=== PATIENT | male | born 1945 | race Caucasian/White ===

== ENCOUNTER 2019-03-17 13:04 | Inpatient (IN) ==
--- OUTSIDE RECORDS SUMMARY | 2019-03-17 13:08 | External Medical Summary | Continuity of Care Document ---
:1945 Author Name Junior Hanley, Provider Address Unavailable Unavailable , Care Team Providers Name Role Phone Gerard Hanley, Lavelle Unavailable [email or web address], [email or web address] Unavailable Unavailable Problems Active medical history not documented Allergies and Adverse Reactions Allergy history not documented Medications Medications not documented Procedures Procedures not documented Immunizations Immunizations not documented Plan of Treatment Planned Observations Planned Goals not documented Results No Known Results Results not documented
[2019-03-17 14:03] LABS: Basophils # (auto) 0.03 K/uL (0-0.2); Basophils % (auto) 0.5 %; Eosinophils # (auto) 0.24 K/uL (0-0.5); Eosinophils % (auto) 4.2 %; Hematocrit (blood only) 40.7 % (42-52); Hemoglobin 13.2 g/dL (14.0-18.0); Immature Granulocytes # (auto) 0.01 K/uL (0.00-0.02); Immature Granulocytes % (auto) 0.2 %; Lymphocytes # (auto) 1.35 K/uL (1.2-3.4); Lymphocytes % (auto) 23.9 %; Mean Corpuscular Hemoglobin 28.2 pg (25-34); Mean Corpuscular Hgb Conc 32.4 g/dL (32-36); Mean Platelet Volume 10.4 fL (7.4-10.4); Monocytes # (auto) 0.51 K/uL (0.11-0.59); Neutrophils # (auto) 3.52 K/uL (1.4-6.5); Neutrophils % (auto) 62.2 %; Platelet Count 253 K/uL (130-400); RDW Coefficient of Variation 14.4 % (11.5-14.5); RDW Standard Deviation 45.7 fL (36.4-46.3); Red Blood Count 4.68 M/uL (4.7-6.1); White Blood Count 5.66 K/uL (4.8-10.8)
--- NOTE | 2019-03-17 14:06 | XRay Report ---
XR chest 1V portable CLINICAL HISTORY: Atypical chest pain COMPARISON STUDY: December 23, 2014 FINDINGS: The heart is borderline enlarged. There is no failure. There is no focal pulmonary consolid ation. There are no pleural effusions.[ IMPRESSION: No active disease in the chest. Electronically signed by: Tyrone Menchaca M.D. 03/17/2019 2:04 PM
[2019-03-17 14:11] LABS: Alanine Aminotransferase 17 U/L (12-78); Albumin Level 4.2 gm/dl (3.4-5.0); Aspartate Aminotransferase 14 U/L (15-37); BUN Creatinine Ratio 13.4 (10-20); Blood Urea Nitrogen 25 mg/dl (7-18); Calcium 9.7 mg/dl (8.5-10.1); Carbon Dioxide 26 mmol/L (21-32); Chloride 107 mmol/L (98-107); Est GFR (African American) 40.7; Est GFR (Non-African American) 35.1; Glucose 91 mg/dl (70-99); Lipase 329 U/L (73-393); Potassium 3.8 mmol/L (3.5-5.1); Sodium 142 mmol/L (136-145)
[2019-03-17 14:15] LABS: Albumin Globulin Ratio 1.2 (0.9-2); Alkaline Phosphatase 34 U/L (45-117); Bilirubin,Total 0.4 mg/dl (0.2-1); Globulin 3.6 gm/dl (2.5-4.0); Phosphorus 3.4 mg/dl (2.5-4.9); Total Protein 7.8 gm/dl (6.4-8.2); Troponin I < 0.015 ng/ml (0-0.045)
[2019-03-17] MEDS ORDERED: ASPIRIN CHEW 324 MG PO STA (15:05)
--- NOTE | 2019-03-17 17:42 | History & Physical Report ---
Date of Service March 17, 2019 Assessment & Plan (1) Dyspnea on exertion: This is a 74 yo M with a PMH of DM II, CAD, systolic heart failure 2/2 ischemic cardiomyopathy, PMR, fibromyalgia and RLS who presents with dyspnea on exertion x 2 weeks. -Progressive dyspnea on exertion for the past few weeks, sent in from PCP for cardiac assessment -History of CAD with multiple lesions on cardiac cath from 2014. Has been medically managed -History of TTE from September 2017 with EF 35-39% with global hypokinesis -EKG from today with sinus rhythm with occasional PVCs and evidence of previous inferior and anterior infarct -Trend troponin, daily EKGs, 2D echo, routine cardio consult, NPO after midnight (2) Chronic systolic CHF (congestive heart failure): In setting of ischemic cardiomyopathy -Most recent echo from September 2017 with EF 35 to 39% -Currently appears euvolemic, chest x-ray without any acute changes -Continue Lasix, beta-demarcus (3) CAD (coronary artery disease): History of cardiac cath in 2014 with a 30% ostial LM stenosis, functionally occluded LAD after the takeoff of the 2nd diagonal branch, minor nonobstr. disease in the LCX and a diffusely diseased RCA with mod. severe dise ase in the prox-mid segment and a 70% distal stenosis -Has been medically managed by LOULOU Chatterjee -Continue baby aspirin, statin, beta demarcus, imdur (4) Diabetes mellitus, type II: A1c of 6.9 in August 2018 -Hold home agents -SSI while in-patient -BSG AC HS (5) HLD (hyperlipidemia): Continue statin (6) CKD (chronic kidney disease), stage III: Cr of 1.86 today, at upper limit of normal (baseline Cr 1.5-1.9) -Continue to monitor with daily BMP (7) PMR (polymyalgia rheumatica): Recently completed prednisone dosepak (8) RLS (restless legs syndrome): Continue ropinirole DVT Ppx: SQ heparin Code status: FULL PCP: Flakita Dispo: Observation tele. Plan to return home once medically stable. Patient seen in collaboration with Dr. Cespedes. Please see addendum. History of Present Illness Chief Complaint: dyspnea on exertion Primary Care Provider: Haley Boggs, DO This is a 74 yo M with a PMH of DM II, CAD, systolic heart failure 2/2 ischemic cardiomyopathy, PMR, fibromyalgia and RLS who presents with dyspnea on exertion x 2 weeks. Patient notes that over the past 2 weeks, he has felt short of breat h with any type of exertion, most notably when he is working in his shed. Was seen by PCP today and mentioned symptoms and had an EKG performed that showed new Q waves in anterior leads, per out-patient note. Was instructed to come to ED for further evaluation. Currently, patient is resting and is asymptomatic. Patient is afebrle and hemodynamically stable. Oxygen saturation at 97% on RA. Denies any chest pain or SOB at rest. Denies fever, chills, lightheadedness, chest pain, palpitations, wheezing, nausea, vomiting, abdominal pain, dysuria, diarrhea or constipation. No lower extremity swelling. Feels like he has gained weight recently after attending a [employer] where he ate a lot of processed foods. No orthopnea or PND. 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 Denies every experiencing chest pain in the past. TTE from September 2017 with EF 35-39% with global hypokinesis. Also underwent cardiac cath in 2014 with a 30% ostial LM stenosis, functionally occluded LAD after the takeoff of the second diagonal branch, minor nonobstructive disease in the LCX, and a diffusely diseased RCA with moderately severe disease in the proximal and mid segment and a 70% distal stenosis. Has been medically managed. Follows with LOULOU Chatterjee in clinic. Allergies Allergy/AdvReac Type Severity Reaction Status Date / Time cefadroxil Allergy Unknown RASH Verified 03/17/19 14:33 Home Medications Home Medications Medication Instructions Recorded Confirmed Type aspirin 81 mg PO QAM 03/17/19 03/17/19 History cyanocobalamin (vitamin B-12) 1,000 mcg PO QAM 03/17/19 03/17/19 History [Vitamin B-12] diphenhydramine HCl [Benadryl 25 mg PO QAM 03/17/19 03/17/19 History Allergy] fenofibrate 108 mg PO HS 03/17/19 03/17/19 History finasteride 5 mg PO QAM 03/17/19 03/17/19 History furosemide 40 mg PO QAM 03/17/19 03/17/19 History glipizide 20 mg PO QAM 03/17/19 03/17/19 History isosorbide mononitrate 30 mg PO QAM 03/17/19 03/17/19 History metformin 500 mg PO BID 03/17/19 03/17/19 History metoprolol succinate 12.5 mg PO BID 03/17/19 03/17/19 History omeprazole 20 mg PO QAM 03/17/19 03/17/19 History ropinirole 0.5 mg PO HS 03/17/19 03/17/19 History rosuvastatin 40 mg PO QAM 03/17/19 03/17/19 History sitagliptin [Januvia] 50 mg PO HS 03/17/19 03/17/19 History tramadol 50 mg PO BID PRN 03/17/19 03/17/19 History Past Med/Surg History Medical History RLS (restless legs syndrome) (Chronic) Fibromyalgia (Chronic) PMR (polymyalgia rheumatica) (Chronic) GERD (gastroesophageal reflux disease) (Chronic) HLD (hyperlipidemia) (Chronic) CAD (coronary artery disease) (Chronic) Diabetes mellitus, type II (Chronic) Ischemic cardiomyopathy (Chronic) "EF 20-25% by TTE on 12/22/2014" CKD (chronic kidney disease), stage III (Chronic) Surgical History H/O wrist surgery (Chronic) History of cardiac catheterization (Chronic) History of knee replacement (Chronic) Family History Other Heart disease Stroke Social History Preferred Language: Tajik Communication Ability: Effective Beliefs That Will Affect Care: None Current Living Situation: Spouse Other Information That Helps Us Care for You: No Feels Safe at Home: Yes Safety Concerns: Feels Safe At This Time Smoking Status: Never smoker Hx Alcohol Use: Yes Alcohol type: beer Hx Substance Use: No Review of Systems Review of Systems: At least ten systems reviewed and negative except as noted in the HPI. Physical Exam Physical Exam: General Appearance: WD/WN, vitals as above, NAD, sitting up in bed, pleasant, conversing easily Head: normocephalic, atraumatic Eyes: normal inspection, PERRL, conjunctivae normal, anicteric sclerae ENT: external ear and nose normal, oropharynx normal Neck: trachea midline, no thyromegaly normal visual inspection Respiratory: normal respiratory effort, lungs clear to auscultation, no wheeze, rales, rhonchi. No accessory muscle use Cardiovascular: regular rate, rhythm, systolic ejection murmur, normal peripheral pulses. Vessels: no JVD or carotid bruit Chest: normal inspection of chest Abdomen/GI: normal bowel sounds, soft, nontender, no hepatosplenomegaly Extremities/Musculoskelatal: no cyanosis or clubbing, extremities motor strength 5/5 Neurologic: PERRL, EOMI, accommodation nl, no face palsy, no dysarthria CN's II-XI intact bilaterally and moves all extremities Psychiatric: A+Ox3, euthymic affect Skin: no rashes, normal color, warm/dry Results & Data Vital Signs (Past 12 Hours) Vital Signs Temp Pulse Pulse Resp BP BP Pulse Ox 03/17/19 16:59 72 17 113/67 97 03/17/19 16:00 82 20 121/66 95 03/17/19 15:05 84 21 103/60 97 03/17/19 14:20 87 20 110/63 98 03/17/19 13:54 80 97 03/17/19 13:27 85 96 03/17/19 13:12 36.6 C 88 18 121/68 96 Laboratory Results Short CBC 03/17/19 03/17/19 03/17/19 Range/Units 13:20 13:20 13:20 WBC 5.66 (4.8-10.8) K/uL RBC 4.68 L (4.7-6.1) M/uL Hgb 13.2 L (14.0-18.0) g/dL Hct 40.7 L (42-52) % MCV 87.0 (80-100) fL MCH 28.2 (25-34) pg MCHC 32.4 (32-36) g/dL RDW Std Deviation 45.7 (36.4-46.3) fL RDW Coeff of Serene 14.4 (11.5-14.5) % Plt Count 253 (130-400) K/uL MPV 10.4 (7.4-10.4) fL Immature Gran % (Auto) 0.2 % Neut % (Auto) 62.2 % Lymph % (Auto) 23.9 % [place] % (Auto) 9.0 % Eos % (Auto) 4.2 % Baso % (Auto) 0.5 % Immature Gran # (Auto) 0.01 (0.00-0.02) K/uL Neut # (Auto) 3.52 (1.4-6.5) K/uL Lymph # (Auto) 1.35 (1.2-3.4) K/uL [place] # (Auto) 0.51 (0.11-0.59) K/uL Eos # (Auto) 0.24 (0-0.5) K/uL Baso # (Auto) 0.03 (0-0.2) K/uL Sodium 142 (136-145) mmol/L Potassium 3.8 (3.5-5.1) mmol/L Chloride 107 (98-107) mmol/L Carbon Dioxide 26 (21-32) mmol/L Anion Gap 9.0 (3-11) BUN 25 H (7-18) mg/dl Creatinine 1.86 H (0.6-1.4) mg/dl Est Cr Clr Drug Dosing Not Reportable Est GFR ( Amer) 40.7 Est GFR (Non-Af Amer) 35.1 BUN/Creatinine Ratio 13.4 (10-20) Glucose 91 (70-99) mg/dl Calcium 9.7 (8.5-10.1) mg/dl Phosphorus 3.4 (2.5-4.9) mg/dl Magnesium 2.0 (1.8-2.4) mg/dl Total Bilirubin 0.4 (0.2-1) mg/dl AST 14 L (15-37) U/L ALT 17 (12-78) U/L Alkaline Phosphatase 34 L (45-117) U/L Troponin I < 0.015 (0-0.045) ng/ml Total Protein 7.8 (6.4-8.2) gm/dl Albumin 4.2 (3.4-5.0) gm/dl Globulin 3.6 (2.5-4.0) gm/dl Albumin/Globulin Ratio 1.2 (0.9-2) Lipase 329 (73-393) U/L Digoxin 0.1 L (0.8-2.0) ng/ml BMP 03/17/19 13:20 Sodium 142 Potassium 3.8 Chloride 107 Carbon Dioxide 26 BUN 25 H Creatinine 1.86 H Glucose 91 Calcium 9.7 Cardiac Enzymes 03/17/19 Range/Units 13:20 Troponin I < 0.015 (0-0.045) ng/ml Liver Function 03/17/19 Range/Units 13:20 Total Bilirubin 0.4 (0.2-1) mg/dl AST 14 L (15-37) U/L ALT 17 (12-78) U/L Alkaline Phosphatase 34 L (45-117) U/L Albumin 4.2 (3.4-5.0) gm/dl Diagnostic Findings CXR: IMPRESSION: No active disease in the chest. ECG Rhythm: sinus rhythm Findings: + PVC Code Status & VTE Plan VTE Prophylaxis Plan VTE Prophylaxis will be ordered: Yes Supervising Physician Co-Signing Physician Notes Attending Addendum: care coordinated with JASWINDER Brito please refer to her notes for full details, I agree with her notes patient seen and examined, records reviewed by myself as well on exam, patient seen resting in bed, comfortable chest pain free, no active dyspnea no other symptoms VS noted and reviewed oriented x 3 , not in distress, speaks in sentences with no effort nor accessory muscle use normal rate, regular rhythm, (+) systolic murmur clear breath sounds bilaterally non distended, soft, nontender no bipedal edema, erythema, warmth no neuro deficits WBC 5.6 Hg 13.2 Crea 1.8 ASSESSMENT AND PLAN DYSPNEA ON EXERTION R/O UNSTABLE ANGINA trend troponins echo Cardio consult, possible stress test vs cardiac cath CKD 3 monitor other diagnoses and plan of care as per JASWINDER Brito's notes Frank Cespedes MD
[2019-03-17] MEDS ORDERED: ACETAMINOPHEN 325 MG TAB PO PRN (18:39)
[2019-03-17] MEDS ORDERED: GLUCAGON FOR INJ 1 MG VIAL SQ PRN (18:39)
[2019-03-17] MEDS ORDERED: GLUCOSE 40% GEL 15 GM TUBE PO PRN (18:39)
[2019-03-17] MEDS ORDERED: GLUCOSE 10 TABS/TUBE PO PRN (18:39)
[2019-03-17] MEDS ORDERED: TRAMADOL HCL 50 MG TABLET PO PRN (18:39)
[2019-03-17] MEDS ORDERED: POLYETHYLENE (MIRALAX) 17 GM PACK PO PRN (18:39)
[2019-03-17] MEDS ORDERED: ONDANSETRON INJ 2 MG/ML 2 ML VIAL IV PRN (18:39)
[2019-03-17] MEDS ORDERED: CARBOHYDRATES FOR HYPOGLYCEMIA PO PRN (18:39)
[2019-03-17] MEDS ORDERED: DEXTROSE 50% 50 ML SYRINGE IV PRN (18:39)
[2019-03-17] MEDS ORDERED: HEPARIN SOD 5,000 UNIT/0.5 ML VIAL SQ ONE (19:15)
--- NOTE | 2019-03-17 19:40 | Emergency Department Note ---
Entered by Sugey Catnu acting as a scribe for Neptali Merchant MD History of Present Illness General Chief complaint: Cardiac Assessment Stated complaint: HEART PROBLEMS HX HEART ATTACKS Time Seen by Provider: 03/17/19 13:48 Source: patient Mode of arrival: ambulatory History of Present Illness Provider complaint: shortness of breaath Onset (ago): week(s) 2 Location: chest Pain Consistency: + other (worsening ) Exacerbated By: + movement Associated symptoms: + denies other symptoms (abdominal pain ) and + other (fa tigued, weight gain ); no chest pain, no cough, no fever/chills and no nausea/vomiting The patient is a 74 year old male with a PMHX of HLD, PMR, GERD, CHF, CAD, and DMII, who presents to the ED with complaints of worsening shortness of breath that began 2 weeks ago. The patient states that he is fatigued. He states that he has been noticing a slight weight gain. He states that the fatigue and shortness of breath are exacerbated with movement. He states that he experiences no symptoms while resting. The patient denies chest pain, nausea, vomiting, a cough, fevers, and abdominal pain. The patient denies any change in his diet. He denies a history of blood clots in his hearts and lungs. The patient states that he takes a baby aspirin daily. The patient states that his commissions coordinator is Dr. Chatterjee. Medical review of the patients chart shows that the patient was referred to the ED from Dr. Berg office, [facility]. It states that the patient was sent for fatigue, chest tightness and EKG findings. The EKG showed with new Q-waves anteriorly. The patient was sent to the ED for a possible cardiac catheterization. Home Medications Home Medications Medication Instructions Recorded Confirmed Type aspirin 81 mg PO QAM 03/17/19 03/17/19 History cyanocobalamin (vitamin B-12) 1,000 mcg PO QAM 03/17/19 03/17/19 History [Vitamin B-12] diphenhydramine HCl [Benadryl 25 mg PO QAM 03/17/19 03/17/19 History Allergy] fenofibrate 108 mg PO HS 03/17/19 03/17/19 History finasteride 5 mg PO QAM 03/17/19 03/17/19 History furosemide 40 mg PO QAM 03/17/19 03/17/19 History glipizide 20 mg PO QAM 03/17/19 03/17/19 History isosorbide mononitrate 30 mg PO QAM 03/17/19 03/17/19 History metformin 500 mg PO BID 03/17/19 03/17/19 History metoprolol succinate 12.5 mg PO BID 03/17/19 03/17/19 History omeprazole 20 mg PO QAM 03/17/19 03/17/19 History ropinirole 0.5 mg PO HS 03/17/19 03/17/19 History rosuvastatin 40 mg PO QAM 03/17/19 03/17/19 History sitagliptin [Januvia] 50 mg PO HS 03/17/19 03/17/19 History tramadol 50 mg PO BID PRN 03/17/19 03/17/19 History Allergies Allergy/AdvReac Type Severity Reaction Status Date / Time cefadroxil Allergy Unknown RASH Verified 03/17/19 14:33 Past Med/Surg History Medical History RLS (restless legs syndrome) (Chronic) Fibromyalgia (Chronic) PMR (polymyalgia rheumatica) (Chronic) GERD (gastroesophageal reflux disease) (Chronic) HLD (hyperlipidemia) (Chronic) CAD (coronary artery disease) (Chronic) Diabetes mellitus, type II (Chronic) Ischemic cardiomyopathy (Chronic) "EF 20-25% by TTE on 12/22/2014" CKD (chronic kidney disease), stage III (Chronic) Surgical History H/O wrist surgery (Chronic) History of cardiac catheterization (Chronic) History of knee replacement (Chronic) Family History Other Heart disease Stroke Social History Preferred Language: Greek Communication Ability: Effective Beliefs That Will Affect Care: None Current Living Situation: Spouse Other Information That Helps Us Care for You: No Feels Safe at Home: Yes Safety Concerns: Feels Safe At This Time Smoking Status: Never smoker Hx Alcohol Use: Yes Alcohol type: beer Hx Substance Use: No Review of Systems See HPI for pertinent positives & negatives. and A total of 10 systems reviewed and were otherwise negative Physical Exam Vital Signs Vital Signs - 24 hr 03/17/19 13:12 03/17/19 13:27 03/17/19 13:54 Temperature 36.6 C Temperature Source Oral Sepsis Recent Fever Within 48 Hours No Sepsis New/Unexplained Change in Mental Status No Sepsis Action Taken by Nursing No Action Required Pulse Rate 88 85 80 Pulse Rate [Left] Pulse Rhythm Regular Pulse Strength Normal Respiratory Rate 18 Respiratory Effort / Characteristics Respiratory Depth Respiratory Pattern Blood Pressure 121/68 Blood Pressure [Right Arm] Blood Pressure Mean 85 Blood Pressure Mean [Right Arm] Blood Pressure Position Lying Blood Pressure Position [Right Arm] Pulse Oximetry 96 96 97 Oxygen Delivery Method Room Air Room Air Room Air 03/17/19 14:20 03/17/19 15:05 03/17/19 15:37 Temperature Temperature Source Sepsis Recent Fever Within 48 Hours Sepsis New/Unexplained Change in Mental Status Sepsis Action Taken by Nursing Pulse Rate Pulse Rate [Left] 87 84 Pulse Rhythm Pulse Strength Respiratory Rate 20 21 Respiratory Effort / Characteristics Non-Labored Spontaneous Non-Labored Short of Breath SOB on Exertion Respiratory Depth Normal Normal Respiratory Pattern Regular Regular Blood Pressure Blood Pressure [Right Arm] 110/63 103/60 Blood Pressure Mean Blood Pressure Mean [Right Arm] 78 74 Blood Pressure Position Blood Pressure Position [Right Arm] Lying Pulse Oximetry 98 97 Oxygen Delivery Method Room Air Room Air Room Air 03/17/19 16:00 Temperature Temperature Source Sepsis Recent Fever Within 48 Hours Sepsis New/Unexplained Change in Mental Status Sepsis Action Taken by Nursing Pulse Rate Pulse Rate [Left] 82 Pulse Rhythm Pulse Strength Respiratory Rate 20 Respiratory Effort / Characteristics Non-Labored Respiratory Depth Normal Respiratory Pattern Regular Blood Pressure Blood Pressure [Right Arm] 121/66 Blood Pressure Mean Blood Pressure Mean [Right Arm] 84 Blood Pressure Position Blood Pressure Position [Right Arm] Pulse Oximetry 95 Oxygen Delivery Method Room Air GENERAL: Well appearing, well nourished, wearing glasses, NAD, non-toxic. EYE EXAM: Normal conjunctiva. PERRL, no anisocoria and EOM's grossly intact w/o pain. OROPHARYNX: Moist mucous membranes. Missing several teeth. NECK: Supple, no nuchal rigidity, no adenopathy, non-tender. No signs of meningismus. LUNGS: Clear to auscultation. Normal chest wall mechanics. HEART: NSR, no MRG. ABDOMEN: Abdomen soft, non-tender, normo-active bowel sounds, no masses, no rebound or guarding. BACK: No CVA TTP. SKIN: No rashes and no bruising. UPPER EXTREMITIES: Upper extremities are grossly normal. LOWER EXTREMITIES: No pitting edema. No calf pain. Negative Homans bilaterally. NEURO EXAM: A&O x3, cranial nerves II-XII grossly intact, normal speech, moves all 4 extremities on command w/o issue. Course 1356: Past medical records reviewed. The patient was evaluated in room B4. A complete history and physical exam was performed. 1459: I discussed the patient's case with Terese Hutton PA-C. She informed me that Dr. Mclaughlin, [facility] Hospitalist, agreed to evaluate the patient for further management. 1505: I reevaluated the patient at this time and updated him on the treatment plan. He verbally agreed and understood. The patient was discharged home for further self-care. Consultations Consultation #1: I discussed the patient's case with Terese Hutton PA-C. She informed me that Dr. Mclaughlin, [facility] Hospitalist, agreed to evaluate the patient for further management. Time: 14:59 Administered Medications Discontinued Medications Aspirin (Aspirin) 324 mg PO NOW STA Stop: 03/17/19 15:06 Last Admin: 03/17/19 15:15 Dose: 324 mg Documented by: [id number] Medical Decision Making Differential Diagnosis Differential diagnosis: Etiologies such as infections, reactive airway disease, COPD, pneumonia, pleural effusion, pulmonary edema, ARDS, pneumothorax, CHF, cardiac ischemia, cardiac tamponade, dysrhythmia, anemia, pulmonary embolism, musculoskeletal, gastrointestinal process, as well as others were entertained. Medical Records Attestation: I reviewed the patient's medical records. Home Medications Current Medication List: was personally reviewed by me Laboratory Data Attestation: I reviewed the patient's lab results. Result diagrams: 03/17/19 13:20 03/17/19 13:20 Lab Results 03/17/19 03/17/19 03/17/19 Range/Units 13:20 13:20 13:20 WBC 5.66 (4.8-10.8) K/uL RBC 4.68 L (4.7-6.1) M/uL Hgb 13.2 L (14.0-18.0) g/dL Hct 40.7 L (42-52) % MCV 87.0 (80-100) fL MCH 28.2 (25-34) pg MCHC 32.4 (32-36) g/dL RDW Std Deviation 45.7 (36.4-46.3) fL RDW Coeff of Serene 14.4 (11.5-14.5) % Plt Count 253 (130-400) K/uL MPV 10.4 (7.4-10.4) fL Immature Gran % (Auto) 0.2 % Neut % (Auto) 62.2 % Lymph % (Auto) 23.9 % [place] % (Auto) 9.0 % Eos % (Auto) 4.2 % Baso % (Auto) 0.5 % Immature Gran # (Auto) 0.01 (0.00-0.02) K/uL Neut # (Auto) 3.52 (1.4-6.5) K/uL Lymph # (Auto) 1.35 (1.2-3.4) K/uL [place] # (Auto) 0.51 (0.11-0.59) K/uL Eos # (Auto) 0.24 (0-0.5) K/uL Baso # (Auto) 0.03 (0-0.2) K/uL Sodium 142 (136-145) mmol/L Potassium 3.8 (3.5-5.1) mmol/L Chloride 107 (98-107) mmol/L Carbon Dioxide 26 (21-32) mmol/L Anion Gap 9.0 (3-11) BUN 25 H (7-18) mg/dl Creatinine 1.86 H (0.6-1.4) mg/dl Est Cr Clr Drug Dosing Not Reportable Est GFR ( Amer) 40.7 Est GFR (Non-Af Amer) 35.1 BUN/Creatinine Ratio 13.4 (10-20) Glucose 91 (70-99) mg/dl Calcium 9.7 (8.5-10.1) mg/dl Phosphorus 3.4 (2.5-4.9) mg/dl Magnesium 2.0 (1.8-2.4) mg/dl Total Bilirubin 0.4 (0.2-1) mg/dl AST 14 L (15-37) U/L ALT 17 (12-78) U/L Alkaline Phosphatase 34 L (45-117) U/L Troponin I < 0.015 (0-0.045) ng/ml Total Protein 7.8 (6.4-8.2) gm/dl Albumin 4.2 (3.4-5.0) gm/dl Globulin 3.6 (2.5-4.0) gm/dl Albumin/Globulin Ratio 1.2 (0.9-2) Lipase 329 (73-393) U/L Digoxin 0.1 L (0.8-2.0) ng/ml Imaging Data Radiologist's Impression: Radiology results as stated below per my review and the radiologist's interpretation: XR chest 1V portable CLINICAL HISTORY: Atypical chest pain COMPARISON STUDY: December 23, 2014 FINDINGS: The heart is borderline enlarged. There is no failure. There is no focal pulmonary consolidation. There are no pleural effusions.[ IMPRESSION: No active disease in the chest. Electronically signed by: Tyrone Menchaca M.D. 03/17/2019 2:04 PM ECG Data Attestation: I personally reviewed and interpreted this ECG as follows: Indication: SOB/dyspnea Rate (beats per minute): 89 Rhythm: sinus rhythm Findings: + other (normal intervals, normal axis), + PVC, + Q waves (inferiorly ) and + T-wave inversion (in the lateral leads ) Comparison ECG Date: from (01/26/2015) Change: the following changes noted (Q-waves inferiorly are old on current, Q- waves anteriorly are similar to the outpatient EKG, T-wave inversions laterally are new ) Blood Pressure Blood Pressure Findings: Normal blood pressure Blood Pressure Disposition: did not require urgent referral MDM Narrative Patient was seen initially he was a referral due to concern for EKG changes as well as a known history of CAD. The patient has complained of recent exertional dyspnea and fatigue. The patient is well-appearing at the bedside with no lower extremity swelling negative Homans sign and denies cough and no active chest pain or shortness of breath while at rest. Patient does have some new T wave inversions in the lateral lead. The patient is otherwise fairly well- appearing the bedside. Given the referral as well as the discussion in the outpatient providers note about the possibility of a cath I did speak with the on-call hospitalist who agreed to further evaluate treat the patient. I do not believe he requires emergent cath at this time as the patient denies any symptoms at rest. The patient was told to advise staff if he does develop any shortness of breath or chest pain while at rest. Patient was given full dose aspirin and was admitted to the medicine service. Impression & Plan Exertional dyspnea, CKD (chronic kidney disease), stage III, Hx of coronary artery disease Discharge Plan Visit Data *Final* Discharge Date/Time: 03/17/19 18:15 Chief Complaint: Cardiac Assessment Stated Complaint: HEART PROBLEMS HX HEART ATTACKS ED Provider: Neptali Merchant Discharge Problem: Exertional dyspnea, CKD (chronic kidney disease), stage III, Hx of coronary artery disease Patient Disposition: Admitted As Inpatient Discharge Instructions Interventions: ED Discharge Assessment Last Done: 03/17/19 18:15 The scribe's documentation has been prepared under my direction and personally reviewed by me in its entirety. I confirm that the note above accurately r eflects all work, treatment, procedures, and medical decision making performed by me.
[2019-03-17] MEDS: METOPROLOL SUCC 25MG EXT REL TAB PO SCH (19:44)
[2019-03-17] MEDS: ROPINIROLE HCL 0.25 MG TABLET PO SCH (19:44)
[2019-03-17] MEDS: INSULIN ASPART 100 UNITS/ML 3 ML PEN SC SCH (19:47)
[2019-03-17] MEDS ORDERED: HEPARIN SOD 5,000 UNIT/0.5 ML VIAL SQ SCH (22:00)
[2019-03-18 01:29] LABS: Hematocrit (blood only) 38.8 % (42-52); Hemoglobin 12.4 g/dL (14.0-18.0); Mean Corpuscular Hemoglobin 27.7 pg (25-34); Mean Corpuscular Volume 86.6 fL (80-100); Mean Platelet Volume 9.9 fL (7.4-10.4); Platelet Count 215 K/uL (130-400); RDW Coefficient of Variation 14.4 % (11.5-14.5); RDW Standard Deviation 45.6 fL (36.4-46.3); Red Blood Count 4.48 M/uL (4.7-6.1)
[2019-03-18 01:45] LABS: BUN Creatinine Ratio 12.6 (10-20); Calcium 9.1 mg/dl (8.5-10.1); Est GFR (African American) 36.8; Est GFR (Non-African American) 31.8; Potassium 4.2 mmol/L (3.5-5.1)
[2019-03-18 06:02] LABS: Estimated Average Glucose 166 mg/dl; Hemoglobin A1C 7.4 % (4.5-5.6)
[2019-03-18] MEDS ORDERED: PERFLUTREN LIPID MICROSPHERE (DEFINITY) IV ONE (06:40)
[2019-03-18] MEDS: INSULIN ASPART 100 UNITS/ML 3 ML PEN SC SCH ×4 (07:49→21:18)
[2019-03-18] MEDS: ROSUVASTATIN CALCIUM 20 MG TAB PO SCH (09:05)
[2019-03-18] MEDS: FINASTERIDE 5 MG TAB PO SCH (09:05)
[2019-03-18] MEDS: ASPIRIN 81 MG ECTAB PO SCH (09:06)
[2019-03-18] MEDS: CYANOCOBALAMIN 500 MCG TABLET (VITAMIN B-12) PO SCH (09:06)
[2019-03-18] MEDS: PANTOprazole 40 MG TAB PO SCH (09:06)
[2019-03-18] MEDS: ISOSORBIDE MONO EXTENDED REL 30 MG TABCR PO SCH (09:07)
[2019-03-18] MEDS: FUROSEMIDE 40 MG TAB PO SCH (09:07)
[2019-03-18] MEDS: METOPROLOL SUCC 25MG EXT REL TAB PO SCH ×2 (09:31→20:38)
--- NOTE | 2019-03-18 11:08 | Cardiology Consultation ---
Date of Consultation March 18, 2019 Assessment & Plan (1) Exertional dyspnea: (2) Hx of coronary artery disease: (3) Ischemic cardiomyopathy: (4) Diabetes mellitus, type II: (5) Aortic stenosis: I think the best way to proceed with this patient is to perform a right and left heart catheterization. I have explained the risk, benefit and intent of the procedure to him and he is willing to proceed. I will have further recommendations following the above. History of Present Illness Attending Physician: Frank Cespedes MD History of Present Illness This is a 74-year-old male patient with a history of an ischemic cardiomyopathy. Several years ago he presented late with an anterior wall myocardial infarction. He has had chronic systolic heart failure and was last seen in our clinic in September at which time he was doing well. Over the past several weeks he has noticed some increased shortness of breath with activity. No chest pain. No heart palpitations or tachycardia. The patient presented to his primary care physician's office with the above complaints and was directly admitted to the hospital. He has had no orthopnea. No lower extremity edema during girth. An echocardiogram was completed after admission that shows poor LV function with an estimated left ventricular ejection fraction of around 25 to 30%. He does have significant aortic sclerosis with the degree of aortic stenosis unknown as the aortic Doppler studies suggest no significant aortic stenosis but by two- dimensional echocardiography shows reduced systolic motion of the valve leaflets. Past medical history: 1. Chronic systolic heart failure 2. Ischemic cardiomyopathy with moderately severe systolic dysfunction following late presentation anterior wall DC. LVEF initially 20-25%. 3. Past poor tolerance to lisinopril 4. NYHA Class II dyspnea. 5. Chronic renal insufficiency. 6. Dyslipidemia. On rosuvastatin 40 mg/day and fenofibrate. Followed by PCP. Allergies Allergy/AdvReac Type Severity Reaction Status Date / Time cefadroxil Allergy Unknown RASH Verified 03/17/19 14:33 Home Medications Home Medications Medication Instructions Recorded Confirmed Type aspirin 81 mg PO QAM 03/17/19 03/17/19 History cyanocobalamin (vitamin B-12) 1,000 mcg PO QAM 03/17/19 03/17/19 History [Vitamin B-12] diphenhydramine HCl [Benadryl 25 mg PO QAM 03/17/19 03/17/19 History Allergy] fenofibrate 108 mg PO HS 03/17/19 03/17/19 History finasteride 5 mg PO QAM 03/17/19 03/17/19 History furosemide 40 mg PO QAM 03/17/19 03/17/19 History glipizide 20 mg PO QAM 03/17/19 03/17/19 History isosorbide mononitrate 30 mg PO QAM 03/17/19 03/17/19 History metformin 500 mg PO BID 03/17/19 03/17/19 History metoprolol succinate 12.5 mg PO BID 03/17/19 03/17/19 History omeprazole 20 mg PO QAM 03/17/19 03/17/19 History ropinirole 0.5 mg PO HS 03/17/19 03/17/19 History rosuvastatin 40 mg PO QAM 03/17/19 03/17/19 History sitagliptin [Januvia] 50 mg PO HS 03/17/19 03/17/19 History tramadol 50 mg PO BID PRN 03/17/19 03/17/19 History Patient History Medical History RLS (restless legs syndrome) (Chronic) Fibromyalgia (Chronic) PMR (polymyalgia rheumatica) (Chronic) GERD (gastroesophageal reflux disease) (Chronic) HLD (hyperlipidemia) (Chronic) CAD (coronary artery disease) (Chronic) Diabetes mellitus, type II (Chronic) Ischemic cardiomyopathy (Chronic) "EF 20-25% by TTE on 12/22/2014" CKD (chronic kidney disease), stage III (Chronic) Surgical History H/O wrist surgery (Chronic) History of cardiac catheterization (Chronic) History of knee replacement (Chronic) Family History Other Heart disease Stroke Social History Preferred Language: R[place] Communication Ability: Effective Beliefs That Will Affect Care: None Current Living Situation: Spouse Other Information That Helps Us Care for You: No Feels Safe at Home: Yes Safety Concerns: Feels Safe At This Time Smoking Status: Never smoker Hx Alcohol Use: Yes Alcohol type: beer Hx Substance Use: No Review of Systems Review of Systems: All systems reviewed & are unremarkable except as noted in HPI & below Nothing additional to add. Physical Exam Physical Exam: General: no acute distress and stated age Head: normocephalic, no masses, lesions, tenderness or abnormalities Eyes: conjunctiva are pink and non-injected, sclera clear Neck: supple, no adenopathy, no bruits, normal jugular venous pulse, no hepatojugular reflux Chest: normal shape and normal respiratory effort Lungs: clear to auscultation and percussion Cardiac Exam: - regular rate & rhythm, systolic murmur left sternal border- normal S1, normal S2 Pulses: 2(+) throughout Abdomen: abdomen soft, non-tender, no abnormal masses and no hepatosplenomegaly Musculoskeletal: no gait disturbance, no joint inflammation, no deforming arthritis Extremities: no edema and no cyanosis Neuro: grossly normal exam Results & Data Vital Signs (Past 12 Hours) Vital Signs Temp Pulse Pulse Resp BP Pulse Ox 03/18/19 07:24 36.4 C L 75 16 114/65 100 03/18/19 03:19 36.6 C 80 18 98/55 L 98 03/17/19 23:09 36.5 C 79 16 112/65 99 Laboratory Results Laboratory Results - last 24 hr 03/17/19 03/17/19 03/17/19 13:20 13:20 13:20 WBC 5.66 RBC 4.68 L Hgb 13.2 L Hct 40.7 L MCV 87.0 MCH 28.2 MCHC 32.4 RDW Std Deviation 45.7 RDW Coeff of Serene 14.4 Plt Count 253 MPV 10.4 Immature Gran % (Auto) 0.2 Neut % (Auto) 62.2 Lymph % (Auto) 23.9 [place] % (Auto) 9.0 Eos % (Auto) 4.2 Baso % (Auto) 0.5 Immature Gran # (Auto) 0.01 Neut # (Auto) 3.52 Lymph # (Auto) 1.35 [place] # (Auto) 0.51 Eos # (Auto) 0.24 Baso # (Auto) 0.03 Sodium 142 Potassium 3.8 Chloride 107 Carbon Dioxide 26 Anion Gap 9.0 BUN 25 H Creatinine 1.86 H Est Cr Clr Drug Dosing Not Reportable Est GFR ( Amer) 40.7 Est GFR (Non-Af Amer) 35.1 BUN/Creatinine Ratio 13.4 Glucose 91 POC Glucose Estimat Average Glucose Hemoglobin A1c Calcium 9.7 Phosphorus 3.4 Magnesium 2.0 Total Bilirubin 0.4 AST 14 L ALT 17 Alkaline Phosphatase 34 L Troponin I < 0.015 Total Protein 7.8 Albumin 4.2 Globulin 3.6 Albumin/Globulin Ratio 1.2 Lipase 329 Digoxin 0.1 L 03/17/19 03/17/19 03/18/19 18:50 19:14 01:16 WBC RBC Hgb Hct MCV MCH MCHC RDW Std Deviation RDW Coeff of Serene Plt Count MPV Immature Gran % (Auto) Neut % (Auto) Lymph % (Auto) [place] % (Auto) Eos % (Auto) Baso % (Auto) Immature Gran # (Auto) Neut # (Auto) Lymph # (Auto) [place] # (Auto) Eos # (Auto) Baso # (Auto) Sodium Potassium Chloride Carbon Dioxide Anion Gap BUN Creatinine Est Cr Clr Drug Dosing Est GFR ( Amer) Est GFR (Non-Af Amer) BUN/Creatinine Ratio Glucose POC Glucose 76 Estimat Average Glucose Hemoglobin A1c Calcium Phosphorus Magnesium Total Bilirubin AST ALT Alkaline Phosphatase Troponin I 0.017 < 0.015 Total Protein Albumin Globulin Albumin/Globulin Ratio Lipase Digoxin 03/18/19 03/18/19 03/18/19 01:16 01:16 01:16 WBC 5.30 RBC 4.48 L Hgb 12.4 L Hct 38.8 L MCV 86.6 MCH 27.7 MCHC 32.0 RDW Std Deviation 45.6 RDW Coeff of Serene 14.4 Plt Count 215 MPV 9.9 Immature Gran % (Auto) Neut % (Auto) Lymph % (Auto) [place] % (Auto) Eos % (Auto) Baso % (Auto) Immature Gran # (Auto) Neut # (Auto) Lymph # (Auto) [place] # (Auto) Eos # (Auto) Baso # (Auto) Sodium 143 Potassium 4.2 Chloride 107 Carbon Dioxide 30 Anion Gap 6.0 BUN 26 H Creatinine 2.02 H Est Cr Clr Drug Dosing 39.0 Est GFR ( Amer) 36.8 Est GFR (Non-Af Amer) 31.8 BUN/Creatinine Ratio 12.6 Glucose 104 H POC Glucose Estimat Average Glucose 166 Hemoglobin A1c 7.4 H Calcium 9.1 Phosphorus Magnesium Total Bilirubin AST ALT Alkaline Phosphatase Troponin I Total Protein Albumin Globulin Albumin/Globulin Ratio Lipase Digoxin 09/18/19 09/18/19 07:22 11:21 WBC RBC Hgb Hct MCV MCH MCHC RDW Std Deviation RDW Coeff of Serene Plt Count MPV Immature Gran % (Auto) Neut % (Auto) Lymph % (Auto) [place] % (Auto) Eos % (Auto) Baso % (Auto) Immature Gran # (Auto) Neut # (Auto) Lymph # (Auto) [place] # (Auto) Eos # (Auto) Baso # (Auto) Sodium Potassium Chloride Carbon Dioxide Anion Gap BUN Creatinine Est Cr Clr Drug Dosing Est GFR ( Amer) Est GFR (Non-Af Amer) BUN/Creatinine Ratio Glucose POC Glucose 90 101 H Estimat Average Glucose Hemoglobin A1c Calcium Phosphorus Magnesium Total Bilirubin AST ALT Alkaline Phosphatase Troponin I Total Protein Albumin Globulin Albumin/Globulin Ratio Lipase Digoxin Medications Administered Current Inpatient Medications Acetaminophen (Tylenol) 650 mg PO Q4H PRN PRN Reason: Pain or Fever Stop: 04/16/19 18:38 Aspirin (Ecotrin Ectab) 81 mg PO [facility] Stop: 04/17/19 08:59 Last Admin: 03/18/19 09:06 Dose: 81 mg Documented by: Cyanocobalamin (Vitamin B-12) [facility] [place] Stop: 04/17/19 08:59 Last Admin: 03/18/19 09:06 Dose: 1,000 mcg Documented by: Dextrose (Dextrose 50%) 25 - 50 ml IV UD PRN; Protocol PRN Reason: Hypoglycemia Protocol Stop: 04/16/19 18:38 Diphenhydramine HCl (Benadryl Capsule) 25 mg PO [facility] Stop: 04/17/19 08:59 Last Admin: 03/18/19 09:05 Dose: 25 mg Documented by: Finasteride (Proscar) [facility] [place] Stop: 04/17/19 08:59 Last Admin: 03/18/19 09:05 Dose: 5 mg Documented by: Furosemide (Lasix) [facility] [place] Stop: 04/17/19 08:59 Last Admin: 03/18/19 09:07 Dose: 40 mg Documented by: Glucagon (Glucagen) 1 mg SQ UD PRN; Protocol PRN Reason: Hypoglycemia Protocol Stop: 04/16/19 18:38 Glucose (Glucose 40%) 15 - 30 gm PO UD PRN; Protocol PRN Reason: Hypoglycemia Protocol Stop: 04/16/19 18:38 Glucose (Dex4 Glucose) 4 - 8 tabs PO UD PRN; Protocol PRN Reason: Hypoglycemia Protocol Stop: 04/16/19 18:38 Sodium Chloride (Nss 1000ml) 1,000 mls @ 46 mls/hr IV .[id number] [facility] Stop: 03/19/19 21:44 Insulin Aspart (Novolog Flexpen) 0 units SC ACHS [facility] Stop: 04/16/19 20:59 Last Admin: 03/18/19 12:06 Dose: Not Given Documented by: Isosorbide Mononitrate (Imdur Extended Rel) 30 mg PO QAM [facility] Stop: 04/17/19 08:59 Last Admin: 03/18/19 09:07 Dose: 30 mg Documented by: Metoprolol Succinate (Toprol Xl) 12.5 mg PO BID [facility] Stop: 04/16/19 20:59 Last Admin: 03/18/19 09:31 Dose: 12.5 mg Documented by: Miscellaneous (Order Awaiting Action) 1 ea N/A QS [facility] Stop: 04/17/19 00:00 Last Admin: 03/18/19 09:07 Dose: Not Given Documented by: Miscellaneous (Carbohydrates For Hypoglycemia) 15 - 30 gm PO UD PRN PRN Reason: Hypoglycemia Treatment Stop: 04/16/19 18:38 Ondansetron HCl (Zofran) 4 mg IV Q6H PRN PRN Reason: Nausea Stop: 04/16/19 18:38 Pantoprazole Sodium (Protonix) 40 mg PO QAM [facility] Stop: 04/17/19 08:59 Last Admin: 03/18/19 09:06 Dose: 40 mg Documented by: Polyethylene Glycol (Miralax Powder Packet) 17 gm PO DAILY PRN PRN Reason: Constipation Stop: 04/16/19 18:38 Ropinirole HCl (Requip) 0.5 mg PO HS [facility] Stop: 04/16/19 20:59 Last Admin: 03/17/19 19:44 Dose: 0.5 mg Documented by: Rosuvastatin Calcium (Crestor) 40 mg PO QAM [facility] Stop: 04/17/19 08:59 Last Admin: 03/18/19 09:05 Dose: 40 mg Documented by: Tramadol HCl (Ultram) 50 mg PO BID PRN PRN Reason: Pain Stop: 04/16/19 18:38
--- NOTE | 2019-03-18 15:19 | Hospitalist Progress Note ---
Date of Service March 18, 2019 Assessment & Plan (1) Dyspnea on exertion: Per admitting PA notes: This is a 74 yo M with a PMH of DM II, CAD, systolic heart failure 2/2 ischemic cardiomyopathy, PMR, fibromyalgia and RLS who presents with dyspnea on exertion x 2 weeks. -Progressive dyspnea on exertion for the past few weeks, sent in from PCP for cardiac assessment -History of CAD with multiple lesions on cardiac cath from 2014. Has been medically managed -History of TTE from September 2017 with EF 35-39% with global hypokinesis Acute coronary syndrome ruled out Troponins negative x3 EKG no acute ischemia or infarct Echocardiogram: EF 25 to 30%, ischemic cardiomyopathy [employer] consulted Cardiac catheterization recommend (2) Chronic systolic CHF (congestive heart failure): In setting of ischemic cardiomyopathy -Most recent echo from September 2017 with EF 35 to 39% Ejection fraction now 25 to 30% Euvolemic -Continue Lasix, beta-demarcus (3) CAD (coronary artery disease): History of cardiac cath in 2014 with a 30% ostial LM stenosis, functionally occluded LAD after the takeoff of the 2nd diagonal branch, minor nonobstr. disease in the LCX and a diffusely diseased RCA with mod. severe disease in the prox-mid segment and a 70% distal stenosis -Continue baby aspirin, statin, beta demarcus, imdur (4) Diabetes mellitus, type II: A1c of 6.9 in August 2018 -Hold home agents -SSI while in-patient -BSG AC HS (5) HLD (hyperlipidemia): Continue statin (6) CKD (chronic kidney disease), stage III: Cr of 1.86 today, at upper limit of normal (baseline Cr 1.5-1.9) 2.0 Continue to monitor (7) PMR (polymyalgia rheumatica): Recently completed prednisone dosepak (8) RLS (restless legs syndrome): Continue ropinirole DVT Ppx: SQ heparin Code status: FULL PCP: Flakita Dispo: Observation tele. Plan to return home once medically stable. Subjective Follow-up for possible unstable angina Seen resting in bed side chair, comfortable, not in distress Denies chest pain Ambulates in the room with no shortness of breath No palpitations, no dizziness No other symptoms Review of Systems Review of Systems: All systems reviewed & are unremarkable except as noted in HPI & below Physical Exam Physical Exam: General- oriented x 3, not in distress, speaks in sentences with no effort or accessory muscle use Eyes- anicteric Neck- no JVD Lungs- clear breath sounds bilaterally, no rales/wheezes Heart- normal rate, regular rhythm; positive systolic murmur Abdomen- normal bowel sounds, nondistended, soft, nontender Extremities- no pretibial edema, no calf tenderness Neuro- alert, oriented x 3; no gross focal neurologic deficits Skin- warm & dry Results & Data Vital Signs (Past 12 Hours) Vital Signs Temp Pulse Pulse Pulse Resp BP Pulse Ox 03/18/19 11:20 36.5 C 82 16 104/66 97 03/18/19 07:45 83 03/18/19 07:24 36.4 C L 75 16 114/65 100 03/18/19 03:19 36.6 C 80 18 98/55 L 98 Laboratory Results Laboratory Results - last 24 hr 03/17/19 03/17/19 03/18/19 18:50 19:14 01:16 WBC RBC Hgb Hct MCV MCH MCHC RDW Std Deviation RDW Coeff of Serene Plt Count MPV Sodium Potassium Chloride Carbon Dioxide Anion Gap BUN Creatinine Est Cr Clr Drug Dosing Est GFR ( Amer) Est GFR (Non-Af Amer) BUN/Creatinine Ratio Glucose POC Glucose 76 Estimat Average Glucose Hemoglobin A1c Calcium Troponin I 0.017 < 0.015 03/18/19 03/18/19 03/18/19 01:16 01:16 01:16 WBC 5.30 RBC 4.48 L Hgb 12.4 L Hct 38.8 L MCV 86.6 MCH 27.7 MCHC 32.0 RDW Std Deviation 45.6 RDW Coeff of Serene 14.4 Plt Count 215 MPV 9.9 Sodium 143 Potassium 4.2 Chloride 107 Carbon Dioxide 30 Anion Gap 6.0 BUN 26 H Creatinine 2.02 H Est Cr Clr Drug Dosing 39.0 Est GFR ( Amer) 36.8 Est GFR (Non-Af Amer) 31.8 BUN/Creatinine Ratio 12.6 Glucose 104 H POC Glucose Estimat Average Glucose 166 Hemoglobin A1c 7.4 H Calcium 9.1 Troponin I 03/18/19 03/18/19 07:22 11:21 WBC RBC Hgb Hct MCV MCH MCHC RDW Std Deviation RDW Coeff of Serene Plt Count MPV Sodium Potassium Chloride Carbon Dioxide Anion Gap BUN Creatinine Est Cr Clr Drug Dosing Est GFR ( Amer) Est GFR (Non-Af Amer) BUN/Creatinine Ratio Glucose POC Glucose 90 101 H Estimat Average Glucose Hemoglobin A1c Calcium Troponin I
[2019-03-18] MEDS: ROPINIROLE HCL 0.25 MG TABLET PO SCH (20:39)
[2019-03-19] MEDS ORDERED: SODIUM CHLORIDE 0.9% 1000ML 1,000 ML IV SCH
[2019-03-19 05:58] LABS: Hematocrit (blood only) 40.2 % (42-52); Mean Corpuscular Hemoglobin 27.7 pg (25-34); Mean Corpuscular Hgb Conc 32.3 g/dL (32-36); Mean Corpuscular Volume 85.7 fL (80-100); Mean Platelet Volume 10.4 fL (7.4-10.4); Platelet Count 202 K/uL (130-400); RDW Coefficient of Variation 14.2 % (11.5-14.5); RDW Standard Deviation 44.5 fL (36.4-46.3); Red Blood Count 4.69 M/uL (4.7-6.1)
[2019-03-19 06:29] LABS: BUN Creatinine Ratio 16.8 (10-20); Calcium 9.1 mg/dl (8.5-10.1); Creatinine Clr Calc Pharmacy 41.4 ml/min; Est GFR (Non-African American) 36.3
[2019-03-19] MEDS: INSULIN ASPART 100 UNITS/ML 3 ML PEN SC SCH ×4 (08:42→21:31)
--- NOTE | 2019-03-19 08:43 | Hospitalist Progress Note ---
Date of Service March 19, 2019 Assessment & Plan (1) Dyspnea on exertion: Per admitting PA notes: This is a 74 yo M with a PMH of DM II, CAD, systolic heart failure 2/2 ischemic cardiomyopathy, PMR, fibromyalgia and RLS who presents with dyspnea on exertion x 2 weeks. -Progressive dyspnea on exertion for the past few weeks, sent in from PCP for cardiac assessment -History of CAD with multiple lesions on cardiac cath from 2014. Has been medically managed -History of TTE from September 2017 with EF 35-39% with global hypokinesis Acute coronary syndrome ruled out Troponins negative x3 EKG no acute ischemia or infarct Echocardiogram: EF 25 to 30%, ischemic cardiomyopathy [employer]ishing [employer] consulted Cardiac catheterization Today (2) Chronic systolic CHF (congestive heart failure): In setting of ischemic cardiomyopathy -Most recent echo from September 2017 with EF 35 to 39% Ejection fraction now 25 to 30% Euvolemic -Continue Lasix, beta-demarcus (3) CAD (coronary artery disease): History of cardiac cath in 2014 with a 30% ostial LM stenosis, functionally occluded LAD after the takeoff of the 2nd diagonal branch, minor nonobstr. disease in the LCX and a diffusely diseased RCA with mod. severe d isease in the prox-mid segment and a 70% distal stenosis -Continue baby aspirin, statin, beta demarcus, imdur (4) Diabetes mellitus, type II: A1c of 6.9 in August 2018 -Hold home agents -SSI while in-patient -BSG AC HS (5) HLD (hyperlipidemia): Continue statin (6) CKD (chronic kidney disease), stage III: Cr of 1.86 today, at upper limit of normal (baseline Cr 1.5-1.9) 2.0 Continue to monitor (7) PMR (polymyalgia rheumatica): Recently completed prednisone dosepak (8) RLS (restless legs syndrome): Continue ropinirole DVT Ppx: SQ heparin Code status: FULL PCP: Flakita Dispo: Observation tele. Plan to return home once medically stable. DC today or am ROS-No Headache, No Visual Changes, No Nausea, No Vomiting, No Fever, No Chills, No Neck Pain or Stiffness, No Chest Pain, No Palpitations, No SOB, No NGUYEN, No Cough, No Sputum, No Wheezing, No Abdominal Pain, No Diarrhea, No Hematemesis, No Hemoptysis, No Unexpected Weight Loss, No Flank pain, No Melena, No Hematochezia, No Frequency, No Urgency, No Burning, No Hematuria, No Rashes, No Diaphoresis. Appetite is Normal Physical Exam Gen-AAO x 3, NAD, Afebrile Head-NCAT, EOMI, PERRLA, Anicteric Sclera, No Posterior Pharyngeal Erythema Neck-Supple, No JVD, No Thyromegaly, No Masses, No LAD, No Bruits Lungs-Clear to Auscultation Bilaterally, No Rales, No Rhonchi, No Wheezing, No Crepitus Chest-No S4, +S1, +S2, No S3, No Murmurs, No Rubs, No Gallops, No Ectopy Abdomen-Soft, Bowel Sounds Present, Non Tender, Non Distended, No Hepatomegaly, No Splenomegaly, No Palpable Masses, No Rebound, No Rigidity, No Guarding Musculoskeletal-Full Range of Motion Bilaterally, No CVAT Extremities-No Cyanosis, No Clubbing, No Edema Nuero-Cranial Nerves II-XII grossly intact, Motor WNL, DTRs WNL, Strength WNL, Non Focal Psych-Normal Mood Results & Data Vital Signs (Past 12 Hours) Vital Signs Temp Pulse Pulse Pulse Resp BP Pulse Ox 03/19/19 07:11 36.4 C L 74 19 116/73 99 03/19/19 04:21 36.8 C 75 20 105/69 96 03/19/19 00:00 81 03/18/19 23:23 37.1 C 86 18 96/60 L 95 Current Diagnoses Type 2 diabetes mellitus without complications (03/17/19) Hyperlipidemia, unspecified (03/17/19) Restless legs syndrome (03/17/19) Atherosclerotic heart disease of squaxin coronary artery without angina pectoris (03/17/19) Ischemic cardiomyopathy (03/17/19) Nonrheumatic aortic (valve) stenosis (03/17/19) Chronic systolic (congestive) heart failure (03/17/19) Polymyalgia rheumatica (03/17/19) Chronic kidney disease, stage 3 (moderate) (03/17/19) Other forms of dyspnea (03/17/19) Personal history of other diseases of the circulatory system (03/17/19) Allergies cefadroxil Allergy (Unknown, Verified 03/17/19 14:33) RASH Height/Weight/Isolation Height 5 ft 10 in Weight 91.7 kg Chemistry 03/17/19 03/18/19 03/19/19 13:20 01:16 05:29 Sodium 142 143 141 Potassium 3.8 4.2 4.0 Chloride 107 107 108 H Carbon Dioxide 26 30 25 Anion Gap 9.0 6.0 9.0 BUN 25 H 26 H 30 H Creatinine 1.86 H 2.02 H 1.81 H Glucose 91 104 H 123 H
[2019-03-19] MEDS ORDERED: MIDAZOLAM HCL 1 MG/ML 2ML VIAL ONE (11:51)
[2019-03-19] MEDS ORDERED: NiCARDipine HCL INJ 2.5 MG/ML 10 ML AMP ONE (11:51)
[2019-03-19] MEDS ORDERED: HEPARIN (PORCINE) 1000 UNIT/ML 10 ML (CATH LAB USE ONLY) ONE (11:51)
[2019-03-19] MEDS ORDERED: fentaNYL citrate 100 MCG/2 ML VIAL ONE (11:51)
[2019-03-19] MEDS ORDERED: NITROGLYCERIN/D5W 100MCG/ML 20ML SYR ONE (11:52)
[2019-03-19 12:57] LABS: iSTAT Arterial Blood Gas HCO3 22 meg/L (19-24); iSTAT Arterial Blood Gas pCO2 39 mmHg (35-46); iSTAT Arterial Blood Gas pH 7.36 (7.35-7.45); iSTAT Arterial Blood Gas pO2 135 mmHg (80-95); iSTAT Carbon Dioxide 23 mEq/l (24-31)
[2019-03-19 12:57] LABS: iSTAT Arterial Blood Gas HCO3 24 meg/L (19-24); iSTAT Arterial Blood Gas pCO2 44 mmHg (35-46); iSTAT Arterial Blood Gas pH 7.34 (7.35-7.45); iSTAT Arterial Blood Gas pO2 37 mmHg (80-95); iSTAT Carbon Dioxide 25 mEq/l (24-31)
--- NOTE | 2019-03-19 13:18 | Cardiac Catheterization ---
Date of Service March 19, 2019 Cardiac Cath Report Cardiac Cath Report Procedure: 1. Right heart catheterization 2. Left heart catheterization 3. Coronary angiography 4. Left ventriculography History: This is a 74-year-old male patient with a history of an ischemic cardiomyopathy and a previous anterior wall myocardial infarction. He had a previous cardiac catheterization several years ago that revealed a functionally occluded LAD and a severely diffusely diseased right coronary artery. Medical management was recommended. More recently the patient has been experiencing additional shortness of breath and dyspnea with activity. Echocardiogram this admission shows the aortic valve to be sclerotic and the Doppler and two-dimensional studies being discoordinate. This study is being performed to evaluate the aortic valve as well as coronary anatomy. Procedure summary: After informed consent was obtained the patient was taken to the cardiac catheterization lab where he was prepped and draped in the usual manner for a right transfemoral approach. A [place]-Joseph catheter was utilized for right heart pressures and cardiac outputs. A 5 Swiss pigtail catheter was utilized to cross the aortic valve and to perform the left ventriculogram. Preformed 5 Swiss coronary catheters were utilized for the coronary angiograms. Following the procedure the arterial site was closed with a minx device and the patient was returned to his room in stable condition. ACC data: Start time 12:12 AM End time 12:59 AM Opening aortic pressure 115/66 Closing aortic pressure 109/71 LV pressure 121/10 Sedation 1 mg intravenous Versed Saline 95 cc normal saline Contrast 87 cc Optiray Fluoroscopy time 8.2 minutes Radiation 1430 mGy DAP 137.22 milligray per liter squared AUC score 8 Right dominant system Hemodynamic data: Right atrial 2 mmHg RV 26 over 3 mmHg Pulmonary capillary wedge 5 mmHg PA 24 over 7 mmHg LV 121/25 Central aortic pressure 115/66 Aortic valve gradient 7.72 mmHg Aortic valve area 2.22 cm Cardiac output by thermal dilution 4.3 L/min Cardiac output by Negin 4.48 L/min Left ventriculogram: The left ventricle is markedly dilated. There is severe hypokinesis globally with akinesis of the inferior and inferior basilar myocardium. The estimated left ventricular ejection fraction is around 25%. The mitral valve is competent. Coronary angiography: Selective injections of the left coronary artery reveal the left main trunk to be tapered distally. The LAD is occluded just after the takeoff of a large first diagonal and the septal basting machine operator. The septal basting machine operator is large and supplies collateral flow to the distal right coronary artery. The left c ircumflex artery consists principally of a single large marginal branch. The left circumflex artery is widely patent. The left circumflex also supplies collaterals to the distal right coronary artery. Selective injections of the right coronary artery reveal it to be occluded at its origin. Right coronary artery does feel with rich collaterals from the left system. Summary: There is no significant aortic stenosis. The patient has a severe ischemic cardiomyopathy with reduced systolic function. The LAD is occluded after the takeoff of a septal basting machine operator and diagonal. Previously the LAD was functionally occluded, so this is an old finding. On the previous cardiac catheterization the right coronary artery was heavily and diffusely diseased but patent. On this study the right coronary artery is occluded at its origin filling with a rich supply of collaterals from the left system. Recommendations: Continued medical management of the patient's ischemic heart disease.
[2019-03-19] MEDS: METOPROLOL SUCC 25MG EXT REL TAB PO SCH ×2 (14:13→21:29)
[2019-03-19] MEDS: ASPIRIN 81 MG ECTAB PO SCH (14:13)
[2019-03-19] MEDS: PANTOprazole 40 MG TAB PO SCH (14:13)
[2019-03-19] MEDS: ISOSORBIDE MONO EXTENDED REL 30 MG TABCR PO SCH (14:13)
[2019-03-19] MEDS: ROSUVASTATIN CALCIUM 20 MG TAB PO SCH (14:13)
[2019-03-19] MEDS: FINASTERIDE 5 MG TAB PO SCH (14:14)
[2019-03-19] MEDS: CYANOCOBALAMIN 500 MCG TABLET (VITAMIN B-12) PO SCH (14:14)
[2019-03-19] MEDS: FUROSEMIDE 40 MG TAB PO SCH (14:15)
[2019-03-19] MEDS: SODIUM CHLORIDE 0.9% 1000ML 1,000 ML IV SCH (14:15)
--- NOTE | 2019-03-19 15:38 | Cardiology Progress Note ---
Date of Service March 19, 2019 Assessment & Plan (1) Exertional dyspnea: (2) Hx of coronary artery disease: (3) Ischemic cardiomyopathy: (4) Diabetes mellitus, type II: (5) Aortic stenosis: I had a long discussion with the patient regarding the results of his cardiac catheterization. I also phoned his and discussed his care and the results of the heart cath. Essentially he does not have significant aortic stenosis. He has an ischemic cardiomyopathy with severe LV dysfunction. His right coronary and LAD are occluded. There is rich collaterals supplying these arteries distally especially the right coronary artery. His symptoms of shortness of breath over the past several weeks to months or certainly related to the ischemic cardiomyopathy. I do not believe however, that he is having active angina. I believe his heart disease should be treated medically. I also suggested to the patient that he begin to use commonsense in regard to his activities. He should not do anything overly strenuous and when he is tired he should rest. He does meet criteria for primary prevention ICD which I will discuss with him further when I see him as outpatient. Subjective The patient is stable post cath. Review of Systems Review of Systems: All systems reviewed & are unremarkable except as noted in HPI & below Nothing additional to add. Physical Exam Physical Exam: General: no acute distress and stated age Head: normocephalic, no masses, lesions, tenderness or abnormalities Eyes: conjunctiva are pink and non-injected, sclera clear Neck: supple, no adenopathy, no bruits, normal jugular venous pulse, no hepatojugular reflux Chest: normal shape and normal respiratory effort Lungs: clear to auscultation and percussion Cardiac Exam: - regular rate & rhythm, no murmurs gallops or rubs - normal S1, normal S2 Pulses: 2(+) throughout Abdomen: abdomen soft, non-tender, no abnormal masses and no hepatosplenomegaly Musculoskeletal: no gait disturbance, no joint inflammation, no deforming arthritis Extremities: no edema and no cyanosis Neuro: grossly normal exam Results & Data Vital Signs (Past 12 Hours) Vital Signs Temp Pulse Pulse Pulse Pulse Resp BP 03/19/19 14:48 36.5 C 73 18 03/19/19 14:18 36.5 C 66 03/19/19 13:48 36.4 C L 72 20 03/19/19 13:21 36.5 C 80 03/19/19 13:18 36.4 C L 80 20 03/19/19 11:49 37 C 84 18 119/65 03/19/19 08:00 71 03/19/19 07:11 36.4 C L 74 19 03/19/19 04:21 36.8 C 75 20 BP Pulse Ox 03/19/19 14:48 113/62 100 03/19/19 14:18 125/72 99 03/19/19 13:48 119/72 99 03/19/19 13:21 112/64 100 03/19/19 13:18 118/73 100 03/19/19 11:49 99 03/19/19 08:00 03/19/19 07:11 116/73 99 03/19/19 04:21 105/69 96 Laboratory Results Laboratory Results - last 24 hr 03/18/19 03/18/19 03/19/19 16:05 20:26 05:29 WBC 4.80 RBC 4.69 L Hgb 13.0 L Hct 40.2 L MCV 85.7 MCH 27.7 MCHC 32.3 RDW Std Deviation 44.5 RDW Coeff of Serene 14.2 Plt Count 202 MPV 10.4 POC pH POC pCO2 POC pO2 POC HCO3 POC Total CO2 POC Base Excess POC ABG O2 Sat Sodium Potassium Chloride Carbon Dioxide Anion Gap BUN Creatinine Est Cr Clr Drug Dosing Est GFR ( Amer) Est GFR (Non-Af Amer) BUN/Creatinine Ratio Glucose POC Glucose 126 H 130 H Calcium 03/19/19 03/19/19 03/19/19 05:29 07:09 12:27 WBC RBC Hgb Hct MCV MCH MCHC RDW Std Deviation RDW Coeff of Serene Plt Count MPV POC pH 7.34 L POC pCO2 44 POC pO2 37 L POC HCO3 24 POC Total CO2 25 POC Base Excess -2.0 POC ABG O2 Sat 66.0 L Sodium 141 Potassium 4.0 Chloride 108 H Carbon Dioxide 25 Anion Gap 9.0 BUN 30 H Creatinine 1.81 H Est Cr Clr Drug Dosing 41.4 Est GFR ( Amer) 42.0 Est GFR (Non-Af Amer) 36.3 BUN/Creatinine Ratio 16.8 Glucose 123 H POC Glucose 122 H Calcium 9.1 03/19/19 03/19/19 12:30 13:33 WBC RBC Hgb Hct MCV MCH MCHC RDW Std Deviation RDW Coeff of Serene Plt Count MPV POC pH 7.36 POC pCO2 39 POC pO2 135 H POC HCO3 22 POC Total CO2 23 L POC Base Excess -3.0 POC ABG O2 Sat 99.0 H Sodium Potassium Chloride Carbon Dioxide Anion Gap BUN Creatinine Est Cr Clr Drug Dosing Est GFR ( Amer) Est GFR (Non-Af Amer) BUN/Creatinine Ratio Glucose POC Glucose 123 H Calcium Medications Administered Current Inpatient Medications Acetaminophen (Tylenol) 650 mg PO Q4H PRN PRN Reason: Pain or Fever Stop: 04/16/19 18:38 Aspirin (Ecotrin Ectab) 81 mg PO [facility] Stop: 04/17/19 08:59 Last Admin: 03/19/19 14:13 Dose: 81 mg Documented by: Cyanocobalamin (Vitamin B-12) 1,000 mcg PO [facility] Stop: 04/17/19 08:59 Last Admin: 03/19/19 14:14 Dose: 1,000 mcg Documented by: Dextrose (Dextrose 50%) 25 - 50 ml IV UD PRN; Protocol PRN Reason: Hypoglycemia Protocol Stop: 04/16/19 18:38 Diphenhydramine HCl (Benadryl Capsule) 25 mg PO [facility] Stop: 04/17/19 08:59 Last Admin: 03/19/19 14:14 Dose: 25 mg Documented by: Finasteride (Proscar) 5 mg PO [facility] Stop: 04/17/19 08:59 Last Admin: 03/19/19 14:14 Dose: 5 mg Documented by: Furosemide (Lasix) 40 mg PO [facility] Stop: 04/17/19 08:59 Last Admin: 03/19/19 14:15 Dose: 40 mg Documented by: Glucagon (Glucagen) 1 mg SQ UD PRN; Protocol PRN Reason: Hypoglycemia Protocol Stop: 04/16/19 18:38 Glucose (Glucose 40%) 15 - 30 gm PO UD PRN; Protocol PRN Reason: Hypoglycemia Protocol Stop: 04/16/19 18:38 Glucose (Dex4 Glucose) 4 - 8 tabs PO UD PRN; Protocol PRN Reason: Hypoglycemia Protocol Stop: 04/16/19 18:38 Sodium Chloride (Nss 1000ml) 1,000 mls @ 80 mls/hr IV .[id number] [facility] Stop: 04/18/19 13:14 Last Admin: 03/19/19 14:15 Dose: 80 mls/hr Documented by: Insulin Aspart (Novolog Flexpen) 0 units SC ACHS [facility] Stop: 04/16/19 20:59 Last Admin: 03/19/19 14:40 Dose: Not Given Documented by: Isosorbide Mononitrate (Imdur Extended Rel) 30 mg PO QAM [facility] Stop: 04/17/19 08:59 Last Admin: 03/19/19 14:13 Dose: 30 mg Documented by: Metoprolol Succinate (Toprol Xl) 12.5 mg PO BID [facility] Stop: 04/16/19 20:59 Last Admin: 03/19/19 14:13 Dose: 12.5 mg Documented by: Miscellaneous (Order Awaiting Action) 1 ea N/A QS [facility] Stop: 04/17/19 00:00 Last Admin: 03/19/19 08:42 Dose: Not Given Documented by: Miscellaneous (Carbohydrates For Hypoglycemia) 15 - 30 gm PO UD PRN PRN Reason: Hypoglycemia Treatment Stop: 04/16/19 18:38 Ondansetron HCl (Zofran) 4 mg IV Q6H PRN PRN Reason: Nausea Stop: 04/16/19 18:38 Pantoprazole Sodium (Protonix) 40 mg PO QAM [facility] Stop: 04/17/19 08:59 Last Admin: 03/19/19 14:13 Dose: 40 mg Documented by: Polyethylene Glycol (Miralax Powder Packet) 17 gm PO DAILY PRN PRN Reason: Constipation Stop: 04/16/19 18:38 Ropinirole HCl (Requip) 0.5 mg PO HS [facility] Stop: 04/16/19 20:59 Last Admin: 03/18/19 20:39 Dose: 0.5 mg Documented by: Rosuvastatin Calcium (Crestor) 40 mg PO QAM [facility] Stop: 04/17/19 08:59 Last Admin: 03/19/19 14:13 Dose: 40 mg Documented by: Tramadol HCl (Ultram) 50 mg PO BID PRN PRN Reason: Pain Stop: 04/16/19 18:38
[2019-03-19] MEDS: ROPINIROLE HCL 0.25 MG TABLET PO SCH (21:30)
[2019-03-20] MEDS: SODIUM CHLORIDE 0.9% 1000ML 1,000 ML IV SCH (00:53)
[2019-03-20 07:04] LABS: Hematocrit (blood only) 37.9 % (42-52); Hemoglobin 12.4 g/dL (14.0-18.0); Mean Corpuscular Hgb Conc 32.7 g/dL (32-36); Mean Corpuscular Volume 85.6 fL (80-100); Platelet Count 192 K/uL (130-400); RDW Coefficient of Variation 14.2 % (11.5-14.5); RDW Standard Deviation 44.2 fL (36.4-46.3); Red Blood Count 4.43 M/uL (4.7-6.1); White Blood Count 4.03 K/uL (4.8-10.8)
[2019-03-20 07:28] LABS: BUN Creatinine Ratio 15.4 (10-20); Calcium 9.1 mg/dl (8.5-10.1); Creatinine Clr Calc Pharmacy 44.5 ml/min; Est GFR (Non-African American) 39.7; Potassium 4.2 mmol/L (3.5-5.1)
[2019-03-20] MEDS: FUROSEMIDE 40 MG TAB PO SCH (08:04)
[2019-03-20] MEDS: ROSUVASTATIN CALCIUM 20 MG TAB PO SCH (08:04)
[2019-03-20] MEDS: ASPIRIN 81 MG ECTAB PO SCH (08:04)
[2019-03-20] MEDS: METOPROLOL SUCC 25MG EXT REL TAB PO SCH (08:04)
[2019-03-20] MEDS: PANTOprazole 40 MG TAB PO SCH (08:04)
[2019-03-20] MEDS: FINASTERIDE 5 MG TAB PO SCH (08:05)
[2019-03-20] MEDS: CYANOCOBALAMIN 500 MCG TABLET (VITAMIN B-12) PO SCH (08:05)
[2019-03-20] MEDS: ISOSORBIDE MONO EXTENDED REL 30 MG TABCR PO SCH (08:05)
[2019-03-20] MEDS: INSULIN ASPART 100 UNITS/ML 3 ML PEN SC SCH (08:07)
--- NOTE | 2019-03-20 08:07 | Discharge Summary ---
Date of Service March 20, 2019 Admission HPI Per Admitting Provider This is a 74 yo M with a PMH of DM II, CAD, systolic heart failure 2/2 ischemic cardiomyopathy, PMR, fibromyalgia and RLS who presents with dyspnea on exertion x 2 weeks. Patient notes that over the past 2 weeks, he has felt short of breath with any type of exertion, most notably when he is working in his shed. Was seen by PCP today and mentioned symptoms and had an EKG performed that showed new Q waves in anterior leads, per out-patient note. Was instructed to come to ED for further evaluation. Currently, patient is resting and is asymptomatic. Patient is afebrle and hemodynamically stable. Oxygen saturation at 97% on RA. Denies any chest pain or SOB at rest. Denies fever, chills, lightheadedness, chest pain, palpitations, wheezing, nausea, vomiting, abdominal pain, dysuria, diarrhea or constipation. No lower extremity swelling. Feels like he has gained weight recently after attending a birthday libertarian where he ate a lot of processed foods. No orthopnea or PND. 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 Denies every experiencing chest pain in the past. TTE from September 2017 with EF 35-39% with global hypokinesis. Also underwent cardiac cath in 2014 with a 30% ostial LM stenosis, functionally occluded LAD after the takeoff of the second diagonal branch, minor nonobstructive disease in the LCX, and a diffusely diseased RCA with moderately severe disease in the proximal and mid segment and a 70% distal stenosis. Has been medically managed. Follows with LOULOU Chatterjee in clinic. Admission Exam Per Admitting Provider General Appearance: WD/WN, vitals as above, NAD, sitting up in bed, pleasant, conversing easily Head: normocephalic, atraumatic Eyes: normal inspection, PERRL, conjunctivae normal, anicteric sclerae ENT: external ear and nose normal, oropharynx normal Neck: trachea midline, no thyromegaly normal visual inspection Respiratory: normal respiratory effort, lungs clear to auscultation, no wheeze, rales, rhonchi. No accessory muscle use Cardiovascular: regular rate, rhythm, systolic ejection murmur, normal peripheral pulses. Vessels: no JVD or carotid bruit Chest: normal inspection of chest Abdomen/GI: normal bowel sounds, soft, nontender, no hepatosplenomegaly Extremities/Musculoskelatal: no cyanosis or clubbing, extremities motor strength 5/5 Neurologic: PERRL, EOMI, accommodation nl, no face palsy, no dysarthria CN's II-XI intact bilaterally and moves all extremities Psychiatric: A+Ox3, euthymic affect Skin: no rashes, normal color, warm/dry Principal Diagnosis (1) Dyspnea on exertion: (2) Chronic systolic CHF (congestive heart failure): (3) CAD (coronary artery disease): (4) Diabetes mellitus, type II: (5) HLD (hyperlipidemia): (6) CKD (chronic kidney disease), stage III: (7) PMR (polymyalgia rheumatica): (8) RLS (restless legs syndrome): Discharge Exam ROS-No Headache, No Visual Changes, No Nausea, No Vomiting, No Fever, No Chills, No Neck Pain or Stiffness, No Chest Pain, No Palpitations, No SOB, No NGUYEN, No Cough, No Sputum, No Wheezing, No Abdominal Pain, No Diarrhea, No Hematemesis, No Hemoptysis, No Unexpected Weight Loss, No Flank pain, No Melena, No Hematochezia, No Frequency, No Urgency, No Burning, No Hematuria, No Rashes, No Diaphoresis. Appetite is Normal Physical Exam Gen-AAO x 2, NAD, Afebrile, demented Head-NCAT, EOMI, PERRLA, Anicteric Sclera, No Posterior Pharyngeal Erythema Neck-Supple, No JVD, No Thyromegaly, No Masses, No LAD, No Bruits Lungs-Clear to Auscultation Bilaterally, No Rales, No Rhonchi, No Wheezing, No Crepitus Chest-No S4, +S1, +S2, No S3, No Murmurs, No Rubs, No Gallops, No Ectopy Abdomen-Soft, Bowel Sounds Present, Non Tender, Non Distended, No Hepatomegaly, No Splenomegaly, No Palpable Masses, No Rebound, No Rigidity, No Guarding Musculoskeletal-Full Range of Motion Bilaterally, No CVAT Extremities-No Cyanosis, No Clubbing, No Edema Nuero-Cranial Nerves II-XII grossly intact, Motor WNL, DTRs WNL, Strength WNL, Non Focal Psych-Normal Mood Discharge Data Allergies Allergy/AdvReac Type Severity Reaction Status Date / Time cefadroxil Allergy Unknown RASH Verified 03/17/19 14:33 Consultations 03/17/19 15:05 ED Decision to Admit Stat 03/18/19 08:00 Consult Cardiology Routine Procedures Performed Operation Date: 03/19/19 11:00 Actual Procedures p Cath, Left with Cors and Vent - Taz Choi, s Right Heart Cath Only - DO wilfrido Roberson Cineradiography w/Routine Exam - Taz Choi DO Current Diagnoses Type 2 diabetes mellitus without complications (03/19/19) Hyperlipidemia, unspecified (03/19/19) Restless legs syndrome (03/19/19) Atherosclerotic heart disease of [place] coronary artery without angina pectoris (03/19/19) Ischemic cardiomyopathy (03/19/19) Nonrheumatic aortic (valve) stenosis (03/19/19) Chronic systolic (congestive) heart failure (03/19/19) Polymyalgia rheumatica (03/19/19) Chronic kidney disease, stage 3 (moderate) (03/19/19) Other forms of dyspnea (03/19/19) Personal history of other diseases of the circulatory system (03/19/19) Allergies cefadroxil Allergy (Unknown, Verified 03/17/19 14:33) RASH Height/Weight/Isolation Height 5 ft 10 in Weight 91.3 kg Chemistry 03/19/19 03/20/19 05:29 06:39 Sodium 141 141 Potassium 4.0 4.2 Chloride 108 H 108 H Carbon Dioxide 25 25 Anion Gap 9.0 8.0 BUN 30 H 26 H Creatinine 1.81 H 1.68 H Glucose 123 H 113 H Ordered Studies 03/19/19 11:35 CL Cath Imgs for PACS use only Routine Hospital Course (1) Dyspnea on exertion: Per admitting PA notes: This is a 74 yo M with a PMH of DM II, CAD, systolic heart failure 2/2 ischemic cardiomyopathy, PMR, fibromyalgia and RLS who presents with dyspnea on exertion x 2 weeks. -Progressive dyspnea on exertion for the past few weeks, sent in from PCP for cardiac assessment -History of CAD with multiple lesions on cardiac cath from 2014. Has been medically managed -History of TTE from September 2017 with EF 35-39% with global hypokinesis Acute coronary syndrome ruled out Troponins negative x3 EKG no acute ischemia or infarct Echocardiogram: EF 25 to 30%, ischemic cardiomyopathy Cardiac catheterization showed no target lesions Maximize medical therapy (2) Chronic systolic CHF (congestive heart failure): In setting of ischemic cardiomyopathy -Most recent echo from September 2017 with EF 35 to 39% Ejection fraction now 25 to 30% Euvolemic -Continue Lasix, beta-demarcus (3) CAD (coronary artery disease): History of cardiac cath in 2014 with a 30% ostial LM stenosis, functionally occluded LAD after the takeoff of the 2nd diagonal branch, minor nonobstr. disease in the LCX and a diffusely diseased RCA with mod. severe disease in the prox-mid segment and a 70% distal stenosis -Continue baby aspirin, statin, beta demarcus, imdur (4) Diabetes mellitus, type II: A1c of 6.9 in August 2018 -BSG AC HS (5) HLD (hyperlipidemia): Continue statin (6) CKD (chronic kidney disease), stage III: (7) PMR (polymyalgia rheumatica): Recently completed prednisone dosepak (8) RLS (restless legs syndrome): Continue ropinirole Code status: FULL PCP: Flakita Dispo: DC today Total Time Total Time Spent Total Time Spent (In Minutes): 45 mins Total Time Includes: Examination of the Patient, Discharge Planning, Medication Reconciliation and Communication With Other Providers Discharge Plan Discharge Items Patient Disposition: Home - Self-Care Reason For Visit: DYSPNEA ON EXERTION Discharge Diagnosis: (1) Dyspnea on exertion: (2) Chronic systolic CHF (congestive heart failure): (3) CAD (coronary artery disease): (4) Diabetes mellitus, type II: (5) HLD (hyperlipidemia): (6) CKD (chronic kidney disease), stage III: (7) PMR (polymyalgia rheumatica): (8) RLS (restless legs syndrome): Condition on Discharge: Good Activity: Resume your previous activity Lifting: Gradually increase as tolerated Bathing: No limitations Exercise/Sports: Gradually increase as tolerated Driving/Machine Use: No limitations Weightbearing: Full weightbearing Non-emergency contact: Primary Care Provider and Insurance Policy Issue Clerk Follow-up/Referrals: Taz Choi DO [Insurance Policy Issue Clerk] - (Call for opening) Haley Boggs DO [Primary Care Provider] - Diet: Carb Consistent or DM2 and Heart Healthy Fluids: 1200ml (5 cups) Addtl Attending Provider Instructions: Maximize medical therapy for CAD and Cardiomyopathy Pending Studies at Discharge: No Stand-Alone Forms: My [facility] Medications and DC Order Prescriptions: Continued furosemide 40 mg tablet 40 mg PO QAM RF: 0 glipizide 10 mg tablet extended release 24hr 20 mg PO QAM RF: 0 isosorbide mononitrate 30 mg tablet extended release 24 hr 30 mg PO QAM RF: 0 cyanocobalamin (vitamin B-12) [Vitamin B-12] 1,000 mcg Tablet 1,000 mcg PO QAM RF: 0 aspirin 81 mg Tablet,Delayed Release (Dr/Ec) 81 mg PO QAM RF: 0 ropinirole 0.5 mg tablet 0.5 mg PO HS RF: 0 diphenhydramine HCl [Benadryl Allergy] 25 mg Tablet 25 mg PO QAM RF: 0 omeprazole 20 mg capsule,delayed release(DR/EC) 20 mg PO QAM RF: 0 metoprolol succinate 25 mg tablet extended release 24 hr 12.5 mg PO BID RF: 0 finasteride 5 mg tablet 5 mg PO QAM RF: 0 rosuvastatin 40 mg tablet 40 mg PO QAM RF: 0 Januvia 50 mg tablet 50 mg PO HS RF: 0 fenofibrate 54 mg tablet 108 mg PO HS RF: 0 tramadol 50 mg Tablet 50 mg PO BID PRN (Reason: Pain) RF: 0 Discontinued metformin 500 mg tablet 500 mg PO BID RF: 0 Discharge Orders: Discharge Order (Routine); Ordered 03/20/19 Ordered By: Mark Dunaway Admission Data Admit Date/Time: 03/19/19 16:06 Attending Provider: Mark Dunaway Admit Provider: Frank Cespedes Primary Care Provider: Haley Boggs Other Providers: Taz Choi ; Alcon Mclaughlin
--- NOTE | 2019-03-20 10:26 | Cardiology Progress Note ---
Date of Service March 20, 2019 Assessment & Plan (1) Exertional dyspnea: (2) Hx of coronary artery disease: (3) Ischemic cardiomyopathy: (4) Diabetes mellitus, type II: (5) Aortic stenosis: I once again discussed the results of the patient's cardiac catheterization with him. He is already on a good group of medications. If we add any additional medications such as an LIN inhibitor or increase his beta- demarcus, then I believe he may become symptomatic due to low blood pressure. At this point I will discharge the patient home. We discussed the need for him to limit things to reasonable activities. I discussed the possibility of a primary prevention ICD. I will discuss this further with him as an outpatient next week when I see him. Subjective The patient had an uneventful night. He has no new cardiac complaints today. Review of Systems Review of Systems: All systems reviewed & are unremarkable except as noted in HPI & below Nothing additional. Physical Exam Physical Exam: General: no acute distress and stated age Head: normocephalic, no masses, lesions, tenderness or abnormalities Eyes: conjunctiva are pink and non-injected, sclera clear Neck: supple, no adenopathy, no bruits, normal jugular venous pulse, no hepatojugular reflux Chest: normal shape and normal respiratory effort Lungs: clear to auscultation and percussion Cardiac Exam: - regular rate & rhythm, no murmurs gallops or rubs - normal S1, normal S2 Pulses: 2(+) throughout Abdomen: abdomen soft, non-tender, no abnormal masses and no hepatosplenomegaly Musculoskeletal: no gait disturbance, no joint inflammation, no deforming arthritis Extremities: no edema and no cyanosis Neuro: grossly normal exam Results & Data Vital Signs (Past 12 Hours) Vital Signs Temp Pulse Pulse Resp BP Pulse Ox 03/20/19 07:06 36.5 C 69 19 115/72 99 03/20/19 04:24 36.4 C L 83 18 120/68 96 03/20/19 00:00 64 03/19/19 23:44 36.4 C L 76 18 97/61 L 97 Laboratory Results Laboratory Results - last 24 hr 03/19/19 03/19/19 03/19/19 12:27 12:30 13:33 WBC RBC Hgb Hct MCV MCH MCHC RDW Std Deviation RDW Coeff of Serene Plt Count MPV POC pH 7.34 L 7.36 POC pCO2 44 39 POC pO2 37 L 135 H POC HCO3 24 22 POC Total CO2 25 23 L POC Base Excess -2.0 -3.0 POC ABG O2 Sat 66.0 L 99.0 H Sodium Potassium Chloride Carbon Dioxide Anion Gap BUN Creatinine Est Cr Clr Drug Dosing Est GFR ( Amer) Est GFR (Non-Af Amer) BUN/Creatinine Ratio Glucose POC Glucose 123 H Calcium 03/19/19 03/19/19 03/20/19 17:08 20:34 06:39 WBC 4.03 L RBC 4.43 L Hgb 12.4 L Hct 37.9 L MCV 85.6 MCH 28.0 MCHC 32.7 RDW Std Deviation 44.2 RDW Coeff of Serene 14.2 Plt Count 192 MPV 10.0 POC pH POC pCO2 POC pO2 POC HCO3 POC Total CO2 POC Base Excess POC ABG O2 Sat Sodium Potassium Chloride Carbon Dioxide Anion Gap BUN Creatinine Est Cr Clr Drug Dosing Est GFR ( Amer) Est GFR (Non-Af Amer) BUN/Creatinine Ratio Glucose POC Glucose 111 H 125 H Calcium 03/20/19 03/20/19 06:39 07:18 WBC RBC Hgb Hct MCV MCH MCHC RDW Std Deviation RDW Coeff of Serene Plt Count MPV POC pH POC pCO2 POC pO2 POC HCO3 POC Total CO2 POC Base Excess POC ABG O2 Sat Sodium 141 Potassium 4.2 Chloride 108 H Carbon Dioxide 25 Anion Gap 8.0 BUN 26 H Creatinine 1.68 H Est Cr Clr Drug Dosing 44.5 Est GFR ( Amer) 46.0 Est GFR (Non-Af Amer) 39.7 BUN/Creatinine Ratio 15.4 Glucose 113 H POC Glucose 115 H Calcium 9.1 Medications Administered Current Inpatient Medications Acetaminophen (Tylenol) 650 mg PO Q4H PRN PRN Reason: Pain or Fever Stop: 04/16/19 18:38 Aspir[facility] ([facility]rin [facility]ctab) [facility] Stop: 04/17/19 08:59 Last Admin: 03/20/19 08:04 Dose: 81 mg Documented by: Cyanocobalamin (Vitamin B-12) 1,000 mcg PO QAM [facility] Stop: 04/17/19 08:59 Last Admin: 03/20/19 08:05 Dose: 1,000 mcg Documented by: Dextrose (Dextrose 50%) 25 - 50 ml IV UD PRN; Protocol PRN Reason: Hypoglycemia Protocol Stop: 04/16/19 18:38 Diphenhydramine HCl (Benadryl Capsule) 25 mg PO [facility] Stop: 04/17/19 08:59 Last Admin: 03/20/19 08:04 Dose: 25 mg Documented by: Finasteride (Proscar) 5 mg PO QAM [facility] Stop: 04/17/19 08:59 Last Admin: 03/20/19 08:05 Dose: 5 mg Documented by: Furosemide (Lasix) [facility] Stop: 04/17/19 08:59 Last Admin: 03/20/19 08:04 Dose: 40 mg Documented by: Glucagon (Glucagen) 1 mg SQ UD PRN; Protocol PRN Reason: Hypoglycemia Protocol Stop: 04/16/19 18:38 Glucose (Glucose 40%) 15 - 30 gm PO UD PRN; Protocol PRN Reason: Hypoglycemia Protocol Stop: 04/16/19 18:38 Glucose (Dex4 Glucose) 4 - 8 tabs PO UD PRN; Protocol PRN Reason: Hypoglycemia Protocol Stop: 04/16/19 18:38 Sodium Chloride (Nss 1000ml) 1,000 mls @ 80 mls/hr IV .[id number] [facility] Stop: 04/18/19 13:14 Last Admin: 03/20/19 00:53 Dose: 80 mls/hr Documented by: Insulin Aspart (Novolog Flexpen) 0 units SC ACHS [facility] Stop: 04/16/19 20:59 Last Admin: 03/20/19 08:07 Dose: 8 units Documented by: Isosorbide Mononitrate (Imdur Extended Rel) 30 mg PO [facility] Stop: 04/17/19 08:59 Last Admin: 03/20/19 08:05 Dose: 30 mg Documented by: Metoprolol Succinate (Toprol Xl) 12.5 mg PO BID [facility] Stop: 04/16/19 20:59 Last Admin: 03/20/19 08:04 Dose: 12.5 mg Documented by: Miscellaneous (Order Awaiting Action) 1 ea N/A QS [facility] Stop: 04/17/19 00:00 Last Admin: 03/20/19 08:06 Dose: Not Given Documented by: Miscellaneous (Carbohydrates For Hypoglycemia) 15 - 30 gm PO UD PRN PRN Reason: Hypoglycemia Treatment Stop: 04/16/19 18:38 Ondansetron HCl (Zofran) 4 mg IV Q6H PRN PRN Reason: Nausea Stop: 04/16/19 18:38 Pantoprazole Sodium (Protonix) 40 mg PO QAM [facility] Stop: 04/17/19 08:59 Last Admin: 03/20/19 08:04 Dose: 40 mg Documented by: Polyethylene Glycol (Miralax Powder Packet) 17 gm PO DAILY PRN PRN Reason: Constipation Stop: 04/16/19 18:38 Ropinirole HCl (Requip) 0.5 mg PO [facility] Stop: 04/16/19 20:59 Last Admin: 03/19/19 21:30 Dose: 0.5 mg Documented by: Rosuvastatin Calcium (Crestor) 40 mg PO QAM [facility] Stop: 04/17/19 08:59 Last Admin: 03/20/19 08:04 Dose: 40 mg Documented by: Tramadol HCl (Ultram) 50 mg PO BID PRN PRN Reason: Pain Stop: 04/16/19 18:38
== END 2019-03-20 11:55 | disposition home or self-care (01) | DRG 287 ==
LOC: 2S 13:04 → ED 13:04 → SUATTDRO 16:40 → 2S 18:15
DX: Z79.82 Long term (current) use of aspirin; M35.3 Polymyalgia rheumatica; G25.81 Restless legs syndrome; K21.9 Gastro-esophageal reflux disease without esophagitis; E78.5 Hyperlipidemia, unspecified; I50.22 Chronic systolic (congestive) heart failure; I25.10 Atherosclerotic heart disease of native coronary artery without angina pectoris; Z79.84 Long term (current) use of oral hypoglycemic drugs; I25.5 Ischemic cardiomyopathy; I35.0 Nonrheumatic aortic (valve) stenosis; N18.3 Chronic kidney disease, stage 3 (moderate); Z79.899 Other long term (current) drug therapy; E11.22 Type 2 diabetes mellitus with diabetic chronic kidney disease

== ENCOUNTER 2019-04-21 09:25 | Observation (INO) ==
--- NOTE | 2019-04-21 09:36 | History & Physical Bridge Note ---
Date of Service April 21, 2019 History & Physical Bridge Note I have examined the patient, reviewed the History & Physical and in the interval since the performance of the History & Physical I have noted the following changes of clinical significance: no changes noted
--- NOTE | 2019-04-21 09:37 | Pre Anesthesia Assessment ---
Date of Service April 21, 2019 Pre Sedation Assessment Cardiovascular + regular rate Respiratory normal respiratory effort, lungs clear to auscultation Pre-Sedation Airway Assessment Smoking Status: Never smoker Hx Sleep Apnea: No Hx Difficult Intubation: No Short, Thick Neck: No Thyromental Distance: < 3.5 Finger Breadths Oral Cavity: + Dental Abnormalities Mallampati Class: III ASA: ASA3 NPO Status Date of Last Intake of Fluids: 04/20/19 Date of Last Intake of Solid Food: 04/20/19 Procedure Planning Contraindications for Sedation: none Current Medications Reviewed: Yes Notes The planned sedation has been discussed with the patient. Informed Consent was obtained. I have identified the patient, determined the appropriateness of sedation and have assessed the patient immediately prior to the procedure. All medicine(s) and interventions are by my order.
[2019-04-21] MEDS ORDERED: LIDOCAINE HCL 1% 20 ML VIAL ONE (09:39)
[2019-04-21] MEDS ORDERED: BACITRACIN INJ 50,000 UNIT VIAL ONE (09:39)
[2019-04-21] MEDS ORDERED: BUPIVACAINE 0.25% 30 ML VIAL ONE (09:39)
[2019-04-21] MEDS ORDERED: fentaNYL citrate 100 MCG/2 ML VIAL ONE (09:52)
[2019-04-21] MEDS ORDERED: MIDAZOLAM HCL 5 MG/ML 1 ML VIAL ONE (09:52)
[2019-04-21] MEDS ORDERED: CEFAZOLIN 250 MG/ML 1 GM VIAL ONE (09:52)
[2019-04-21] MEDS ORDERED: CLINDAMYCIN 900 MG in DEXTROSE 5% 50 ML IV STA (10:09)
[2019-04-21] MEDS ORDERED: CLINDAMYCIN PHOS 300 MG/2 ML VIAL ONE (10:15)
[2019-04-21] MEDS ORDERED: ACETAMINOPHEN 325 MG TAB PO PRN (11:22)
[2019-04-21] MEDS ORDERED: TRAMADOL HCL 50 MG TABLET PO PRN (11:23)
--- NOTE | 2019-04-21 11:24 | Post Anesthesia Assessment ---
Date of Service April 21, 2019 Post Sedation Assessment Vital Signs Temp Pulse Resp BP Pulse Ox 04/21/19 09:30 36.8 C 84 16 115/69 98 Recovery Score Activity: Moves 4 extremities Respiration: Deep Breath/Cough Circulation: +/-20% PreAnes Value Consciousness: Fully Awake Oxygen Saturation: > 92% On Room Air Discharge Sedation Level of Care: Fast Track Phase II Post Sedation Plan On clinical assessment, the patient appears to have tolerated the sedation without complications. Patient is recovering as anticipated. Patient will continue to be monitored by nursing and may be discharged when sedation discharge criteria are met per below protocol. Upon Completions of procedure and additional 15 minutes continue every 5 minute vital signs and the P.A.R. score; then discharge to a Phase I or Fast Track to Phase II per the following guidelines: * Discharge Patient to appropriate Phase II area if PAR is 8 or greater or return to pre- procedure baseline. The post - procedure orders will be as directed. * If PAR score is less than 8 or not return to pre-procedure baseline then patient will follow Phase I monitoring till PAR is reached for Phase II. The Phase I may be done in procedure room or may call to secure a Phase I area. * If naloxone or flumazenil are used for reversal, hold in Phase I for continued monitoring from when last reversal dose was given for a minimum of 60 minutes or longer pending the nurse and/or physician discretion of patient condition before discharge to Phase II. Please call the Sedation Physician to re-evaluate and complete post-note for discharge to Phase II area. Do NOT discharge from procedure sedation or Phase 1 until post- sedation evaluation note is complete by procedure /sedation MD Sedation Discharge Instructions to be given to the patient at discharge to home.
--- NOTE | 2019-04-21 11:25 | Operative Report ---
Post Operative Report Pre & Post Diagnosis Pre OP: Sinus bradycardia and ICM Post Op: same Operation Date: 04/21/19 10:00 <No data on this case meets the specified criteria> I identified the patient and participated in the time-out.: Yes Procedure Operation Date: 04/21/19 10:00 Actual Procedures p ICD Insertion Dual - Yolanda York DO Surgeon Yolanda York, DO Strip Cleaner none Estimated Blood Loss 20 Findings Consistent with Post-Op Diagnosis Specimens none Description of Procedure see official report I attest to the content of the Intraoperative Record and any orders documented therein. Any exceptions are noted below.
--- NOTE | 2019-04-21 11:33 | Discharge Summary ---
Date of Service April 21, 2019 Admission HPI Per Admitting Provider Pt admitted for ICD Admission Exam Per Admitting Provider aaox3, NAD NC/AT, EOMI Supple No JVD Nrl S1/S2, No murmur CTA b/l no w/r/r soft nt/nd no LE edema b/l skin intact no focal deficits Principal Diagnosis ICM and Sinus bradycardia s/p dual chamber ICD Discharge Exam aaox3, NAD NC/AT, EOMI Supple No JVD Nrl S1/S2, No murmur CTA b/l no w/r/r soft nt/nd no LE edema b/l skin intact no focal deficits left pectoral incision intact, no hematoma mild ecchymosis Discharge Data Allergies Allergy/AdvReac Type Severity Reaction Status Date / Time cefadroxil Allergy Unknown RASH Verified 03/17/19 14:33 Procedures Performed Operation Date: 04/21/19 10:00 Actual Procedures p ICD Insertion Single or Dual - Yolanda York DO Ordered Studies ECG: SR CXR: No PTX, leads in position ICD Interrogation: Normal lead testing and stable since implant 04/21/19 06:30 CL Cath Imgs for PACS use only Routine Hospital Course (1) Sinus bradycardia: Total Time Total Time Spent Total Time Spent (In Minutes): 30 Total Time Includes: Examination of the Patient, Discharge Planning, Medication Reconciliation and Other Discharge Plan Discharge Items Reason For Visit: Ischemic Cardiomyopathy-Medtronic Discharge Diagnosis: ICM and SB s/p dual chamber ICD Condition on Discharge: Good Activity: As commented below Activity Comment: do not lift the left elbow over the left shoulder for 1 month Lifting: No more than 10 pounds Lifting Comment: do not lift more than 10 pounds with the left arm for 2 weeks Bathing: May shower/bathe in 3 days Bathing Comment: can shower 04/23 let water run over the white dressing & the incision Sexual Activity: After two weeks Call non-emergency contact if: you have any medication questions Follow-up/Referrals: Haley Boggs DO [Primary Care Provider] - Addtl Attending Provider Instructions: device and wound check next week at [facility] If you notice any swelling or concerns at the incision site call my office immediately Pending Studies at Discharge: No Stand-Alone Forms: My [facility] Medications and DC Order Prescriptions: Continued furosemide 40 mg tablet 40 mg PO QAM RF: 0 isosorbide mononitrate 30 mg tablet extended release 24 hr 30 mg PO QAM RF: 0 cyanocobalamin (vitamin B-12) [Vitamin B-12] 1,000 mcg Tablet 1,000 mcg PO QAM RF: 0 aspirin 81 mg Tablet,Delayed Release (Dr/Ec) 81 mg PO QAM RF: 0 ropinirole 0.5 mg tablet 0.5 mg PO HS RF: 0 diphenhydramine HCl [Benadryl Allergy] 25 mg Tablet 25 mg PO QAM RF: 0 metoprolol succinate 25 mg tablet extended release 24 hr 12.5 mg PO BID RF: 0 finasteride 5 mg tablet 5 mg PO QAM RF: 0 rosuvastatin 40 mg tablet 40 mg PO QAM RF: 0 tramadol 50 mg Tablet 50 mg PO BID PRN (Reason: Pain) RF: 0 glipizide 10 mg Tablet Extended Release 24hr 20 mg PO DAILY RF: 0 ferrous sulfate 325 mg (65 mg iron) Tablet 325 mg PO BID RF: 0 Januvia 50 mg Tablet 50 mg PO DAILY RF: 0 omeprazole 20 mg Tablet,Delayed Release (Dr/Ec) 20 mg PO DAILY RF: 0 Admission Data Admit Date/Time: 04/21/19 10:25 Attending Provider: Yolanda York Admit Provider: Yolanda York Primary Care Provider: Haley Boggs
--- NOTE | 2019-04-21 12:22 | Operative Report ---
DATE OF OPERATION: 04/21/2019 PREOPERATIVE DIAGNOSES: Sinus bradycardia, ischemic cardiomyopathy. POSTOPERATIVE DIAGNOSES: Sinus bradycardia, ischemic cardiomyopathy. PROCEDURE: Dual chamber rate responsive implantable cardiac defibrillator under fluoroscopic guidance. SURGEON: Yolanda York DO ASSISTANTS: None. ANESTHESIA: Monitored conscious sedation administered under my supervision by Pablo Bryson. Start time 10:16, end time 11:15. Total of 3 mg of Versed and 75 mcg of fentanyl. INTRAVENOUS FLUIDS: 60 mL. ANTIBIOTICS: 900 mg of clindamycin. BLOOD LOSS: 20 mL. URINE OUTPUT: Not applicable. SPECIMENS: None. FINDINGS: See below. DRAINS: None. INDICATIONS: This is a 74-year-old gentleman with past medical history for ischemic cardiomyopathy, ejection fraction 20-25% since November 2014, sinus bradycardia, coronary artery disease with his most recent cardiac catheterization in March 2019 showing occluded RCA with left to right collaterals, proximal LAD was occluded with a large septal bleacher pulp, chronic systolic heart failure, [place] Heart Association class III, family history of premature CAD, hypertension, hyperlipidemia, diabetes on insulin, polymyalgia rheumatica, not on longstanding prednisone; fibromyalgia, GERD, BPH, restless leg syndrome, B12 deficiency. Due to his ischemic cardiomyopathy and sinus bradycardia, he was recommended a dual chamber defibrillator. CONSENT: Consent was obtained prior to the patient going to electrophysiology lab. The patient was informed of risks, benefits and alternative of the procedure. Risks include but not limited to sudden cardiac , cardiac arrhythmias, cerebrovascular accident, myocardial infarction, injury to the blood vessels, chamber of the heart, lung, bleeding, and infection. The patient understood these risks and agreed to the procedure as planned. Informed consent was obtained. DESCRIPTION OF THE PROCEDURE: The patient was brought into the electrophysiology lab in a fasting state. He was connected to continuous monitor technician. A timeout was performed to ensure patient identity and procedure correctly. The patient was prepped and draped over the left infraclavicular space in normal surgical standard fashion. Monitored conscious sedation was given throughout the procedure for patient's comfort level. [place] precautions were maintained throughout the procedure. A 10 mL 1% lidocaine, bupivacaine mixture were given in left deltopectoral groove. Incision was made in left deltopectoral groove. Blunt dissection was performed down to identify cephalic vein. Cephalic vein was identified and isolated using 0 silk ties. The vein was nicked with an 11 blade and a guidewire was inserted without any resistance. An 8-[place] sheath was inserted over the guidewire without any resistance. Dilator was removed and a second guidewire was inserted through the 8-[place] sheath to allow for retained venous access. The sheath was removed. Then, a 9.5-[place] sheath was inserted over one guidewire, and then the guidewire and dilator were removed. Right ventricular defibrillator lead was then advanced into right ventricle and positioned in ventricular apex under fluoroscopic guidance. There was adequate pacing and sensing thresholds and no diaphragmatic stimulation with high output pacing. The 9.5-[place] sheath was peeled away and lead was fixated to pectoralis muscle. An 8-[place] sheath was then advanced over the retained guidewire without any resistance. Guidewire and dilator removed. The right atrial lead was then advanced into right atrium. Initially positioned into the right atrial appendage with a preformed J curve of the blue J; however, this dislodged, so we used a J curve and I actually put a little bit more lateral. There was adequate pacing and sensing thresholds and no diaphragmatic stimulation with high output pacing. The 8-[place] sheath was peeled away and lead was fixated to pectoralis muscle using 0 silk suture. A pursestring using a 2-[address] needle was placed around the venous puncture site to prevent from any black backbleeding. Using blunt dissection, a defibrillator pocket was created over the pectoralis muscle within the pectoral fascia. The pocket was flushed with copious amounts of bacitracin saline wash and inspected for hemostasis. The defibrillator was then attached to the leads, making sure that the pins were in appropriate position, passed set screw and set screws were all tightened. Then, the defibrillator was placed in the pocket, making sure that the leads were lying flat beneath the device. The incision was closed in 3-layer fashion with 2-0 Vicryl interrupted suture followed by 3-0 Vicryl interrupted suture followed by 4-0 Monocryl running stitch, followed then by Dermabond and Telfa followed by micropore dressing. EQUIPMENT: 1. The generator is an Fiix XT DR Cuellar [id number], serial number [id number]. 2. Right atrial lead Medtronic 5076-52 cm, serial number [id number]. 3. Right ventricular lead: Right ventricular lead is Ostaratronic 6935M-62 cm, serial number [id number]. INTRAOPERATIVE TESTIN. Right atrial lead: P-wave 5.9 millivolts, impedance 1200 ohms, threshold 0.8 volts at 0.5 milliseconds. 2. Right ventricular lead: R waves 19.5 millivolts, impedance 980 ohms, threshold 0.5 volts at 0.5 milliseconds. FINAL MEASUREMENTS THROUGH THE DEVICE: 1. Right atrial lead: P waves 4 millivolts, impedance 950 ohms, threshold 0.5 volts at 0.4 milliseconds. 2. Right ventricular lead: R waves 12.6 millivolts, impedance 836 ohms, threshold 0.5 volts at 0.4 milliseconds. FINAL PARAMETERS: MVP 60/130, right atrial amplitude 3.5 volts, pulse width 0.4 milliseconds, sensitivity 0.3 millivolts. Right ventricular amplitude 3.5 volts, pulse width 0.3 milliseconds, and sensitivity 0.9 millivolts. IMPRESSION: Successful implantation of a dual chamber rate responsive implantable cardiac defibrillator under fluoroscopic guidance secondary to ischemic cardiomyopathy and sinus bradycardia. PLAN: Monitor patient overnight, 12-lead ECG, chest x-ray. He is not allowed to lift left elbow or left shoulder for 1 month. He cannot lift more than 10 pounds with the left arm for 2 weeks. He can shower in 2 days, let water run over incision and micropore dressing. Device and wound check in 1 week's time. Continue his home medications and continue to follow up with general cardiology. I attest to the content of the Intraoperative Record and any orders documented therein. Any exception s are noted below.
[2019-04-21] MEDS: OXYCODONE/ACETAMINOPHEN 5mg/325mg TAB PO PRN (19:35)
[2019-04-21] MEDS: METOPROLOL SUCC 25MG EXT REL TAB PO SCH (20:25)
[2019-04-21] MEDS: FERROUS SULFATE 325 MG TAB PO SCH (20:26)
[2019-04-21] MEDS ORDERED: ROPINIROLE HCL 0.25 MG TABLET PO SCH (21:00)
[2019-04-22] MEDS: OXYCODONE/ACETAMINOPHEN 5mg/325mg TAB PO PRN (03:20)
[2019-04-22] MEDS ORDERED: glipiZIDE 5 MG TAB PO SCH (06:30)
[2019-04-22] MEDS: METOPROLOL SUCC 25MG EXT REL TAB PO SCH (07:36)
[2019-04-22] MEDS: FERROUS SULFATE 325 MG TAB PO SCH (07:36)
--- NOTE | 2019-04-22 07:36 | XRay Report ---
XR chest 2V PA/lateral CLINICAL HISTORY: post implant pacemaker COMPARISON STUDY: 03/17/2019 FINDINGS: Interval placement of a permanent bipolar cardiac pacemaker. Leads are in good position. No evidence for pneumothorax. The lungs are clear. IMPRESSION: Pacemaker in good position. No evidence for pneumothorax. The above report was generated using voice recognition software. It may contain grammatical, syntax or spelling errors. Electronically signed by: Lavelle Craft M.D. 04/22/2019 7:35 AM
[2019-04-22] MEDS ORDERED: ISOSORBIDE MONO EXTENDED REL 30 MG TABCR PO SCH (09:00)
[2019-04-22] MEDS ORDERED: PANTOprazole 40 MG TAB PO SCH (09:00)
[2019-04-22] MEDS ORDERED: CYANOCOBALAMIN 500 MCG TABLET (VITAMIN B-12) PO SCH (09:00)
[2019-04-22] MEDS ORDERED: ROSUVASTATIN CALCIUM 20 MG TAB PO SCH (09:00)
[2019-04-22] MEDS ORDERED: FINASTERIDE 5 MG TAB PO SCH (09:00)
[2019-04-22] MEDS ORDERED: SITAGLIPTIN PHOSPHATE 25 MG TAB PO SCH (09:00)
[2019-04-22] MEDS ORDERED: ASPIRIN 81 MG ECTAB PO SCH (09:00)
[2019-04-22] MEDS ORDERED: FUROSEMIDE 40 MG TAB PO SCH (09:00)
--- NOTE | 2019-05-05 15:52 | Coding Query ---
A supporting diagnosis is required for the test/procedure performed on this patient in order for us to be reimbursed by the patient's insurance. Please provide a supporting diagnosis for the following test/procedure listed below next to the test name along with your signature. *If there is no additional diagnosis for this patient that would support the following test/procedure please document that below next to the test/procedure. Test(s)/Procedure(s) that require a supporting diagnosis: ICD INSERTION SINGLE OR DUAL DIAGNOSIS:_Ischemic cardiomyopathy Provider Signature: Date: Thank you Sugar Castgo [employer] Management Once completed, please kindly fax back to [phone] For questions please call [phone] [facility]
== END 2019-04-22 10:01 | disposition home or self-care (01) ==
LOC: 2S 09:25 → EP 09:25
PROC: EPB.ICD (2019-04-21 10:00)

== ENCOUNTER 2023-10-11 10:58 | Inpatient (IN) ==
--- NOTE | 2023-10-11 11:21 | Emergency Department Note ---
Impression & Plan Acute kidney injury superimposed on CKD, Fluid overload ED Provider Note Provider: Salvador Lugo MD DATE OF SERVICE: 10/11/2023 CHIEF COMPLAINT: Dyspnea on exertion, swelling issues HISTORY OF PRESENT ILLNESS: Patient is a 78-year-old gentleman history of type 2 diabetes, CAD, CKD, aortic stenosis and CHF with AICD placed for bradycardia previously presenting here today referred from his primary doctor's office. States he went in today as he is been having more dyspnea on exertion particularly after walking about 15 feet. States occasionally has a little bit of chest pain but not now. Denies any trauma or falls. Does note some abdominal distention. Has had some leg swelling but this improved after increasing dose of his diuretic in the outpatient setting (restarted Lasix in the last 2 months). Has been using 40 mg of Lasix in the morning and 20 at night. Denies any nausea or vomiting. Still has some swelling of the lower legs. Denies significant cough or fevers. PAST MEDICAL HISTORY: As noted above MEDICATIONS: Reviewed home medication list SOCIAL HISTORY: -- currently in [facility] PHYSICAL EXAM: GENERAL: alert and oriented in no acute distress on stretcher Head: normocephalic and atraumatic EYES: No injection, discharge or icterus. NECK: Trachea midline. ENT: Mucous membranes pink and moist. LUNGS: Airway patent. No retractions. Breath sounds diminished in the bases HEART: Regular rate and rhythm. No chest wall tenderness ABDOMEN: Soft and non-tender, without guarding or rebound however moderately distended. SKIN: Acyanotic, warm, dry, without rashes EXTREMITIES: Without swelling, tenderness or deformity NEUROLOGICAL: No focal deficits. No aphasia. No facial droop or slurred speech. Ambulatory. EK bpm normal sinus rhythm with sinus arrhythmia. QTc 487. No ST segment depression with T wave inversion in aVL. Some borderline V1 V2 slight ST elevation not meeting criteria. CONTINUOUS CARDIAC MONITORING: was ordered and showed a heart rate of 90s bpm in normal sinus rhythm Patient's laboratory studies and imaging reviewed. Differential includes Reactive airway disease, pneumonia, pneumothorax, COPD, CHF, infections, cardiac ischemia, pulmonary embolism, musculoskeletal, gastrointestinal, as well as other pathologies. IMPRESSION/MEDICAL DECISION MAKING: Patient referred from primary office due to swelling and some shortness of breath as well as intermittent chest discomfort. Chest x-ray per report here without significant edema or effusion. No trauma reported. Afebrile here. Blood pressure slightly low but maps acceptable. Did review with case [facility] [employer] medical records. Missed cardiology appointment several days ago due to 's illness. Patient had some blood work completed earlier today and results are beginning to return. Does show evidence of elevated creatinine today at 3.8 with a BUN of 65 compared to previous from August of this year with a creatinine of 2.1. Will complete a noncontrast abdominal CT to exclude any obstructive findings and further evaluate his increased abdominal swelling. Abdominal ascites noted by report. To be careful avoid fluid overload with heart failure patient unclear exactly if renal functions from overdiuresis or worsening heart failure; creatinine confirmed here today almost 4. BNP greater than 4700. Will need to come in the hospital in any event. Patient with minimal anemia of 10.9 without leukocytosis. Patient begrudgingly agreeable to stay but discussed with him the seriousness of his worsening renal function. Hospitalist team contacted DIAGNOSIS: Acute on chronic kidney injury, swelling/fluid overload DISPOSITION: Hospitalist will evaluate Patient was agreeable with this plan. Past Med/Surg History Medical History (Updated 10/11/23 @ 16:08 by Salvador Lugo M.D.) RLS (restless legs syndrome) Fibromyalgia PMR (polymyalgia rheumatica) GERD (gastroesophageal reflux disease) HLD (hyperlipidemia) continue statin CAD (coronary artery disease) continue ASA and low dose BB and imdur and lasix Diabetes mellitus, type II CKD (chronic kidney disease), stage III Ischemic cardiomyopathy Pt admitted for elective ICD due to ICM and SB. Underwent procedure without any complications; monitored overnight and discharged home. Surgical History H/O wrist surgery History of cardiac catheterization History of knee replacement Family History Other Heart disease Stroke Social History Smoking Status: Never smoker Second Hand Exposure: No; Do You Dip or Chew Tobacco: No; Tobacco Cessation Education Requested by Patient: No Hx Alcohol Use: No Hx Substance Use: No Preferred Language: Indonesian Communication Ability: Effective Airdox Fitter Required: No Beliefs That Will Affect Care: None Current Living Situation: Alone Other Information That Helps Us Care for You: No Feels Safe at Home: Yes Safety Concerns: Feels Safe At This Time Assistive Devices: None Allergies Allergies Allergy/AdvReac Type Severity Reaction Status Date / Time cefadroxil Allergy Unknown RASH Verified 03/17/19 14:33 Home Meds Home Medications Medication Instructions Recorded Confirmed aspirin 81 mg tablet,delayed 81 mg PO QAM 03/17/19 10/11/23 release cyanocobalamin (vitamin B-12) 1,000 mcg PO QAM 03/17/19 10/11/23 1,000 mcg tablet (Vitamin B-12) diphenhydramine HCl 25 mg tablet 25 mg PO QAM 03/17/19 10/11/23 (Benadryl Allergy) finasteride 5 mg tablet 5 mg PO QAM 03/17/19 10/11/23 furosemide 40 mg tablet 40 mg PO QA 03/17/19 10/11/23 metoprolol succinate 25 mg 25 mg PO QPM 03/17/19 10/11/23 tablet,extended release 24 hr ropinirole 0.5 mg tablet 0.5 mg PO 03/17/19 10/11/23 rosuvastatin 40 mg tablet 40 mg PO QAM 03/17/19 10/11/23 glipizide 10 mg tablet, extended 20 mg PO DAILY 04/20/19 10/11/23 release 24 hr omeprazole 20 mg tablet,delayed 20 mg PO DAILY 04/20/19 10/11/23 release furosemide 40 mg tablet 20 mg PO QPM 10/11/23 10/11/23 isosorbide mononitrate 60 mg 60 mg PO DAILY 10/11/23 10/11/23 tablet,extended release 24 hr metformin 500 mg tablet,extended 500 mg PO BID 10/11/23 10/11/23 release 24 hr ropinirole 2 mg tablet 2 mg PO 10/11/23 10/11/23 Results & Data (ED) Vital Signs Vital Signs - 24 hr 10/11/23 11:04 10/11/23 11:12 10/11/23 11:12 Temperature 36.5 C Temperature Source Oral Pulse Rate 90 Pulse Rate [Apical] 84 Respiratory Rate 22 20 Respiratory Effort / Characteristics Spontaneous Short of Breath Respiratory Depth Normal Blood Pressure 94/65 L Blood Pressure [Left Arm] 94/72 L Blood Pressure Mean 74 Blood Pressure Mean [Left Arm] 79 Blood Pressure Position Sitting Blood Pressure Position [Left Arm] Lying Pulse Oximetry 100 Oxygen Delivery Method Room Air Room Air Sepsis Recent Fever Within 48 Hours No Sepsis New/Unexplained Change in Mental Status No Sepsis Action Taken by Nursing No Action Required 10/11/23 12:05 10/11/23 12:13 Temperature Temperature Source Pulse Rate 86 86 Pulse Rate [Apical] Respiratory Rate Respiratory Effort / Characteristics Respiratory Depth Blood Pressure Blood Pressure [Left Arm] Blood Pressure Mean Blood Pressure Mean [Left Arm] Blood Pressure Position Blood Pressure Position [Left Arm] Pulse Oximetry 98 Oxygen Delivery Method Room Air Sepsis Recent Fever Within 48 Hours Sepsis New/Unexplained Change in Mental Status Sepsis Action Taken by Nursing Laboratory Data 10/11/23 11:29 10/11/23 11:29 Lab Results 10/11/23 10/11/23 Range/Units 11:29 11:38 WBC 5.99 (4.8-10.8) K/ul RBC 4.56 L (4.70-6.10) M/uL Hgb 10.9 L (14.0-18.0) g/dl Hct 34.2 L (42.0-52.0) % MCV 75.0 L (80.0-100.0) fL MCH 23.9 L (25.0-34.0) pg MCHC 31.9 L (32.0-36.0) g/dL RDW Std Deviation 53.1 H (36.4-46.3) fL RDW Coeff of [place]rene 20.3 H (11.5-14.5) % Plt Count 276 (130-400) K/uL MPV 10.4 (9.4-12.4) fL Immature Gran % (Auto) 0.3 % Neut % (Auto) 84.9 % Lymph % (Auto) 7.8 % [place] % (Auto) 6.7 % Eos % (Auto) 0.0 % Baso % (Auto) 0.3 % Neut # (Auto) 5.08 (1.40-6.50) K/uL Lymph # (Auto) 0.47 L (1.20-3.40) K/uL [place] # (Auto) 0.40 (0.11-0.59) K/uL Eos # (Auto) 0.00 (0.00-0.50) K/uL Baso # (Auto) 0.02 (0.00-0.20) K/uL Immature Gran # (Auto) 0.02 (0.01-0.20) K/uL Polychromasia 1+ Anisocytosis Present Ovalocytes 1+ PT 15.1 H (9.0-12.0) Seconds INR 1.4 H (0.9-1.1) APTT 32 H (21-31) Seconds PTT Ratio 1.1 Sodium 140 (136-145) mmol/L Potassium 4.0 (3.5-5.1) mmol/L Chloride 106 (98-107) mmol/L Carbon Dioxide 20 L (21-32) mmol/L Anion Gap 14 H (3-11) BUN 68 H (6-23) mg/dl Creatinine 3.90 H (0.6-1.4) mg/dl Est Cr Clr Drug Dosing 16.4 ml/min Est GFR ( Amer) 16.2 ml/min Est GFR (Non-Af Amer) 13.9 ml/min BUN/Creatinine Ratio 17.4 (10-20) Glucose 76 (70-99(Fasting)) mg/dl Calcium 8.5 L (8.6-10.3) mg/dl Total Bilirubin 0.7 (0.2-1.0) mg/dl AST 31 (13-39) U/L ALT 34 (7-52) U/L Alkaline Phosphatase 97 (34-104) U/L Troponin I High Sens 42.8 H (0-20) pg/ml B-Natriuretic Peptide > 4700 H (0-100) pg/ml Total Protein 7.2 (6.0-8.3) gm/dl Albumin 3.5 (3.4-5.0) gm/dl Globulin 3.7 (2.5-4.0) gm/dl Albumin/Globulin Ratio 0.9 (0.9-2) Lipase 145 H (11-82) U/L SARS-CoV-2, RNA, NAAT NEGATIVE (NEGATIVE) Imaging Data Radiologist's Impression: Chest X-Ray 10/11/23 11:13 XR chest 1V portable HISTORY: Chest pain, nonspecific COMPARISON: Chest 04/22/2019. FINDINGS: Left-sided pacemaker is again noted. The heart is mildly enlarged. There are low lung volumes. No pneumothorax. No pleural effusions. The lungs are clear. IMPRESSION: Mild cardiomegaly. ACT 112: Negative or not required by law. Electronically signed by: Daniel Bland M.D. 10/11/2023 12:07 PM Abdomen/Pelvis CT 10/11/23 12:06 CT abd pelvis wo con CLINICAL HISTORY: JAMIR on CKD, swelling TECHNIQUE: Helical axial images of the abdomen and pelvis were obtained. Automated dose lowering techniques and/or adjustment according to patient size were utilized for this exam. This exam was performed without intravenous contrast. CT DOSE: 1351.42 mGy.cm COMPARISON: None available at the time of this dictation. FINDINGS: Lower chest: Cardiomegaly is seen with biatrial enlargement. Liver: Unremarkable. No focal lesions are seen. Gallbladder and biliary tree: No calcified gallstones. Normal caliber wall. No intra- or extrahepatic biliary ductal dilation. Pancreas: Unremarkable, no focal lesions. Spleen: Unremarkable. Adrenals: Unremarkable. Kidneys and ureters: Exophytic cysts are seen bilaterally. Bladder: Diffuse homogeneous wall thickening is seen. Reproductive organs: Unremarkable. Bowel: Diverticulosis is seen without diverticulitis. The appendix is normal. Lymph nodes Retroperitoneal: Unremarkable. Pelvic: Unremarkable. Mesenteric: Unremarkable. Peritoneum: Moderate to large ascites is seen. Vessels: Atherosclerotic calcifications are seen. Abdominal wall: Minimal soft tissue edema is seen. An umbilical hernia is noted. Bones: Degenerative changes in the visualized spine. IMPRESSION: Moderate to large ascites is seen with mild soft tissue edema. Findings are compatible with fluid overload. Otherwise no acute abnormalities are seen. Additional findings are as above. ACT 112: Negative or not required by law. Electronically signed by: Adonis Liu M.D. 10/11/2023 1:51 PM Discharge Plan Visit Data Chief Complaint: Referred by Doctor Stated Complaint: ABNORMAL EKG, REF BY DOCTOR ED Provider: Salvador Lugo Discharge Problem: Acute kidney injury superimposed on CKD, Fluid overload Patient Disposition: Admitted As Inpatient Discharge Instructions Interventions: ED Discharge Assessment Last Done: 10/11/23 14:44
[2023-10-11 11:51] LABS: Basophils # (auto) 0.02 K/uL (0.00-0.20); Basophils % (auto) 0.3 %; Hematocrit (blood only) 34.2 % (42.0-52.0); Hemoglobin 10.9 g/dl (14.0-18.0); Immature Granulocytes # (auto) 0.02 K/uL (0.01-0.20); Immature Granulocytes % (auto) 0.3 %; Lymphocytes # (auto) 0.47 K/uL (1.20-3.40); Lymphocytes % (auto) 7.8 %; Mean Corpuscular Hemoglobin 23.9 pg (25.0-34.0); Mean Corpuscular Hgb Conc 31.9 g/dL (32.0-36.0); Mean Platelet Volume 10.4 fL (9.4-12.4); Monocytes % (auto) 6.7 %; Neutrophils # (auto) 5.08 K/uL (1.40-6.50); Neutrophils % (auto) 84.9 %; Platelet Count 276 K/uL (130-400); RDW Coefficient of Variation 20.3 % (11.5-14.5); RDW Standard Deviation 53.1 fL (36.4-46.3); Red Blood Count 4.56 M/uL (4.70-6.10); White Blood Count 5.99 K/ul (4.8-10.8)
[2023-10-11 12:05] LABS: Albumin Globulin Ratio 0.9 (0.9-2); Albumin Level 3.5 gm/dl (3.4-5.0); BUN Creatinine Ratio 17.4 (10-20); Bilirubin,Total 0.7 mg/dl (0.2-1.0); Calcium 8.5 mg/dl (8.6-10.3); Creatinine Clr Calc Pharmacy 16.4 ml/min; Est GFR (African American) 16.2 ml/min; Est GFR (Non-African American) 13.9 ml/min; Globulin 3.7 gm/dl (2.5-4.0); Total Protein 7.2 gm/dl (6.0-8.3)
--- NOTE | 2023-10-11 12:08 | XRay Report ---
XR chest 1V portable HISTORY: Chest pain, nonspecific COMPARISON: Chest 04/22/2019. FINDINGS: Left-sided pacemaker is again noted. The heart is mildly enlarged. There are low lung volum es. No pneumothorax. No pleural effusions. The lungs are clear. IMPRESSION: Mild cardiomegaly. ACT 112: Negative or not required by law. Electronically signed by: Daniel Bland M.D. 10/11/2023 12:07 PM
[2023-10-11 12:11] LABS: Troponin I High Sensitivity 42.8 pg/ml (0-20)
[2023-10-11 12:12] LABS: INR 1.4 (0.9-1.1); Partial Thromboplastin Ratio 1.1; Partial Thromboplastin Time 32 Seconds (21-31); Prothrombin Time 15.1 Seconds (9.0-12.0)
[2023-10-11 12:52] LABS: Anisocytosis Present; Ovalocytes 1+; Polychromasia 1+
--- NOTE | 2023-10-11 13:05 | History & Physical Report ---
Date of Service October 11, 2023 Assessment & Plan (1) Acute on chronic heart failure with reduced ejection fraction and diastolic dysfunction: Plan: This is a 78 y/o male with DM2, CKD3-4, severe ischemic cardiomyopathy with EF on last ECHO in May 2023 at 25-29%, HFrEF, HTN, dyslipidemia, and other history as outlined below who presented to the ED today after he had an abnormal EKG at his PCP office where he was seen for ongoing issues with LE edema. Work-up in the ED revealed an JAMIR with elevation of creatinine from 2.1 at baseline to 3.9 today. Initial troponin was elevated at 42.8, likely secondary to demand in the setting of acute HF exacerbation. BNP was >4700. During my evaluation pt had a brief run of NSVT with frequent PVCs so Mag level added to labs already drawn. Pt was asymptomatic at the time of this event. CT abd/pel shows moderate to lar ge ascites. Current clinical picture is concerning for cardiorenal syndrome. - Admit to PCU - Mg noted to be low at 1.3 so IV repletion ordered - discussed with ED RN, repeat labs in the AM - Consult cardiology for additional recommendations - Daily weights, monitor Is and Os - Consult nephrology for assistance with diuretic management in the setting of worsening of pt's kidney function - repeat BMP in the AM - Defer diuretics to specialists (2) NSVT (nonsustained ventricular tachycardia): Plan: Likely secondary to hypomagnesemia Continue to monitor on telemetry Replete mag as discussed (3) Hypomagnesemia: Plan: See plan for #1 (4) Ascites: Plan: See #1 (5) Acute on chronic renal failure: Plan: Nephrology consult pending - baseline creatinine appears to be around 2.1, today's was 3.9 Trend labs daily (6) Sinus bradycardia: Plan: s/p PPM placement - current rate in the 80s-90s (7) GERD (gastroesophageal reflux disease): Plan: Chronic, stable Continue outpatient PPI therapy (8) CAD (coronary artery disease): Plan: Chronic, stable Continue outpatient regimen - cardio consult pending (9) Diabetes mellitus, type II: Plan: Holding oral agents, specifically metformin in view of worsening kidney function Insulin sliding scale A1c in the AM BSG ACHS Diabetic diet (10) Ischemic cardiomyopathy: Plan: Last ECHO in May 2023 showed LVEF 25-29% Plan Pt seen and reviewed with collaborating physician, Dr. Cheung. Plan of care discussed and as outlined above. Code status: Full code DVT Prophylaxis: SubQ heparin Tommy Yepez PA-C History of Present Illness Chief Complaint: Lower extremity edema Primary Care Provider: Haley Boggs DO This is a 78 y/o male with DM2, CKD3-4, severe ischemic cardiomyopathy with EF on last ECHO in May 2023 at 25-29%, HFrEF, HTN, dyslipidemia, and other history as outlined below who presented to the ED today after he had an abnormal EKG at his PCP office where he was seen for ongoing issues with LE edema. Pt reports that his furosemide was stopped a few months ago, after which he developed recurrent LE edema and abdominal distention. However, review of cardiology notes indicates that pt was to decrease dose to 20 mg BID (from 40 mg BID), not stop it completely. He was seen in PCP office at the end of July and reports furosemide was restarted with subsequent dosage adjustments since then. He reports that his current dose is 40 mg in the AM and 20 mg in the PM. The lower extremity edema has improved although it is not completely back to baseline. He reports that the abdominal distention is not significantly improved. He has some mild discomfort associated with the distention but denies change in appetite, N/V/D. He has NGUYEN but not significantly changed from baseline. Denies SOB at rest, orthopnea, chest pain, palpitations, dizziness or syncope. He denies change in bowels or urination. No recent illness, no fevers, chills, sweats. He does check his sugars regularly - 80s-110s in the morning, 150-200 in the PM. Weighs himself 4x/week - weight fluctuates between 185-195 lbs but he denies significant weight gain recently. Allergies Allergy/AdvReac Type Severity Reaction Status Date / Time cefadroxil Allergy Unknown RASH Verified 03/17/19 14:33 Home Medications Medication Instructions Recorded Confirmed Type aspirin 81 mg tablet,delayed 81 mg PO QAM 03/17/19 10/11/23 History release cyanocobalamin (vitamin B-12) 1,000 mcg PO QAM 03/17/19 10/11/23 History 1,000 mcg tablet (Vitamin B-12) diphenhydramine HCl 25 mg tablet 25 mg PO QAM 03/17/19 10/11/23 History (Benadryl Allergy) finasteride 5 mg tablet 5 mg PO QAM 03/17/19 10/11/23 History furosemide 40 mg tablet 40 mg PO QAM 03/17/19 10/11/23 History metoprolol succinate 25 mg 25 mg PO QPM 03/17/19 10/11/23 History tablet,extended release 24 hr ropinirole 0.5 mg tablet 0.5 mg PO HS 03/17/19 10/11/23 History rosuvastatin 40 mg tablet 40 mg PO QAM 03/17/19 10/11/23 History glipizide 10 mg tablet, extended 20 mg PO DAILY 04/20/19 10/11/23 History release 24 hr omeprazole 20 mg tablet,delayed 20 mg PO DAILY 04/20/19 10/11/23 History release furosemide 40 mg tablet 20 mg PO QPM 10/11/23 10/11/23 History isosorbide mononitrate 60 mg 60 mg PO DAILY 10/11/23 10/11/23 History tablet,extended release 24 hr metformin 500 mg tablet,extended 500 mg PO BID 10/11/23 10/11/23 History release 24 hr ropinirole 2 mg tablet 2 mg PO HS 10/11/23 10/11/23 History Past Med/Surg History Medical History RLS (restless legs syndrome) Fibromyalgia PMR (polymyalgia rheumatica) GERD (gastroesophageal reflux disease) HLD (hyperlipidemia) continue statin CAD (coronary artery disease) continue ASA and low dose BB and imdur and lasix Diabetes mellitus, type II CKD (chronic kidney disease), stage III Ischemic cardiomyopathy Pt admitted for elective ICD due to ICM and SB. Underwent procedure without any complications; monitored overnight and discharged home. Surgical History H/O wrist surgery History of cardiac catheterization History of knee replacement Family History Other Heart disease Stroke Social History Smoking Status: Never smoker Second Hand Exposure: No; Do You Dip or Chew Tobacco: No; Tobacco Cessation Education Requested by Patient: No Hx Alcohol Use: No Hx Substance Use: No Preferred Language: Romansh Communication Ability: Effective Meter Maker Required: No Beliefs That Will Affect Care: None Current Living Situation: Alone Other Information That Helps Us Care for You: No Feels Safe at Home: Yes Safety Concerns: Feels Safe At This Time Assistive Devices: None Review of Systems Review of Systems: All systems reviewed & are unremarkable except as noted in HPI & below Constitutional: no fever and no chills Eyes: no diplopia Ear, Nose, Mouth, Throat: no nasal congestion, no nasal discharge and no sore throat Respiratory: + dyspnea on exertion; no cough Cardiovascular: + edema; no chest pain and no palpitatio ns Gastrointestinal: + bloating; no nausea, no vomiting and n o diarrhea/loose stools Genitourinary: no dysuria or no hematuria Musculoskeletal: no back pain and no neck pain Neurologic: no syncope, no headache(s) and no confusion Physical Exam Physical Exam: General: awake, alert, NAD HEENT: hard of hearing, no scleral icterus Neck: supple, trachea midline Heart: RRR, +systolic murmur Lungs: CTA bilaterally Abdomen: softly distended but nontender, +BS Extremities: 3+ pitting edema bilateral LE Skin: warm, dry, no jaundice Neurologic: Ox3, no confusion or dysarthria, moving all extremities, no focal deficits Results & Data Results & Data Vital Signs (Past 12 Hours) Vital Signs Temp Pulse Pulse Resp BP BP Pulse Ox 10/11/23 13:03 86 99/75 L 100 10/11/23 12:13 86 98 10/11/23 12:05 86 10/11/23 11:12 10/11/23 11:12 84 20 94/72 L 10/11/23 11:04 36.5 C 90 22 94/65 L 100 O2 Del Method 10/11/23 13:03 Room Air 10/11/23 12:13 Room Air 10/11/23 12:05 10/11/23 11:12 Room Air 10/11/23 11:12 10/11/23 11:04 Room Air Laboratory Results Laboratory Results - last 24 hr 10/11/23 10/11/23 11:29 11:38 WBC 5.99 RBC 4.56 L Hgb 10.9 L Hct 34.2 L MCV 75.0 L MCH 23.9 L MCHC 31.9 L RDW Std Deviation 53.1 H RDW Coeff of Serene 20.3 H Plt Count 276 MPV 10.4 Immature Gran % (Auto) 0.3 Neut % (Auto) 84.9 Lymph % (Auto) 7.8 [place] % (Auto) 6.7 Eos % (Auto) 0.0 Baso % (Auto) 0.3 Neut # (Auto) 5.08 Lymph # (Auto) 0.47 L [place] # (Auto) 0.40 Eos # (Auto) 0.00 Baso # (Auto) 0.02 Immature Gran # (Auto) 0.02 Polychromasia 1+ Anisocytosis Present Ovalocytes 1+ PT 15.1 H INR 1.4 H APTT 32 H PTT Ratio 1.1 Sodium 140 Potassium 4.0 Chloride 106 Carbon Dioxide 20 L Anion Gap 14 H BUN 68 H Creatinine 3.90 H Est Cr Clr Drug Dosing 16.4 Est GFR ( Amer) 16.2 Est GFR (Non-Af Amer) 13.9 BUN/Creatinine Ratio 17.4 Glucose 76 Calcium 8.5 L Total Bilirubin 0.7 AST 31 ALT 34 Alkaline Phosphatase 97 Troponin I High Sens 42.8 H B-Natriuretic Peptide > 4700 H Total Protein 7.2 Albumin 3.5 Globulin 3.7 Albumin/Globulin Ratio 0.9 Lipase 145 H SARS-CoV-2, RNA, NAAT NEGATIVE Diagnostic Findings Chest X-Ray 10/11/23 11:13 XR chest 1V portable HISTORY: Chest pain, nonspecific COMPARISON: Chest 04/22/2019. FINDINGS: Left-sided pacemaker is again noted. The heart is mildly enlarged. There are low lung volumes. No pneumothorax. No pleural effusions. The lungs are clear. IMPRESSION: Mild cardiomegaly. ACT 112: Negative or not required by law. Electronically signed by: Daniel Bland M.D. 10/11/2023 12:07 PM Supervising Physician Co-Signing Physician Notes Pt seen and examined by me, care coordinated w/ Tommy Yepez PA-C, pl refer to her note above for further detail. Pt is a 78 y/o M with DM2, CKD3-4, severe ischemic cardiomyopathy with EF on last ECHO in May 2023 at 25-29%, HFrEF, HTN, dyslipidemia who presents with LE edema, JAMIR on CKD. BNP elevated and increased abdominal girth - likely secondary to right-sided HF, possible cardiorenal syndrome. Pt has been managed as outpt by pcp and cardiology, currently on lasix dose of 40 mg in the AM and 20 mg in the PM. The lower extremity edema has improved although it is not completely back to baseline. He reports that the abdominal distention is not much improved. Denies shortness at rest, orthopnea, chest pain, palpitations. Currently sitting up in bed in [facility], he is awake, alert oriented, answers appropriately. Heart sounds regular, + syst. murmur. Lungs CTAB. Abdomen soft, distended, nontender to palpation. LE edema b/l 2-3+, no erythema. Skin is warm and dry. Hold diuretics for now, given lower BP and JAMIR on CKD. Will further discuss with cardiology and nephrology. MD Jonatan (4) Ascites Ascites type: other type Qualified Code(s): R18.8 - Other ascites (5) Acute on chronic renal failure Acute renal failure type: unspecified Chronic kidney disease stage: stage 3 (moderate) Chronic kidney disease stage 3 subtype: stage 3b (GFR 30-44) Qualified Code(s): N17.9 - Acute kidney failure, unspecified; N18.32 - Chronic kidney disease, stage 3b (7) GERD (gastroesophageal reflux disease) Esophagitis presence: esophagitis presence not specified Qualified Code(s): K21.9 - Gastro-esophageal reflux disease without esophagitis (8) CAD (coronary artery disease) Associated angina: without angina Coronary Disease-Associated Artery/Lesion type: [place] artery [place] vs. transplanted heart: [place] heart Qualified Code(s): I25.10 - Atherosclerotic heart disease of [place] coronary artery without angina pectoris (9) Diabetes mellitus, type II Chronic kidney disease stage: stage 3 (moderate) Chronic kidney disease stage 3 subtype: unspecified whether 3a or 3b Diabetes mellitus complication detail: with chronic kidney disease Diabetes mellitus complication status: with kidney complications Diabetes mellitus assisted insulin use: without intermission coordinator use Qualified Code(s): E11.22 - Type 2 diabetes mellitus with diabetic chronic kidney disease; N18.30 - Chronic kidney disease, stage 3 unspecified
[2023-10-11 13:51] LABS: Troponin I High Sensitivity 40.3 pg/ml (0-20)
--- NOTE | 2023-10-11 13:52 | CT Scan Report ---
CT abd pelvis wo con CLINICAL HISTORY: JAMIR on CKD, swelling TECHNIQUE: Helical axial images of the abdomen and pelvis were obtained. Automated dose lowering tech niques and/or adjustment according to patient size were utilized for this exam. This exam was perfor med without intravenous contrast. CT DOSE: 1351.42 mGy.cm COMPARISON: None available at the time of this dictation. FINDINGS: Lower chest: Cardiomegaly is seen with biatrial enlargement. Liver: Unremarkable. No focal lesions are seen. Gallbladder and biliary tree: No calcified gallstones. Normal caliber wall. No intra- or extrahepatic biliary ductal dilation. Pancreas: Unremarkable, no focal lesions. Spleen: Unremarkable. Adrenals: Unremarkable. Kidneys and ureters: Exophytic cysts are seen bilaterally. Bladder: Diffuse homogeneous wall thickening is seen. Reproductive organs: Unremarkable. Bowel: Diverticulosis is seen without diverticulitis. The appendix is normal. Lymph nodes Retroperitoneal: Unremarkable. Pelvic: Unremarkable. Mesenteric: Unremarkable. Peritoneum: Moderate to large ascites is seen. Vessels: Atherosclerotic calcifications are seen. Abdominal wall: Minimal soft tissue edema is seen. An umbilical hernia is noted. Bones: Degenerative changes in the visualized spine. IMPRESSION: Moderate to large ascites is seen with mild soft tissue edema. Findings are compatible with fluid ove rload. Otherwise no acute abnormalities are seen. Additional findings are as above. ACT 112: Negative or not required by law. Electronically signed by: Adonis Liu M.D. 10/11/2023 1:51 PM
[2023-10-11 14:06] LABS: Magnesium 1.3 mg/dl (1.7-2.4); Phosphorus 5.4 mg/dl (2.5-4.9)
[2023-10-11] MEDS ORDERED: GLUCOSE 40% GEL 15 GM TUBE PO PRN (16:18)
[2023-10-11] MEDS ORDERED: DEXTROSE 50% 50 ML SYRINGE IV PRN (16:18)
[2023-10-11] MEDS: MAGNESIUM SULFATE / D5W 1 GM/100 ML BAG IV SCH (16:18)
[2023-10-11] MEDS ORDERED: GLUCAGON FOR INJ 1 MG VIAL SQ PRN (16:18)
[2023-10-11] MEDS ORDERED: GLUCOSE 10 TAB/TUBE PO PRN (16:18)
--- NOTE | 2023-10-11 16:35 | Cardiology Consultation ---
Date of Consultation October 11, 2023 Assessment & Plan (1) Acute on chronic renal failure: (2) Ascites: (3) Acute on chronic heart failure with reduced ejection fraction and diastolic dysfunction: (4) NSVT (nonsustained ventricular tachycardia): (5) Aortic stenosis: (6) Hypomagnesemia: Plan Complex 78-year-old patient admitted with concerns regarding volume overload and acute decompensated heart failure. Lab studies demonstrating acute renal failure. Findings suggest cardiorenal syndrome with abdominal ascites. Primarily right-sided signs/symptoms. Further diuresis limited by worsening renal function. (Outpatient Lasix dose 60 mg daily per review of cardiology r ecords) await nephrology evaluation/recommendations. Patient chronically hypotensive which has limited addition of evidence-based heart failure therapies in the past. Continue current doses of isosorbide monohydrate, low-dose aspirin, metoprolol succinate, and rosuvastatin. No role for AYAAN inhibitor, ARB, or Aldactone in setting of acute renal insufficiency. Nonsustained ventricular tachycardia noted on telemetry. Agree with magnesium supplementation. Continue beta-demarcus therapy. Currently hold off on addition of inotropic therapy (dobutamine), however, may be reconsidered during hosp italization pending clinical course. History of Present Illness Reason for Consultation: CHF Requesting Physician: Alix Yepez PA-C Attending Physician: Rafael Cheung MD History of Present Illness 78-year-old male with history of chronic heart failure with reduced ejection fraction, CHF, ICD, and aortic stenosis referred from his primary care physician's office to the ER today. Patient reports 10 to 15 pound weight gain, however, weight not significantly changed when outpatient records reviewed. Notes significant lower extremity edema more than 1 month ago which resolved after restarting diuretic therapy. His abdomen remains distended. Denies orthopnea or PND. Notes dyspnea with minimal exertion. No chest discomfort or heaviness. Denies palpitations, lightheadedness, dizziness, syncope, or near syncope. Lab studies on admission demonstrate acute renal failure superimposed on chronic kidney disease. Baseline creatinine 2.1, up to 3.[address] of the abdomen and pelvis performed on admission demonstrating significant abdominal ascites. Chest x-ray without evidence of pulmonary edema, however, significant cardiomegaly noted. Problem list copied from the [facility] medical record: 1. Late presentation anterior wall myocardial infarction in 2014, resultant severe ischemic cardiomyopathy, ejection fraction 20 to 25% 2. Coronary angiography on December 25, 2014 revealed a 30% ostial LM stenosis, functionally occluded LAD after the takeoff of the second diagonal branch, minor nonobstructive disease in the LCX, and a diffusely diseased RCA with moderately severe disease in the proximal and mid segment and a 70% distal stenosis. 3. Repeat cardiac catheterization on March 19, 2019 revealed the LAD to be o ccluded after the takeoff of a septal litigation attorney and diagonal and the right coronary artery to be occluded at its origin, filling with a rich supply of collaterals from the left system. The left circumflex artery was described as a single large marginal branch that was widely patent, supplying collaterals to the distal RCA 4. NYHA Class 3 CHF 5. Status post April 21, 2019 dual-chamber pacemaker defibrillator implantation by Dr. York. - [employer] MRI XT DR Cuellar [id number], serial number [id number]. - Right atrial lead was a Medtronic 5076-52 cm, serial number [id number]. - Right ventricular lead was a Medtronic 6935M-62 cm, serial number [id number]. 6. Prior attempted adding very low-dose Ayaan inhibition resulted in symptomatic hypotension as well as acute on chronic renal dysfunction 7. Stage 3 to 4 chronic kidney disease 8. History of hypertension 9. Dyslipidemia 10. Type 2 diabetes mellitus 11. Family history of premature CAD. 12. GERD 13. BPH 14. RLS Allergies Allergy/AdvReac Type Severity Reaction Status Date / Time cefadroxil Allergy Unknown RASH Verified 03/17/19 14:33 Home Medications Medication Instructions Recorded Confirmed Type aspirin 81 mg tablet,delayed 81 mg PO QAM 03/17/19 10/11/23 History release cyanocobalamin (vitamin B-12) 1,000 mcg PO QAM 03/17/19 10/11/23 History 1,000 mcg tablet (Vitamin B-12) diphenhydramine HCl 25 mg tablet 25 mg PO QAM 03/17/19 10/11/23 History (Benadryl Allergy) finasteride 5 mg tablet 5 mg PO QAM 03/17/19 10/11/23 History furosemide 40 mg tablet 40 mg PO QAM 03/17/19 10/11/23 History metoprolol succinate 25 mg 25 mg PO QPM 03/17/19 10/11/23 History tablet,extended release 24 hr ropinirole 0.5 mg tablet 0.5 mg PO HS 03/17/19 10/11/23 History rosuvastatin 40 mg tablet 40 mg PO QAM 03/17/19 10/11/23 History glipizide 10 mg tablet, extended 20 mg PO DAILY 04/20/19 10/11/23 History release 24 hr omeprazole 20 mg tablet,delayed 20 mg PO DAILY 04/20/19 10/11/23 History release furosemide 40 mg tablet 20 mg PO QPM 10/11/23 10/11/23 History isosorbide mononitrate 60 mg 60 mg PO DAILY 10/11/23 10/11/23 History tablet,extended release 24 hr metformin 500 mg tablet,extended 500 mg PO BID 10/11/23 10/11/23 History release 24 hr ropinirole 2 mg tablet 2 mg PO HS 10/11/23 10/11/23 History Patient History Medical History RLS (restless legs syndrome) Fibromyalgia PMR (polymyalgia rheumatica) GERD (gastroesophageal reflux disease) HLD (hyperlipidemia) continue statin CAD (coronary artery disease) continue ASA and low dose BB and imdur and lasix Diabetes mellitus, type II CKD (chronic kidney disease), stage III Ischemic cardiomyopathy Pt admitted for elective ICD due to ICM and SB. Underwent procedure without any complications; monitored overnight and discharged home. Surgical History H/O wrist surgery History of cardiac catheterization History of knee replacement Family History Other Heart disease Stroke Social History Smoking Status: Never smoker Second Hand Exposure: No; Do You Dip or Chew Tobacco: No; Tobacco Cessation Education Requested by Patient: No Hx Alcohol Use: No Hx Substance Use: No Preferred Language: Luxembourgish Communication Ability: Effective Internet Retailer Required: No Beliefs That Will Affect Care: None Current Living Situation: Alone Other Information That Helps Us Care for You: No Feels Safe at Home: Yes Safety Concerns: Feels Safe At This Time Assistive Devices: None Review of Systems Review of Systems: All systems reviewed & are unremarkable except as noted in Subjective Physical Exam Constitutional: well nourished; no acute distress Respiratory: normal respiratory effort; no respiratory distress, no labored breathing and no retractions Auscultation: no crackles, no rales, no rhonchi and no wheezes Cardiovascular: Rate/Rhythm: regular rate and regular rhythm Heart Sounds: normal S1, normal S2 and + murmur (2/6 systolic ejection murmur) Vessels: + JVD and radial pulses present; no carotid bruit Extremities: + edema (Trace bilateral pretibial edema) Gastrointestinal (Abdomen): Inspection/Auscultation: + abdomen distended and normal bowel sounds Percussion/Palpation: abdomen soft; abdomen nontender, no guarding and abdomen not rigid Neurologic: CN's II-XI intact bilaterally and moves all extremities; no focal motor deficits Results & Data Vital Signs (Past 12 Hours) Vital Signs Temp Pulse Pulse Resp BP BP Pulse Ox 10/11/23 14:50 10/11/23 14:50 36.3 C L 91 H 22 99/66 L 99 10/11/23 14:44 10/11/23 13:03 86 99/75 L 100 10/11/23 12:13 86 98 10/11/23 12:05 86 10/11/23 11:12 10/11/23 11:12 84 20 94/72 L 10/11/23 11:04 36.5 C 90 22 94/65 L 100 O2 Del Method 10/11/23 14:50 Room Air 10/11/23 14:50 Room Air 10/11/23 14:44 Room Air 10/11/23 13:03 Room Air 10/11/23 12:13 Room Air 10/11/23 12:05 10/11/23 11:12 Room Air 10/11/23 11:12 10/11/23 11:04 Room Air Laboratory Results Cardiac Enzymes 10/11/23 10/11/23 Range/Units 11:29 13:10 AST 31 (13-39) U/L Troponin I High Sens 42.8 H 40.3 H (0-20) pg/ml B-Natriuretic Peptide > 4700 H (0-100) pg/ml Coagulation 10/11/23 Range/Units 11:29 PT 15.1 H (9.0-12.0) Seconds APTT 32 H (21-31) Seconds B-Natriuretic Peptide > 4700 H (0-100) pg/ml CBC 10/11/23 Range/Units 11:29 WBC 5.99 (4.8-10.8) K/ul RBC 4.56 L (4.70-6.10) M/uL Hgb 10.9 L (14.0-18.0) g/dl Hct 34.2 L (42.0-52.0) % Plt Count 276 (130-400) K/uL Neut # (Auto) 5.08 (1.40-6.50) K/uL Lymph # (Auto) 0.47 L (1.20-3.40) K/uL [place] # (Auto) 0.40 (0.11-0.59) K/uL Eos # (Auto) 0.00 (0.00-0.50) K/uL Baso # (Auto) 0.02 (0.00-0.20) K/uL Comprehensive Metabolic Panel 10/11/23 Range/Units 11:29 Sodium 140 (136-145) mmol/L Potassium 4.0 (3.5-5.1) mmol/L Chloride 106 (98-107) mmol/L Carbon Dioxide 20 L (21-32) mmol/L BUN 68 H (6-23) mg/dl Creatinine 3.90 H (0.6-1.4) mg/dl Glucose 76 (70-99(Fasting)) mg/dl Calcium 8.5 L (8.6-10.3) mg/dl AST 31 (13-39) U/L ALT 34 (7-52) U/L Alkaline Phosphatase 97 (34-104) U/L Total Protein 7.2 (6.0-8.3) gm/dl Albumin 3.5 (3.4-5.0) gm/dl Intake and Output 10/11/23 10/11/23 10/11/23 06:59 14:59 22:59 Other: Weight 86.3 kg Weight Measurement Method Standing Scale Patient Weight 10/12/23 06:59 Weight 86.3 kg Diagnostic Findings 2D echocardiogram report, [facility], 06/11/2023: The left ventricular cavity size is moderately enlarged. There is anterior wall akinesis. There is moderate to severe lateal wall hypokinesis. The qualitative LV ejection fraction is 25-29% (severely reduced). The left atrium is moderately enlarged (42-48 ml/m^2). The aortic valve is moderately calcified. Moderate aortic valve stenosis vs. pseudostenosis from low cardiac output is present. Moderate mitral regurgitation is present. Mild tricuspid regurgitation is present. (1) Acute on chronic renal failure Acute renal failure type: unspecified Chronic kidney disease stage: stage 3 (moderate) Chronic kidney disease stage 3 subtype: stage 3b (GFR 30-44) Qualified Code(s): N17.9 - Acute kidney failure, unspecified; N18.32 - Chronic kidney disease, stage 3b (2) Ascites Ascites type: other type Qualified Code(s): R18.8 - Other ascites (5) Aortic stenosis Cardiac valve disease etiology: nonrheumatic Qualified Code(s): I35.0 - Nonrheumatic aortic (valve) stenosis
[2023-10-11] MEDS: INSULIN ASPART PER UNIT CHARGE SC SCH (17:01)
[2023-10-11] MEDS: CARBOHYDRATES FOR HYPOGLYCEMIA PO PRN (17:02)
[2023-10-11] MEDS: rOPINIRole HCL 2 MG TABLET PO SCH (20:34)
[2023-10-11] MEDS: METOPROLOL SUCC 25MG EXT REL TAB PO SCH (20:34)
[2023-10-11] MEDS: rOPINIRole HCL 0.25 MG TABLET PO SCH (20:34)
--- NOTE | 2023-10-12 00:17 | Electrocardiogram Report ---
Test Reason : Blood Pressure : / mmHG Vent. Rate : 091 BPM Atrial Rate : 091 BPM P-R Int : 200 ms QRS Dur : 100 ms QT Int : 396 ms P-R-T Axes : 059 000 117 degrees QTc Int : 487 ms Normal sinus rhythm with sinus arrhythmia Cannot rule out Anterior infarct (cited on or before 26-JAN-2015) Abnormal ECG When compared with ECG of 21-APR-2019 14:10, Criteria for Inferior infarct are no longer Present Nonspecific T wave abnormality no longer evident in Anterior leads Confirmed by Kapil Peguero ([id number]) on 10/12/2023 12:16:30 AM Referred By: Confirmed By:Kapil Peguero
[2023-10-12 04:21] LABS: BUN Creatinine Ratio 16.9 (10-20); Calcium 8.3 mg/dl (8.6-10.3); Creatinine Clr Calc Pharmacy 15.6 ml/min; Est GFR (African American) 15.3 ml/min; Est GFR (Non-African American) 13.2 ml/min; Magnesium 1.9 mg/dl (1.7-2.4); Potassium 3.8 mmol/L (3.5-5.1)
[2023-10-12 04:36] LABS: INR 1.3 (0.9-1.1); Prothrombin Time 14.3 Seconds (9.0-12.0)
[2023-10-12 07:11] LABS: Estimated Average Glucose 183 mg/dl
--- NOTE | 2023-10-12 07:25 | Hospitalist Progress Note ---
Date of Service October 12, 2023 Assessment & Plan (1) Acute on chronic heart failure with reduced ejection fraction and diastolic dysfunction: (2) NSVT (nonsustained ventricular tachycardia): (3) Hypomagnesemia: (4) Ascites: (5) Acute on chronic renal failure: (6) Sinus bradycardia: (7) GERD (gastroesophageal reflux disease): (8) CAD (coronary artery disease): (9) Diabetes mellitus, type II: (10) Ischemic cardiomyopathy: Plan Mr. Jimenes is a 78 y/o male with DM2, CKD3-4, severe ischemic cardiomyopathy with EF on last ECHO in May 2023 at 25-29%, HFrEF, HTN, dyslipidemia, and other history as outlined below who was noted to have an abnormal EKG at his PCP office during visit for LE edema. Patient admitted on 10/10 for management of acute on chronic heart failure with reduced EF. Work-up in the ED revealed an JAMIR with elevation of creatinine from 2.1 at baseline to 3.9 today. Initial troponin was elevated at 42.8, likely secondary to demand in the setting of acute HF exacerbation. BNP was >4700. While in ED, patient with NSVT with frequent PVCs. CT abd/pel shows moderate to large ascites. #Acute on chronic heart failure with reduced ejection fraction and diastolic dysfunction: #Severe ischemic cardiomyopathy 25% #s/p dcPPM 2018 Patient with ongoing issues with LE edema and ongoing OP diuretic adjustments, currently taking 40qam/20qpm ECHO 05/2023 with EF 25-29% GDMT historically limited 2/2 hypotension and renal dysfunction - Consult cardiology for additional recommendations -Continue imdur, asa, metoprolol xl25mg qpm statin - Daily weights, monitor Is and Os - Consult nephrology for assistance with diuretic management in the setting of worsening of pt's kidney function IV lasix 30mg BID at this time per nephrology #NSVT (nonsustained ventricular tachycardia): Likely secondary to hypomagnesemia Continue to monitor on telemetry Replace lytes prn #Tense ascites 2/2 volume overload Potentially contributing to degree of renal failure -Consult Lawn Caretaker for large volume paracentesis #Acute on chronic renal failure: like cardiorenal syndrome, c/f intraabdominal htn 2/2 ascites Baseline ~2.0 Nephrology consult -Lasix 30mg BID Lawn Caretaker for para as above Trend labs #GERD Chronic, stable Continue outpatient PPI therapy #Diabetes mellitus, type II: Holding oral agents, specifically metformin in view of worsening kidney function Insulin sliding scale A1c 8% BSG ACHS Diabetic diet #BPH continue finasteride #RLS continue ropinrole Dispo: Remains on tele/pcu for aggressive management of heart failure and renal failure, pending para today DVT Prophylaxis: SubQ heparin Admission and Anticipated Discharge Date Admission Date: October 11, 2023 Subjective NAEO Reports feeling some improvement in legs, but notes significant abdominal discomfort. Denies any chest pain at this time and other santa states that he is "ok" outside of progressive NGUYEN Physical Exam Constitutional: WD/WN, vitals as above Respiratory: normal respiratory effort, lungs clear to auscultation Cardiovascular: TRUMAN, regular Gastrointestinal (Abdomen): notably distended abdomen tense, nontender; edema up posterior extremities in sacrum Results & Data Results & Data Vital Signs (Past 12 Hours) Vital Signs Temp Pulse Pulse Resp BP Pulse Ox O2 Del Method 10/12/23 03:08 36.3 C L 89 17 99/66 L 98 Room Air 10/11/23 23:35 36.6 C 88 17 97/64 L 97 Room Air 10/11/23 21:59 90 10/11/23 21:52 Room Air 10/11/23 19:32 36.7 C 93 H 17 98/66 L 100 Room Air Laboratory Results [facility] 10/12/23 03:44 Sodium 139 Potassium 3.8 Chloride 108 H Carbon Dioxide 18 L BUN 69 H Creatinine 4.09 H Glucose 131 H Calcium 8.3 L Medications Administered Home Medications Medication Instructions Recorded Confirmed Last Taken aspirin 81 mg tablet,delayed 81 mg PO [facility] 03/17/19 10/11/23 10/10/23 release cyanocobalamin (vitamin B-12) 1,000 mcg PO QAM 03/17/19 10/11/23 10/10/23 1,000 mcg tablet (Vitamin B-12) diphenhydramine HCl 25 mg tablet 25 mg PO QAM 03/17/19 10/11/23 10/10/23 (Benadryl Allergy) finasteride 5 mg tablet 5 mg PO QAM 03/17/19 10/11/23 10/10/23 furosemide 40 mg tablet 40 mg PO QAM 03/17/19 10/11/23 10/10/23 metoprolol succinate 25 mg 25 mg PO QPM 03/17/19 10/11/23 10/10/23 tablet,extended release 24 hr ropinirole 0.5 mg tablet 0.5 mg PO HS 03/17/19 10/11/23 10/10/23 rosuvastatin 40 mg tablet 40 mg PO QAM 03/17/19 10/11/23 10/10/23 glipizide 10 mg tablet, extended 20 mg PO DAILY 04/20/19 10/11/23 10/10/23 release 24 hr omeprazole 20 mg tablet,delayed 20 mg PO DAILY 04/20/19 10/11/23 10/10/23 release furosemide 40 mg tablet 20 mg PO QPM 10/11/23 10/11/23 10/10/23 isosorbide mononitrate 60 mg 60 mg PO DAILY 10/11/23 10/11/23 10/10/23 tablet,extended release 24 hr metformin 500 mg tablet,extended 500 mg PO BID 10/11/23 10/11/23 10/10/23 release 24 hr ropinirole 2 mg tablet 2 mg PO 10/11/23 10/11/23 10/10/23 Active Medications Generic Name Dose Route Start Last Admin Trade Name Freq PRN Reason Stop Dose Admin Aspirin 81 mg 10/12/23 09:00 10/12/23 09:00 Aspirin 81 Mg Ectab PO 11/11/23 08:59 81 mg QAM WILLIAM Administration Cyanocobalamin 1,000 mcg 10/12/23 09:00 10/12/23 09:00 Cyanocobalamin (B-12) 500 Mcg Tablet PO 11/11/23 08:59 1,000 mcg QAM WILLIAM Administration Diphenhydramine HCl 25 mg 10/12/23 09:00 10/12/23 09:00 Diphenhydramine Capsule 25 Mg Cap PO 11/11/23 08:59 25 mg QAM WILLIAM Administration Finasteride 5 mg 10/12/23 09:00 10/12/23 08:59 Finasteride 5 Mg Tab PO 11/11/23 08:59 5 mg QAM WILLIAM Administration Furosemide 30 mg 10/12/23 10:30 10/12/23 11:28 Furosemide 40 Mg/4 Ml Vial IV 11/11/23 10:29 30 mg BID WILLIAM Administration Insulin Aspart 0 units 10/11/23 16:30 10/12/23 09:02 Insulin Aspart Per Unit Charge SC 11/10/23 16:29 3 units ACHS WILLIAM Administration Isosorbide Mononitrate 60 mg 10/12/23 09:00 10/12/23 08:59 Isosorbide [place] Extended Rel 60 Mg Tabcr PO 11/11/23 08:59 60 mg DAILY WILLIAM Administration Metoprolol Succinate 25 mg 10/11/23 21:00 10/11/23 20:34 Metoprolol Succ 25mg Ext Rel Tab PO 11/10/23 20:59 Not Given QPM WILLIAM Miscellaneous 15 - 30 gm 10/11/23 16:18 10/11/23 17:02 Carbohydrates For Hypoglycemia PO 11/10/23 16:17 30 gm UD PRN Administration Hypoglycemia Protocol Pantoprazole Sodium 40 mg 10/12/23 09:00 10/12/23 08:59 Pantoprazole 40 Mg Tab PO 11/11/23 08:59 40 mg DAILY WILLIAM Administration Protocol Ropinirole HCl 2 mg 10/11/23 21:00 10/11/23 20:34 Ropinirole Hcl 2 Mg Tablet PO 11/10/23 20:59 2 mg HS WILLIAM Administration Ropinirole HCl 0.5 mg 10/11/23 21:00 10/11/23 20:34 Ropinirole Hcl 0.25 Mg Tablet PO 11/10/23 20:59 0.5 mg HS WILLIAM Administration Rosuvastatin Calcium 40 mg 10/12/23 09:00 10/12/23 08:59 Rosuvastatin Calcium 20 Mg Tab PO 11/11/23 08:59 40 mg QAM WILLIAM Administration (4) Ascites Ascites type: other type Qualified Code(s): R18.8 - Other ascites (5) Acute on chronic renal failure Acute renal failure type: unspecified Chronic kidney disease stage: stage 3 (moderate) Chronic kidney disease stage 3 subtype: stage 3b (GFR 30-44) Qualified Code(s): N17.9 - Acute kidney failure, unspecified; N18.32 - Chronic kidney disease, stage 3b (7) GERD (gastroesophageal reflux disease) Esophagitis presence: esophagitis presence not specified Qualified Code(s): K21.9 - Gastro-esophageal reflux disease without esophagitis (8) CAD (coronary artery disease) Associated angina: without angina Coronary Disease-Associated Artery/Lesion type: [place] artery [place] vs. transplanted heart: [place] heart Qualified Code(s): I25.10 - Atherosclerotic heart disease of [place] coronary artery without angina pectoris (9) Diabetes mellitus, type II Chronic kidney disease stage: stage 3 (moderate) Chronic kidney disease stage 3 subtype: unspecified whether 3a or 3b Diabetes mellitus complication detail: with chronic kidney disease Diabetes mellitus complication status: with kidney complications Diabetes mellitus usp insulin use: without tank terminal gauger use Qualified Code(s): E11.22 - Type 2 diabetes mellitus with diabetic chronic kidney disease; N18.30 - Chronic kidney disease, stage 3 unspecified
[2023-10-12] MEDS: FINASTERIDE 5 MG TAB PO SCH (08:59)
[2023-10-12] MEDS: PANTOprazole 40 MG TAB PO SCH (08:59)
[2023-10-12] MEDS: ROSUVASTATIN CALCIUM 20 MG TAB PO SCH (08:59)
[2023-10-12] MEDS: ISOSORBIDE MONO EXTENDED REL 60 MG TABCR PO SCH (08:59)
[2023-10-12] MEDS: diphenhydrAMINE Capsule 25 MG CAP PO SCH (09:00)
[2023-10-12] MEDS: CYANOCOBALAMIN (B-12) 500 MCG TABLET PO SCH (09:00)
[2023-10-12] MEDS: ASPIRIN 81 MG ECTAB PO SCH (09:00)
--- NOTE | 2023-10-12 10:58 | Cardiology Progress Note ---
Date of Service October 12, 2023 Assessment & Plan (1) Acute on chronic renal failure: (2) Ascites: (3) Acute on chronic heart failure with reduced ejection fraction and diastolic dysfunction: (4) NSVT (nonsustained ventricular tachycardia): (5) Aortic stenosis: (6) Hypomagnesemia: Plan Complex 78-year-old patient admitted with concerns regarding volume overload and acute decompensated heart failure. Lab studies demonstrating acute renal failure. Findings suggest cardiorenal syndrome with abdominal ascites. Primarily right-sided signs/symptoms. Further diuresis limited by worsening renal function. (Outpatient Lasix dose 60 mg daily per review of cardiology records) await nephrology evaluation/recommendations. Patient chronically hypotensive which has limited addition of evidence-based heart failure therapies in the past. Continue current doses of isosorbide monohydrate, low-dose aspirin, metoprolol succinate, and rosuvastatin. No role for LIN inhibitor, ARB, or Aldactone in setting of acute renal insufficiency. Nonsustained ventricular tachycardia noted on telemetry. Agree with magnesium supplementation. Continue beta-demarcus therapy. Currently hold off on addition of inotropic therapy (dobutamine), however, may be reconsidered during hospitali zation pending clinical course. 10/12/23: No recurrent paroxysmal VT on telemetry. Magnesium level improved at 1.9 after supplementation Large amount of ascites noted on abd CT scan. Unfortunately creatinine continues to rise and currently 4.09. Nephrology consult appreciated. Starting on low dose furosemide IV. Monitor I+O's. supplement and monitor potassium/magnesium as needed Borderline low BP. May need to reduce/hold isosorbide to allow for ongoing diuresis. May need to consider GI evaluation for paracentesis. Continue metoprolol, statin, ASA. will follow Case discussed with Dr. Chaidez I spent a total of 35 minutes on the date of service in preparation, delivery, and documentation of the care provided to this patient, excluding any time spent in the performance of separately billed services. Alondra Ocampo PA-C Department of Cardiology, [facility] This chart was completed in part utilizing Speech Voice Recognition Software. Grammatical errors, random word insertions, pronoun errors, and incomplete sentences are an occasional consequence of this system due to software limitations, ambient noise, and hardware issues. Any formal questions or concerns about the content, text, or information contained within the body of this dictation should be directly addressed to the provider for clarification. Admission and Anticipated Discharge Date Admission Date: October 11, 2023 Supervising Physician Co-Signing Physician Notes I have reviewed the advance practitioner's documentation, and I agree with, and take responsibility for the plan of care. Abdominal distention unchanged. Patient offers no new concerns/complaints. Denies chest discomfort or shortness of breath at rest. Serum creatinine trending upward. PE: VSS. Gen: NAD, AAOx3. Heart: Regular rhythm, normal S1-S2. 2/6 systolic ejection murmur. Lungs: Clear bilateral, no rales, rhonchi, wheeze. Extremities: Trace bilateral pretibial edema. Abdomen: Distended, nontender, no rebound or guarding. A/P: 78-year-old male with acute on chronic heart failure with reduced ejection fraction and cardiorenal syndrome. Serum creatinine trending upward today. Primarily right-sided signs/symptoms with significant abdominal ascites. Initiate IV diuresis. Hold isosorbide. Appreciate nephrology input. Consider gastroenterology consultation for paracentesis. I spent a total of 25 minutes on the date of service in preparation, delivery, and documentation of the care provided to this patient, excluding any time spent in the performance of separately billed services. Subjective Patient resting in bed. feeling well. Denies SOB. Notes abdominal bloating and distention. No edema. no chest pain. No dizziness or lightheadedness. Review of Systems Review of Systems: All systems reviewed & are unremarkable except as noted in HPI & below Physical Exam Constitutional: WD/WN, vitals as above well nourished; no acute distress Neck: trachea midline, no thyromegaly Respiratory: no labored breathing Auscultation: lungs clear to auscultation bilaterally; no crackles, no rales and no rhonchi Cardiovascular: Rate/Rhythm: regular rate and regular rhythm Heart Sounds: normal S1, normal S2 and + murmur (2/6 systolic ejection murmur) Vessels: + JVD and radial pulses present; no carotid bruit Extremities: no edema Gastrointestinal (Abdomen): Inspection/Auscultation: + abdomen distended and normal bowel sounds Percussion/Palpation: abdomen soft; abdomen nontender, no guarding and abdomen not rigid Neurologic: CN's II-XI intact bilaterally and moves all extremities; no focal motor deficits Results & Data Vital Signs (Past 12 Hours) Vital Signs Temp Pulse Pulse Resp BP Pulse Ox Pulse Ox 10/12/23 08:00 99 10/12/23 07:55 36.4 C L 88 18 98/67 L 99 10/12/23 07:30 90 10/12/23 03:08 36.3 C L 89 17 99/66 L 98 10/11/23 23:35 36.6 C 88 17 97/64 L 97 O2 Del Method O2 Del Method 10/12/23 08:00 Room Air 10/12/23 07:55 Room Air 10/12/23 07:30 10/12/23 03:08 Room Air 10/11/23 23:35 Room Air Laboratory Results Cardiac Enzymes 10/11/23 10/11/23 10/11/23 Range/Units 11:29 13:10 22:37 AST 31 (13-39) U/L Troponin I High Sens 42.8 H 40.3 H 40.2 H (0-20) pg/ml B-Natriuretic Peptide > 4700 H (0-100) pg/ml 10/12/23 Range/Units 03:44 AST (13-39) U/L Troponin I High Sens 41.7 H (0-20) pg/ml B-Natriuretic Peptide 3592 H (0-100) pg/ml Coagulation 10/11/23 10/12/23 Range/Units 11:29 03:44 PT 15.1 H 14.3 H (9.0-12.0) Seconds APTT 32 H (21-31) Seconds B-Natriuretic Peptide > 4700 H 3592 H (0-100) pg/ml CBC 10/11/23 Range/Units 11:29 WBC 5.99 (4.8-10.8) K/ul RBC 4.56 L (4.70-6.10) M/uL Hgb 10.9 L (14.0-18.0) g/dl Hct 34.2 L (42.0-52.0) % Plt Count 276 (130-400) K/uL Neut # (Auto) 5.08 (1.40-6.50) K/uL Lymph # (Auto) 0.47 L (1.20-3.40) K/uL Victoria # (Auto) 0.40 (0.11-0.59) K/uL Eos # (Auto) 0.00 (0.00-0.50) K/uL Baso # (Auto) 0.02 (0.00-0.20) K/uL Comprehensive Metabolic Panel 10/11/23 10/12/23 Range/Units 11:29 03:44 Sodium 140 139 (136-145) mmol/L Potassium 4.0 3.8 (3.5-5.1) mmol/L Chloride 106 108 H (98-107) mmol/L Carbon Dioxide 20 L 18 L (21-32) mmol/L BUN 68 H 69 H (6-23) mg/dl Creatinine 3.90 H 4.09 H (0.6-1.4) mg/dl Glucose 76 131 H (70-99(Fasting)) mg/dl Calcium 8.5 L 8.3 L (8.6-10.3) mg/dl AST 31 (13-39) U/L ALT 34 (7-52) U/L Alkaline Phosphatase 97 (34-104) U/L Total Protein 7.2 (6.0-8.3) gm/dl Albumin 3.5 (3.4-5.0) gm/dl Intake and Output 10/11/23 10/12/23 10/12/23 22:59 06:59 14:59 Intake Total 598.333 / 848.333 250 / 848.333 Output Total 225 / 700 475 / 700 Balance 373.333 / 148.333 -225 / 148.333 Intake: IV 298.333 / 298.333 Magnesium Sulfate / D5w 1 gm In 298.333 / 298.333 100 ml @ 50 mls/hr IV Q2H COUNTS INCLUDE 234 BEDS AT THE [facility] Rx#:[id number] Oral 300 / 550 250 / 550 Output: Urine 225 / 700 475 / 700 Other: Weight 85 kg Weight Measurement Method Built in [facility] Diagnostic Findings Telemetry reviewed: NSR at 80-90; occ PVC. No recurrent VT Abd CT report reviewed: IMPRESSION: Moderate to large ascites is seen with mild soft tissue edema. Findings are compatible with fluid overload. Otherwise no acute abnormalities are seen. Additional findings are as above. 2D echocardiogram report, at [facility], 06/11/2023: The left ventricular cavity size is moderately enlarged. There is anterior wall akinesis. There is moderate to severe lateral wall hypokinesis. The qualitative LV ejection fraction is 25-29% (severely reduced). The left atrium is moderately enlarged (42-48 ml/m^2). The aortic valve is moderately calcified. Moderate aortic valve stenosis vs. pseudostenosis from low cardiac output is present. Moderate mitral regurgitation is present. Mild tricuspid regurgitation is present. Medications Administered Current Inpatient Medications Acetaminophen (Acetaminophen 325 Mg Tab) 650 mg PO Q4H PRN PRN Reason: Pain or Fever Stop: 11/10/23 16:17 Aspirin (Aspirin 81 Mg Ectab) 81 mg PO QAM COUNTS INCLUDE 234 BEDS AT THE [facility] Stop: 11/11/23 08:59 Last Admin: 10/12/23 09:00 Dose: 81 mg Cyanocobalamin (Cyanocobalamin (B-12) 500 Mcg Tablet) 1,000 mcg PO QAM COUNTS INCLUDE 234 BEDS AT THE [facility] Stop: 11/11/23 08:59 Last Admin: 10/12/23 09:00 Dose: 1,000 mcg Dextrose (Dextrose 50% 50 Ml Syringe) 25 - 50 ml IV UD PRN; Protocol PRN Reason: Hypoglycemia Protocol Stop: 11/10/23 16:17 Diphenhydramine HCl (Diphenhydramine Capsule 25 Mg Cap) 25 mg PO QAM COUNTS INCLUDE 234 BEDS AT THE [facility] Stop: 11/11/23 08:59 Last Admin: 10/12/23 09:00 Dose: 25 mg Finasteride (Finasteride 5 Mg Tab) 5 mg PO QAM COUNTS INCLUDE 234 BEDS AT THE [facility] Stop: 11/11/23 08:59 Last Admin: 10/12/23 08:59 Dose: 5 mg Furosemide (Furosemide 40 Mg/4 Ml Vial) 30 mg IV BID COUNTS INCLUDE 234 BEDS AT THE [facility] Stop: 11/11/23 10:29 Glucagon (Glucagon For Inj 1 Mg Vial) 1 mg SQ UD PRN; Protocol PRN Reason: Hypoglycemia Protocol Stop: 11/10/23 16:17 Glucose (Glucose 10 Tab/Tube) 4 - 8 tab PO UD PRN; Protocol PRN Reason: Hypoglycemia Treatment Stop: 11/10/23 16:17 Glucose (Glucose 40% Gel 15 Gm Tube) 15 - 30 gm PO UD PRN; Protocol PRN Reason: Hypoglycemia Protocol Stop: 11/10/23 16:17 Insulin Aspart (Insulin Aspart Per Unit Charge) 0 units SC ACHS COUNTS INCLUDE 234 BEDS AT THE [facility] Stop: 11/10/23 16:29 Last Admin: 10/12/23 09:02 Dose: 3 units Isosorbide Mononitrate (Isosorbide Victoria Extended Rel 60 Mg Tabcr) 60 mg PO DAILY WILLIAM Stop: 11/11/23 08:59 Last Admin: 10/12/23 08:59 Dose: 60 mg Metoprolol Succinate (Metoprolol Succ 25mg Ext Rel Tab) 25 mg PO QPM WILLIAM Stop: 11/10/23 20:59 Last Admin: 10/11/23 20:34 Dose: Not Given Miscellaneous (Carbohydrates For Hypoglycemia ) 15 - 30 gm PO UD PRN PRN Reason: Hypoglycemia Protocol Stop: 11/10/23 16:17 Last Admin: 10/11/23 17:02 Dose: 30 gm Pantoprazole Sodium (Pantoprazole 40 Mg Tab) 40 mg PO DAILY COUNTS INCLUDE 234 BEDS AT THE [facility]; Protocol Stop: 11/11/23 08:59 Last Admin: 10/12/23 08:59 Dose: 40 mg Ropinirole HCl (Ropinirole Hcl 2 Mg Tablet) 2 mg PO HS COUNTS INCLUDE 234 BEDS AT THE [facility] Stop: 11/10/23 20:59 Last Admin: 10/11/23 20:34 Dose: 2 mg Ropinirole HCl (Ropinirole Hcl 0.25 Mg Tablet) 0.5 mg PO HS WILLIAM Stop: 11/10/23 20:59 Last Admin: 10/11/23 20:34 Dose: 0.5 mg Rosuvastatin Calcium (Rosuvastatin Calcium 20 Mg Tab) 40 mg PO QAM WILLIAM Stop: 11/11/23 08:59 Last Admin: 10/12/23 08:59 Dose: 40 mg (1) Acute on chronic renal failure Acute renal failure type: unspecified Chronic kidney disease stage: stage 3 (moderate) Chronic kidney disease stage 3 subtype: stage 3b (GFR 30-44) Qualified Code(s): N17.9 - Acute kidney failure, unspecified; N18.32 - Chronic kidney disease, stage 3b (2) Ascites Ascites type: other type Qualified Code(s): R18.8 - Other ascites (5) Aortic stenosis Cardiac valve disease etiology: nonrheumatic Qualified Code(s): I35.0 - Nonrheumatic aortic (valve) stenosis
[2023-10-12] MEDS: FUROSEMIDE 40 MG/4 ML VIAL IV SCH (11:28)
--- NOTE | 2023-10-12 12:25 | Nephrology Consultation ---
Date of Consultation October 12, 2023 Assessment & Plan (1) Acute on chronic renal failure: Patient with acute kidney injury on chronic renal failure likely cardiorenal syndrome. There might be a component of intra-abdominal hypertension as well. Baseline creatinine of 2. Creatinine is now up to 4. Patient is still making urine and electrolytes are stable. No indication for dialysis. Will attempt diuresis and paracentesis. Continue to monitor renal function closely and daily urine output (2) Acute on chronic heart failure with reduced ejection fraction and diastolic dysfunction: Patient with acute on chronic heart failure with massive fluid overload. Blood pressure is soft which is limiting diuresis. Will attempt IV Lasix 30 mg twice daily (3) Ascites: Patient needs paracentesis today. he likely has a component of intra abdominal hypertension. History of Present Illness Reason for Consultation: Acute kidney injury on CKD Requesting Physician: Roz Bunch MD Attending Physician: Roz Bunch MD History of Present Illness This is 78-year-old male with past medical history of CKD stage III with baseline creatinine of 2.1, ischemic cardiomyopathy with EF of about 25% status post dual-chamber pacemaker and ICD, hyperlipidemia, aortic stenosis, type 2 diabetes who was admitted with shortness of breath and abdominal swelling. He was previously on Lasix 60 mg daily but this was stopped a month ago. Since going off his diuretics he has progressively accumulated fluid and weight gain. Diuretics were restarted without much response. His creatinine is now up to 4 from a baseline of around 2 he is still making urine. He has exertional dyspnea but fairly comfortable at rest. Blood pressure has been running low. CT showed ascites and chest x-ray showed cardiomegaly. Other lab and imaging were reviewed Allergies Allergy/AdvReac Type Severity Reaction Status Date / Time cefadroxil Allergy Unknown RASH Verified 03/17/19 14:33 Home Medications Medication Instructions Recorded Confirmed Type aspirin 81 mg tablet,delayed 81 mg PO QAM 03/17/19 10/11/23 History release cyanocobalamin (vitamin B-12) 1,000 mcg PO QAM 03/17/19 10/11/23 History 1,000 mcg tablet (Vitamin B-12) diphenhydramine HCl 25 mg tablet 25 mg PO QAM 03/17/19 10/11/23 History (Benadryl Allergy) finasteride 5 mg tablet 5 mg PO QAM 03/17/19 10/11/23 History furosemide 40 mg tablet 40 mg PO QAM 03/17/19 10/11/23 History metoprolol succinate 25 mg 25 mg PO QPM 03/17/19 10/11/23 History tablet,extended release 24 hr ropinirole 0.5 mg tablet 0.5 mg PO HS 03/17/19 10/11/23 History rosuvastatin 40 mg tablet 40 mg PO QAM 03/17/19 10/11/23 History glipizide 10 mg tablet, extended 20 mg PO DAILY 04/20/19 10/11/23 History release 24 hr omeprazole 20 mg tablet,delayed 20 mg PO DAILY 04/20/19 10/11/23 History release furosemide 40 mg tablet 20 mg PO QPM 10/11/23 10/11/23 History isosorbide mononitrate 60 mg 60 mg PO DAILY 10/11/23 10/11/23 History tablet,extended release 24 hr metformin 500 mg tablet,extended 500 mg PO BID 10/11/23 10/11/23 History release 24 hr ropinirole 2 mg tablet 2 mg PO HS 10/11/23 10/11/23 History Patient History Medical History RLS (restless legs syndrome) Fibromyalgia PMR (polymyalgia rheumatica) GERD (gastroesophageal reflux disease) HLD (hyperlipidemia) continue statin CAD (coronary artery disease) continue ASA and low dose BB and imdur and lasix Diabetes mellitus, type II CKD (chronic kidney disease), stage III Ischemic cardiomyopathy Pt admitted for elective ICD due to ICM and SB. Underwent procedure without any complications; monitored overnight and discharged home. Surgical History H/O wrist surgery History of cardiac catheterization History of knee replacement Family History Other Heart disease Stroke Social History Smoking Status: Never smoker Second Hand Exposure: No; Do You Dip or Chew Tobacco: No; Tobacco Cessation Education Requested by Patient: No Hx Alcohol Use: No Hx Substance Use: No Preferred Language: [place]er Communication Ability: Effective Editor In Chief Required: No Beliefs That Will Affect Care: None Current Living Situation: Alone Other Information That Helps Us Care for You: No Feels Safe at Home: Yes Safety Concerns: Feels Safe At This Time Assistive Devices: None Review of Systems 2 Review of Systems: All other systems were reviewed and negative except as noted in HPI Physical Exam 2 Physical Exam: General exam: Appears comfortable, no acute distress HEENT: Pupils are equal and reactive to light Neck: No JVD, neck is supple trachea is midline Respiratory system: Clear breath sounds bilaterally. Gastrointestinal: Abdomen is grossly distended, non tender, bowel sounds are present CVS: Regular rate and rhythm. No murmurs, rubs or gallops Musculoskeletal: No joint or muscle tenderness Extremities: Non tender, 1+ edema, peripheral pulses are present Neuro: Oriented, no tremors, no focal neurological deficits Skin: No rashes Results & Data Vital Signs (Past 12 Hours) Vital Signs Temp Pulse Pulse Resp BP Pulse Ox Pulse Ox 10/12/23 12:05 36.4 C L 91 H 19 99/65 L 100 10/12/23 09:00 10/12/23 08:00 99 10/12/23 07:55 36.4 C L 88 18 98/67 L 99 10/12/23 07:30 90 10/12/23 03:08 36.3 C L 89 17 99/66 L 98 O2 Del Method O2 Del Method 10/12/23 12:05 Room Air 10/12/23 09:00 Room Air 10/12/23 08:00 Room Air 10/12/23 07:55 Room Air 10/12/23 07:30 10/12/23 03:08 Room Air Laboratory Results 10/12/23 03:44 10/11/23 13:10 Phosphorus 5.4 H (1) Acute on chronic renal failure Acute renal failure type: unspecified Chronic kidney disease stage: stage 3 (moderate) Chronic kidney disease stage 3 subtype: stage 3b (GFR 30-44) Qualified Code(s): N17.9 - Acute kidney failure, unspecified; N18.32 - Chronic kidney disease, stage 3b (3) Ascites Ascites type: other type Qualified Code(s): R18.8 - Other ascites
[2023-10-12 17:12] LABS: BUN Creatinine Ratio 18.9 (10-20); Calcium 8.4 mg/dl (8.6-10.3); Creatinine Clr Calc Pharmacy 16.9 ml/min; Est GFR (African American) 16.9 ml/min; Est GFR (Non-African American) 14.6 ml/min; Potassium 3.9 mmol/L (3.5-5.1)
[2023-10-12] MEDS: ALBUMIN 25% 25 GM/100 ML VIAL IV ONE (17:31)
--- NOTE | 2023-10-12 18:07 | Procedure Note ---
Procedure Note Date of Service October 12, 2023 Note Critical Care Medicine Procedure Date: Noted above Procedure: Paracentesis Pre-procedure Diagnosis: Concern for intra-abdominal hypertension complicating acute on chronic renal failure Post-procedure Diagnosis: same as above Prior to Procedure: Informed Consent: The risks, benefits, indications, potential complications, and alternatives were explained to the patient and informed consent obtained. Attending Staff: Eliceo Damico DO Consulting Intern physician: Roz Bunch MD The identity of the patient was confirmed and a bedside time out was performed. Description of Procedure: Patient positioned, the left lower quad of the abdomen was prepped and draped in usual sterile fashion. Static ultrasound guidance was used and appropriate fluid pocket was identified. 3 mL of 1% Lidocaine without epinephrine was used to anesthetize the area. A needle was introduced into the peritoneal space and fluid was removed. Total Fluid Removed: 850 ml Color of Fluid: Straw Sent for: 3 vials of fluids set aside for laboratory analysis at the discretion of hospitalist team Complications: None Estimated blood loss: Negligible Patient ordered 1 g/kg albumin infusion Coding CPT Codes Abdomen - Abdominal: 64310 Abdominal Paracentesis (diagnostic or therapeutic); W/O imaging ([id number]) [facility] [place] Procedure Codes (Charges) Abdomen Abdominal: 20102 Abdominal Paracentesis (diagnostic or therapeutic); W/O imaging
[2023-10-12] MEDS: ALBUMIN 25% 12.5 GM/50 ML VIAL IV SCH (19:11)
[2023-10-12 19:35] LABS: Albumin Peritoneal Fluid 2.1 gm/dl
[2023-10-12 19:40] LABS: Total Protein Peritoneal Fluid 3.8 gm/dl
[2023-10-12 20:14] LABS: Appearance Peritoneal Fluid Slightly Hazy; Color Peritoneal Fluid Straw; Lymphocytes, Fluid 24 %; Mono,Macrophage,Mesothelial 19 %; Neutrophils, Fluid 57 %; RBC Peritoneal Fluid Auto < 2000 /uL; WBC Peritoneal Fluid Auto 294 /ul (0-300)
[2023-10-12] MEDS: HEPARIN SOD 5,000 UNIT/0.5 ML VIAL SQ SCH (20:31)
[2023-10-13 06:26] LABS: Albumin Globulin Ratio 1.3 (0.9-2); Albumin Level 3.5 gm/dl (3.4-5.0); BUN Creatinine Ratio 18.3 (10-20); Bilirubin,Total 0.8 mg/dl (0.2-1.0); Calcium 8.5 mg/dl (8.6-10.3); Est GFR (African American) 18.4 ml/min; Est GFR (Non-African American) 15.9 ml/min; Globulin 2.7 gm/dl (2.5-4.0); Potassium 3.5 mmol/L (3.5-5.1); Total Protein 6.2 gm/dl (6.0-8.3)
[2023-10-13 06:27] LABS: Hematocrit (blood only) 30.1 % (42.0-52.0); Hemoglobin 9.3 g/dl (14.0-18.0); Mean Corpuscular Hemoglobin 23.7 pg (25.0-34.0); Mean Corpuscular Hgb Conc 30.9 g/dL (32.0-36.0); Mean Corpuscular Volume 76.8 fL (80.0-100.0); Mean Platelet Volume 10.6 fL (9.4-12.4); Platelet Count 217 K/uL (130-400); RDW Standard Deviation 54.1 fL (36.4-46.3); Red Blood Count 3.92 M/uL (4.70-6.10); White Blood Count 4.38 K/ul (4.8-10.8)
[2023-10-13 06:32] LABS: INR 1.4 (0.9-1.1); Prothrombin Time 14.9 Seconds (9.0-12.0)
--- NOTE | 2023-10-13 06:57 | Hospitalist Progress Note ---
Date of Service October 13, 2023 Assessment & Plan (1) Acute on chronic heart failure with reduced ejection fraction and diastolic dysfunction: (2) NSVT (nonsustained ventricular tachycardia): (3) Hypomagnesemia: (4) Ascites: (5) Acute on chronic renal failure: (6) Sinus bradycardia: (7) GERD (gastroesophageal reflux disease): (8) CAD (coronary artery disease): (9) Diabetes mellitus, type II: (10) Ischemic cardiomyopathy: Plan Mr. Jimenes is a 78 y/o male with DM2, CKD3-4, severe ischemic cardiomyopathy with EF on last ECHO in May 2023 at 25-29%, HFrEF, HTN, dyslipidemia, and other history as outlined below who was noted to have an abnormal EKG at his PCP office during visit for LE edema. Patient admitted on 10/10 for management of acute on chronic heart failure with reduced EF. Work-up in the ED revealed an JAMIR with elevation of creatinine from 2.1 at baseline to 3.9 today. Initial troponin was elevated at 42.8, likely secondary to demand in the setting of acute HF exacerbation. BNP was >4700. While in ED, patient with NSVT with frequent PVCs. CT abd/pel shows moderate to large ascites. Patient underwent paracentesis on 10/11 with 8.5L removed. Patient experienced noticeable subjective improvement. Marginal improvement in renal function. Will continue diuresis and management per Cards/Nephrology. PT/OT ordered. #Acute on chronic heart failure with reduced ejection fraction and diastolic dysfunction: #Severe ischemic cardiomyopathy 25% #s/p dcPPM 2018 Patient with ongoing issues with LE edema and ongoing OP diuretic adjustments, currently taking 40qam/20qpm ECHO 05/2023 with EF 25-29% GDMT historically limited 2/2 hypotension and renal dysfunction - Consult cardiology for additional recommendations -Continue imdur, asa, metoprolol xl25mg qpm statin - Daily weights, monitor Is and Os - Consult nephrology for assistance with diuretic management in the setting of worsening of pt's kidney function IV lasix 30mg BID at this time per nephrology #NSVT (nonsustained ventricular tachycardia): Likely secondary to hypomagnesemia Continue to monitor on telemetry Replace lytes prn #Tense ascites 2/2 volume overload Potentially contributing to degree of renal failure -Consult Direct [employer]ill [employer]ing Operator for large volume paracentesis -8.5L removed 10/11 at bedside -SAAG 1.4g/dl likely 2/2 portal htn from heart failure related ascites, liver function stable #Acute on chronic renal failure: *improving like cardiorenal syndrome, concern for obstructive component iso ascites per nephrology Baseline ~2.0, Nephrology consult -Lasix 30mg BID [employer] for para as above Trend labs #Acute on chronic anemia -Minimal blood from para site, less ryne source of bleed likley multifactorial iso chronic illness, CKD, nutritional deifiency Anemia labs in am #GERD Chronic, stable Continue outpatient PPI therapy #Diabetes mellitus, type II: Holding oral agents, specifically metformin in view of worsening kidney function Insulin sliding scale A1c 8% BSG ACHS Diabetic diet #BPH continue finasteride #RLS continue ropinrole Dispo: Remains on tele/pcu for aggressive management of heart failure and renal failure DVT Prophylaxis: SubQ heparin Admission and Anticipated Discharge Date Admission Date: October 11, 2023 Subjective NAEO Reports feeling much better after paracentesis day prior; denies abdominal pain or discomfort Denies chest pain, sob, or other acute concerns at this time Physical Exam Constitutional: WD/WN, vitals as above Respiratory: normal respiratory effort, lungs clear to auscultation Cardiovascular: RRR, no murmur, no edema Gastrointestinal (Abdomen): abdomen significantly reduced in girth, soft, nondistended; small puncture site at procedure location, no surrounding erythema or irritation Results & Data Results & Data Vital Signs (Past 12 Hours) Vital Signs Temp Pulse Pulse Resp BP Pulse Ox O2 Del Method 10/13/23 03:14 36.2 C L 86 17 102/63 98 Room Air 10/12/23 23:21 36.5 C 91 H 17 93/64 L 97 Room Air 10/12/23 22:45 99/68 L 10/12/23 22:16 Room Air 10/12/23 21:58 97 H 10/12/23 21:09 97/59 L 10/12/23 20:19 36.5 C 10/12/23 20:18 95/62 L 10/12/23 19:04 36.5 C 71 17 89/52 L 97 Room Air Laboratory Results Short CBC 10/13/23 Range/Units 05:18 WBC 4.38 L (4.8-10.8) K/ul Hgb 9.3 L (14.0-18.0) g/dl Hct 30.1 L (42.0-52.0) % Plt Count 217 (130-400) K/uL BMP 10/12/23 10/13/23 16:06 05:18 Sodium 139 139 Potassium 3.9 3.5 Chloride 107 108 H Carbon Dioxide 20 L 20 L BUN 71 H 64 H Creatinine 3.75 H D 3.50 H Glucose 62 L 135 H Calcium 8.4 L 8.5 L Liver Function 10/13/23 Range/Units 05:18 Total Bilirubin 0.8 (0.2-1.0) mg/dl AST 25 (13-39) U/L ALT 25 (7-52) U/L Alkaline Phosphatase 82 (34-104) U/L Albumin 3.5 (3.4-5.0) gm/dl Medications Administered Home Medications Medication Instructions Recorded Confirmed Last Taken aspirin 81 mg tablet,delayed 81 mg PO QA 03/17/19 10/11/23 10/10/23 release cyanocobalamin (vitamin B-12) 1,000 mcg PO QAM 03/17/19 10/11/23 10/10/23 1,000 mcg tablet (Vitamin B-12) diphenhydramine HCl 25 mg tablet 25 mg PO QA 03/17/19 10/11/23 10/10/23 (Benadryl Allergy) finasteride 5 mg tablet 5 mg PO QAM 03/17/19 10/11/23 10/10/23 furosemide 40 mg tablet 40 mg PO QA 03/17/19 10/11/23 10/10/23 metoprolol succinate 25 mg 25 mg PO QPM 03/17/19 10/11/23 10/10/23 tablet,extended release 24 hr ropinirole 0.5 mg tablet 0.5 mg PO HS 03/17/19 10/11/23 10/10/23 rosuvastatin 40 mg tablet 40 mg PO QAM 03/17/19 10/11/23 10/10/23 glipizide 10 mg tablet, extended 20 mg PO DAILY 04/20/19 10/11/23 10/10/23 release 24 hr omeprazole 20 mg tablet,delayed 20 mg PO DAILY 04/20/19 10/11/23 10/10/23 release furosemide 40 mg tablet 20 mg PO QPM 10/11/23 10/11/23 10/10/23 isosorbide mononitrate 60 mg 60 mg PO DAILY 10/11/23 10/11/23 10/10/23 tablet,extended release 24 hr metformin 500 mg tablet,extended 500 mg PO BID 10/11/23 10/11/23 10/10/23 release 24 hr ropinirole 2 mg tablet 2 mg PO HS 10/11/23 10/11/23 10/10/23 Active Medications Generic Name Dose Route Start Last Admin Trade Name Margaux PRN Reason Stop Dose Admin Aspirin 81 mg 10/12/23 09:00 10/12/23 09:00 Aspirin 81 Mg Ectab PO 11/11/23 08:59 81 mg QAM WILLIAM Administration Cyanocobalamin 1,000 mcg 10/12/23 09:00 10/12/23 09:00 Cyanocobalamin (B-12) 500 Mcg Tablet PO 11/11/23 08:59 1,000 mcg QAM WILLIAM Administration Diphenhydramine HCl 25 mg 10/12/23 09:00 10/12/23 09:00 Diphenhydramine Capsule 25 Mg Cap PO 11/11/23 08:59 25 mg QAM WILLIAM Administration Finasteride 5 mg 10/12/23 09:00 10/12/23 08:59 Finasteride 5 Mg Tab PO 11/11/23 08:59 5 mg QAM WILLIAM Administration Furosemide 30 mg 10/12/23 10:30 10/12/23 21:58 Furosemide 40 Mg/4 Ml Vial IV 11/11/23 10:29 30 mg BID WILLIAM Administration Heparin Sodium (Porcine) 5,000 units 10/12/23 21:00 10/12/23 20:31 Heparin Sod 5,000 Unit/0.5 Ml Vial SQ 11/11/23 20:59 5,000 units Q12 WILLIAM Administration Insulin Aspart 0 units 10/11/23 16:30 10/12/23 20:31 Insulin Aspart Per Unit Charge SC 11/10/23 16:29 Not Given ACHS WILLIAM Isosorbide Mononitrate 60 mg 10/12/23 09:00 10/12/23 08:59 Isosorbide [place] Extended Rel 60 Mg Tabcr PO 11/11/23 08:59 60 mg DAILY WILLIAM Administration Metoprolol Succinate 25 mg 10/11/23 21:00 10/12/23 21:10 Metoprolol Succ 25mg Ext Rel Tab PO 11/10/23 20:59 Not Given QPM WILLIAM Miscellaneous 15 - 30 gm 10/11/23 16:18 10/12/23 18:31 Carbohydrates For Hypoglycemia PO 11/10/23 16:17 15 gm UD PRN Administration Hypoglycemia Protocol Pantoprazole Sodium 40 mg 10/12/23 09:00 10/12/23 08:59 Pantoprazole 40 Mg Tab PO 11/11/23 08:59 40 mg DAILY WILLIAM Administration Protocol Ropinirole HCl 2 mg 10/11/23 21:00 10/12/23 20:31 Ropinirole Hcl 2 Mg Tablet PO 11/10/23 20:59 2 mg HS WILLIAM Administration Ropinirole HCl 0.5 mg 10/11/23 21:00 10/12/23 20:31 Ropinirole Hcl 0.25 Mg Tablet PO 11/10/23 20:59 0.5 mg HS WILLIAM Administration Rosuvastatin Calcium 40 mg 10/12/23 09:00 10/12/23 08:59 Rosuvastatin Calcium 20 Mg Tab PO 11/11/23 08:59 40 mg QAM WILLIAM Administration (4) Ascites Ascites type: other type Qualified Code(s): R18.8 - Other ascites (5) Acute on chronic renal failure Acute renal failure type: unspecified Chronic kidney disease stage: stage 3 (moderate) Chronic kidney disease stage 3 subtype: stage 3b (GFR 30-44) Q ualified Code(s): N17.9 - Acute kidney failure, unspecified; N18.32 - Chronic kidney disease, stage 3b (7) GERD (gastroesophageal reflux disease) Esophagitis presence: esophagitis presence not specified Qualified Code(s): K21.9 - Gastro-esophageal reflux disease without esophagitis (8) CAD (coronary artery disease) Associated angina: without angina Coronary Disease-Associated Artery/Lesion type: tribe artery [place] vs. 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
[2023-10-13] MEDS: POTASSIUM CHLORIDE CRTAB 20 MEQ TABCR PO STA (08:41)
--- NOTE | 2023-10-13 10:14 | Cardiology Progress Note ---
Date of Service October 13, 2023 Assessment & Plan (1) Acute on chronic renal failure: (2) Ascites: (3) Acute on chronic heart failure with reduced ejection fraction and diastolic dysfunction: (4) NSVT (nonsustained ventricular tachycardia): (5) Aortic stenosis: (6) Hypomagnesemia: Plan Complex 78-year-old patient admitted with concerns regarding volume overload and acute decompensated heart failure. Lab studies demonstrating acute renal failure. Findings suggest cardiorenal syndrome with abdominal ascites. Primarily right-sided signs/symptoms. Further diuresis limited by worsening renal function. (Outpatient Lasix dose 60 mg daily per review of cardiology records) await nephrology evaluation/recommendations. Patient chronically hypotensive which has limited addition of evidence-based heart failure therapies in the past. Continue current doses of isosorbide monohydrate, low-dose aspirin, metoprolol succinate, and rosuvastatin. No role for LIN inhibitor, ARB, or Aldactone in setting of acute renal insufficiency. Nonsustained ventricular tachycardia noted on telemetry. Agree with magnesium supplementation. Continue beta-demarcus therapy. Currently hold off on addition of inotropic therapy (dobutamine), however, may be reconsidered during hospitali zation pending clinical course. 10/12/23: No recurrent paroxysmal VT on telemetry. Magnesium level improved at 1.9 after supplementation Large amount of ascites noted on abd CT scan. Unfortunately creatinine continues to rise and currently 4.09. Nephrology consult appreciated. Starting on low dose furosemide IV. Monitor I+O's. supplement and monitor potassium/magnesium as needed Borderline low BP. May need to reduce/hold isosorbide to allow for ongoing diuresis. May need to consider GI evaluation for paracentesis. Continue metoprolol, statin, ASA. will follow 10/13/23: NO recurrent arrhythmias on telemetry. Supplement magnesium to keep > 2.0 Supplement potassium with goal 4-5. Received dose this morning. Continue IV furosemide today. Creatinine improving. Appreciate nephrology lacie mmendations. Hold isosorbide due to hypotension Would continue metoprolol, ASA and statin. Case discussed with Dr. Chaidez I spent a total of 35 minutes on the date of service in preparation, delivery, and documentation of the care provided to this patient, excluding any time spent in the performance of separately billed services. Alondra K Terrence, PA-C Department of Cardiology, [facility] This chart was completed in part utilizing Speech Voice Recognition Software. Grammatical errors, random word insertions, pronoun errors, and incomplete sentences are an occasional consequence of this system due to software limitations, ambient noise, and hardware issues. Any formal questions or concerns about the content, text, or information contained within the body of this dictation should be directly addressed to the provider for clarification. Admission and Anticipated Discharge Date Admission Date: October 11, 2023 Supervising Physician Co-Signing Physician Notes I have reviewed the advance practitioner's documentation, and I agree with, and take responsibility for the plan of care. Abdominal distention markedly improved status post paracentesis (850 cc removed). Minimal lower extremity edema. Patient denies chest pain or ortho pnea. Creatinine trending downward PE: VSS. Gen: NAD, AAOx3. Heart: Regular rhythm, normal S1-S2. 2/6 systolic ejection murmur. Lungs: Clear bilateral, no rales, rhonchi, wheeze. Extremities: Trace bilateral pretibial edema. Abdomen: Distended, nontender, no rebound or guarding. A/P: 78-year-old male with acute on chronic heart failure with reduced ejection fraction and cardiorenal syndrome. Clinically improved status post paracentesis. Serum creatinine trending downward. Continue IV diuresis. Monitor daily weight, fluid balance, GFR, and electrolytes. Nephrology input appreciated. I spent a total of 25 minutes on the date of service in preparation, delivery, and documentation of the care provided to this patient, excluding any time spent in the performance of separately billed services. Subjective Patient resting in bed. Feels much improved compared to yesterday. Underwent paracentesis yesterday with 850 ml removed from abdomen. Tolerated procedure. Received albumin infusion post procedure. Reports abdominal pain/bloating is grealty improved. SOB also improving. urinating frequently. Denies chest pain. Mild LE edema persists. Review of Systems Review of Systems: All systems reviewed & are unremarkable except as noted in HPI & below Physical Exam Constitutional: WD/WN, vitals as above well nourished; no acute distress Neck: trachea midline, no thyromegaly Respiratory: no labored breathing Auscultation: lungs clear to auscultation bilaterally; no crackles, no rales and no rhonchi Cardiovascular: Rate/Rhythm: regular rate and regular rhythm Heart Sounds: normal S1, normal S2 and + murmur (2/6 systolic ejection murmur) Vessels: + JVD Extremities: + edema (trace b/l edema) Gastrointestinal (Abdomen): Inspection/Auscultation: + abdomen distended Percussion/Palpation: abdomen soft; abdomen nontender, no guarding and abdomen not rigid Neurologic: CN's II-XI intact bilaterally and moves all extremities; no focal motor deficits Results & Data Vital Signs (Past 12 Hours) Vital Signs Temp Pulse Pulse Resp BP Pulse Ox O2 Del Method 10/13/23 07:37 36.4 C L 84 18 101/54 L 100 Room Air 10/13/23 07:25 86 10/13/23 03:14 36.2 C L 86 17 102/63 98 Room Air 10/12/23 23:21 36.5 C 91 H 17 93/64 L 97 Room Air 10/12/23 22:45 99/68 L 10/12/23 22:16 Room Air Laboratory Results Cardiac Enzymes 10/13/23 Range/Units 05:18 AST 25 (13-39) U/L Coagulation 10/13/23 Range/Units 05:18 PT 14.9 H (9.0-12.0) Seconds CBC 10/13/23 Range/Units 05:18 WBC 4.38 L (4.8-10.8) K/ul RBC 3.92 L (4.70-6.10) M/uL Hgb 9.3 L (14.0-18.0) g/dl Hct 30.1 L (42.0-52.0) % Plt Count 217 (130-400) K/uL Comprehensive Metabolic Panel 10/12/23 10/13/23 Range/Units 16:06 05:18 Sodium 139 139 (136-145) mmol/L Potassium 3.9 3.5 (3.5-5.1) mmol/L Chloride 107 108 H (98-107) mmol/L Carbon Dioxide 20 L 20 L (21-32) mmol/L BUN 71 H 64 H (6-23) mg/dl Creatinine 3.75 H D 3.50 H (0.6-1.4) mg/dl Glucose 62 L 135 H (70-99(Fasting)) mg/dl Calcium 8.4 L 8.5 L (8.6-10.3) mg/dl AST 25 (13-39) U/L ALT 25 (7-52) U/L Alkaline Phosphatase 82 (34-104) U/L Total Protein 6.2 (6.0-8.3) gm/dl Albumin 3.5 (3.4-5.0) gm/dl Intake and Output 10/12/23 10/13/23 10/13/23 22:59 06:59 14:59 Intake Total 650 / 1380 250 / 1380 Output Total 525 / 1376 850 / 1376 Balance 125 / 4 -600 / 4 Intake: IV 300 / 350 50 / 350 Albumin 25% 12.5 gm In 50 ml @ 200 / 250 50 / 250 50 mls/hr IV Q1H WILLIAM Rx#: [id number] Albumin 25% 25 gm In 100 ml @ 100 / 100 50 mls/hr IV ONE ONE Rx#: [id number] Oral 350 / 1030 200 / 1030 Output: Urine 525 / 1375 850 / 1375 Other: Weight 76.2 kg Weight Measurement Method Standing Scale Diagnostic Findings Telemetry reviewed: NSR int he 80's; Occ PVC Medications Administered Current Inpatient Medications Acetaminophen (Acetaminophen 325 Mg Tab) 650 mg PO Q4H PRN PRN Reason: Pain or Fever Stop: 11/10/23 16:17 Aspirin ([facility]in 81 Mg [facility]ctab) [facility] Stop: 11/11/23 08:59 Last Admin: 10/13/23 08:45 Dose: 81 mg Cyanocobalamin (Cyanocobalamin (B-12) 500 Mcg Tablet) 1,000 mcg PO QAM [facility] Stop: 11/11/23 08:59 Last Admin: 10/13/23 08:44 Dose: 1,000 mcg Dextrose (Dextrose 50% 50 Ml Syringe) 25 - 50 ml IV UD PRN; Protocol PRN Reason: Hypoglycemia Protocol Stop: 11/10/23 16:17 Diphenhydramine HCl (Diphenhydramine Capsule 25 Mg Cap) [facility] [place] Stop: 11/11/23 08:59 Last Admin: 10/12/23 09:00 Dose: 25 mg Finasteride (Finasteride 5 Mg Tab) 5 mg PO QAM [facility] Stop: 11/11/23 08:59 Last Admin: 10/13/23 08:43 Dose: 5 mg Furosemide (Furosemide 40 Mg/4 Ml Vial) 30 mg IV BID WILLIAM Stop: 11/11/23 10:29 Last Admin: 10/13/23 08:51 Dose: 30 mg Glucagon (Glucagon For Inj 1 Mg Vial) 1 mg SQ UD PRN; Protocol PRN Reason: Hypoglycemia Protocol Stop: 11/10/23 16:17 Glucose (Glucose 10 Tab/Tube) 4 - 8 tab PO UD PRN; Protocol PRN Reason: Hypoglycemia Treatment Stop: 11/10/23 16:17 Glucose (Glucose 40% Gel 15 Gm Tube) 15 - 30 gm PO UD PRN; Protocol PRN Reason: Hypoglycemia Protocol Stop: 11/10/23 16:17 Heparin Sodium (Porcine) (Heparin Sod 5,000 Unit/0.5 Ml Vial) 5,000 units SQ Q12 WILLIAM Stop: 11/11/23 20:59 Last Admin: 10/13/23 08:51 Dose: 5,000 units Insulin Aspart (Insulin Aspart Per Unit Charge) 0 units SC ACHS WILLIAM Stop: 11/10/23 16:29 Last Admin: 10/13/23 08:41 Dose: Not Given Isosorbide Mononitrate (Isosorbide [place] Extended Rel 60 Mg Tabcr) 60 mg PO DAILY WILLIAM Stop: 11/11/23 08:59 Last Admin: 10/12/23 08:59 Dose: 60 mg Metoprolol Succinate (Metoprolol Succ 25mg Ext Rel Tab) 25 mg PO QPM WILLIAM Stop: 11/10/23 20:59 Last Admin: 10/12/23 21:10 Dose: Not Given Miscellaneous (Carbohydrates For Hypoglycemia ) 15 - 30 gm PO UD PRN PRN Reason: Hypoglycemia Protocol Stop: 11/10/23 16:17 Last Admin: 10/12/23 18:31 Dose: 15 gm Pantoprazole Sodium (Pantoprazole 40 Mg Tab) 40 mg PO DAILY WILLIAM; Protocol Stop: 11/11/23 08:59 Last Admin: 10/13/23 08:45 Dose: 40 mg Ropinirole HCl (Ropinirole Hcl 2 Mg Tablet) 2 mg PO HS WILLIAM Stop: 11/10/23 20:59 Last Admin: 10/12/23 20:31 Dose: 2 mg Ropinirole HCl (Ropinirole Hcl 0.25 Mg Tablet) 0.5 mg PO HS WILLIAM Stop: 11/10/23 20:59 Last Admin: 10/12/23 20:31 Dose: 0.5 mg Rosuvastatin Calcium (Rosuvastatin Calcium 20 Mg Tab) [facility] [place] Stop: 11/11/23 08:59 Last Admin: 10/13/23 08:44 Dose: 40 mg (1) Acute on chronic renal failure Acute renal failure type: unspecified Chronic kidney disease stage: stage 3 (moderate) Chronic kidney disease stage 3 subtype: stage 3b (GFR 30-44) Qualified Code(s): N17.9 - Acute kidney failure, unspecified; N18.32 - Chronic kidney disease, stage 3b (2) Ascites Ascites type: other type Qualified Code(s): R18.8 - Other ascites (5) Aortic stenosis Cardiac valve disease etiology: nonrheumatic Qualified Code(s): I35.0 - Nonrheumatic aortic (valve) stenosis
[2023-10-13] MEDS: MAGNESIUM OXIDE 400 MG TAB PO SCH (12:32)
--- NOTE | 2023-10-13 14:19 | Nephrology Progress Note ---
Date of Service October 13, 2023 Assessment & Plan (1) Acute on chronic renal failure: Plan: Patient with acute kidney injury on chronic renal failure likely cardiorenal syndrome. Baseline creatinine of 2. Creatinine is now up to 4. Patient is still making urine and electrolytes are stable. No indication for dialysis. Will attempt diuresis. Patient is status post large volume paracentesis. Continue to monitor renal function closely and daily urine output (2) Acute on chronic heart failure with reduced ejection fraction and diastolic dysfunction: Plan: Patient with acute on chronic heart failure with massive fluid overload. Blood pressure is soft which is limiting diuresis. Will continue IV Lasix 30 mg twice daily. (3) Ascites: Plan: Patient had paracentesis yesterday. Will consider increasing his diuretics if the ascitic fluid is reaccumulating Admission and Anticipated Discharge Date Admission Date: October 11, 2023 Subjective seen for acute kidney injury on CKD. Patient had large volume paracentesis yesterday. He feels better today. Blood pressure is soft today. He is making some urine. Review of Systems 2 Review of Systems: All other systems were reviewed and negative except as noted in HPI Physical Exam 2 Physical Exam: General exam: Appears comfortable, no acute distress HEENT: Pupils are equal and reactive to light Neck: No JVD, neck is supple trachea is midline Respiratory system: Clear breath sounds bilaterally. Gastrointestinal: Abdomen is Moderately distended, non tender, bowel sounds are present CVS: Regular rate and rhythm. No murmurs, rubs or gallops Musculoskeletal: No joint or muscle tenderness Extremities: Non tender, 1+ edema, peripheral pulses are present Neuro: Oriented, no tremors, no focal neurological deficits Skin: No rashes Results & Data Vital Signs (Past 12 Hours) Vital Signs Temp Pulse Pulse Resp BP Pulse Ox O2 Del Method 10/13/23 11:26 36.7 C 87 18 96/63 L 100 Room Air 10/13/23 07:37 36.4 C L 84 18 101/54 L 100 Room Air 10/13/23 07:25 86 10/13/23 03:14 36.2 C L 86 17 102/63 98 Room Air Laboratory Results 10/13/23 05:18 10/13/23 05:18 WBC 4.38 L RBC 3.92 L MCV 76.8 L MCH 23.7 L MCHC 30.9 L RDW Std Deviation 54.1 H RDW Coeff of [place] 20.0 H Plt Count 217 MPV 10.6 Albumin 3.5 (1) Acute on chronic renal failure Acute renal failure type: unspecified Chronic kidney disease stage: stage 3 (moderate) Chronic kidney disease stage 3 subtype: stage 3b (GFR 30-44) Qualified Code(s): N17.9 - Acute kidney failure, unspecified; N18.32 - Chronic kidney disease, stage 3b (3) Ascites Ascites type: other type Qualified Code(s): R18.8 - Other ascites
[2023-10-13] MEDS: ACETAMINOPHEN 325 MG TAB PO PRN (23:25)
[2023-10-14 06:44] LABS: Calcium 8.5 mg/dl (8.6-10.3); Creatinine Clr Calc Pharmacy 17.1 ml/min; Est GFR (African American) 18.2 ml/min; Est GFR (Non-African American) 15.7 ml/min; Hematocrit (blood only) 32.2 % (42.0-52.0); Hemoglobin 10.1 g/dl (14.0-18.0); Magnesium 1.7 mg/dl (1.7-2.4); Mean Corpuscular Hemoglobin 23.9 pg (25.0-34.0); Mean Corpuscular Hgb Conc 31.4 g/dL (32.0-36.0); Mean Corpuscular Volume 76.3 fL (80.0-100.0); Mean Platelet Volume 10.4 fL (9.4-12.4); Phosphorus 3.5 mg/dl (2.5-4.9); Platelet Count 231 K/uL (130-400); Potassium 3.9 mmol/L (3.5-5.1); RDW Coefficient of Variation 19.8 % (11.5-14.5); RDW Standard Deviation 53.3 fL (36.4-46.3); Red Blood Count 4.22 M/uL (4.70-6.10); White Blood Count 4.63 K/ul (4.8-10.8)
[2023-10-14 06:51] LABS: INR 1.3 (0.9-1.1)
[2023-10-14 07:02] LABS: Ferritin 365.4 ng/ml (8-388)
[2023-10-14 07:03] LABS: Folate (Folic Acid),Ser orPlas 10.76 ng/ml (>5.38)
--- NOTE | 2023-10-14 10:38 | Nephrology Progress Note ---
Date of Service October 14, 2023 Assessment & Plan Admission and Anticipated Discharge Date Admission Date: October 11, 2023 Subjective Assessment & Plan (1) Acute on chronic renal failure: Plan: Patient with acute kidney injury on chronic renal failure likely cardiorenal syndrome. Baseline creatinine of 2. Creatinine is now up to 4. Patient is still making urine and electrolytes are stable. No indication for dialysis. Will attempt diuresis. Patient is status post large volume paracentesis. Continue to monitor renal function closely and daily urine output (2) Acute on chronic heart failure with reduced ejection fraction and diastolic dysfunction: Plan: Patient with acute on chronic heart failure with massive fluid overload. Blood pressure is soft which is limiting diuresis. Will continue IV Lasix 30 mg twice daily. (3) Ascites: Plan: Patient had paracentesis Saturday. Still has good bit with LE edema also Subjective seen for acute kidney injury on CKD. Patient had large volume paracentesis and He feels better today. Doing Crossword Puzzle. He is making some urine. Review of Systems Review of Systems: All other systems were reviewed and negative except as noted in HPI Physical Exam Physical Exam: General exam: Appears comfortable, no acute distress HEENT: Pupils are equal and reactive to light Neck: No JVD, neck is supple trachea is midline Respiratory system: Clear breath sounds bilaterally. Gastrointestinal: Abdomen is Moderately distended, non tender, bowel sounds are present CVS: Regular rate and rhythm. No murmurs, rubs or gallops Musculoskeletal: No joint or muscle tenderness Extremities: Non tender, 1+ edema, peripheral pulses are present Neuro: Oriented, no tremors, no focal neurological deficits Skin: No rashes Results & Data Vital Signs (Past 12 Hours) Vital Signs Temp Pulse Pulse Resp BP Pulse Ox O2 Del Method 10/14/23 08:06 87 10/14/23 07:16 36.5 C 79 17 97/65 L 100 Room Air 10/14/23 03:20 36.6 C 84 17 90/53 L 100 Room Air 10/13/23 23:21 36.5 C 86 17 89/52 L 99 Room Air
--- NOTE | 2023-10-14 10:55 | Hospitalist Progress Note ---
Date of Service October 14, 2023 Assessment & Plan (1) Acute on chronic heart failure with reduced ejection fraction and diastolic dysfunction: (2) NSVT (nonsustained ventricular tachycardia): (3) Hypomagnesemia: (4) Ascites: (5) Acute on chronic renal failure: (6) Sinus bradycardia: (7) GERD (gastroesophageal reflux disease): (8) CAD (coronary artery disease): (9) Diabetes mellitus, type II: (10) Ischemic cardiomyopathy: Plan Mr. Jimenes is a 78 y/o male with DM2, CKD3-4, severe ischemic cardiomyopathy with EF on last ECHO in May 2023 at 25-29%, HFrEF, HTN, dyslipidemia, and other history as outlined below who was noted to have an abnormal EKG at his PCP office during visit for LE edema. Patient admitted on 10/10 for management of acute on chronic heart failure with reduced EF. Work-up in the ED revealed an JAMIR with elevation of creatinine from 2.1 at baseline to 3.9 today. Initial troponin was elevated at 42.8, likely secondary to demand in the setting of acute HF exacerbation. BNP was >4700. While in ED, patient with NSVT with frequent PVCs. CT abd/pel shows moderate to large ascites. Patient underwent paracentesis on 10/11 with 8.5L removed. Patient experienced noticeable subjective improvement. Marginal improvement in renal function. Will continue diuresis and management per Cards/Nephrology. PT/OT ordered,however, patient declines further discussion about rehab. #Acute on chronic heart failure with reduced ejection fraction and diastolic dysfunction: #Severe ischemic cardiomyopathy 25% #s/p dcPPM 2018 Patient with ongoing issues with LE edema and ongoing OP diuretic adjustments, currently taking 40qam/20qpm ECHO 05/2023 with EF 25-29% GDMT historically limited 2/2 hypotension and renal dysfunction - Consult cardiology for additional recommendations -Continue imdur, asa, metoprolol xl25mg qpm statin - Daily weights, monitor Is and Os - Consult nephrology for assistance with diuretic management in the setting of worsening of pt's kidney function Continue on IV lasix 30mg BID at this time per nephrology #NSVT (nonsustained ventricular tachycardia): Likely secondary to hypomagnesemia Continue to monitor on telemetry Replace lytes prn Continue on metoprolol #Tense ascites 2/2 volume overload *improved Potentially contributing to degree of renal failure -Consult [employer] for large volume paracentesis -8.5L removed 10/11 at bedside -SAAG 1.4g/dl likely 2/2 portal htn from heart failure related ascites, liver function stable #Acute on chronic renal failure: *improving like cardiorenal syndrome, concern for obstructive component iso ascites per nephrology Baseline ~2.0, Nephrology consult -Lasix 30mg BID [employer] for para as above, s/p 10/11 Trend labs #Acute on chronic anemia -Minimal blood from para site, less likely source of bleed likely multifactorial iso chronic illness, CKD, nutritional deficiency Anemia labs in am #GERD Chronic, stable Continue outpatient PPI therapy #Diabetes mellitus, type II: Holding oral agents, specifically metformin in view of worsening kidney function Insulin sliding scale A1c 8% BSG ACHS Diabetic diet #BPH continue finasteride #RLS continue ropinrole Dispo: Remains on tele/pcu for aggressive management of heart failure and renal failure DVT Prophylaxis: SubQ heparin Admission and Anticipated Discharge Date Admission Date: October 11, 2023 Subjective NAEO Reports feeling well overall Denies any acute concerns Physical Exam Constitutional: WD/WN, vitals as above Respiratory: normal respiratory effort, lungs clear to auscultation Cardiovascular: RRR, no murmur, no edema Results & Data Results & Data Vital Signs (Past 12 Hours) Vital Signs Temp Pulse Pulse Resp BP Pulse Ox O2 Del Method 10/14/23 10:40 36.5 C 88 18 92/56 L 99 Room Air 10/14/23 08:06 87 10/14/23 07:16 36.5 C 79 17 97/65 L 100 Room Air 10/14/23 03:20 36.6 C 84 17 90/53 L 100 Room Air 10/13/23 23:21 36.5 C 86 17 89/52 L 99 Room Air Laboratory Results Short CBC 10/14/23 Range/Units 05:25 WBC 4.63 L (4.8-10.8) K/ul Hgb 10.1 L (14.0-18.0) g/dl Hct 32.2 L (42.0-52.0) % Plt Count 231 (130-400) K/uL BMP 10/14/23 05:25 Sodium 140 Potassium 3.9 Chloride 107 Carbon Dioxide 24 BUN 60 H Creatinine 3.53 H Glucose 169 H Calcium 8.5 L Medications Administered Home Medications Medication Instructions Recorded Confirmed Last Taken aspirin 81 mg tablet,delayed 81 mg PO [facility] 03/17/19 10/11/23 10/10/23 release cyanocobalamin (vitamin B-12) 1,000 mcg PO [facility] 03/17/19 10/11/23 10/10/23 1,000 mcg tablet (Vitamin B-12) diphenhydramine HCl 25 mg tablet 25 mg PO [facility] 03/17/19 10/11/23 10/10/23 (Benadryl Allergy) finasteride 5 mg tablet 5 mg PO [facility] 03/17/19 10/11/23 10/10/23 furosemide 40 mg tablet 40 mg PO [facility] 03/17/19 10/11/23 10/10/23 metoprolol succinate 25 mg 25 mg PO QPM 03/17/19 10/11/23 10/10/23 tablet,extended release 24 hr ropinirole 0.5 mg tablet 0.5 mg PO 03/17/19 10/11/23 10/10/23 rosuvastatin 40 mg tablet 40 mg PO [facility] 03/17/19 10/11/23 10/10/23 glipizide 10 mg tablet, extended 20 mg PO DAILY 04/20/19 10/11/23 10/10/23 release 24 hr omeprazole 20 mg tablet,delayed 20 mg PO DAILY 04/20/19 10/11/23 10/10/23 release furosemide 40 mg tablet 20 mg PO QPM 10/11/23 10/11/23 10/10/23 isosorbide mononitrate 60 mg 60 mg PO DAILY 10/11/23 10/11/23 10/10/23 tablet,extended release 24 hr metformin 500 mg tablet,extended 500 mg PO BID 10/11/23 10/11/23 10/10/23 release 24 hr ropinirole 2 mg tablet 2 mg PO 10/11/23 10/11/23 10/10/23 Active Medications Generic Name Dose Route Start Last Admin Trade Name Freq PRN Reason Stop Dose Admin Acetaminophen 650 mg 10/11/23 16:18 10/13/23 23:25 Acetaminophen 325 Mg Tab PO 11/10/23 16:17 650 mg Q4H PRN Administration Pain or Fever Aspirin 81 mg 10/12/23 09:00 10/14/23 09:10 Aspirin 81 Mg Ectab PO 11/11/23 08:59 81 mg QAM WILLIAM Administration Cyanocobalamin 1,000 mcg 10/12/23 09:00 10/14/23 09:10 Cyanocobalamin (B-12) 500 Mcg Tablet PO 11/11/23 08:59 1,000 mcg QAM WILLIAM Administration Diphenhydramine HCl 25 mg 10/12/23 09:00 10/14/23 09:10 Diphenhydramine Capsule 25 Mg Cap PO 11/11/23 08:59 25 mg QAM WILLIAM Administration Finasteride 5 mg 10/12/23 09:00 10/14/23 09:10 Finasteride 5 Mg Tab PO 11/11/23 08:59 5 mg QAM WILLIAM Administration Furosemide 30 mg 10/12/23 10:30 10/14/23 09:11 Furosemide 40 Mg/4 Ml Vial IV 11/11/23 10:29 30 mg BID WILLIAM Administration Heparin Sodium (Porcine) 5,000 units 10/12/23 21:00 10/14/23 09:16 Heparin Sod 5,000 Unit/0.5 Ml Vial SQ 11/11/23 20:59 5,000 units Q12 WILLIAM Administration Isosorbide Mononitrate 60 mg 10/12/23 09:00 10/12/23 08:59 Isosorbide [place] Extended Rel 60 Mg Tabcr PO 11/11/23 08:59 60 mg DAILY WILLIAM Administration Magnesium Oxide 400 mg 10/13/23 10:15 10/14/23 09:09 Magnesium Oxide 400 Mg Tab PO 11/12/23 10:14 400 mg QAM WILLIAM Administration Metoprolol Succinate 25 mg 10/11/23 21:00 10/13/23 20:24 Metoprolol Succ 25mg Ext Rel Tab PO 11/10/23 20:59 Not Given QPM WILLIAM Miscellaneous 15 - 30 gm 10/11/23 16:18 10/12/23 18:31 Carbohydrates For Hypoglycemia PO 11/10/23 16:17 15 gm UD PRN Administration Hypoglycemia Protocol Pantoprazole Sodium 40 mg 10/12/23 09:00 10/14/23 09:09 Pantoprazole 40 Mg Tab PO 11/11/23 08:59 40 mg DAILY WILLIAM Administration Protocol Ropinirole HCl 2 mg 10/11/23 21:00 10/13/23 19:33 Ropinirole Hcl 2 Mg Tablet PO 11/10/23 20:59 2 mg HS WILLIAM Administration Ropinirole HCl 0.5 mg 10/11/23 21:00 10/13/23 19:33 Ropinirole Hcl 0.25 Mg Tablet PO 11/10/23 20:59 0.5 mg HS WILLIAM Administration Rosuvastatin Calcium 40 mg 10/12/23 09:00 10/14/23 09:09 Rosuvastatin Calcium 20 Mg Tab PO 11/11/23 08:59 40 mg QAM WILLIAM Administration (4) Ascites Ascites type: other type Qualified Code(s): R18.8 - Other ascites (5) Acute on chronic renal failure Acute renal failure type: unspecified Chronic kidney disease stage: stage 3 (moderate) Chronic kidney disease stage 3 subtype: stage 3b (GFR 30-44) Qualified Code(s): N17.9 - Acute kidney failure, unspecified; N18.32 - Chronic kidney disease, stage 3b (7) GERD (gastroesophageal reflux disease) Esophagitis presence: esophagitis presence not specified Qualified Code(s): K21.9 - Gastro-esophageal reflux disease without esophagitis (8) CAD (coronary artery disease) Associated angina: without angina Coronary Disease-Associated Artery/Lesion type: [place] artery [place] vs. transplanted heart: [place] heart Qualified Code(s): I25.10 - Atherosclerotic heart disease of [place] coronary artery without angina pectoris (9) Diabetes mellitus, type II Chronic kidney disease stage: stage 3 (moderate) Chronic kidney disease stage 3 subtype: unspecified whether 3a or 3b Diabetes mellitus complication detail: with chronic kidney disease Diabetes mellitus complication status: with kidney complications Diabetes mellitus shelter insulin use: without termite inspector use Qualified Code(s): E11.22 - Type 2 diabetes mellitus with diabetic chronic kidney disease; N18.30 - Chronic kidney disease, stage 3 unspecified
--- NOTE | 2023-10-14 11:45 | Cardiology Progress Note ---
Date of Service October 14, 2023 Assessment & Plan (1) Acute on chronic renal failure: (2) Ascites: (3) Acute on chronic heart failure with reduced ejection fraction and diastolic dysfunction: (4) NSVT (nonsustained ventricular tachycardia): (5) Aortic stenosis: (6) Hypomagnesemia: Plan Complex 78-year-old patient admitted with concerns regarding volume overload and acute decompensated heart failure. Lab studies demonstrating acute renal failure. Findings suggest cardiorenal syndrome with abdominal ascites. Primarily right-sided signs/symptoms. Further diuresis limited by worsening renal function. (Outpatient Lasix dose 60 mg daily per review of cardiology records) await nephrology evaluation/recommendations. Patient chronically hypotensive which has limited addition of evidence-based heart failure therapies in the past. Continue current doses of isosorbide monohydrate, low-dose aspirin, metoprolol succinate, and rosuvastatin. No role for LIN inhibitor, ARB, or Aldactone in setting of acute renal insufficiency. Nonsustained ventricular tachycardia noted on telemetry. Agree with magnesium supplementation. Continue beta-demarcus therapy. Currently hold off on addition of inotropic therapy (dobutamine), however, may be reconsidered during hospitali zation pending clinical course. 10/12/23: No recurrent paroxysmal VT on telemetry. Magnesium level improved at 1.9 after supplementation Large amount of ascites noted on abd CT scan. Unfortunately creatinine continues to rise and currently 4.09. Nephrology consult appreciated. Starting on low dose furosemide IV. Monitor I+O's. supplement and monitor potassium/magnesium as needed Borderline low BP. May need to reduce/hold isosorbide to allow for ongoing diuresis. May need to consider GI evaluation for paracentesis. Continue metoprolol, statin, ASA. will follow 10/13/23: NO recurrent arrhythmias on telemetry. Supplement magnesium to keep > 2.0 Supplement potassium with goal 4-5. Received dose this morning. Continue IV furosemide today. Creatinine improving. Appreciate nephrology lacie mmendations. Hold isosorbide due to hypotension Would continue metoprolol, ASA and statin. Case discussed with Dr. Chaidez I spent a total of 35 minutes on the date of service in preparation, delivery, and documentation of the care provided to this patient, excluding any time spent in the performance of separately billed services. Alondra Ocampo PA-C Department of Cardiology, [facility] 10/14/2023 Appreciate nephrology input. Patient improving following IV diuresis and paracentesis Plan continue further diuresis Symptomatically improved No further arrhythmias with plans to continue aspirin metoprolol and statin. This chart was completed in part utilizing Speech Voice Recognition Software. Grammatical errors, random word insertions, pronoun errors, and incomplete sentences are an occasional consequence of this system due to software limitations, ambient noise, and hardware issues. Any formal questions or concerns about the content, text, or information contained within the body of this dictation should be directly addressed to the provider for clarification. Admission and Anticipated Discharge Date Admission Date: October 11, 2023 Subjective Patient was seen and examined, chart, medications, telemetry reviewed. Clinically feels substantially improved after large-volume paracentesis. Abdomen less distended No chest pains, tachypalpitations no dizziness. No arrhythmias on telemetry Renal function remaining stable although blood pressure soft. Still making urine Review of Systems Review of Systems: All systems reviewed & are unremarkable except as noted in Subjective Physical Exam Constitutional: WD/WN, vitals as above well nourished; no acute distress Neck: trachea midline, no thyromegaly Respiratory: normal respiratory effort; no respiratory distress, no labored breathing and no retractions Auscultation: lungs clear to auscultation bilaterally; no crackles, no rales, no rhonchi and no wheezes Cardiovascular: Rate/Rhythm: regular rate and regular rhythm Heart Sounds: normal S1, normal S2 and + murmur (2/6 systolic ejection murmur) Vessels: + JVD and radial pulses present; no carotid bruit Extremities: + edema (trace b/l edema) Gastrointestinal (Abdomen): Inspection/Auscultation: + abdomen distended and normal bowel sounds Percussion/Palpation: abdomen soft; abdomen nontender, no guarding and abdomen not rigid Neurologic: CN's II-XI intact bilaterally and moves all extremities; no focal motor deficits Results & Data Vital Signs (Past 12 Hours) Vital Signs Temp Pulse Pulse Resp BP Pulse Ox O2 Del Method 10/14/23 10:40 36.5 C 88 18 92/56 L 99 Room Air 10/14/23 08:06 87 10/14/23 08:00 Room Air 10/14/23 07:16 36.5 C 79 17 97/65 L 100 Room Air 10/14/23 03:20 36.6 C 84 17 90/53 L 100 Room Air Laboratory Results Laboratory Results - last 24 hr 10/13/23 10/13/23 10/14/23 16:37 20:07 05:25 WBC 4.63 L RBC 4.22 L Hgb 10.1 L Hct 32.2 L MCV 76.3 L MCH 23.9 L MCHC 31.4 L RDW Std Deviation 53.3 H RDW Coeff of [place] 19.8 H Plt Count 231 MPV 10.4 PT 14.0 H INR 1.3 H Sodium 140 Potassium 3.9 Chloride 107 Carbon Dioxide 24 Anion Gap 9 BUN 60 H Creatinine 3.53 H Est Cr Clr Drug Dosing 17.1 Est GFR ( Amer) 18.2 Est GFR (Non-Af Amer) 15.7 BUN/Creatinine Ratio 17.0 Glucose 169 H POC Glucose 69 L* 166 H Calcium 8.5 L Phosphorus 3.5 Magnesium 1.7 Iron 36 TIBC 175 L Unsaturated IBC 139 L Transferrin % Sat 21 Ferritin 365.4 Vitamin B12 828 Folate 10.76 10/14/23 10/14/23 07:55 11:54 WBC RBC Hgb Hct MCV MCH MCHC RDW Std Deviation RDW Coeff of [place]rene Plt Count MPV PT INR Sodium Potassium Chloride Carbon Dioxide Anion Gap BUN Creatinine Est Cr Clr Drug Dosing Est GFR ( Amer) Est GFR (Non-Af Amer) BUN/Creatinine Ratio Glucose POC Glucose 125 H 154 H Calcium Phosphorus Magnesium Iron TIBC Unsaturated IBC Transferrin % Sat Ferritin Vitamin B12 Folate (1) Acute on chronic renal failure Acute renal failure type: unspecified Chronic kidney disease stage: stage 3 (moderate) Chronic kidney disease stage 3 subtype: stage 3b (GFR 30-44) Qualified Code(s): N17.9 - Acute kidney failure, unspecified; N18.32 - Chronic kidney disease, stage 3b (2) Ascites Ascites type: other type Qualified Code(s): R18.8 - Other ascites (5) Aortic stenosis Cardiac valve disease etiology: nonrheumatic Qualified Code(s): I35.0 - Nonrheumatic aortic (valve) stenosis
[2023-10-14] MEDS: POLYETHYLENE (MIRALAX) 17 GM PACK PO PRN (20:17)
[2023-10-15 06:32] LABS: BUN Creatinine Ratio 17.7 (10-20); Calcium 8.7 mg/dl (8.6-10.3); Creatinine Clr Calc Pharmacy 17.8 ml/min; Est GFR (African American) 19.1 ml/min; Est GFR (Non-African American) 16.5 ml/min; Magnesium 1.7 mg/dl (1.7-2.4); Phosphorus 3.3 mg/dl (2.5-4.9); Potassium 4.4 mmol/L (3.5-5.1)
[2023-10-15 06:34] LABS: Hemoglobin 10.8 g/dl (14.0-18.0); Mean Corpuscular Hemoglobin 23.7 pg (25.0-34.0); Mean Corpuscular Hgb Conc 30.9 g/dL (32.0-36.0); Mean Corpuscular Volume 76.9 fL (80.0-100.0); Mean Platelet Volume 10.6 fL (9.4-12.4); Platelet Count 251 K/uL (130-400); RDW Coefficient of Variation 19.8 % (11.5-14.5); RDW Standard Deviation 53.9 fL (36.4-46.3); Red Blood Count 4.55 M/uL (4.70-6.10); White Blood Count 5.67 K/ul (4.8-10.8)
--- NOTE | 2023-10-15 07:06 | Hospitalist Progress Note ---
Date of Service October 15, 2023 Assessment & Plan (1) Acute on chronic heart failure with reduced ejection fraction and diastolic dysfunction: (2) NSVT (nonsustained ventricular tachycardia): (3) Hypomagnesemia: (4) Ascites: (5) Acute on chronic renal failure: (6) Sinus bradycardia: (7) GERD (gastroesophageal reflux disease): (8) CAD (coronary artery disease): (9) Diabetes mellitus, type II: (10) Ischemic cardiomyopathy: Plan Mr. Jimenes is a 78 y/o male with DM2, CKD3-4, severe ischemic cardiomyopathy with EF on last ECHO in May 2023 at 25-29%, HFrEF, HTN, dyslipidemia, and other history as outlined below who was noted to have an abnormal EKG at his PCP office during visit for LE edema. Patient admitted on 10/10 for management of acute on chronic heart failure with reduced EF. Work-up in the ED revealed an JAMIR with elevation of creatinine from 2.1 at baseline to 3.9 today. Initial troponin was elevated at 42.8, likely secondary to demand in the setting of acute HF exacerbation. BNP was >4700. While in ED, patient with NSVT with frequent PVCs. CT abd/pel shows moderate to large ascites. Patient underwent paracentesis on 10/11 with 8.5L removed. Patient experienced noticeable subjective improvement. Marginal improvement in renal function. Will continue diuresis and management per Cards/Nephrology. PT/OT ordered,however, patient declines further discussion about rehab, but will consider Home Health Patient doing well overall but still requiring diuersis. Renal function continues to improve marginally. #Acute on chronic heart failure with reduced ejection fraction and diastolic dysfunction: #Severe ischemic cardiomyopathy 25% #s/p dcPPM 2018 Patient with ongoing issues with LE edema and ongoing OP diuretic adjustments, currently taking 40qam/20qpm ECHO 05/2023 with EF 25-29% GDMT historically limited 2/2 hypotension and renal dysfunction - Consult cardiology for additional recommendations -Continue imdur, asa, metoprolol xl25mg qpm statin - Daily weights, monitor Is and Os - Consult nephrology for assistance with diuretic management in the setting of worsening of pt's kidney function Continue on IV lasix 30mg BID at this time per nephrology #NSVT (nonsustained ventricular tachycardia): Likely secondary to hypomagnesemia Continue to monitor on telemetry Replace lytes prn Continue on metoprolol #Tense ascites 2/2 volume overload *improved Potentially contributing to degree of renal failure -Consult Cosmetologist for large volume paracentesis -8.5L removed 10/11 at bedside -SAAG 1.4g/dl likely 2/2 portal htn from heart failure related ascites, liver function stable #Acute on chronic renal failure: *improving like cardiorenal syndrome, concern for obstructive component iso ascites per nephrology Baseline ~2.0, Nephrology consult -Lasix 30mg BID Cosmetologist for para as above, s/p 10/11 Trend labs #Acute on chronic anemia -Minimal blood from para site, less likely source of bleed likely multifactorial iso chronic illness, CKD, nutritional deficiency Anemia labs in am #GERD Chronic, stable Continue outpatient PPI therapy #Diabetes mellitus, type II: Holding oral agents, specifically metformin in view of worsening kidney function Insulin sliding scale A1c 8% BSG ACHS Diabetic diet #BPH continue finasteride #RLS continue ropinrole Dispo: Remains on tele/pcu for aggressive management of heart failure and renal failure DVT Prophylaxis: SubQ heparin Admission and Anticipated Discharge Date Admission Date: October 11, 2023 Subjective NAEO Reports feeling better daily. Denies orthostasis, dizziness, chest pain. Physical Exam Constitutional: WD/WN, vitals as above Respiratory: normal respiratory effort, lungs clear to auscultation Cardiovascular: RRR, no murmur, no edema Gastrointestinal (Abdomen): distended belly, but soft nontender, much improved over course of admission Results & Data Results & Data Vital Signs (Past 12 Hours) Vital Signs Temp Pulse Pulse Resp BP Pulse Ox O2 Del Method 10/15/23 02:52 36.6 C 89 18 90/51 L 97 Room Air 10/14/23 22:43 36.6 C 97 H 18 90/46 L 97 Room Air 10/14/23 22:36 94 H 10/14/23 21:57 Room Air 10/14/23 19:35 36.8 C 99 H 18 97/62 L 99 Room Air Laboratory Results Short CBC 10/15/23 Range/Units 05:25 WBC 5.67 (4.8-10.8) K/ul Hgb 10.8 L (14.0-18.0) g/dl Hct 35.0 L (42.0-52.0) % Plt Count 251 (130-400) K/uL BMP 10/15/23 05:25 Sodium 140 Potassium 4.4 Chloride 106 Carbon Dioxide 25 BUN 60 H Creatinine 3.39 H Glucose 123 H Calcium 8.7 Medications Administered Home Medications Medication Instructions Recorded Confirmed Last Taken aspirin 81 mg tablet,delayed 81 mg PO [facility] 03/17/19 10/11/23 10/10/23 release cyanocobalamin (vitamin B-12) 1,000 mcg PO [facility] 03/17/19 10/11/23 10/10/23 1,000 mcg tablet (Vitamin B-12) diphenhydramine HCl 25 mg tablet 25 mg PO [facility] 03/17/19 10/11/23 10/10/23 (Benadryl Allergy) finasteride 5 mg tablet 5 mg PO [facility] 03/17/19 10/11/23 10/10/23 furosemide 40 mg tablet 40 mg PO [facility] 03/17/19 10/11/23 10/10/23 metoprolol succinate 25 mg 25 mg PO QPM 03/17/19 10/11/23 10/10/23 tablet,extended release 24 hr ropinirole 0.5 mg tablet 0.5 mg PO 03/17/19 10/11/23 10/10/23 rosuvastatin 40 mg tablet 40 mg PO [facility] 03/17/19 10/11/23 10/10/23 glipizide 10 mg tablet, extended 20 mg PO DAILY 04/20/19 10/11/23 10/10/23 release 24 hr omeprazole 20 mg tablet,delayed 20 mg PO DAILY 04/20/19 10/11/23 10/10/23 release furosemide 40 mg tablet 20 mg PO QPM 10/11/23 10/11/23 10/10/23 isosorbide mononitrate 60 mg 60 mg PO DAILY 10/11/23 10/11/23 10/10/23 tablet,extended release 24 hr metformin 500 mg tablet,extended 500 mg PO BID 10/11/23 10/11/23 10/10/23 release 24 hr ropinirole 2 mg tablet 2 mg PO 10/11/23 10/11/23 10/10/23 Active Medications Generic Name Dose Route Start Last Admin Trade Name Margaux PRN Reason Stop Dose Admin Acetaminophen 650 mg 10/11/23 16:18 10/13/23 23:25 Acetaminophen 325 Mg Tab PO 11/10/23 16:17 650 mg Q4H PRN Administration Pain or Fever Aspirin 81 mg 10/12/23 09:00 10/14/23 09:10 Aspirin 81 Mg Ectab PO 11/11/23 08:59 81 mg QAM WILLIAM Administration Cyanocobalamin 1,000 mcg 10/12/23 09:00 10/14/23 09:10 Cyanocobalamin (B-12) 500 Mcg Tablet PO 11/11/23 08:59 1,000 mcg QAM WILLIAM Administration Diphenhydramine HCl 25 mg 10/12/23 09:00 10/14/23 09:10 Diphenhydramine Capsule 25 Mg Cap PO 11/11/23 08:59 25 mg QAM WILLIAM Administration Finasteride 5 mg 10/12/23 09:00 10/14/23 09:10 Finasteride 5 Mg Tab PO 11/11/23 08:59 5 mg QAM WILLIAM Administration Furosemide 30 mg 10/12/23 10:30 10/14/23 20:17 Furosemide 40 Mg/4 Ml Vial IV 11/11/23 10:29 30 mg BID WILLIAM Administration Heparin Sodium (Porcine) 5,000 units 10/12/23 21:00 10/14/23 20:17 Heparin Sod 5,000 Unit/0.5 Ml Vial SQ 11/11/23 20:59 5,000 units Q12 WILLIAM Administration Isosorbide Mononitrate 60 mg 10/12/23 09:00 10/12/23 08:59 Isosorbide George Extended Rel 60 Mg Tabcr PO 11/11/23 08:59 60 mg DAILY WILLIAM Administration Magnesium Oxide 400 mg 10/13/23 10:15 10/14/23 09:09 Magnesium Oxide 400 Mg Tab PO 11/12/23 10:14 400 mg QAM WILLIAM Administration Metoprolol Succinate 25 mg 10/11/23 21:00 10/14/23 20:18 Metoprolol Succ 25mg Ext Rel Tab PO 11/10/23 20:59 Not Given QPM WILLIAM Miscellaneous 15 - 30 gm 10/11/23 16:18 10/12/23 18:31 Carbohydrates For Hypoglycemia PO 11/10/23 16:17 15 gm UD PRN Administration Hypoglycemia Protocol Pantoprazole Sodium 40 mg 10/12/23 09:00 10/14/23 09:09 Pantoprazole 40 Mg Tab PO 11/11/23 08:59 40 mg DAILY WILLIAM Administration Protocol Polyethylene Glycol 17 gm 10/14/23 19:57 10/14/23 20:17 Polyethylene (Miralax) 17 Gm Pack PO 11/13/23 19:56 17 gm DAILY PRN Administration Constipation Ropinirole HCl 2 mg 10/11/23 21:00 10/14/23 20:17 Ropinirole Hcl 2 Mg Tablet PO 11/10/23 20:59 2 mg HS WILLIAM Administration Ropinirole HCl 0.5 mg 10/11/23 21:00 10/14/23 20:17 Ropinirole Hcl 0.25 Mg Tablet PO 11/10/23 20:59 0.5 mg HS WILLIAM Administration Rosuvastatin Calcium 40 mg 10/12/23 09:00 10/14/23 09:09 Rosuvastatin Calcium 20 Mg Tab PO 11/11/23 08:59 40 mg QAM WILLIAM Administration (4) Ascites Ascites type: other type Qualified Code(s): R18.8 - Other ascites (5) Acute on chronic renal failure Acute renal failure type: unspecified Chronic kidney disease stage: stage 3 (moderate) Chronic kidney disease stage 3 subtype: stage 3b (GFR 30-44) Qualified Code(s): N17.9 - Acute kidney failure, unspecified; N18.32 - Chronic kidney disease, stage 3b (7) GERD (gastroesophageal reflux disease) Esophagitis presence: esophagitis presence not specified Qualified Code(s): K21.9 - Gastro-esophageal reflux disease without esophagitis (8) CAD (coronary artery disease) Associated angina: without angina Coronary Disease-Associated Artery/Lesion type: [place] artery [place] vs. transplanted heart: [place] heart Qualified Code(s): I25.10 - Atherosclerotic heart disease of [place] coronary artery without angina pectoris (9) Diabetes mellitus, type II Chronic kidney disease stage: stage 3 (moderate) Chronic kidney disease stage 3 subtype: unspecified whether 3a or 3b Diabetes mellitus complication detail: with chronic kidney disease Diabetes mellitus complication status: with kidney complications Diabetes mellitus fdc insulin use: without theatre instructor use Qualified Code(s): E11.22 - Type 2 diabetes mellitus with diabetic chronic kidney disease; N18.30 - Chronic kidney disease, stage 3 unspecified
[2023-10-15] MEDS: MAGNESIUM SULFATE / D5W 1 GM/100 ML BAG IV ONE (08:54)
--- NOTE | 2023-10-15 10:23 | Nephrology Progress Note ---
Date of Service October 15, 2023 Assessment & Plan Admission and Anticipated Discharge Date Admission Date: October 11, 2023 Subjective Assessment & Plan (1) Acute on chronic renal failure: Plan: Patient with acute kidney injury on chronic renal failure likely cardiorenal syndrome. Baseline creatinine of 2. Creatinine is now up to 4. Patient is still making urine and electrolytes are stable. No indication for dialysis. Will attempt diuresis. Patient is status post large volume paracentesis. Continue to monitor renal function closely and daily urine output. renal labs improving though. Continue lasix 30 iv bid. (2) Acute on chronic heart failure with reduced ejection fraction and diastolic dysfunction: Plan: Patient with acute on chronic heart failure with massive fluid overload. Blood pressure is soft which is limiting diuresis. Will continue IV Lasix 30 mg twice daily. (3) Ascites: Plan: Patient had paracentesis Saturday. Still has good bit with LE edema Subjective seen for acute kidney injury on CKD. Patient had large volume paracentesis and He feels better today. Doing Crossword Puzzle. He is making some urine. Review of Systems Review of Systems: All other systems were reviewed and negative except as noted in HPI Physical Exam Physical Exam: General exam: Appears comfortable, no acute distress HEENT: Pupils are equal and reactive to light Neck: No JVD, neck is supple trachea is midline Respiratory system: Clear breath sounds bilaterally. Gastrointestinal: Abdomen is Moderately distended, non tender, bowel sounds are present CVS: Regular rate and rhythm. No murmurs, rubs or gallops Musculoskeletal: No joint or muscle tenderness Extremities: Non tender, 1+ edema, peripheral pulses are present Neuro: Oriented, no tremors, no focal neurological deficits Skin: No rashes Results & Data Vital Signs (Past 12 Hours) Vital Signs Temp Pulse Pulse Resp BP Pulse Ox O2 Del Method 10/15/23 07:59 93 H 10/15/23 07:41 36.7 C 85 20 99/63 L 92 Room Air 10/15/23 02:52 36.6 C 89 18 90/51 L 97 Room Air 10/14/23 22:43 36.6 C 97 H 18 90/46 L 97 Room Air 10/14/23 22:36 94 H
--- NOTE | 2023-10-15 12:51 | Cardiology Progress Note ---
Date of Service October 15, 2023 Assessment & Plan (1) Acute on chronic renal failure: (2) Ascites: (3) Acute on chronic heart failure with reduced ejection fraction and diastolic dysfunction: (4) NSVT (nonsustained ventricular tachycardia): (5) Aortic stenosis: (6) Hypomagnesemia: Plan Complex 78-year-old patient admitted with concerns regarding volume overload and acute decompensated heart failure. Lab studies demonstrating acute renal failure. Findings suggest cardiorenal syndrome with abdominal ascites. Primarily right-sided signs/symptoms. Further diuresis limited by worsening renal function. (Outpatient Lasix dose 60 mg daily per review of cardiology records) await nephrology evaluation/recommendations. Patient chronically hypotensive which has limited addition of evidence-based heart failure therapies in the past. Continue current doses of isosorbide monohydrate, low-dose aspirin, metoprolol succinate, and rosuvastatin. No role for LIN inhibitor, ARB, or Aldactone in setting of acute renal insufficiency. Nonsustained ventricular tachycardia noted on telemetry. Agree with magnesium supplementation. Continue beta-demarcus therapy. Currently hold off on addition of inotropic therapy (dobutamine), however, may be reconsidered during hospitali zation pending clinical course. 10/12/23: No recurrent paroxysmal VT on telemetry. Magnesium level improved at 1.9 after supplementation Large amount of ascites noted on abd CT scan. Unfortunately creatinine continues to rise and currently 4.09. Nephrology consult appreciated. Starting on low dose furosemide IV. Monitor I+O's. supplement and monitor potassium/magnesium as needed Borderline low BP. May need to reduce/hold isosorbide to allow for ongoing diuresis. May need to consider GI evaluation for paracentesis. Continue metoprolol, statin, ASA. will follow 10/13/23: NO recurrent arrhythmias on telemetry. Supplement magnesium to keep > 2.0 Supplement potassium with goal 4-5. Received dose this morning. Continue IV furosemide today. Creatinine improving. Appreciate nephrology lacie mmendations. Hold isosorbide due to hypotension Would continue metoprolol, ASA and statin. Case discussed with Dr. Chaidez I spent a total of 35 minutes on the date of service in preparation, delivery, and documentation of the care provided to this patient, excluding any time spent in the performance of separately billed services. Alondra Ocampo PA-C Department of Cardiology, [facility] 10/14/2023 Appreciate nephrology input. Patient improving following IV diuresis and paracentesis Plan continue further diuresis Symptomatically improved No further arrhythmias with plans to continue aspirin metoprolol and statin. 10/15/2023 Appreciate nephrology input Complex 78-year-old male with ischemic cardiomyopathy and chronic renal failure presents with acute volume overload, right heart failure greater than left manifesting predominantly as large volume ascites, mild edema Patient responding to IV diuretics status post paracentesis Blood pressure is relatively low but only medication metoprolol succinate for rate and rhythm control required given complex ectopy on presentation. Finasteride may be contributing to lower blood pressure but will continue I spent a total of 35 minutes on the date of service in preparation, delivery, and documentation of the care provided to this patient, excluding any time spent in the performance of separately billed services. This chart was completed in part utilizing Speech Voice Recognition Software. Grammatical errors, random word insertions, pronoun errors, and incomplete sentences are an occasional consequence of this system due to software limitations, ambient noise, and hardware issues. Any formal questions or concerns about the content, text, or information contained within the body of this dictation should be directly addressed to the provider for clarification. Admission and Anticipated Discharge Date Admission Date: October 11, 2023 Subjective Patient was seen and personally examined, chart, medications, telemetry reviewed. Feels clinically improved and continues to manifest diuresis Relatively low blood pressure but tolerating. Renal function improved Recorded weight down 10 kg from admission Rhythm sinus predominantly 70s and 80s Physical Exam Constitutional: WD/WN, vitals as above well nourished; no acute distress Neck: trachea midline, no thyromegaly Respiratory: normal respiratory effort; no respiratory distress, no labored breathing and no retractions Auscultation: lungs clear to auscultation bila terally; no crackles, no rales, no rhonchi and no wheezes Cardiovascular: Rate/Rhythm: regular rate and regular rhythm Heart Sounds: normal S1, normal S2 and + murmur (2/6 systolic ejection murmur) Vessels: + JVD and radial pulses present; no carotid bruit Extremities: + edema (trace b/l edema) Gastrointestinal (Abdomen): Inspection/Auscultation: + abdomen distended and normal bowel sounds Percussion/Palpation: abdomen soft; abdomen nontender, no guarding and abdomen not rigid Neurologic: CN's II-XI intact bilaterally and moves all extremities; no focal motor deficits Results & Data Vital Signs (Past 12 Hours) Vital Signs Temp Pulse Pulse Resp BP Pulse Ox O2 Del Method 10/15/23 11:27 36.6 C 90 20 93/61 L 91 Room Air 10/15/23 07:59 93 H 10/15/23 07:41 36.7 C 85 20 99/63 L 92 Room Air 10/15/23 02:52 36.6 C 89 18 90/51 L 97 Room Air Laboratory Results Laboratory Results - last 24 hr 10/14/23 10/14/23 10/15/23 16:36 20:03 05:25 WBC 5.67 RBC 4.55 L Hgb 10.8 L Hct 35.0 L MCV 76.9 L MCH 23.7 L MCHC 30.9 L RDW Std Deviation 53.9 H RDW Coeff of Serene 19.8 H Plt Count 251 MPV 10.6 Sodium 140 Potassium 4.4 Chloride 106 Carbon Dioxide 25 Anion Gap 9 BUN 60 H Creatinine 3.39 H Est Cr Clr Drug Dosing 17.8 Est GFR ( Amer) 19.1 Est GFR (Non-Af Amer) 16.5 BUN/Creatinine Ratio 17.7 Glucose 123 H POC Glucose 163 H 197 H Calcium 8.7 Phosphorus 3.3 Magnesium 1.7 10/15/23 10/15/23 07:11 12:08 WBC RBC Hgb Hct MCV MCH MCHC RDW Std Deviation RDW Coeff of Serene Plt Count MPV Sodium Potassium Chloride Carbon Dioxide Anion Gap BUN Creatinine Est Cr Clr Drug Dosing Est GFR ( Amer) Est GFR (Non-Af Amer) BUN/Creatinine Ratio Glucose POC Glucose 105 H 177 H Calcium Phosphorus Magnesium (1) Acute on chronic renal failure Acute renal failure type: unspecified Chronic kidney disease stage: stage 3 (moderate) Chronic kidney disease stage 3 subtype: stage 3b (GFR 30-44) Qualified Code(s): N17.9 - Acute kidney failure, unspecified; N18.32 - Chronic kidney disease, stage 3b (2) Ascites Ascites type: other type Qualified Code(s): R18.8 - Other ascites (5) Aortic stenosis Cardiac valve disease etiology: nonrheumatic Qualified Code(s): I35.0 - Nonrheumatic aortic (valve) stenosis
[2023-10-16 07:40] LABS: Hematocrit (blood only) 34.4 % (42.0-52.0); Hemoglobin 11.1 g/dl (14.0-18.0); Mean Corpuscular Hgb Conc 32.3 g/dL (32.0-36.0); Mean Corpuscular Volume 74.5 fL (80.0-100.0); Mean Platelet Volume 10.4 fL (9.4-12.4); Platelet Count 250 K/uL (130-400); RDW Coefficient of Variation 20.2 % (11.5-14.5); RDW Standard Deviation 52.4 fL (36.4-46.3); Red Blood Count 4.62 M/uL (4.70-6.10); White Blood Count 5.78 K/ul (4.8-10.8)
[2023-10-16 07:57] LABS: BUN Creatinine Ratio 18.1 (10-20); Creatinine Clr Calc Pharmacy 19.9 ml/min; Est GFR (African American) 21.8 ml/min; Est GFR (Non-African American) 18.8 ml/min; Magnesium 1.9 mg/dl (1.7-2.4); Phosphorus 3.4 mg/dl (2.5-4.9); Potassium 4.5 mmol/L (3.5-5.1)
--- NOTE | 2023-10-16 11:09 | Hospitalist Progress Note ---
Date of Service October 16, 2023 Assessment & Plan (1) Acute on chronic heart failure with reduced ejection fraction and diastolic dysfunction: (2) NSVT (nonsustained ventricular tachycardia): (3) Hypomagnesemia: (4) Ascites: (5) Acute on chronic renal failure: (6) Sinus bradycardia: (7) GERD (gastroesophageal reflux disease): (8) CAD (coronary artery disease): (9) Diabetes mellitus, type II: (10) Ischemic cardiomyopathy: Plan Mr. Jimenes is a 78 y/o male with DM2, CKD3-4, severe ischemic cardiomyopathy with EF on last ECHO in May 2023 at 25-29%, HFrEF, HTN, dyslipidemia, and other history as outlined below who was noted to have an abnormal EKG at his PCP's office during a visit for LE edema. Per previous provider with addendum: Patient admitted on 10/10 for management of acute on chronic heart failure with reduced EF. Work-up in the ED revealed an JAMIR with elevation of creatinine from 2.1 at baseline to 3.9 today. Initial troponin was elevated at 42.8, likely secondary to demand in the setting of acute HF exacerbation. BNP was >4700. While in ED, patient with NSVT with frequent PVCs. CT abd/pel shows moderate to large ascites. Patient underwent paracentesis on 10/11 with 8.5L removed. Patient experienced noticeable subjective improvement. Marginal improvement in renal function. Will continue diuresis and management per Cards/Nephrology. PT/OT ordered,however, patient declines further discussion about rehab, but will consider Home Health Patient doing well overall but still requiring diuresis. Renal function continues to improve marginally. Acute on chronic heart failure with reduced ejection fraction and diastolic dysfunction: Severe ischemic cardiomyopathy 25% s/p dcPPM 2018 Patient with ongoing issues with LE edema and ongoing OP diuretic adjustments, home regimen of po lasix 40qam/20qpm ECHO 05/2023 with EF 25-29% GDMT historically limited 2/2 hypotension and renal dysfunction - Consult cardiology for additional recommendations -Continue imdur, asa, metoprolol succinate 12.5mg qpm (dose decreased), statin - Daily weights, monitor Is and Os - Consult nephrology for assistance with diuretic management in the setting of worsening of pt's kidney function Continue on IV lasix 30mg BID at this time per nephrology 10/15- BP soft, continue current regimen. Continue to monitor. Appreciate cardiology and nephrology recs. NSVT (nonsustained ventricular tachycardia): Likely secondary to hypomagnesemia Continue to monitor on telemetry Replace electrolytes prn Continue on metoprolol Tense ascites 2/2 volume overload *improved Potentially contributing to degree of renal failure -Consult Machine [employer] Marker for large volume paracentesis -8.5L removed 10/11 at bedside -SAAG 1.4g/dl likely 2/2 portal htn from heart failure related ascites, liver function stable 10/15- continue to monitor for reaccumulation Acute on chronic renal failure: *improving likely cardiorenal syndrome, concern for obstructive component in setting of ascites per nephrology Baseline ~2.0, Nephrology consult -IV Lasix 30mg BID Machine Carton Marker for para as above, s/p 10/11 Trend labs Acute on chronic anemia -Minimal blood from para site, less likely source of bleed likely multifactorial iso chronic illness, CKD, nutritional deficiency Anemia labs in am GERD Chronic, stable Continue outpatient PPI therapy Diabetes mellitus, type II: Holding oral agents, specifically metformin in view of worsening kidney function Insulin sliding scale A1c 8% BSG ACHS Diabetic diet BPH continue finasteride RLS continue ropinrole DVT Prophylaxis: SubQ heparin Dispo: PT/OT ordered, pt declining rehab/Home with HH Admission and Anticipated Discharge Date Admission Date: October 11, 2023 Subjective Pt was seen in the AM. Sitting at bedside working on a crossword puzzle. States that he does not want to go to rehab, does not want home health services. Notes he has lots of help at home. Later notified by nursing that pt had not had a BM for many days since he's been here. Also pt complaining of abdominal tightness. Review of Systems Review of Systems: All systems reviewed & are unremarkable except as noted in Subjective Physical Exam Physical Exam: General: Alert, oriented. No acute distress Psych: Appropriate mood and affect Neuro: No gross deficits HEENT: NC/AT CV: RRR, murmur appreciated Resp: Breath sounds clear bilaterally, no increased effort of breathing. Abdomen: Soft, nontender Extremities: edema in lower extremities bilaterally. Results & Data Results & Data Vital Signs (Past 12 Hours) Vital Signs Temp Pulse Pulse Resp BP Pulse Ox O2 Del Method 10/16/23 09:34 Room Air 10/16/23 07:06 36.5 C 89 18 97/63 L 99 Room Air 10/16/23 07:00 91 H 10/16/23 02:40 36.6 C 93 H 18 97/64 L 100 Room Air (4) Ascites Ascites type: other type Qualified Code(s): R18.8 - Other ascites (5) Acute on chronic renal failure Acute renal failure type: unspecified Chronic kidney disease stage: stage 3 (moderate) Chronic kidney disease stage 3 subtype: stage 3b (GFR 30-44) Qualified Code(s): N17.9 - Acute kidney failure, unspecified; N18.32 - Chronic kidney disease, stage 3b (7) GERD (gastroesophageal reflux disease) Esophagitis presence: esophagitis presence not specified Qualified Code(s): K21.9 - Gastro-esophageal reflux disease without esophagitis (8) CAD (coronary artery disease) Associated angina: without angina Coronary Disease-Associated Artery/Lesion type: lummi artery [place] vs. transplanted heart: lummi heart Qualified Code(s): I25.10 - Atherosclerotic heart disease of lummi coronary artery without angina pectoris (9) Diabetes mellitus, type II Chronic kidney disease stage: stage 3 (moderate) Chronic kidney disease stage 3 subtype: unspecified whether 3a or 3b Diabetes mellitus complication detail: with chronic kidney disease Diabetes mellitus complication status: with kidney complications Diabetes mellitus watermaster insulin use: without alf use Qualified Code(s): E11.22 - Type 2 diabetes mellitus with diabetic chronic kidney disease; N18.30 - Chronic kidney disease, stage 3 unspecified
--- NOTE | 2023-10-16 13:22 | Cardiology Progress Note ---
Date of Service October 16, 2023 Assessment & Plan (1) Acute on chronic renal failure: (2) Ascites: (3) Acute on chronic heart failure with reduced ejection fraction and diastolic dysfunction: (4) NSVT (nonsustained ventricular tachycardia): (5) Aortic stenosis: (6) Hypomagnesemia: Plan Complex 78-year-old patient admitted with concerns regarding volume overload and acute decompensated heart failure. Lab studies demonstrating acute renal failure. Findings suggest cardiorenal syndrome with abdominal ascites. Primarily right-sided signs/symptoms. Further diuresis limited by worsening renal function. (Outpatient Lasix dose 60 mg daily per review of cardiology records) await nephrology evaluation/recommendations. Patient chronically hypotensive which has limited addition of evidence-based heart failure therapies in the past. Continue current doses of isosorbide monohydrate, low-dose aspirin, metoprolol succinate, and rosuvastatin. No role for LIN inhibitor, ARB, or Aldactone in setting of acute renal insufficiency. Nonsustained ventricular tachycardia noted on telemetry. Agree with magnesium supplementation. Continue beta-demarcus therapy. Currently hold off on addition of inotropic therapy (dobutamine), however, may be reconsidered during hospitali zation pending clinical course. 10/12/23: No recurrent paroxysmal VT on telemetry. Magnesium level improved at 1.9 after supplementation Large amount of ascites noted on abd CT scan. Unfortunately creatinine continues to rise and currently 4.09. Nephrology consult appreciated. Starting on low dose furosemide IV. Monitor I+O's. supplement and monitor potassium/magnesium as needed Borderline low BP. May need to reduce/hold isosorbide to allow for ongoing diuresis. May need to consider GI evaluation for paracentesis. Continue metoprolol, statin, ASA. will follow 10/13/23: NO recurrent arrhythmias on telemetry. Supplement magnesium to keep > 2.0 Supplement potassium with goal 4-5. Received dose this morning. Continue IV furosemide today. Creatinine improving. Appreciate nephrology lacie mmendations. Hold isosorbide due to hypotension Would continue metoprolol, ASA and statin. Case discussed with Dr. Chaidez I spent a total of 35 minutes on the date of service in preparation, delivery, and documentation of the care provided to this patient, excluding any time spent in the performance of separately billed services. Alondra Ocampo PA-C Department of Cardiology, [facility] 10/14/2023 Appreciate nephrology input. Patient improving following IV diuresis and paracentesis Plan continue further diuresis Symptomatically improved No further arrhythmias with plans to continue aspirin metoprolol and statin. 10/15/2023 Appreciate nephrology input Complex 78-year-old male with ischemic cardiomyopathy and chronic renal failure presents with acute volume overload, right heart failure greater than left manifesting predominantly as large volume ascites, mild edema Patient responding to IV diuretics status post paracentesis Blood pressure is relatively low but only medication metoprolol succinate for rate and rhythm control required given complex ectopy on presentation. Finasteride may be contributing to lower blood pressure but will continue 10/16/2023 Continued improvement with stabilization of renal dysfunction. Will change furosemide to oral this evening. CHF instructions Daily weights at home Attempt to resume metoprolol succinate 12.5 mg every afternoon I spent a total of 35 minutes on the date of service in preparation, delivery, and documentation of the care provided to this patient, excluding any time spent in the performance of separately billed services. This chart was completed in part utilizing Speech Voice Recognition Software. Grammatical errors, random word insertions, pronoun errors, and incomplete sentences are an occasional consequence of this system due to software limitations, ambient noise, and hardware issues. Any formal questions or concerns about the content, text, or information contained within the body of this dictation should be directly addressed to the provider for clarification. Admission and Anticipated Discharge Date Admission Date: October 11, 2023 Subjective Patient seen and examined, chart, medications, telemetry reviewed. Continues to demonstrate improvement less abdominal distention. No peripheral edema No dizziness or lightheadedness but blood pressures trending low. Beta-demarcus being held due to parameters. No fevers or chills Review of Systems Review of Systems: All systems reviewed & are unremarkable except as noted in Subjective Physical Exam Constitutional: WD/WN, vitals as above well nourished; no acute distress Neck: trachea midline, no thyromegaly Respiratory: normal respiratory effort; no respiratory distress, no labored breathing and no retractions Auscultation: lungs clear to auscultation bilaterally; no crackles, no rales, no rhonchi and no wheezes Cardiovascular: Rate/Rhythm: regular rate and regular rhythm Heart Sounds: normal S1, normal S2 and + murmur (2/6 systolic ejection murmur) Vessels: radial pulses present; no carotid bruit Gastrointestinal (Abdomen): Inspection/Auscultation: + abdomen distended (Mild but less) and normal bowel sounds Percussion/Palpation: abdomen soft; abdomen nontender, no guarding and abdomen not rigid Neurologic: CN's II-XI intact bilaterally and moves all extremities; no focal motor deficits Results & Data Vital Signs (Past 12 Hours) Vital Signs Temp Pulse Pulse Resp BP Pulse Ox O2 Del Method 10/16/23 11:20 36.7 C 97 H 17 93/60 L 99 Room Air 10/16/23 09:34 Room Air 10/16/23 07:06 36.5 C 89 18 97/63 L 99 Room Air 10/16/23 07:00 91 H 10/16/23 02:40 36.6 C 93 H 18 97/64 L 100 Room Air Laboratory Results Laboratory Results - last 24 hr 10/15/23 10/15/23 10/16/23 16:30 20:15 06:52 WBC 5.78 RBC 4.62 L Hgb 11.1 L Hct 34.4 L MCV 74.5 L MCH 24.0 L MCHC 32.3 RDW Std Deviation 52.4 H RDW Coeff of Serene 20.2 H Plt Count 250 MPV 10.4 Sodium 138 Potassium 4.5 Chloride 105 Carbon Dioxide 27 Anion Gap 6 BUN 55 H Creatinine 3.04 H D Est Cr Clr Drug Dosing 19.9 Est GFR ( Amer) 21.8 Est GFR (Non-Af Amer) 18.8 BUN/Creatinine Ratio 18.1 Glucose 125 H POC Glucose 152 H 177 H Calcium 9.0 Phosphorus 3.4 Magnesium 1.9 10/16/23 10/16/23 07:58 11:48 WBC RBC Hgb Hct MCV MCH MCHC RDW Std Deviation RDW Coeff of Serene Plt Count MPV Sodium Potassium Chloride Carbon Dioxide Anion Gap BUN Creatinine Est Cr Clr Drug Dosing Est GFR ( Amer) Est GFR (Non-Af Amer) BUN/Creatinine Ratio Glucose POC Glucose 104 H 232 H Calcium Phosphorus Magnesium (1) Acute on chronic renal failure Acute renal failure type: unspecified Chronic kidney disease stage: stage 3 (moderate) Chronic kidney disease stage 3 subtype: stage 3b (GFR 30-44) Qualified Code(s): N17.9 - Acute kidney failure, unspecified; N18.32 - Chronic kidney disease, stage 3b (2) Ascites Ascites type: other type Qualified Code(s): R18.8 - Other ascites (5) Aortic stenosis Cardiac valve disease etiology: nonrheumatic Qualified Code(s): I35.0 - Nonrheumatic aortic (valve) stenosis
[2023-10-16] MEDS ORDERED: Nursing to Pharmacy Communication SCH (15:15)
[2023-10-16] MEDS: METOPROLOL SUCC 25MG EXT REL TAB PO SCH (16:46)
[2023-10-16] MEDS: LACTULOSE SYRUP 20 GM/30 ML UDC PO SCH (16:57)
[2023-10-16] MEDS: DOCUSATE SODIUM 100 MG CAP PO SCH (16:57)
[2023-10-16] MEDS: FUROSEMIDE 40 MG/4 ML VIAL IV SCH (19:05)
[2023-10-17] MEDS ORDERED: GLUCAGON FOR INJ 1 MG VIAL SQ PRN (05:23)
[2023-10-17] MEDS ORDERED: DEXTROSE 50% 50 ML SYRINGE IV PRN (05:23)
[2023-10-17] MEDS ORDERED: GLUCOSE 10 TAB/TUBE PO PRN (05:23)
[2023-10-17] MEDS ORDERED: GLUCOSE 40% GEL 15 GM TUBE PO PRN (05:23)
[2023-10-17] MEDS ORDERED: CARBOHYDRATES FOR HYPOGLYCEMIA PO PRN (05:23)
[2023-10-17] MEDS: INSULIN ASPART PER UNIT CHARGE SC SCH (05:31)
[2023-10-17 06:43] LABS: Albumin Globulin Ratio 1.1 (0.9-2); Albumin Level 3.3 gm/dl (3.4-5.0); BUN Creatinine Ratio 19.6 (10-20); Bilirubin,Total 0.7 mg/dl (0.2-1.0); Creatinine Clr Calc Pharmacy 21.5 ml/min; Est GFR (Non-African American) 20.7 ml/min; Globulin 2.9 gm/dl (2.5-4.0); Magnesium 1.9 mg/dl (1.7-2.4); Phosphorus 3.4 mg/dl (2.5-4.9); Potassium 4.3 mmol/L (3.5-5.1); Total Protein 6.2 gm/dl (6.0-8.3)
[2023-10-17 06:45] LABS: Hematocrit (blood only) 32.2 % (42.0-52.0); Hemoglobin 10.2 g/dl (14.0-18.0); Mean Corpuscular Hemoglobin 23.7 pg (25.0-34.0); Mean Corpuscular Hgb Conc 31.7 g/dL (32.0-36.0); Mean Corpuscular Volume 74.7 fL (80.0-100.0); Mean Platelet Volume 10.3 fL (9.4-12.4); Platelet Count 232 K/uL (130-400); RDW Coefficient of Variation 20.2 % (11.5-14.5); Red Blood Count 4.31 M/uL (4.70-6.10); White Blood Count 6.42 K/ul (4.8-10.8)
--- NOTE | 2023-10-17 10:25 | Nephrology Progress Note ---
Date of Service October 17, 2023 Assessment & Plan Admission and Anticipated Discharge Date Admission Date: October 11, 2023 Subjective Assessment & Plan (1) Acute on chronic renal failure: Plan: Patient with acute kidney injury on chronic renal failure likely cardiorenal syndrome. Baseline creatinine of 2. Creatinine is now up to 4. Patient is still making urine and electrolytes are stable. No indication for dialysis. Will attempt diuresis. Patient is status post large volume paracentesis. Continue to monitor renal function closely and daily urine output. renal labs improving. Can change to oral Lasix 80 AM and 40 PM.--for discharge also and adjust outpt. f/u nephrology within 2 weeks. Will sign off for now (2) Acute on chronic heart failure with reduced ejection fraction and diastolic dysfunction: Plan: Patient with acute on chronic heart failure with massive fluid overload. Blood pressure is soft which is limiting diuresis. Will continue IV Lasix 30 mg twice daily. (3) Ascites: Plan: Patient had paracentesis Saturday. Still has Some edema but is less Subjective seen for acute kidney injury on CKD. Patient had large volume paracentesis and He feels better today. He is making some urine. Review of Systems Review of Systems: All other systems were reviewed and negative except as noted in HPI Physical Exam Physical Exam: General exam: Appears comfortable, no acute distress HEENT: Pupils are equal and reactive to light Neck: No JVD, neck is supple trachea is midline Respiratory system: Clear breath sounds bilaterally. Gastrointestinal: Abdomen is Moderately distended, non tender, bowel sounds are present CVS: Regular rate and rhythm. No murmurs, rubs or gallops Musculoskeletal: No joint or muscle tenderness Extremities: Non tender, 1+ edema, peripheral pulses are present Neuro: Oriented, no tremors, no focal neurological deficits Skin: No rashes Results & Data Vital Signs (Past 12 Hours) Vital Signs Temp Pulse Pulse Resp BP Pulse Ox O2 Del Method 10/17/23 07:18 92 H 10/17/23 07:07 36.4 C L 87 18 94/61 L 100 Room Air 10/17/23 02:13 36.6 C 90 18 95/60 L 99 Room Air 10/17/23 01:58 98 H 10/16/23 22:25 37.1 C 96 H 22 94/68 L 95 Room Air
--- NOTE | 2023-10-17 14:37 | Cardiology Progress Note ---
Date of Service October 17, 2023 Assessment & Plan (1) Acute on chronic renal failure: (2) Ascites: (3) Acute on chronic heart failure with reduced ejection fraction and diastolic dysfunction: (4) NSVT (nonsustained ventricular tachycardia): (5) Aortic stenosis: (6) Hypomagnesemia: Plan Complex 78-year-old patient admitted with concerns regarding volume overload and acute decompensated heart failure. Lab studies demonstrating acute renal failure. Findings suggest cardiorenal syndrome with abdominal ascites. Primarily right-sided signs/symptoms. Further diuresis limited by worsening renal function. (Outpatient Lasix dose 60 mg daily per review of cardiology records) await nephrology evaluation/recommendations. Patient chronically hypotensive which has limited addition of evidence-based heart failure therapies in the past. Continue current doses of isosorbide monohydrate, low-dose aspirin, metoprolol succinate, and rosuvastatin. No role for LIN inhibitor, ARB, or Aldactone in setting of acute renal insufficiency. Nonsustained ventricular tachycardia noted on telemetry. Agree with magnesium supplementation. Continue beta-demarcus therapy. Currently hold off on addition of inotropic therapy (dobutamine), however, may be reconsidered during hospitali zation pending clinical course. 10/12/23: No recurrent paroxysmal VT on telemetry. Magnesium level improved at 1.9 after supplementation Large amount of ascites noted on abd CT scan. Unfortunately creatinine continues to rise and currently 4.09. Nephrology consult appreciated. Starting on low dose furosemide IV. Monitor I+O's. supplement and monitor potassium/magnesium as needed Borderline low BP. May need to reduce/hold isosorbide to allow for ongoing diuresis. May need to consider GI evaluation for paracentesis. Continue metoprolol, statin, ASA. will follow 10/13/23: NO recurrent arrhythmias on telemetry. Supplement magnesium to keep > 2.0 Supplement potassium with goal 4-5. Received dose this morning. Continue IV furosemide today. Creatinine improving. Appreciate nephrology lacie mmendations. Hold isosorbide due to hypotension Would continue metoprolol, ASA and statin. Case discussed with Dr. Chaidez I spent a total of 35 minutes on the date of service in preparation, delivery, and documentation of the care provided to this patient, excluding any time spent in the performance of separately billed services. Alonrda Ocampo PA-C Department of Cardiology, [facility] 10/14/2023 Appreciate nephrology input. Patient improving following IV diuresis and paracentesis Plan continue further diuresis Symptomatically improved No further arrhythmias with plans to continue aspirin metoprolol and statin. 10/15/2023 Appreciate nephrology input Complex 78-year-old male with ischemic cardiomyopathy and chronic renal failure presents with acute volume overload, right heart failure greater than left manifesting predominantly as large volume ascites, mild edema Patient responding to IV diuretics status post paracentesis Blood pressure is relatively low but only medication metoprolol succinate for rate and rhythm control required given complex ectopy on presentation. Finasteride may be contributing to lower blood pressure but will continue 10/16/2023 Continued improvement with stabilization of renal dysfunction. Will change furosemide to oral this evening. CHF instructions Daily weights at home Attempt to resume metoprolol succinate 12.5 mg every afternoon 10/17/2023 Improved renal function and volume status Diuretic dosing orally as per nephrology Cardiac medication adjustments include reduction of metoprolol succinate to 12.5 mg every afternoon, discontinuation of isosorbide mononitrate. Discussed daily weights and CHF instructions ordered Caution with glucose lowering oral regimen with recent decline in renal function Contact with further questions I spent a total of 35 minutes on the date of service in preparation, delivery, and documentation of the care provided to this patient, excluding any time spent in the performance of separately billed services. This chart was completed in part utilizing Speech Voice Recognition Software. Grammatical errors, random word insertions, pronoun errors, and incomplete sentences are an occasional consequence of this system due to software limitations, ambient noise, and hardware issues. Any formal questions or concerns about the content, text, or information contained within the body of this dictation should be directly addressed to the provider for clarification. Admission and Anticipated Discharge Date Admission Date: October 11, 2023 Subjective Patient seen and examined, chart, medications, telemetry reviewed. Has manifested slow but continuous improvement Renal function has slowly improved. No signs of further fluid retention Diuretics held last evening to allow initiation of beta-demarcus due to complex ectopy on monitor No further arrhythmia No symptoms No chest pain Physical Exam Constitutional: WD/WN, vitals as above well nourished; no acute distress Neck: trachea midline, no thyromegaly Respiratory: normal respiratory effort; no respiratory distress, no labored breathing and no retractions Auscultation: lungs clear to auscultation bilaterally; no crackles, no rales, no rhonchi and no wheezes Cardiovascular: Rate/Rhythm: regular rate and regular rhythm Heart Sounds: normal S1, normal S2 and + murmur (2/6 systolic ejection murmur) Vessels: + JVD and radial pulses present; no carotid bruit Extremities: + edema (trace b/l edema) Gastrointestinal (Abdomen): Inspection/Auscultation: + abdomen distended (Mild but less) and normal bowel sounds Percussion/Palpation: abdomen soft; abdomen nontender, no guarding and abdomen not rigid Neurologic: CN's II-XI intact bilaterally and moves all extremities; no focal motor deficits Results & Data Vital Signs (Past 12 Hours) Vital Signs Temp Pulse Pulse Resp BP Pulse Ox O2 Del Method 10/17/23 11:01 68 18 92/62 L 92 Room Air 10/17/23 07:18 92 H 10/17/23 07:07 36.4 C L 87 18 94/61 L 100 Room Air Laboratory Results Laboratory Results - last 24 hr 10/16/23 10/16/23 10/17/23 15:52 20:27 05:28 WBC RBC Hgb Hct MCV MCH MCHC RDW Std Deviation RDW Coeff of Serene Plt Count MPV Sodium Potassium Chloride Carbon Dioxide Anion Gap BUN Creatinine Est Cr Clr Drug Dosing Est GFR ( Amer) Est GFR (Non-Af Amer) BUN/Creatinine Ratio Glucose POC Glucose 131 H 211 H 131 H Calcium Phosphorus Magnesium Total Bilirubin AST ALT Alkaline Phosphatase Total Protein Albumin Globulin Albumin/Globulin Ratio 10/17/23 10/17/23 10/17/23 05:35 07:04 11:02 WBC 6.42 RBC 4.31 L Hgb 10.2 L Hct 32.2 L MCV 74.7 L MCH 23.7 L MCHC 31.7 L RDW Std Deviation 53.0 H RDW Coeff of Serene 20.2 H Plt Count 232 MPV 10.3 Sodium 138 Potassium 4.3 Chloride 105 Carbon Dioxide 25 Anion Gap 8 BUN 55 H Creatinine 2.81 H Est Cr Clr Drug Dosing 21.5 Est GFR ( Amer) 24.0 Est GFR (Non-Af Amer) 20.7 BUN/Creatinine Ratio 19.6 Glucose 128 H POC Glucose 125 H 250 H Calcium 9.0 Phosphorus 3.4 Magnesium 1.9 Total Bilirubin 0.7 AST 27 ALT 28 Alkaline Phosphatase 87 Total Protein 6.2 Albumin 3.3 L Globulin 2.9 Albumin/Globulin Ratio 1.1 (1) Acute on chronic renal failure Acute renal failure type: unspecified Chronic kidney disease stage: stage 3 (moderate) Chronic kidney disease stage 3 subtype: stage 3b (GFR 30-44) Qualified Code(s): N17.9 - Acute kidney failure, unspecified; N18.32 - Chronic kidney disease, stage 3b (2) Ascites Ascites type: other type Qualified Code(s): R18.8 - Other ascites (5) Aortic stenosis Cardiac valve disease etiology: nonrheumatic Qualified Code(s): I35.0 - Nonrheumatic aortic (valve) stenosis
--- NOTE | 2023-10-17 19:58 | Hospitalist Progress Note ---
Date of Service October 17, 2023 Assessment & Plan (1) Acute on chronic heart failure with reduced ejection fraction and diastolic dysfunction: (2) NSVT (nonsustained ventricular tachycardia): (3) Hypomagnesemia: (4) Ascites: (5) Acute on chronic renal failure: (6) Sinus bradycardia: (7) GERD (gastroesophageal reflux disease): (8) CAD (coronary artery disease): (9) Diabetes mellitus, type II: (10) Ischemic cardiomyopathy: Plan Mr. Jimenes is a 78 y/o male with DM2, CKD3-4, severe ischemic cardiomyopathy with EF on last ECHO in May 2023 at 25-29%, HFrEF, HTN, dyslipidemia, and other history as outlined below who was noted to have an abnormal EKG at his PCP's office during a visit for LE edema. Per previous provider with addendum: Patient admitted on 10/10 for management of acute on chronic heart failure with reduced EF. Work-up in the ED revealed an JAMIR with elevation of creatinine from 2.1 at baseline to 3.9 today. Initial troponin was elevated at 42.8, likely secondary to demand in the setting of acute HF exacerbation. BNP was >4700. While in ED, patient with NSVT with frequent PVCs. CT abd/pel shows moderate to large ascites. Patient underwent paracentesis on 10/11 with 8.5L removed. Patient experienced noticeable subjective improvement. Marginal improvement in renal function. Will continue diuresis and management per Cards/Nephrology. PT/OT ordered,however, patient declines further discussion about rehab, but will consider Home Health Patient doing well overall but still requiring diuresis. Renal function continues to improve marginally. Acute on chronic heart failure with reduced ejection fraction and diastolic dysfunction: Severe ischemic cardiomyopathy 25% s/p dcPPM 2018 Patient with ongoing issues with LE edema and ongoing OP diuretic adjustments, home regimen of po lasix 40qam/20qpm ECHO 05/2023 with EF 25-29% GDMT historically limited 2/2 hypotension and renal dysfunction - Consult cardiology for additional recommendations -Continue asa, metoprolol succinate 12.5mg qpm (dose decreased), statin -imdur on hold currently - Daily weights, monitor Is and Os - Consult nephrology for assistance with diuretic management in the setting of worsening of pt's kidney function -was on IV lasix 30mg BID per nephrology -transitioned to po lasix 80mg qAM/40mg qPM 10/15- BP soft, continue current regimen. Continue to monitor. Appreciate cardiology and nephrology recs. 10/16- BP remains soft, imdur held by cardiology. Transitioned to po lasix by nephrology. Continue to monitor NSVT (nonsustained ventricular tachycardia): Likely secondary to hypomagnesemia Continue to monitor on telemetry Replace electrolytes prn Continue on metoprolol Tense ascites 2/2 volume overload *improved Potentially contributing to degree of renal failure -Consult Business Attorney for large volume paracentesis -8.5L removed 10/11 at bedside -SAAG 1.4g/dl likely 2/2 portal htn from heart failure related ascites, liver function stable 10/15- continue to monitor for reaccumulation Acute on chronic renal failure: *improving likely cardiorenal syndrome, concern for obstructive component in setting of ascites per nephrology Baseline ~2.0, Nephrology consult -IV Lasix 30mg BID previously -transitioned to po lasix 80mg qAM/40mg qPM Business Attorney for para as above, s/p 10/11 Trend labs Acute on chronic anemia -Minimal blood from para site, less likely source of bleed likely multifactorial iso chronic illness, CKD, nutritional deficiency Anemia labs in am GERD Chronic, stable Continue outpatient PPI therapy Diabetes mellitus, type II: Holding oral agents, specifically metformin in view of worsening kidney function Insulin sliding scale A1c 8% BSG ACHS Diabetic diet BPH continue finasteride RLS continue ropinirole DVT Prophylaxis: SubQ heparin Dispo: PT/OT ordered, pt declining rehab/Home with Admission and Anticipated Discharge Date Admission Date: October 11, 2023 Subjective pt was seen in AM. Denied acute concerns. Review of Systems Review of Systems: All systems reviewed & are unremarkable except as noted in Subjective Physical Exam Physical Exam: General: Alert, oriented. No acute distress Psych: Appropriate mood and affect Neuro: No gross deficits HEENT: NC/AT CV: RRR, murmur appreciated Resp: Breath sounds clear bilaterally, no increased effort of breathing. Abdomen: Soft, nontender Extremities: edema in lower extremities bilaterally. Results & Data Results & Data Vital Signs (Past 12 Hours) Vital Signs Temp Pulse Pulse Resp BP Pulse Ox O2 Del Method 10/17/23 11:01 68 18 92/62 L 92 Room Air 10/17/23 07:18 92 H 04/18/24 07:07 36.4 C L 87 18 94/61 L 100 Room Air 10/17/23 02:13 36.6 C 90 18 95/60 L 99 Room Air 10/17/23 01:58 98 H (4) Ascites Ascites type: other type Qualified Code(s): R18.8 - Other ascites (5) Acute on chronic renal failure Acute renal failure type: unspecified Chronic kidney disease stage: stage 3 (moderate) Chronic kidney disease stage 3 subtype: stage 3b (GFR 30-44) Qualified Code(s): N17.9 - Acute kidney failure, unspecified; N18.32 - Chronic kidney disease, stage 3b (7) GERD (gastroesophageal reflux disease) Esophagitis presence: esophagitis presence not specified Qualified Code(s): K21.9 - Gastro-esophageal reflux disease without esophagitis (8) CAD (coronary artery disease) Coronary Disease-Associated Artery/Lesion type: [place] artery [place] vs. 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
[2023-10-17] MEDS: FUROSEMIDE 40 MG TAB PO SCH (20:27)
[2023-10-18 06:31] LABS: Hematocrit (blood only) 32.5 % (42.0-52.0); Hemoglobin 10.2 g/dl (14.0-18.0); Mean Corpuscular Hemoglobin 23.9 pg (25.0-34.0); Mean Corpuscular Hgb Conc 31.4 g/dL (32.0-36.0); Mean Corpuscular Volume 76.1 fL (80.0-100.0); Mean Platelet Volume 10.3 fL (9.4-12.4); Platelet Count 237 K/uL (130-400); RDW Coefficient of Variation 20.3 % (11.5-14.5); RDW Standard Deviation 54.2 fL (36.4-46.3); Red Blood Count 4.27 M/uL (4.70-6.10)
[2023-10-18 07:02] LABS: Albumin Globulin Ratio 1.1 (0.9-2); Albumin Level 3.3 gm/dl (3.4-5.0); Bilirubin,Total 0.7 mg/dl (0.2-1.0); Calcium 9.1 mg/dl (8.6-10.3); Creatinine Clr Calc Pharmacy 20.9 ml/min; Est GFR (African American) 23.1 ml/min; Magnesium 1.9 mg/dl (1.7-2.4); Phosphorus 3.5 mg/dl (2.5-4.9); Potassium 4.3 mmol/L (3.5-5.1); Total Protein 6.3 gm/dl (6.0-8.3)
[2023-10-18] MEDS: FUROSEMIDE 80 MG TAB PO SCH (08:14)
--- NOTE | 2023-10-18 10:08 | Nephrology Progress Note ---
Date of Service October 18, 2023 Assessment & Plan Admission and Anticipated Discharge Date Admission Date: October 11, 2023 Subjective Assessment & Plan (1) Acute on chronic renal failure: Plan: Patient with acute kidney injury on chronic renal failure likely cardiorenal syndrome. Baseline creatinine of 2. Creatinine is now up to 4. Patient is still making urine and electrolytes are stable. No indication for dialysis. Will attempt diuresis. Patient is status post large volume paracentesis. Continue to monitor renal function closely and daily urine output. renal labs improving. Lower lasix to 40 bid. Also unlikely his baseline creat going forward will be same as before. There has been sig decline in his cardiac status/renal status. f/u nephrology within 2 weeks. make sure he has PCP appt before nephrology appt. Will sign off for now (2) Acute on chronic heart failure with reduced ejection fraction and diastolic dysfunction: Plan: Patient with acute on chronic heart failure with massive fluid overload. Blood pressure is soft which is limiting diuresis. Will continue IV Lasix 30 mg twice daily. (3) Ascites: Plan: Patient had paracentesis Saturday. Still has Some edema but is less Subjective seen for acute kidney injury on CKD. Patient had large volume paracentesis and He feels better. He is making some urine. Review of Systems Review of Systems: All other systems were reviewed and negative except as noted in HPI Physical Exam Physical Exam: General exam: Appears comfortable, no acute distress HEENT: Pupils are equal and reactive to light Neck: No JVD, neck is supple trachea is midline Respiratory system: Clear breath sounds bilaterally. Gastrointestinal: Abdomen is Moderately distended, non tender, bowel sounds are present CVS: Regular rate and rhythm. No murmurs, rubs or gallops Musculoskeletal: No joint or muscle tenderness Extremities: Non tender, 1+ edema, peripheral pulses are present Neuro: Oriented, no tremors, no focal neurological deficits Skin: No rashes Results & Data Vital Signs (Past 12 Hours) Vital Signs Temp Pulse Pulse Resp BP Pulse Ox O2 Del Method 10/18/23 08:46 88 10/18/23 07:11 36.5 C 55 L 18 102/68 97 Room Air 10/18/23 04:28 92 H 94/56 L 10/18/23 03:20 36.6 C 93 H 18 88/51 L 98 Room Air 10/17/23 23:46 100 H 10/17/23 23:18 36.8 C 97 H 18 95/60 L 96 Room Air
[2023-10-18] MEDS: METOPROLOL SUCC 25MG EXT REL TAB PO SCH (11:28)
--- NOTE | 2023-10-18 12:42 | Cardiology Progress Note ---
Date of Service October 18, 2023 Assessment & Plan (1) Acute on chronic renal failure: (2) Ascites: (3) Acute on chronic heart failure with reduced ejection fraction and diastolic dysfunction: (4) NSVT (nonsustained ventricular tachycardia): (5) Aortic stenosis: (6) Hypomagnesemia: Plan Complex 78-year-old patient admitted with concerns regarding volume overload and acute decompensated heart failure. Lab studies demonstrating acute renal failure. Findings suggest cardiorenal syndrome with abdominal ascites. Primarily right-sided signs/symptoms. Further diuresis limited by worsening renal function. (Outpatient Lasix dose 60 mg daily per review of cardiology records) await nephrology evaluation/recommendations. Patient chronically hypotensive which has limited addition of evidence-based heart failure therapies in the past. Continue current doses of isosorbide monohydrate, low-dose aspirin, metoprolol succinate, and rosuvastatin. No role for LIN inhibitor, ARB, or Aldactone in setting of acute renal insufficiency. Nonsustained ventricular tachycardia noted on telemetry. Agree with magnesium supplementation. Continue beta-demarcus therapy. Currently hold off on addition of inotropic therapy (dobutamine), however, may be reconsidered during hospitali zation pending clinical course. 10/12/23: No recurrent paroxysmal VT on telemetry. Magnesium level improved at 1.9 after supplementation Large amount of ascites noted on abd CT scan. Unfortunately creatinine continues to rise and currently 4.09. Nephrology consult appreciated. Starting on low dose furosemide IV. Monitor I+O's. supplement and monitor potassium/magnesium as needed Borderline low BP. May need to reduce/hold isosorbide to allow for ongoing diuresis. May need to consider GI evaluation for paracentesis. Continue metoprolol, statin, ASA. will follow 10/13/23: NO recurrent arrhythmias on telemetry. Supplement magnesium to keep > 2.0 Supplement potassium with goal 4-5. Received dose this morning. Continue IV furosemide today. Creatinine improving. Appreciate nephrology lacie mmendations. Hold isosorbide due to hypotension Would continue metoprolol, ASA and statin. Case discussed with Dr. Chaidez I spent a total of 35 minutes on the date of service in preparation, delivery, and documentation of the care provided to this patient, excluding any time spent in the performance of separately billed services. Alondra Ocampo PA-C Department of Cardiology, [facility] 10/14/2023 Appreciate nephrology input. Patient improving following IV diuresis and paracentesis Plan continue further diuresis Symptomatically improved No further arrhythmias with plans to continue aspirin metoprolol and statin. 10/15/2023 Appreciate nephrology input Complex 78-year-old male with ischemic cardiomyopathy and chronic renal failure presents with acute volume overload, right heart failure greater than left manifesting predominantly as large volume ascites, mild edema Patient responding to IV diuretics status post paracentesis Blood pressure is relatively low but only medication metoprolol succinate for rate and rhythm control required given complex ectopy on presentation. Finasteride may be contributing to lower blood pressure but will continue 10/16/2023 Continued improvement with stabilization of renal dysfunction. Will change furosemide to oral this evening. CHF instructions Daily weights at home Attempt to resume metoprolol succinate 12.5 mg every afternoon 10/17/2023 Improved renal function and volume status Diuretic dosing orally as per nephrology Cardiac medication adjustments include reduction of metoprolol succinate to 12.5 mg every afternoon, discontinuation of isosorbide mononitrate. Discussed daily weights and CHF instructions ordered Caution with glucose lowering oral regimen with recent decline in renal function 10/18/2023 No cardiac symptoms complaints Metoprolol succinate increased to 12.5 mg twice per day for further rhythm control Diuretics as oral Would consider reduction or discontinuation of ropinirole on discharge I spent a total of 3 minutes on the date of service in preparation, delivery, and documentation of the care provided to this patient, excluding any time spent in the performance of separately billed services. This chart was completed in part utilizing Speech Voice Recognition Software. Grammatical errors, random word insertions, pronoun errors, and incomplete sentences are an occasional consequence of this system due to software limitations, ambient noise, and hardware issues. Any formal questions or concerns about the content, text, or information contained within the body of this dictation should be directly addressed to the provider for clarification. Admission and Anticipated Discharge Date Admission Date: October 11, 2023 Subjective Patient was seen and examined, chart, medications, telemetry reviewed. No cardiac complaints. No dizziness or lightheadedness. Transient runs of wide-complex tachycardia as in past, asymptomatic nonsustained Blood pressure is marginal but still making urine Weight stable Review of Systems Review of Systems: All systems reviewed & are unremarkable except as noted in Subjective Physical Exam Constitutional: well nourished; no acute distress Neck: trachea midline, no thyromegaly Respiratory: normal respiratory effort; no respiratory distress, no labored breathing and no retractions Auscultation: lungs clear to auscultation bilaterally; no crackles, no rales, no rhonchi and no wheezes Cardiovascular: Rate/Rhythm: regular rate and regular rhythm Heart Sounds: normal S1, normal S2 and + murmur (2/6 systolic ejection murmur) Vessels: radial pulses present; no carotid bruit Extremities: + edema (trace b/l edema) Gastrointestinal (Abdomen): Inspection/Auscultation: normal bowel sounds Percussion/Palpation: abdomen soft; abdomen nontender, no guarding and abdomen not rigid Neurologic: CN's II-XI intact bilaterally and moves all extremities; no focal motor deficits Results & Data Vital Signs (Past 12 Hours) Vital Signs Temp Pulse Pulse Resp BP Pulse Ox O2 Del Method 10/18/23 11:17 36.4 C L 86 16 90/58 L 100 Room Air 10/18/23 08:46 88 10/18/23 07:11 36.5 C 55 L 18 102/68 97 Room Air 10/18/23 04:28 92 H 94/56 L 10/18/23 03:20 36.6 C 93 H 18 88/51 L 98 Room Air Laboratory Results Laboratory Results - last 24 hr 10/17/23 10/17/23 10/18/23 16:25 20:38 06:06 WBC 5.50 RBC 4.27 L Hgb 10.2 L Hct 32.5 L MCV 76.1 L MCH 23.9 L MCHC 31.4 L RDW Std Deviation 54.2 H RDW Coeff of Serene 20.3 H Plt Count 237 MPV 10.3 Sodium 139 Potassium 4.3 Chloride 104 Carbon Dioxide 26 Anion Gap 9 BUN 58 H Creatinine 2.90 H Est Cr Clr Drug Dosing 20.9 Est GFR ( Amer) 23.1 Est GFR (Non-Af Amer) 20.0 BUN/Creatinine Ratio 20.0 Glucose 128 H POC Glucose 104 H 154 H Calcium 9.1 Phosphorus 3.5 Magnesium 1.9 Total Bilirubin 0.7 AST 27 ALT 28 Alkaline Phosphatase 92 Total Protein 6.3 Albumin 3.3 L Globulin 3.0 Albumin/Globulin Ratio 1.1 10/18/23 10/18/23 08:08 11:55 WBC RBC Hgb Hct MCV MCH MCHC RDW Std Deviation RDW Coeff of Serene Plt Count MPV Sodium Potassium Chloride Carbon Dioxide Anion Gap BUN Creatinine Est Cr Clr Drug Dosing Est GFR ( Amer) Est GFR (Non-Af Amer) BUN/Creatinine Ratio Glucose POC Glucose 116 H 200 H Calcium Phosphorus Magnesium Total Bilirubin AST ALT Alkaline Phosphatase Total Protein Albumin Globulin Albumin/Globulin Ratio (1) Acute on chronic renal failure Acute renal failure type: unspecified Chronic kidney disease stage: stage 3 (moderate) Chronic kidney disease stage 3 subtype: stage 3b (GFR 30-44) Qualified Code(s): N17.9 - Acute kidney failure, unspecified; N18.32 - Chronic kidney disease, stage 3b (2) Ascites Ascites type: other type Qualified Code(s): R18.8 - Other ascites (5) Aortic stenosis Cardiac valve disease etiology: nonrheumatic Qualified Code(s): I35.0 - Nonrheumatic aortic (valve) stenosis
--- NOTE | 2023-10-18 13:00 | Discharge Summary ---
Discharge Summary Date of Service October 18, 2023 Notes For Next Care Provider Please ensure close followup with Cardiology Please ensure close follow up with Nephrology -please repeat BMP in the next 3-5 days to ensure renal function stability. Per nephrology, "unlikely his baseline creat going forward will be same as before. There has been sig decline in his cardiac status/renal status. f/u nephrology within 2 weeks." Previous baseline of 2. Please continue wean off ropinirole per Cardiology recs Medication Changes From Visit - metoprolol succinate 12.5mg BID per Cardiology -discontinue isosorbide mononitrate per cardiology -Cardiology recommended lowering dose of ropinirole, so that was decreased from 2.5mg every night to just 2.0 mg nightly. -lasix 40mg BID per nephrology Admission HPI Per Admitting Provider This is a 78 y/o male with DM2, CKD3-4, severe ischemic cardiomyopathy with EF on last ECHO in May 2023 at 25-29%, HFrEF, HTN, dyslipidemia, and other history as outlined below who presented to the ED today after he had an abnormal EKG at his PCP office where he was seen for ongoing issues with LE edema. Pt reports that his furosemide was stopped a few months ago, after which he developed recurrent LE edema and abdominal distention. However, review of cardiology notes indicates that pt was to decrease dose to 20 mg BID (from 40 mg BID), not stop it completely. He was seen in PCP office at the end of July and reports furosemide was restarted with subsequent dosage adjustments since then. He reports that his current dose is 40 mg in the AM and 20 mg in the PM. The lower extremity edema has improved although it is not completely back to baseline. He reports that the abdominal distention is not significantly improved. He has some mild discomfort associated with the distention but denies change in appetite, N/V/D. He has NGUYEN but not significantly changed from baseline. Denies SOB at rest, orthopnea, chest pain, palpitations, dizziness or syncope. He denies change in bowels or urination. No recent illness, no fevers, chills, sweats. He does check his sugars regularly - 80s-110s in the morning, 150-200 in the PM. Weighs himself 4x/week - weight fluctuates between 185-195 lbs but he denies significant weight gain recently. Admission Exam Per Admitting Provider General: awake, alert, NAD HEENT: hard of hearing, no scleral icterus Neck: supple, trachea midline Heart: RRR, +systolic murmur Lungs: CTA bilaterally Abdomen: softly distended but nontender, +BS Extremities: 3+ pitting edema bilateral LE Skin: warm, dry, no jaundice Neurologic: Ox3, no confusion or dysarthria, moving all extremities, no focal deficits Principal Dx & Hospital Course #1 = Principal Diagnosis (1) Acute on chronic heart failure with reduced ejection fraction and diastolic dysfunction: (2) NSVT (nonsustained ventricular tachycardia): (3) Hypomagnesemia: (4) Ascites: (5) Acute on chronic renal failure: (6) Sinus bradycardia: (7) GERD (gastroesophageal reflux disease): (8) CAD (coronary artery disease): (9) Diabetes mellitus, type II: (10) Ischemic cardiomyopathy: Plan Mr. Jimenes is a 78 y/o male with DM2, CKD3-4, severe ischemic cardiomyopathy with EF on last ECHO in May 2023 at 25-29%, HFrEF, HTN, dyslipidemia, and other history as outlined below who was noted to have an abnormal EKG at his PCP's office during a visit for LE edema. Per previous provider with addendum: Patient admitted on 10/10 for management of acute on chronic heart failure with reduced EF. Work-up in the ED revealed an JAMIR with elevation of creatinine from 2.1 at baseline to 3.9 today. Initial troponin was elevated at 42.8, likely secondary to demand in the setting of acute HF exacerbation. BNP was >4700. While in ED, patient with NSVT with frequent PVCs. CT abd/pel showed moderate to large ascites. Patient underwent paracentesis on 10/11 with 8.5L removed. Patient experienced noticeable subjective improvement. Marginal improvement in renal function. Diuresis was continued and management per Cards/Nephrology. PT/OT ordered,however, patient declined rehab or Home Health services. Acute on chronic heart failure with reduced ejection fraction and diastolic dysfunction: Severe ischemic cardiomyopathy 25% s/p dcPPM 2018 Patient with ongoing issues with LE edema and ongoing OP diuretic adjustments, home regimen of po lasix 40qam/20qpm ECHO 05/2023 with EF 25-29% GDMT historically limited 2/2 hypotension and renal dysfunction Consulted cardiology for additional recommendations -Continue asa, metoprolol succinate 12.5mg BID, statin -discontinue imdur per cardiology - Daily weights, monitor Is and Os - Consulted nephrology for assistance with diuretic management in the setting of worsening of pt's kidney function -was on IV lasix 30mg BID per nephrology -transitioned to po lasix 80mg qAM/40mg qPM and then po lasix 40mg BID upon discharge Close Cardiology followup Acute on chronic renal failure: *improved likely cardiorenal syndrome, concern for obstructive component in setting of ascites per nephrology Baseline previously ~2.0, Nephrology consulted, recommended the following: -was on IV lasix 30mg BID per nephrology -transitioned to po lasix 80mg qAM/40mg qPM and then po lasix 40mg BID upon discharge -please repeat BMP in the next 3-5 days to ensure renal function stability. Per nephrology, "unlikely his baseline creat going forward will be same as before. There has been sig decline in his cardiac status/renal status. f/u nephrology within 2 weeks." Previous baseline of 2. Wage Analyst for paracentesis, s/p ascitic removal on 10/11 Close Nephrology followup after discharge NSVT (nonsustained ventricular tachycardia): Likely secondary to hypomagnesemia Continue to monitor on telemetry Replaced electrolytes prn Continue on metoprolol 12.5mg BID per cardiology cardiology follow up Tense ascites 2/2 volume overload *improved Potentially contributing to degree of renal failure -Consulted Wage Analyst for large volume paracentesis -8.5L removed 10/11 at bedside -SAAG 1.4g/dl likely 2/2 portal htn from heart failure related ascites, liver function stable Continue to monitor for reaccumulation PCP followup Acute on chronic anemia Minimal blood from paracentesis site, less likely source of bleed likely multifactorial in setting of chronic illness, CKD, nutritional deficiency Monitor H/H GERD Chronic, stable Continue outpatient PPI therapy Diabetes mellitus, type II: Held oral agents, specifically metformin in view of worsening kidney function Insulin sliding scale A1c 8% Home meds resumed on discharge BPH continue finasteride RLS On ropinirole 2.5mg qhs Cardiology recommended decreasing dose or discontinuing Ropinirole dose decreased to 2.0mg qhs on discharge. Continue wean after discharge, pcp followup Discharge Exam General: Alert, oriented. No acute distress Psych: Appropriate mood and affect Neuro: No gross deficits HEENT: NC/AT CV: RRR, murmur appreciated Resp: Breath sounds clear bilaterally, no increased effort of breathing. Abdomen: Soft, nontender, distended Extremities: edema in lower extremities bilaterally. Updated Medication List Medication Instructions Recorded Confirmed Type aspirin 81 mg tablet,delayed 81 mg PO QAM 03/17/19 10/11/23 History release cyanocobalamin (vitamin B-12) 1,000 mcg PO QAM 03/17/19 10/11/23 History 1,000 mcg tablet (Vitamin B-12) diphenhydramine HCl 25 mg tablet 25 mg PO QAM 03/17/19 10/11/23 History (Benadryl Allergy) finasteride 5 mg tablet 5 mg PO QAM 03/17/19 10/11/23 History rosuvastatin 40 mg tablet 40 mg PO QAM 03/17/19 10/11/23 History glipizide 10 mg tablet, extended 20 mg PO DAILY 04/20/19 10/11/23 History release 24 hr omeprazole 20 mg tablet,delayed 20 mg PO DAILY 04/20/19 10/11/23 History release metformin 500 mg tablet,extended 500 mg PO BID 10/11/23 10/11/23 History release 24 hr ropinirole 2 mg tablet 2 mg PO HS 10/11/23 10/11/23 History furosemide 40 mg tablet 40 mg PO BID17 #60 tabs 10/18/23 Rx metoprolol succinate 25 mg 12.5 mg (1/2 x 25 mg) PO BID #30 10/18/23 Rx tablet,extended release 24 hr tabs Hospital Stay Data Consultations 10/11/23 12:43 ED Decision to Admit Stat 10/11/23 12:58 Consult Cardiology Routine 10/11/23 16:18 Consult Nephrology Routine 10/12/23 10:28 Consult Wage Analyst Routine Diagnostic Imagining Performed 10/11/23 12:06 CT abd pelvis wo con Stat Chest X-Ray 10/11/23 11:13 XR chest 1V portable HISTORY: Chest pain, nonspecific COMPARISON: Chest 04/22/2019. FINDINGS: Left-sided pacemaker is again noted. The heart is mildly enlarged. There are low lung volumes. No pneumothorax. No pleural effusions. The lungs are clear. IMPRESSION: Mild cardiomegaly. ACT 112: Negative or not required by law. Electronically signed by: Daniel Bland M.D. 10/11/2023 12:07 PM Abdomen/Pelvis CT 10/11/23 12:06 CT abd pelvis wo con CLINICAL HISTORY: JAMIR on CKD, swelling TECHNIQUE: Helical axial images of the abdomen and pelvis were obtained. Automated dose lowering techniques and/or adjustment according to patient size were utilized for this exam. This exam was performed without intravenous contrast. CT DOSE: 1351.42 mGy.cm COMPARISON: None available at the time of this dictation. FINDINGS: Lower chest: Cardiomegaly is seen with biatrial enlargement. Liver: Unremarkable. No focal lesions are seen. Gallbladder and biliary tree: No calcified gallstones. Normal caliber wall. No intra- or extrahepatic biliary ductal dilation. Pancreas: Unremarkable, no focal lesions. Spleen: Unremarkable. Adrenals: Unremarkable. Kidneys and ureters: Exophytic cysts are seen bilaterally. Bladder: Diffuse homogeneous wall thickening is seen. Reproductive organs: Unremarkable. Bowel: Diverticulosis is seen without diverticulitis. The appendix is normal. Lymph nodes Retroperitoneal: Unremarkable. Pelvic: Unremarkable. Mesenteric: Unremarkable. Peritoneum: Moderate to large ascites is seen. Vessels: Atherosclerotic calcifications are seen. Abdominal wall: Minimal soft tissue edema is seen. An umbilical hernia is noted. Bones: Degenerative changes in the visualized spine. IMPRESSION: Moderate to large ascites is seen with mild soft tissue edema. Findings are compatible with fluid overload. Otherwise no acute abnormalities are seen. Additional findings are as above. ACT 112: Negative or not required by law. Electronically signed by: Adonis Liu M.D. 10/11/2023 1:51 PM Pending Results Patient Have Any Pending Studies at Discharge: No Discharge Instructions Given to Patient (Per Discharging Provider) Mr. Jimenes, We treated you for congestive heart failure and renal failure. You were seen by both the hand presser and the typer. They are recommending discharge home with some medication changes. -Your metoprolol dose is now 12.5mg twice a day per Cardiology -Cardiology advised to discontinue your home isosorbide medication -Cardiology recommends lowering the dose of your ropinirole, so that was decreased from 2.5mg every night to just 2.0 mg nightly. Your primary care doctor can continue to wean you down as needed. -Your lasix dose is now 40mg twice a day per nephrology. Please keep close follow up with your primary care provider after discharge. Please do not hesitate to come back to the emergency room if your symptoms worsen or return. It was a pleasure taking care of you while you were here. Total Time Total Time Spent Total Time Spent (In Minutes): > 30 minutes
[2023-10-18] MEDS ORDERED: FUROSEMIDE 40 MG TAB PO SCH (17:00)
== END 2023-10-18 13:15 | disposition home or self-care (01) | DRG 291 ==
LOC: ED 10:58 → SUATTDRO 13:01 → 4W 13:01

== ENCOUNTER 2023-11-06 16:23 | Inpatient (IN) ==
--- NOTE | 2023-11-06 16:32 | ED Triage Note ---
Date of Service November 06, 2023 Provider in Triage Author: Afua Alcantar History of Present Illness This patient was briefly evaluated while in triage. An abbreviated physical exam was performed. This patient is a 78-year-old Male who presents to the ED for evaluation of CKD and CHF. Pt states worsening SHOB, with 20lb weight gain. Physical Exam Initial orders for labs and / or imaging were placed and patient was placed in the waiting area until a bed is available. Please see further documentation for the full ED course. MDM / Impression Impression Impression: NGUYEN (dyspnea on exertion), Bilateral edema of lower extremity
--- NOTE | 2023-11-06 16:49 | Emergency Department Note ---
Impression & Plan NGUYEN (dyspnea on exertion), Bilateral edema of lower extremity, CKD (chronic kidney disease), stage III, Anemia ED Provider Note ED Provider Note NAME: KYE WALLS AGE:78 SEX: Male : 1945 ARRIVES VIA: Private vehicle INFORMANT: Patient ED PROVIDER(s): Kianna Chapman DO CHIEF COMPLAINT: Increased shortness of breath, swelling HPI: This is a 78-year-old male presents emergency department due to worsening shortness of breath and swelling. Patient states he has had similar episodes recently and he was told he has problems with his kidneys. He cannot remember the name of his kidney specialist. He states he does take furosemide twice daily and has not missed or skipped any doses. He denies any coming chest pain or abdominal pain. He states he has difficulty laying flat. He states he does do daily weights and over the last 8 days his weight is gone up from 179 to 196 pounds. PAST MEDICAL HISTORY:See Below PAST SURGICAL HISTORY:See Below FAMILY HISTORY:See Below SOCIAL HISTORY:See Below HOME MEDICATIONS:See Below ALLERGIES:See Below VITALS:See Below PHYSICAL EXAMINATION: GENERAL: alert, well appearing, well nourished, no distress, non-toxic EYE EXAM: normal conjunctiva, PERRL and EOM's grossly intact OROPHARYNX: no exudate, no erythema, lips, buccal mucosa, and tongue normal and mucous membranes are moist, poor dentition NECK: supple, no nuchal rigidity, no adenopathy, non-tender LUNGS: Clear but decreased to auscultation. Normal chest wall mechanics, no wheezes or rhonchi, faint bibasilar Rales HEART: no murmurs, S1 normal and S2 normal ABDOMEN: abdomen soft, non-tender, normo-active bowel sounds, no masses, no rebound or guarding. BACK: Back is symmetrical on inspection and there is no deformity, no midline tenderness, no CVA tenderness. SKIN: no rashes, petechiae, orbruising UPPER EXTREMITIES: upper extremities are grossly normal. FROM, nml pulses b/l. LOWER EXTREMITIES: 3+ b/l pitting edema up above the knees. FROM, nml pulses b/l. NEURO EXAM: Normal sensorium, cranial nerves II-XII grossly intact, normal speech, no facial droop,nogross weakness of arms, no gross weakness of legs. Gross sensation intact. No ataxia. Vital Signs: reviewed and remarkable Differential Diagnosis: pneumonia, bronchitis, COPD/Asthma exacerbation, pneumothorax, pulmonary embolism, congestive heart failure, acute coronary syndrome, as well as others were considered MEDICAL DECISION MAKING: This is a 78-year-old male with a history of congestive heart failure and chronic kidney disease who presents due to increased difficulty breathing, increased lower extremity edema, as well as weight gain over the last week. Patient with a history of similar presentations and admissions. Patient does take furosemide daily and denies skipping or missing any doses. Patient unable to lie flat, but was not overtly hypoxic. He did have increased work of breathing and tachypnea with any position change or movement. Labs drawn and sent, IV established, EKG and chest ray performed at bedside interpreted me and patient monitor on telemetry. Patient given 40 mg of IV Lasix here. Patient noted to have significantly elevated BNP. Troponin also elevated however likely secondary to his CHF and CKD. I do not suspect primary ACS. Anemia also noted however stable compared to prior. Elevated creatinine noted however not significantly elevated compared to prior. Case discussed with [facility] hospitalist team for additional evaluation and management. Consultation(s): 1849: Discussed with [facility] hospitalist team, for additional evaluation and management. ER Treatment Provided: See below Diagnostics Interpreted By Me: -ECG: Normal sinus at 99, normal axis, normal QRS but prolonged QTc, PVCs noted, nonspecific ST/T wave change -Cardiac Monitoring: An order was placed for continuous cardiac monitoring. The monitor shows a rate of 96 with normal sinus rhythm. -Laboratory studies: As stated above and show below. -Imaging studies: Chest x-ray: Cardiomegaly noted, no wide mediastinum, no pleural effusion, no focal consolidation, evolving bilateral pulmonary edema Triage Nursing Note Reviewed Prior/Outside Records Reviewed -prior discharge summary reviewed Past Med/Surg History Medical History RLS (restless legs syndrome) Fibromyalgia PMR (polymyalgia rheumatica) GERD (gastroesophageal reflux disease) HLD (hyperlipidemia) continue statin CAD (coronary artery disease) continue ASA and low dose BB and imdur and lasix Diabetes mellitus, type II CKD (chronic kidney disease), stage III Ischemic cardiomyopathy Pt admitted for elective ICD due to ICM and SB. Underwent procedure without any complications; monitored overnight and discharged home. Surgical History H/O wrist surgery History of cardiac catheterization History of knee replacement Family History Other Heart disease Stroke Social History Smoking Status: Never smoker Second Hand Exposure: No; Do You Dip or Chew Tobacco: No; Hx Alcohol Use: No Hx Substance Use: No Preferred Language: Greek Communication Ability: Effective Media Analytics Manager Required: No Beliefs That Will Affect Care: None Current Living Situation: Alone Other Information That Helps Us Care for You: No Feels Safe at Home: Yes Safety Concerns: Feels Safe At This Time Assistive Devices: Cane and Glasses Allergies Allergies Allergy/AdvReac Type Severity Reaction Status Date / Time cefadroxil Allergy Unknown RASH Verified 03/17/19 14:33 Home Meds Home Medications Medication Instructions Recorded Confirmed aspirin 81 mg tablet,delayed 81 mg PO QAM 03/17/19 11/06/23 release cyanocobalamin (vitamin B-12) 1,000 mcg PO QAM 03/17/19 11/06/23 1,000 mcg tablet (Vitamin B-12) diphenhydramine HCl 25 mg tablet 25 mg PO QAM 03/17/19 11/06/23 (Benadryl Allergy) finasteride 5 mg tablet 5 mg PO QAM 03/17/19 11/06/23 rosuvastatin 40 mg tablet 40 mg PO QAM 03/17/19 11/06/23 glipizide 10 mg tablet, extended 20 mg PO DAILY 04/20/19 11/06/23 release 24 hr metformin 500 mg tablet,extended 500 mg PO BID 10/11/23 11/06/23 release 24 hr Previous Rx's Medication Instructions Recorded furosemide 40 mg tablet 40 mg PO BID17 #60 tabs 10/18/23 metoprolol succinate 25 mg 12.5 mg (1/2 x 25 mg) PO BID #30 10/18/23 tablet,extended release 24 hr tabs Results & Data (ED) Vital Signs Vital Signs - 24 hr 11/06/23 16:30 11/06/23 16:45 05/08/24 16:45 Temperature 37.0 C Temperature Source Temporal Artery Scan Pulse Rate 103 H Pulse Rate [Apical] Pulse Rate from SpO2 Sensor Respiratory Rate 24 24 Respiratory Effort / Characteristics Short of Breath Non-Labored Respiratory Depth Normal Blood Pressure 97/60 L Blood Pressure [Right Arm] 90/72 L Blood Pressure Mean 72 Blood Pressure Mean [Right Arm] 78 Pulse Oximetry 97 97 97 Oxygen Delivery Method Room Air Room Air Room Air Oxygen Flow Rate 0 Sepsis Recent Fever Within 48 Hours No Sepsis New/Unexplained Change in Mental Status N/A Sepsis Action Taken by Nursing No Action Required 11/06/23 16:45 11/06/23 16:49 11/06/23 17:00 Temperature Temperature Source Pulse Rate 94 H 97 H 92 H Pulse Rate [Apical] Pulse Rate from SpO2 Sensor 95 H 95 H Respiratory Rate 22 13 17 Respiratory Effort / Characteristics Respiratory Depth Blood Pressure 95/66 L Blood Pressure [Right Arm] Blood Pressure Mean 75 Blood Pressure Mean [Right Arm] Pulse Oximetry 97 99 98 Oxygen Delivery Method Room Air Oxygen Flow Rate Sepsis Recent Fever Within 48 Hours Sepsis New/Unexplained Change in Mental Status Sepsis Action Taken by Nursing 11/06/23 17:09 11/06/23 18:24 Temperature Temperature Source Pulse Rate 97 H Pulse Rate [Apical] 90 Pulse Rate from SpO2 Sensor Respiratory Rate 24 Respiratory Effort / Characteristics Respiratory Depth Normal Blood Pressure Blood Pressure [Right Arm] 104/72 Blood Pressure Mean Blood Pressure Mean [Right Arm] 82 Pulse Oximetry 96 Oxygen Delivery Method Room Air Oxygen Flow Rate Sepsis Recent Fever Within 48 Hours Sepsis New/Unexplained Change in Mental Status Sepsis Action Taken by Nursing Laboratory Data 11/06/23 17:00 11/06/23 17:00 Lab Results 11/06/23 11/06/23 Range/Units 17:00 18:59 WBC 6.90 (4.8-10.8) K/ul RBC 4.23 L (4.70-6.10) M/uL Hgb 10.3 L (14.0-18.0) g/dl Hct 33.6 L (42.0-52.0) % MCV 79.4 L (80.0-100.0) fL MCH 24.3 L (25.0-34.0) pg MCHC 30.7 L (32.0-36.0) g/dL RDW Std Deviation 63.7 H (36.4-46.3) fL RDW Coeff of Serene 22.3 H (11.5-14.5) % Plt Count 297 (130-400) K/uL MPV 10.3 (9.4-12.4) fL Immature Gran % (Auto) 0.3 % Neut % (Auto) 82.6 % Lymph % (Auto) 7.1 % Graves % (Auto) 9.4 % Eos % (Auto) 0.0 % Baso % (Auto) 0.6 % Neut # (Auto) 5.70 (1.40-6.50) K/uL Lymph # (Auto) 0.49 L (1.20-3.40) K/uL Graves # (Auto) 0.65 H (0.11-0.59) K/uL Eos # (Auto) 0.00 (0.00-0.50) K/uL Baso # (Auto) 0.04 (0.00-0.20) K/uL Immature Gran # (Auto) 0.02 (0.01-0.20) K/uL Anisocytosis Present Ovalocytes 1+ Acanthocytes (Spur) 1+ Sodium 143 (136-145) mmol/L Potassium 3.7 (3.5-5.1) mmol/L Chloride 108 H (98-107) mmol/L Carbon Dioxide 24 (21-32) mmol/L Anion Gap 11 (3-11) BUN 52 H (6-23) mg/dl Creatinine 2.95 H (0.6-1.4) mg/dl Est Cr Clr Drug Dosing 21.7 ml/min Est GFR ( Amer) 22.6 ml/min Est GFR (Non-Af Amer) 19.5 ml/min BUN/Creatinine Ratio 17.6 (10-20) Glucose 139 H (70-99(Fasting)) mg/dl Calcium 8.8 (8.6-10.3) mg/dl Phosphorus 3.6 (2.5-4.9) mg/dl Magnesium 1.9 (1.7-2.4) mg/dl Total Bilirubin 0.6 (0.2-1.0) mg/dl AST 48 H (13-39) U/L ALT 46 (7-52) U/L Alkaline Phosphatase 127 H (34-104) U/L Troponin I High Sens 44.6 H 44.6 H (0-20) pg/ml B-Natriuretic Peptide > 4700 H (0-100) pg/ml Total Protein 7.0 (6.0-8.3) gm/dl Albumin 3.3 L (3.4-5.0) gm/dl Globulin 3.7 (2.5-4.0) gm/dl Albumin/Globulin Ratio 0.9 (0.9-2) Administered Medications Metoprolol Succinate (Metoprolol Succ 25mg Ext Rel Tab) 12.5 mg PO BID WILLIAM Stop: 12/07/23 00:11 Last Admin: 11/07/23 01:03 Dose: Not Given Documented By: KJP Discontinued Medications Furosemide (Furosemide 40 Mg/4 Ml Vial) 40 mg IV ONE ONE Stop: 11/06/23 16:47 Last Admin: 11/06/23 17:04 Dose: 40 mg Documented By: SWD Potassium Chloride (Potassium Chloride Crtab 20 Meq Tabcr) 40 meq PO NOW STA Stop: 11/06/23 20:28 Last Admin: 11/06/23 20:36 Dose: 40 meq Documented By: MMG Imaging Data Radiologist's Impression: Chest X-Ray 11/06/23 16:32 XR chest 1V portable HISTORY: Dyspnea COMPARISON: Chest 10/11/2023. No pneumothorax. FINDINGS: No pneumothorax. No pleural effusions. There are low lung volumes. Left-sided pacemaker is again noted. The heart is mildly enlarged. There is progressive perihilar interstitial/vascular thickening suggestive of mild congestive change. No acute fractures. IMPRESSION: Cardiomegaly with mild congestive change. ACT 112: Negative or not required by law. Electronically signed by: Daniel Bland M.D. 11/06/2023 5:51 PM Discharge Plan Visit Data Chief Complaint: Shortness of Breath/Dyspnea Stated Complaint: SOB, FLUID BUILD UP/ABD/SOME LEGS, KIDNEY PROBLEMS ED Provider: Kianna Chapman Discharge Problem: NGUYEN (dyspnea on exertion), Bilateral edema of lower extremity, CKD (chronic kidney disease), stage III, Anemia Patient Disposition: Being Evaluated by Hospitalist
[2023-11-06] MEDS: FUROSEMIDE 40 MG/4 ML VIAL IV ONE (17:04)
[2023-11-06 17:24] LABS: Basophils # (auto) 0.04 K/uL (0.00-0.20); Basophils % (auto) 0.6 %; Hematocrit (blood only) 33.6 % (42.0-52.0); Hemoglobin 10.3 g/dl (14.0-18.0); Immature Granulocytes # (auto) 0.02 K/uL (0.01-0.20); Immature Granulocytes % (auto) 0.3 %; Lymphocytes # (auto) 0.49 K/uL (1.20-3.40); Lymphocytes % (auto) 7.1 %; Mean Corpuscular Hemoglobin 24.3 pg (25.0-34.0); Mean Corpuscular Hgb Conc 30.7 g/dL (32.0-36.0); Mean Corpuscular Volume 79.4 fL (80.0-100.0); Mean Platelet Volume 10.3 fL (9.4-12.4); Monocytes # (auto) 0.65 K/uL (0.11-0.59); Monocytes % (auto) 9.4 %; Neutrophils % (auto) 82.6 %; Platelet Count 297 K/uL (130-400); RDW Coefficient of Variation 22.3 % (11.5-14.5); RDW Standard Deviation 63.7 fL (36.4-46.3); Red Blood Count 4.23 M/uL (4.70-6.10)
[2023-11-06 17:45] LABS: Albumin Globulin Ratio 0.9 (0.9-2); Albumin Level 3.3 gm/dl (3.4-5.0); BUN Creatinine Ratio 17.6 (10-20); Bilirubin,Total 0.6 mg/dl (0.2-1.0); Calcium 8.8 mg/dl (8.6-10.3); Creatinine Clr Calc Pharmacy 21.7 ml/min; Est GFR (African American) 22.6 ml/min; Est GFR (Non-African American) 19.5 ml/min; Globulin 3.7 gm/dl (2.5-4.0); Magnesium 1.9 mg/dl (1.7-2.4); Phosphorus 3.6 mg/dl (2.5-4.9); Potassium 3.7 mmol/L (3.5-5.1)
[2023-11-06 17:51] LABS: Troponin I High Sensitivity 44.6 pg/ml (0-20)
--- NOTE | 2023-11-06 17:52 | XRay Report ---
XR chest 1V portable HISTORY: Dyspnea COMPARISON: Chest 10/11/2023. No pneumothorax. FINDINGS: No pneumothorax. No pleural effusions. There are low lung volumes. Left-sided pacemaker is again noted. The heart is mildly enlarged. There is progressive perihilar interstitial/vascular thick ening suggestive of mild congestive change. No acute fractures. IMPRESSION: Cardiomegaly with mild congestive change. ACT 112: Negative or not required by law. Electronically signed by: Daniel Bland M.D. 11/06/2023 5:51 PM
[2023-11-06 18:02] LABS: Acanthocytes 1+; Anisocytosis Present; Ovalocytes 1+
[2023-11-06 19:05] LABS: Appearance Urine Cloudy (Clear); Bacteria Urine Automated None Seen (None Seen); Bilirubin Urine Negative (Negative); Blood Urine Trace (Negative); Color Urine Yellow; Glucose Urine UA Negative (Negative); Granular Casts Urine Present /lpf (None Prsent); Ketones Urine Negative (Negative); Leukocyte Esterase Urine Negative (Negative); Nitrite Urine Negative (Negative); Protein Urine 2+ (Negative); RBC Urine Automated 0-2 /hpf (0-2); Specific Gravity Urine 1.013 (1.000-1.030); Urobilinogen Urine Negative (Negative); WBC Urine Automated 0-5 /hpf (0-5)
--- NOTE | 2023-11-06 19:09 | History & Physical Report ---
Date of Service November 06, 2023 Assessment & Plan (1) Acute on chronic heart failure with reduced ejection fraction and diastolic dysfunction: Plan Mr. Jimenes is a 78 y/o male with DM2, CKD3-4, severe ischemic cardiomyopathy with EF on last ECHO in May 2023 at 25-29%, HTN, dyslipidemia, and other history admitted for management of acute on chronic heart failure with reduced EF. Work-up in the ED revealed BNP was >4700. Patient admitted for same on 10/10. Patient underwent paracentesis on 10/11 with 8.5L removed. Patient experienced noticeable subjective improvement. Multiple contributing factors, mostly dietary and initial medication concerns/"misunderstandings" noted in OSH encounters. #Acute on chronic heart failure with reduced ejection fraction and diastolic dysfunction: #Severe ischemic cardiomyopathy 25% #s/p dcPPM 2018 Patient with ongoing issues with LE edema and ongoing OP diuretic adjustments, currently taking 40qam/20qpm ECHO 05/2023 with EF 25-29% GDMT historically limited 2/2 hypotension and renal dysfunction - Recent admission with imdur discontinued -Continue metoprolol 12.5mg xL BID - Daily weights, monitor Is and Os - Consult nephrology for assistance with diuretic management in the setting of worsening of pt's kidney function - IV lasix 40mg BID in nterim -Declined queen at this time #Tense ascites 2/2 volume overload -Prior 10/11 SAAG 1.4g/dl likely 2/2 portal htn from heart failure related ascites, liver function stable -NPO midnight -INR in am -IR for paracentesis #Hx of NSVT (nonsustained ventricular tachycardia): Monitor lytes Monitor on tele #Chronic Kidney Disease, CKD V like cardiorenal syndrome, concern for obstructive component iso ascites per nephrology Nephrology consult for assistance with aggressive diuresis iso severe kidney disease -Lasix 40mg BID Trend labs #Chronic anemia -Minimal blood from para site, less likley source of bleed likley multifactorial iso chronic illness, CKD, nutritional deifiency stable #GERD Chronic, stable Continue outpatient PPI therapy #Diabetes mellitus, type II: Holding oral agents, specifically metformin in view of worsening kidney function Insulin sliding scale A1c 8% BSG ACHS #BPH continue finasteride DVT Prophylaxis: SubQ heparin Admit med/tele Admission and Anticipated Discharge Date Admission Date: Time spent evaluating patient, direct bedside care, chart review, placing orders, interpretation of diagnostic studies, discussion with consultants, patient, and family members, as well as other required patient management activities is 60 minutes. History of Present Illness Chief Complaint: Abdominal Swelling Primary Care Provider: Haley Boggs DO Mr. Jimenes is a 78 y/o male with DM2, CKD3-4, severe ischemic cardiomyopathy with EF on last ECHO in May 2023 at 25-29%,, HTN, dyslipidemia, and other history who presented to [facility] ED due to increased abdominal swelling. Patient states that the day of discharge his passed, and he has struggled to get to a routine with his medications. There was initial confusion with his medications and also dietary habits. He states he is "just tired." He notes that most of the swelling occured in last 3 days, noting a 10pound increase since 11/02. He presented a list of his "sugars and pressures and weights" to show he has been trying to handle his health. He denies chest pain or palpitations. He reports fatigue, NGUYEN, significant uncomfortable abdominal swelling. His discharge weight was 77kg. Weight on arrival 86.7kg. OSH records revealed the following pertinent interval history: 10/28 PCP note : "Today he reports increased abdominal bloating and swelling in his feet. Due to a midunderstanding, he stopped taking his lasix about 4 days ago. He is also not taking his metoprolol. He has been in contact with case management and told her yesterday that he was still taking his medication. He brings a list of what he says are his current medicine and he is taking: ASA 81 mg, benadryl 25 mg, finasteride 5 mg, rosuvastatin 40 mg, vitamin B12 1000 mg and glipizide 20 mg." 10/31 Home Health: "+1 pitting edema to BLE states he went out for dinner yesterday and had high Na meal, encouraged low Na diet" 11/05 Home Health: " States gained 5-6 lbs in last 24 hrs. Increased SOB + abdominal bloating. Sitting in truck to be in air conditioning as unit has not been installed in home to present. Eating [employer] meals. Refusing any IV intervention in home. States he just wants to go to the ED" In the ED, vitals were notable for BP of 90-100s SBP HR of 90s and O2 sat of 100 RA Imaging revealed cardiomegaly with congestion ED interventions: IV lasix Patient to be admitted to [facility] for further evaluation and management of acute on chronic heart failure with reduced ejection fraction exacerbation iso dietary/medication noncompliance Allergies Allergy/AdvReac Type Severity Reaction Status Date / Time cefadroxil Allergy Unknown RASH Verified 03/17/19 14:33 Home Medications Medication Instructions Recorded Confirmed Type aspirin 81 mg tablet,delayed 81 mg PO QAM 03/17/19 11/06/23 History release cyanocobalamin (vitamin B-12) 1,000 mcg PO QAM 03/17/19 11/06/23 History 1,000 mcg tablet (Vitamin B-12) diphenhydramine HCl 25 mg tablet 25 mg PO QAM 03/17/19 11/06/23 History (Benadryl Allergy) finasteride 5 mg tablet 5 mg PO QAM 03/17/19 11/06/23 History rosuvastatin 40 mg tablet 40 mg PO QAM 03/17/19 11/06/23 History glipizide 10 mg tablet, extended 20 mg PO DAILY 04/20/19 11/06/23 History release 24 hr metformin 500 mg tablet,extended 500 mg PO BID 10/11/23 11/06/23 History release 24 hr furosemide 40 mg tablet 40 mg PO BID17 #60 tabs 10/18/23 11/06/23 Rx metoprolol succinate 25 mg 12.5 mg (1/2 x 25 mg) PO BID #30 10/18/23 11/06/23 Rx tablet,extended release 24 hr tabs Past Med/Surg History Medical History RLS (restless legs syndrome) Fibromyalgia PMR (polymyalgia rheumatica) GERD (gastroesophageal reflux disease) HLD (hyperlipidemia) continue statin CAD (coronary artery disease) continue ASA and low dose BB and imdur and lasix Diabetes mellitus, type II CKD (chronic kidney disease), stage III Ischemic cardiomyopathy Pt admitted for elective ICD due to ICM and SB. Underwent procedure without any complications; monitored overnight and discharged home. Surgical History H/O wrist surgery History of cardiac catheterization History of knee replacement Family History Other Heart disease Stroke Social History Smoking Status: Never smoker Second Hand Exposure: No; Do You Dip or Chew Tobacco: No; Hx Alcohol Use: No Hx Substance Use: No Preferred Language: Citizen Of [place] Communication Ability: Effective Sider Required: No Beliefs That Will Affect Care: None Current Living Situation: Alone Feels Safe at Home: Yes Assistive Devices: None Review of Systems Review of Systems: Constitutional: (-) fever/chills, (-) recent loss of weight, (-) appetite changes, (-) night sweats. Head: (-) headache, (-) dizziness. Eye: (-) blurring of vision, (-) double vision Ear: (-) vertigo Nose: (-) congestion, (-) post nasal drip. Throat: (-) sore throat, (-) hoarseness of voice, (-) odynophagia. Cardiovascular: (-) chest pain, (-) palpitations, (-) syncope, (-) orthopnea, (- ) PND, (+) leg swelling. Respiratory: (-) shortness of breath, (-) cough, (-) wheezing, (-) hemoptysis. Neuro: (-) weakness in extremities, (-) numbness, (-) tingling, (-) tremor. Gastrointestinal: (-) belly pain, (++) belly distension, (-) nausea, (-) vomitin g, (-) diarrhea, (-) constipation Genitourinary: (-) hematuria, (-) dysuria, (-) polyuria, (-) hesitancy, (-) frequency, (-) urinary incontinence. Musculoskeletal: (-) myalgia, (-) arthralgia. Skin: (-) rashes. Endocrine: (-) heat/cold intolerance. Physical Exam Physical Exam: GENERAL APPEARANCE: AxOx3 ,sad appearing gentleman, chronically ill HEENT: NC, AT. MMM. EOMI, clear conjunctiva, oropharynx clear. NECK: Supple without lymphadenopathy. No stiffness or restricted ROM. HEART: irregularly irregular, noted loss of fat pad around dcPPM implant LUNGS: diminished breath sound s ABDOMEN: distended/protuberant abdomen with fluid shift EXTREMITIES: Without cyanosis, clubbing . BLE 2+ below knee NEUROLOGICAL: Grossly nonfocal. Alert and oriented, moving all 4 extremities. CN not formally tested but appear grossly intact. . Skin: Warm and dry without any rash. Results & Data Results & Data Vital Signs (Past 12 Hours) Vital Signs Temp Pulse Pulse Resp BP BP Pulse Ox 11/06/23 18:24 90 24 104/72 96 11/06/23 17:09 97 H 11/06/23 17:00 92 H 17 95/66 L 98 11/06/23 16:49 97 H 13 99 11/06/23 16:45 94 H 22 97 11/06/23 16:45 24 90/72 L 97 11/06/23 16:45 97 11/06/23 16:30 37.0 C 103 H 24 97/60 L 97 O2 Del Method O2 Flow Rate 11/06/23 18:24 Room Air 11/06/23 17:09 11/06/23 17:00 11/06/23 16:49 11/06/23 16:45 Room Air 11/06/23 16:45 Room Air 11/06/23 16:45 Room Air 0 11/06/23 16:30 Room Air Laboratory Results Short CBC 11/06/23 Range/Units 17:00 WBC 6.90 (4.8-10.8) K/ul Hgb 10.3 L (14.0-18.0) g/dl Hct 33.6 L (42.0-52.0) % Plt Count 297 (130-400) K/uL BMP 11/06/23 17:00 Sodium 143 Potassium 3.7 Chloride 108 H Carbon Dioxide 24 BUN 52 H Creatinine 2.95 H Glucose 139 H Calcium 8.8 Liver Function 11/06/23 Range/Units 17:00 Total Bilirubin 0.6 (0.2-1.0) mg/dl AST 48 H (13-39) U/L ALT 46 (7-52) U/L Alkaline Phosphatase 127 H (34-104) U/L Albumin 3.3 L (3.4-5.0) gm/dl Urine 11/06/23 Range/Units Unknown Urine Color Yellow Urine Appearance Cloudy A (Clear) Urine pH 5.0 (4.5-7.5) Ur Specific [place] 1.013 (1.000-1.030) Urine Protein 2+ H (Negative) Urine Glucose (UA) Negative (Negative) Diagnostic Findings Chest X-Ray 11/06/23 16:32 XR chest 1V portable HISTORY: Dyspnea COMPARISON: Chest 10/11/2023. No pneumothorax. FINDINGS: No pneumothorax. No pleural effusions. There are low lung volumes. Left-sided pacemaker is again noted. The heart is mildly enlarged. There is progressive perihilar interstitial/vascular thickening suggestive of mild congestive change. No acute fractures. IMPRESSION: Cardiomegaly with mild congestive change. ACT 112: Negative or not required by law. Electronically signed by: Daniel Bland M.D. 11/06/2023 5:51 PM Medications Administered Home Medications Medication Instructions Recorded Confirmed Last Taken aspirin 81 mg tablet,delayed 81 mg PO QAM 03/17/19 11/06/23 10/10/23 release cyanocobalamin (vitamin B-12) 1,000 mcg PO QAM 03/17/19 11/06/23 10/10/23 1,000 mcg tablet (Vitamin B-12) diphenhydramine HCl 25 mg tablet 25 mg PO QAM 03/17/19 11/06/23 10/10/23 (Benadryl Allergy) finasteride 5 mg tablet 5 mg PO QAM 03/17/19 11/06/23 10/10/23 rosuvastatin 40 mg tablet 40 mg PO QAM 03/17/19 11/06/23 10/10/23 glipizide 10 mg tablet, extended 20 mg PO DAILY 04/20/19 11/06/23 10/10/23 release 24 hr metformin 500 mg tablet,extended 500 mg PO BID 10/11/23 11/06/23 10/10/23 release 24 hr furosemide 40 mg tablet 40 mg PO BID17 #60 tabs 10/18/23 11/06/23 Unknown metoprolol succinate 25 mg 12.5 mg (1/2 x 25 mg) PO BID #30 10/18/23 11/06/23 Unknown tablet,extended release 24 hr tabs
[2023-11-06] MEDS: POTASSIUM CHLORIDE CRTAB 20 MEQ TABCR PO STA (20:36)
[2023-11-07] MEDS ORDERED: GLUCOSE 40% GEL 15 GM TUBE PO PRN (00:12)
[2023-11-07] MEDS ORDERED: CARBOHYDRATES FOR HYPOGLYCEMIA PO PRN (00:12)
[2023-11-07] MEDS ORDERED: GLUCAGON FOR INJ 1 MG VIAL SQ PRN (00:12)
[2023-11-07] MEDS ORDERED: DEXTROSE 50% 50 ML SYRINGE IV PRN (00:12)
[2023-11-07] MEDS ORDERED: GLUCOSE 10 TAB/TUBE PO PRN (00:12)
[2023-11-07] MEDS ORDERED: NITROGLYCERIN SL 0.4 MG/TAB TAB SL PRN (00:12)
[2023-11-07] MEDS: METOPROLOL SUCC 25MG EXT REL TAB PO SCH (01:03)
[2023-11-07] MEDS: HEPARIN SOD 5,000 UNIT/0.5 ML VIAL SQ SCH (01:17)
[2023-11-07] MEDS: FUROSEMIDE 40 MG/4 ML VIAL IV SCH ×2 (01:17→17:28)
[2023-11-07 07:06] LABS: Hematocrit (blood only) 32.3 % (42.0-52.0); Mean Corpuscular Hemoglobin 24.4 pg (25.0-34.0); Mean Corpuscular Volume 78.8 fL (80.0-100.0); Mean Platelet Volume 10.2 fL (9.4-12.4); Platelet Count 288 K/uL (130-400); RDW Coefficient of Variation 22.2 % (11.5-14.5); RDW Standard Deviation 62.2 fL (36.4-46.3)
[2023-11-07 07:15] LABS: INR 1.3 (0.9-1.1); Prothrombin Time 13.5 Seconds (9.0-12.0)
[2023-11-07 07:25] LABS: Albumin Level 3.2 gm/dl (3.4-5.0); BUN Creatinine Ratio 18.1 (10-20); Bilirubin,Total 0.7 mg/dl (0.2-1.0); Calcium 8.3 mg/dl (8.6-10.3); Creatinine Clr Calc Pharmacy 24.7 ml/min; Est GFR (African American) 23.9 ml/min; Est GFR (Non-African American) 20.6 ml/min; Globulin 3.2 gm/dl (2.5-4.0); Magnesium 1.8 mg/dl (1.7-2.4); Phosphorus 3.4 mg/dl (2.5-4.9); Potassium 3.8 mmol/L (3.5-5.1); Total Protein 6.4 gm/dl (6.0-8.3)
[2023-11-07] MEDS: CYANOCOBALAMIN (B-12) 500 MCG TABLET PO SCH (07:55)
[2023-11-07] MEDS: ROSUVASTATIN CALCIUM 20 MG TAB PO SCH (07:55)
[2023-11-07] MEDS: FINASTERIDE 5 MG TAB PO SCH (07:55)
[2023-11-07] MEDS: diphenhydrAMINE Capsule 25 MG CAP PO SCH (07:55)
[2023-11-07] MEDS: ACETAMINOPHEN 325 MG TAB PO PRN (07:55)
[2023-11-07] MEDS: ASPIRIN 81 MG ECTAB PO SCH (07:55)
[2023-11-07] MEDS: INSULIN ASPART PER UNIT CHARGE SC SCH (08:39)
--- NOTE | 2023-11-07 10:21 | Nephrology Consultation ---
Date of Consultation November 07, 2023 Assessment & Plan (1) CKD (chronic kidney disease) stage 4, GFR 15-29 ml/min: rapidly progressive CKD, now stage 4 w/ new baseline of about creatinine 3. historically w/ albuminuria 50-100 mg daily as of fall 2022. UA w/ granular casts, epithelial cells; 2+ protein and trace blood; 1013; pH 5; cloudy; no recent UA on file for comparison -s/p paracentesis today of 5L; hx of 8.5L paracentesis last month >> ensure albumin in wake of this; did d/w hospitalist -will reduce lasix to 30 mg IV bid17, next dose this PM -will tighten FR to 1.5L/day -orders in for standing weights only and strict I/O and d/w nursing team (2) Acute on chronic heart failure with reduced ejection fraction and diastolic dysfunction: -lasix as above -<2 gm daily Na diet -FR, standing weights as above History of Present Illness Reason for Consultation: Heart failure with reduced ejection fraction and CKD 4 Requesting Physician: Dr. Bunch Attending Physician: Artem Monteiro MD History of Present Illness 78-year-old male whom I am asked to see for CKD 4 in the setting of HFrEF was admitted last evening for acute on chronic heart failure exacerbation. 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 Admitted here 10/10-10/17 w/ acute on chronic HFrEF after apparently misunderstanding instructions about diuretic titration and instead stopping them completely; presenting creatinine 4, discharge creatinine 2.9. He was aggressively diuresed and was discharged home on Lasix 40 mg p.o. twice daily. Outpatient creatinine since hospital discharge has ranged from 3.1-3.3, most recently October 31. He also underwent an 8.5 L paracentesis on October 11. Of note his on the day of hospital discharge, October 17. Also his sbp runs in 80-90s as OP at least since late 2022. In addition to confusion about medication before September admission, there were again challenges with adherence to/communication of communication regimen and dietary habits. Despite repeated education he has consistently eaten high sodium meals per [employer] records. At October 28 PCP visit, he had stopped his Lasix for the preceding 4 days, despite telling case management otherwise. His presenting creatinine was 3 and is at 2.8 this morning. He is currently receiving Lasix 40 mg twice daily IV. No standing potassium but did have 40 mill equivalents x 1 dose last evening. Review of systems positive for weight gain (discharge weight 77 kg, presentation weight 86.7). Markedly worse edema in the 72 hours prior to admission with a 10 pound weight gain same timeframe, though this has improved since admission. Significant fatigue, worsening abdominal swelling and exertional dyspnea all improved since paracentesis, resuming diuretics. Allergies Allergy/AdvReac Type Severity Reaction Status Date / Time cefadroxil Allergy Unknown RASH Verified 03/17/19 14:33 Home Medications Medication Instructions Recorded Confirmed Type aspirin 81 mg tablet,delayed 81 mg PO QAM 03/17/19 11/06/23 History release cyanocobalamin (vitamin B-12) 1,000 mcg PO QAM 03/17/19 11/06/23 History 1,000 mcg tablet (Vitamin B-12) diphenhydramine HCl 25 mg tablet 25 mg PO QAM 03/17/19 11/06/23 History (Benadryl Allergy) finasteride 5 mg tablet 5 mg PO QAM 03/17/19 11/06/23 History rosuvastatin 40 mg tablet 40 mg PO QAM 03/17/19 11/06/23 History glipizide 10 mg tablet, extended 20 mg PO DAILY 04/20/19 11/06/23 History release 24 hr metformin 500 mg tablet,extended 500 mg PO BID 10/11/23 11/06/23 History release 24 hr furosemide 40 mg tablet 40 mg PO BID17 #60 tabs 10/18/23 11/06/23 Rx metoprolol succinate 25 mg 12.5 mg (1/2 x 25 mg) PO BID #30 10/18/23 11/06/23 Rx tablet,extended release 24 hr tabs Patient History Medical History CKD (chronic kidney disease) stage 4, GFR 15-29 ml/min RLS (restless legs syndrome) Fibromyalgia PMR (polymyalgia rheumatica) GERD (gastroesophageal reflux disease) HLD (hyperlipidemia) continue statin CAD (coronary artery disease) continue ASA and low dose BB and imdur and lasix Diabetes mellitus, type II Ischemic cardiomyopathy Pt admitted for elective ICD due to ICM and SB. Underwent procedure without any complications; monitored overnight and discharged home. Surgical History H/O wrist surgery History of cardiac catheterization History of knee replacement Family History Other Heart disease Stroke Social History Smoking Status: Never smoker Second Hand Exposure: No; Do You Dip or Chew Tobacco: No; Hx Alcohol Use: No Hx Substance Use: No Preferred Language: Slovenian Communication Ability: Effective Radio Television Technical Director Required: No Beliefs That Will Affect Care: None Current Living Situation: Alone Other Information That Helps Us Care for You: No Feels Safe at Home: Yes Safety Concerns: Feels Safe At This Time Assistive Devices: Cane Review of Systems 2 Review of Systems: All systems reviewed & are unremarkable except as noted in HPI & below Physical Exam 2 Constitutional: well developed, + cachectic and + frail appearing (sitting on side of bed eating on RA); no acute distress Eyes: EOM intact bilaterally ENMT: Ears: no external ear abnormality Nose: no external nose abnormality Mouth: + dry oral mucous membranes Neck: no nuchal rigidity Respiratory: normal respiratory effort Auscultation: + diminished lung sounds Cardiovascular: Rate/Rhythm: regular rate and regular rhythm Extremities: + edema (2+ indurated) Gastrointestinal (Abdomen): Inspection/Auscultation: + abdomen distended and normal bowel sounds Percussion/Palpation: abdomen soft and + ascites; abdomen nontender Musculoskeletal: Extremities: strength 5/5 throughout Skin: no rashes, warm and dry Neurologic: ornelas, fluent speech, no tremor Results & Data Vital Signs (Past 12 Hours) Vital Signs Temp Pulse Pulse Resp BP BP Pulse Ox 11/07/23 09:03 92 H 11/07/23 08:12 36.6 C 88 18 103/68 100 11/07/23 04:00 36.5 C 93 H 18 103/62 96 11/07/23 01:50 88 11/07/23 00:56 11/07/23 00:21 36.3 C L 60 18 82/50 L 96 11/07/23 00:12 Pulse Ox O2 Del Method O2 Del Method 11/07/23 09:03 11/07/23 08:12 Room Air 11/07/23 04:00 Room Air 11/07/23 01:50 11/07/23 00:56 Room Air 11/07/23 00:21 Room Air 11/07/23 00:12 96 Room Air Laboratory Results 11/07/23 06:37 11/07/23 06:37 Diagnostic Findings cxr Cardiomegaly with mild congestive change Abdomen and pelvis CT October 11, 2023 Moderate to large ascites with mild soft tissue edema. Kidneys with bilateral exophytic cysts. Unremarkable adrenals and ureters. Unremarkable liver without focal lesion s/p 5L paracentesis
[2023-11-07 11:05] LABS: Albumin Peritoneal Fluid 1.9 gm/dl
[2023-11-07 11:10] LABS: Total Protein Peritoneal Fluid 3.6 gm/dl
[2023-11-07] MEDS: ALBUMIN 25% 25 GM/100 ML VIAL IV SCH (11:52)
[2023-11-07 12:14] LABS: Appearance Peritoneal Fluid Slightly Hazy; Color Peritoneal Fluid Yellow; Lymphocytes, Fluid 13 %; Mono,Macrophage,Mesothelial 47 %; Neutrophils, Fluid 40 %; RBC Peritoneal Fluid Auto < 2000 /uL; WBC Peritoneal Fluid Auto 443 /ul (0-300)
--- NOTE | 2023-11-07 14:04 | Ultrasound Report ---
ULTRASOUND-GUIDED PARACENTESIS CLINICAL HISTORY: Ascites PROCEDURE: Procedure and risks were explained. Informed consent was obtained. A final timeout was com pleted. The abdomen was prepped and draped in sterile fashion. 1% buffered lidocaine was utilized for skin anesthesia. Utilizing ultrasound guidance, a 5 [place] safety centesis catheter was advanced into the right lower quadrant pocket of ascites. Ultrasound images were obtained. A total of 5 L of ascites fluid was bibi purnima with 1 L sent to the lab. The catheter was removed and Band-Aid applied. The patient tolerated th e procedure well. Vital signs will be monitored postprocedure. IMPRESSION: Ultrasound-guided paracentesis as above. Performed, dictated, and signed by Albaro Vega PA-C; to be co-signed by Dr. Dustin Bernabe. Electronically signed by: Dustin Bernabe M.D. 11/07/2023 3:22 PM
--- NOTE | 2023-11-07 14:58 | Hospitalist Progress Note ---
Date of Service November 07, 2023 Assessment & Plan (1) Acute on chronic heart failure with reduced ejection fraction and diastolic dysfunction: Plan Mr. Jimenes is a 78 y/o male with DM2, CKD3-4, severe ischemic cardiomyopathy with EF on last ECHO in May 2023 at 25-29%, HTN, dyslipidemia, and other history admitted for management of acute on chronic heart failure with reduced EF. Work-up in the ED revealed BNP was >4700. Patient admitted for same on 10/10. Patient underwent paracentesis on 10/11 with 8.5L removed. Patient experienced noticeable subjective improvement. Multiple contributing factors, mostly dietary and initial medication concerns/"misunderstandings" noted in OSH encounters. #Acute on chronic heart failure with reduced ejection fraction and diastolic dysfunction: #Severe ischemic cardiomyopathy 25% #s/p dcPPM 2018 Patient with ongoing issues with LE edema, abdomen distension Patient admission in which she required paracentesis of 8.5 L on 10/11. Taking 40 mg and 20 mg Lasix at home ECHO 05/2023 with EF 25-29% Status post paracentesis on November 07, 2023 with removal of 5 L Given 50 g of 25% albumin after paracentesis On Lasix 30 mg IV twice daily as per nephrology Free water restriction of 1.5 L Daily weights Input and output monitoring Continue metoprolol 12.5mg xL BID #Hx of NSVT (nonsustained ventricular tachycardia): Monitor lytes Monitor on tele #Chronic Kidney Disease, CKD V like cardiorenal syndrome, concern for obstructive component iso ascites per nephrology Nephrology consult for assistance with aggressive diuresis iso severe kidney disease -Lasix 30mg BID Trend labs #Chronic anemia -Minimal blood from para site, less likley source of bleed likley multifactorial iso chronic illness, CKD, nutritional deifiency stable #GERD Chronic, stable Continue outpatient PPI therapy #Diabetes mellitus, type II: Holding oral agents, specifically metformin in view of worsening kidney function Insulin sliding scale A1c 8% BSG ACHS #BPH continue finasteride DVT Prophylaxis: SubQ heparin Admit med/tele Time spent evaluating patient, direct bedside care, chart review, placing orders, interpretation of diagnostic studies, discussion with consultants, patient, and family members, as well as other required patient management a ctivities is 50 minutes Please note the above document was generated using voice recognition software. It may contain grammatical, syntax or spelling errors. Any formal questions or concerns about the content, text or information contained within the body of this dictation should be directly addressed to the provider for clarification Admission and Anticipated Discharge Date Admission Date: November 06, 2023 Subjective Patient reports significant improvement in symptoms after paracentesis today. He had 5 L of fluid removed. He reports that he is able to ambulate inside the room Vitals are stable Review of Systems Review of Systems: All systems reviewed & are unremarkable except as noted in Subjective Physical Exam Physical Exam: Constitutional: Alert oriented x 3; not in distress Respiratory: normal respiratory effort, lungs clear to auscultation, no wheeze, rales, rhonchi. Normal insp/exp effort, no accessory muscle use Cardiovascular: regular, no murmur, no edema Vessels: no JVD or carotid bruit Chest: normal inspection of chest Abdomen: Mildly distended; nontender Skin: no rashes, warm and dry normal turgor. 1+ pitting edema up to knee Neurologic: PERRL, EOMI, accommodation nl, no face palsy, no dysarthria CN's II- XI intact bilaterally and moves all extremities Psychiatric: A+Ox3, euthymic affect Results & Data Results & Data Vital Signs (Past 12 Hours) Vital Signs Temp Pulse Pulse Resp BP BP Pulse Ox 11/07/23 11:40 36.3 C L 87 18 96/61 L 100 11/07/23 09:03 92 H 11/07/23 08:12 36.6 C 88 18 103/68 100 11/07/23 04:00 36.5 C 93 H 18 103/62 96 O2 Del Method 11/07/23 11:40 Room Air 11/07/23 09:03 11/07/23 08:12 Room Air 11/07/23 04:00 Room Air
[2023-11-08 06:59] LABS: Basophils # (auto) 0.03 K/uL (0.00-0.20); Basophils % (auto) 0.6 %; Hematocrit (blood only) 31.8 % (42.0-52.0); Hemoglobin 9.7 g/dl (14.0-18.0); Immature Granulocytes # (auto) 0.02 K/uL (0.01-0.20); Immature Granulocytes % (auto) 0.4 %; Lymphocytes # (auto) 0.48 K/uL (1.20-3.40); Lymphocytes % (auto) 8.9 %; Mean Corpuscular Hemoglobin 23.9 pg (25.0-34.0); Mean Corpuscular Hgb Conc 30.5 g/dL (32.0-36.0); Mean Corpuscular Volume 78.3 fL (80.0-100.0); Mean Platelet Volume 10.4 fL (9.4-12.4); Monocytes # (auto) 0.45 K/uL (0.11-0.59); Monocytes % (auto) 8.3 %; Neutrophils # (auto) 4.42 K/uL (1.40-6.50); Neutrophils % (auto) 81.8 %; Platelet Count 278 K/uL (130-400); RDW Coefficient of Variation 22.1 % (11.5-14.5); RDW Standard Deviation 62.4 fL (36.4-46.3); Red Blood Count 4.06 M/uL (4.70-6.10)
[2023-11-08 07:24] LABS: Anisocytosis Present; Poikilocytosis Present
[2023-11-08 07:27] LABS: BUN Creatinine Ratio 17.5 (10-20); Bilirubin,Total 0.6 mg/dl (0.2-1.0); Calcium 8.6 mg/dl (8.6-10.3); Creatinine Clr Calc Pharmacy 22.4 ml/min; Est GFR (African American) 23.6 ml/min; Est GFR (Non-African American) 20.4 ml/min; Globulin 3.1 gm/dl (2.5-4.0); Potassium 3.9 mmol/L (3.5-5.1); Total Protein 6.1 gm/dl (6.0-8.3)
--- NOTE | 2023-11-08 11:07 | Nephrology Progress Note ---
Date of Service November 08, 2023 Assessment & Plan (1) CKD (chronic kidney disease) stage 4, GFR 15-29 ml/min: Plan: rapidly progressive CKD, now stage 4 w/ new baseline of about creatinine 3. historically w/ albuminuria 50-100 mg daily as of fall 2022. UA w/ granular casts, epithelial cells; 2+ protein and trace blood; 1013; pH 5; cloudy; no recent UA on file for comparison not a dialysis candidate w/ end stage HF and w/ worsening liver function/cardiac cirrhosis -recommend palliative consultation to discuss goals of care and tight d/c f/u plan -s/p paracentesis 11/06 of 5L; hx of 8.5L paracentesis last month >> will need serial paracentesis after d/c w/ albumin and may be able to get this through G@H or PCP pending discussion of goals of care/hospice -while in house, give lasix 30 mg IV bid17 versus transition to d/c regimen below for diuretics, K -d/c on FR to 1.5L/day -orders in for standing weights only and strict I/O and d/w nursing team will sign off NEPHRO D/C RECS -close in OP f/u w/ palliative and PCP for ongoing goals of care discussion -f/u in CKD clinic in [place] w/ me in 1-2 weeks for hospital d/c appt; renal nurse to order bmp, ACR, UACM, cbc, phosphorus to be drawn up to 48 hrs before visit (may need mobile lab) -recommend close in f/u w/ [facility] or/and home health or/and PCP -<2 gm daily sodium diet and 1.5 L fluid limit with teaching on how to do these before and after d/c ([facility] may help w/ d/c) -daily standing weights at home to continue -d/c on torsemide 60 mg daily and spironolactone 12.5 mg daily and potassium 10 mEq daily d/c recommendations and plans discussed extensively w/ Dr Monteiro; we are in agreement. medical decision making complex in pt [facility] high risk for readmission. (2) Acute on chronic heart failure with reduced ejection fraction and diastolic dysfunction: Plan: -lasix as above -<2 gm daily Na diet -FR, standing weights as above Admission and Anticipated Discharge Date Admission Date: November 06, 2023 Subjective no acute interval events; denies sob; many questions about low sodium teaching and FR; pt plans to move in to w/ his son in [place]. denies worsening edema or increased abd girth, denies orthopnea Review of Systems 2 Review of Systems: All systems reviewed & are unremarkable except as noted in Subjective Physical Exam 2 Constitutional: well developed, + cachectic and + frail appearing (sitting on side of bed on RA); no acute distress Eyes: EOM intact bilaterally ENMT: Ears: no external ear abnormality Nose: no external nose abnormality Mouth: + dry oral mucous membranes Neck: no nuchal rigidity Respiratory: normal respiratory effort Auscultation: + diminished lung sounds Cardiovascular: Rate/Rhythm: regular rate and regular rhythm Extremities: + edema (1-2+ LLE, RLE) Gastrointestinal (Abdomen): Inspection/Auscultation: + abdomen distended and normal bowel sounds Percussion/Palpation: abdomen soft and + ascites; abdomen nontender Musculoskeletal: Extremities: strength 5/5 throughout Skin: no rashes, warm and dry Results & Data Vital Signs (Past 12 Hours) Vital Signs Temp Pulse Pulse Resp BP BP Pulse Ox 11/08/23 09:11 83 11/08/23 07:45 36.5 C 90 18 93/55 L 93 11/08/23 03:54 36.4 C L 95 H 18 103/64 100 11/08/23 02:13 98 H 11/07/23 23:07 36.7 C 94 H 20 94/54 L 97 O2 Del Method 11/08/23 09:11 11/08/23 07:45 Room Air 11/08/23 03:54 Room Air 11/08/23 02:13 11/07/23 23:07 Room Air Laboratory Results 11/08/23 06:30 11/08/23 06:30
[2023-11-08 11:33] VITALS: PULSE 95; RESP 16; TEMP 97.3; O2SAT 95
[2023-11-08 12:22] VITALS: BP 103/64
--- NOTE | 2023-11-08 12:25 | Discharge Summary ---
Date of Service November 08, 2023 Admission HPI Per Admitting Provider Mr. Jimenes is a 78 y/o male with DM2, CKD3-4, severe ischemic cardiomyopathy with EF on last ECHO in May 2023 at 25-29%,, HTN, dyslipidemia, and other history who presented to [facility] ED due to increased abdominal swelling. Patient states that the day of discharge his passed, and he has struggled to get to a routine with his medications. There was initial confusion with his medications and also dietary habits. He states he is "just tired." He notes that most of the swelling occured in last 3 days, noting a 10pound increase since 11/02. He presented a list of his "sugars and pressures and weights" to show he has been trying to handle his health. He denies chest pain or palpitations. He reports fatigue, NGUYEN, significant uncomfortable abdominal swelling. His discharge weight was 77kg. Weight on arrival 86.7kg. OSH records revealed the following pertinent interval history: 10/28 PCP note : "Today he reports increased abdominal bloating and swelling in his feet. Due to a midunderstanding, he stopped taking his lasix about 4 days ago. He is also not taking his metoprolol. He has been in contact with case management and told her yesterday that he was still taking his medication. He brings a list of what he says are his current medicine and he is taking: ASA 81 mg, benadryl 25 mg, finasteride 5 mg, rosuvastatin 40 mg, vitamin B12 1000 mg and glipizide 20 mg." 10/31 Home Health: "+1 pitting edema to BLE states he went out for dinner yesterday and had high Na meal, encouraged low Na diet" 11/05 Home Health: " States gained 5-6 lbs in last 24 hrs. Increased SOB + abdominal bloating. Sitting in truck to be in air conditioning as unit has not been installed in home to present. Eating [employer] meals. Refusing any IV intervention in home. States he just wants to go to the ED" In the ED, vitals were notable for BP of 90-100s SBP HR of 90s and O2 sat of 100 RA Imaging revealed cardiomegaly with congestion ED interventions: IV lasix Patient to be admitted to [facility] for further evaluation and management of acute on chronic heart failure with reduced ejection fraction exacerbation iso dietary/medication noncompliance Admission Exam Per Admitting Provider GENERAL APPEARANCE: AxOx3 ,sad appearing gentleman, chronically ill HEENT: NC, AT. MMM. EOMI, clear conjunctiva, oropharynx clear. NECK: Supple without lymphadenopathy. No stiffness or restricted ROM. HEART: irregularly irregular, noted loss of fat pad around dcPPM implant LUNGS: diminished breath sound s ABDOMEN: distended/protuberant abdomen with fluid shift EXTREMITIES: Without cyanosis, clubbing . BLE 2+ below knee NEUROLOGICAL: Grossly nonfocal. Alert and oriented, moving all 4 extremities. CN not formally tested but appear grossly intact. . Skin: Warm and dry without any rash. Principal Diagnosis #Acute on chronic heart failure with reduced ejection fraction and diastolic dysfunction: #Severe ischemic cardiomyopathy 25% #s/p dcPPM 2019 Discharge Exam Constitutional: Alert oriented x 3; not in distress Respiratory: normal respiratory effort, lungs clear to auscultation, no wheeze, rales, rhonchi. Normal insp/exp effort, no accessory muscle use Cardiovascular: regular, no murmur, no edema Vessels: no JVD or carotid bruit Chest: normal inspection of chest Abdomen: Mildly distended; nontender Skin: no rashes, warm and dry normal turgor. 1+ pitting edema up to knee Neurologic: PERRL, EOMI, accommodation nl, no face palsy, no dysarthria CN's II- XI intact bilaterally and moves all extremities Psychiatric: A+Ox3, euthymic affect Discharge Data Allergies Allergy/AdvReac Type Severity Reaction Status Date / Time cefadroxil Allergy Unknown RASH Verified 03/17/19 14:33 Consultations 11/06/23 18:51 ED Decision to Admit Stat 11/07/23 00:12 Consult Nephrology Routine 11/08/23 11:12 Consult Palliative Care Routine Ordered Studies 11/07/23 09:30 IR paracentesis abd w/img US Routine Hospital Course (1) Acute on chronic heart failure with reduced ejection fraction and diastolic dysfunction: Plan Mr. Jimenes is a 78 y/o male with DM2, CKD3-4, severe ischemic cardiomyopathy with EF on last ECHO in May 2023 at 25-29%, HTN, dyslipidemia, and other history admitted for management of acute on chronic heart failure with reduced EF. Work-up in the ED revealed BNP was >4700. Patient underwent paracentesis by radiology on November 07, 2023 with removal of 5 L of fluid. Nephrology was consulted for comanagement; was placed on Lasix 30 mg IV twice daily diuresis. Patient reported improvement in his symptoms after the paracentesis. His creatinine remained stable throughout the hospitalization. At discharge, Lasix was stopped as per recommendation by nephrology; patient was placed on torsemide 60 mg, spironolactone 12.5 mg and potassium 10 mEq as per nephrology. Metformin was stopped due to low creatinine clearance; glipizide dose was decreased to 10 mg once a day. Discussion was done with patient regarding goals of care. We discussed that patient has advance heart failure and progressive CKD; he has required serial paracentesis recently in the last 2 months. He acknowledges that his health has deteriorated. He reports that he plans to move in with his son in near future. We discussed about future potential need for dialysis; he reports that it is not something he would want. He reports that he is making arrangements regarding his will and finances. We also discussed possibly hospice care at home. He reports that he has experience with hospice care before for his . It is something that he will think about it. Will set up primary care follow-up for him as outpatient in next week; he will require referral to palliative care. He will need BMP and nephrology follow-up. Please note the above document was generated using voice recognition software. It may contain grammatical, syntax or spelling errors. Any formal questions or concerns about the content, text or information contained within the body of this dictation should be directly addressed to the provider for clarification Total Time Total Time Spent Total Time Spent (In Minutes): 45 Total Time Includes: Examination of the Patient, Discharge Planning, Medication Reconciliation, Communication With Other Providers and Other Discharge Plan Discharge Items Patient Disposition: Home - Self-Care Reason For Visit: Fr Discharge Diagnosis: #Acute on chronic heart failure with reduced ejection fraction and diastolic dysfunction: #Severe ischemic cardiomyopathy 25% Activity: Resume your previous activity Non-emergency contact: Primary Care Provider Call non-emergency contact if: you have any medication questions and your symptoms worsen Follow-up/Referrals: Haley Boggs DO [Primary Care Provider] - Diet: Regular Addtl Attending Provider Instructions: You Were admitted to the hospital due to acute exacerbation of the heart failure. You underwent removal of fluid from your abdominal cavity on November 07, 2023. Your evaluated by nephrology during the hospitalization. Please follow following recommendation: 1) Please eat low-salt diet as we discussed and referred to the information provided 2) Restrict all fluids (water, juice, ice, soda) to 1500 cc( 6 cups) in one day. 3) Weigh yourself daily. If you notice that your weight is going up by 3 to 5 pounds; please contact your primary care doctor to make adjustment to your medication. Following medication changes are also done: 1) stop taking metformin as your kidney function has worsened. The dose of the glipizide has been decreased to 10 mg once a day instead of 20 mg once a day due to decreased kidney function 2) stop taking Lasix. You are prescribed torsemide which is also a diuretic to be taken once a day in the morning. You are also prescribed spironolactone 25 mg tablets; take half a tablet a day. Take 10 mEq potassium capsule every day An appointment with your primary care doctor will be set up. Please obtain BMP during follow-up. Also, you will obtain referral to palliative care to discuss long-term goals of care. A nephrology appointment will also be set up for you to follow-up Pending Studies at Discharge: No Stand-Alone Forms: [facility] [employer], Smoking Cessation Medications and DC Order Prescriptions: New torsemide 60 mg tablet 60 mg PO DAILY Qty: 30 0RF spironolactone 25 mg tablet 12.5 mg PO DAILY Qty: 30 0RF potassium chloride 10 mEq capsule, extended release 10 meq PO DAILY Qty: 30 0RF Continued cyanocobalamin (vitamin B-12) [Vitamin B-12] 1,000 mcg Tablet 1,000 mcg PO QAM aspirin 81 mg Tablet,Delayed Release (Dr/Ec) 81 mg PO QAM diphenhydramine HCl [Benadryl Allergy] 25 mg Tablet 25 mg PO QAM finasteride 5 mg tablet 5 mg PO QAM rosuvastatin 40 mg tablet 40 mg PO QAM metoprolol succinate 25 mg Tablet Extended Release 24 Hr 12.5 mg PO BID Qty: 30 0RF Changed glipizide 10 mg Tablet Extended Release 24hr 10 mg PO DAILY Qty: 0 0RF Rx Instructions: PRIOR TO MEAL Discontinued metformin 500 mg tablet extended release 24 hr 500 mg PO BID furosemide 40 mg Tablet 40 mg PO BID17 Qty: 60 0RF Discharge Orders: Discharge Order (Routine); Ordered 11/08/23 Ordered By: Artem Monteiro Admission Data Admit Date/Time: 11/06/23 19:30 Attending Provider: Artem Monteiro Admit Provider: Roz Bunch Primary Care Provider: Haley Boggs Other Providers: Roz Bunch; Roshan Donaldson; Alethea Alvarenga Other Interventions: Discharge Summary Assessment (RN) Last Done: 11/08/23 12:20
--- NOTE | 2023-11-09 05:48 | Electrocardiogram Report ---
Test Reason : Blood Pressure : / mmHG Vent. Rate : 099 BPM Atrial Rate : 099 BPM P-R Int : 192 ms QRS Dur : 110 ms QT Int : 390 ms P-R-T Axes : 000 -26 142 degrees QTc Int : 500 ms Sinus rhythm with Premature supraventricular complexes and with frequent , and consecutive Premature ventricular complexes Left ventricular hypertrophy with repolarization abnormality ( R in aVL ) Inferior infarct , age undetermined Prolonged QT Abnormal ECG When compared with ECG of 11-OCT-2023 11:12, Premature ventricular complexes are now Present Premature supraventricular complexes are now Present Non-specific change in ST segment in Lateral leads Confirmed by Kapil Peguero ([id number]) on 11/09/2023 5:48:07 AM Referred By: REFERRED SELF Confirmed By:Kapil Peguero
== END 2023-11-08 13:29 | disposition home or self-care (01) | DRG 291 ==
LOC: ED 16:23 → SUATTDRO 19:30 → EDINP 19:30 → 2N 23:22
DX: Z88.1 Allergy status to other antibiotic agents; N18.5 Chronic kidney disease, stage 5; K76.6 Portal hypertension; G25.81 Restless legs syndrome; Z95.0 Presence of cardiac pacemaker; R18.8 Other ascites; D63.1 Anemia in chronic kidney disease; I25.5 Ischemic cardiomyopathy; I13.2 Hypertensive heart and chronic kidney disease with heart failure and with stage 5 chronic kidney disease, or end stage renal disease; R64 Cachexia; Z79.82 Long term (current) use of aspirin; Z79.84 Long term (current) use of oral hypoglycemic drugs; Z51.5 Encounter for palliative care; I50.43 Acute on chronic combined systolic (congestive) and diastolic (congestive) heart failure; E78.5 Hyperlipidemia, unspecified; E11.22 Type 2 diabetes mellitus with diabetic chronic kidney disease; K21.9 Gastro-esophageal reflux disease without esophagitis; Z79.899 Other long term (current) drug therapy; I95.9 Hypotension, unspecified; N40.0 Benign prostatic hyperplasia without lower urinary tract symptoms

== ENCOUNTER 2023-11-18 18:05 | Inpatient (IN) ==
--- NOTE | 2023-11-18 18:20 | ED Triage Note ---
Date of Service November 18, 2023 Provider in Triage Author: Michelle Raines History of Present Illness This patient was briefly evaluated while in triage. An abbreviated physical exam was performed. This patient is a 78-year-old Male who presents to the ED for evaluation of shortness of breath. He has a history of ascites which causes difficulty breathing. He states that his air conditioning quit working and it got very hot in the house which caused him difficulty breathing. Physical Exam GENERAL: Non-toxic and in no acute distress. Sitting up in wheelchair in triage. HEART: Regular rate and rhythm. LUNGS: Clear to auscultation. No accessory muscle use. NEURO: Alert and oriented. No obvious neurological deficits on quick neuro exam. Initial orders for labs and / or imaging were placed and patient was placed in the waiting area until a bed is available. Please see further documentation for the full ED course.
[2023-11-18 19:12] LABS: Basophils # (auto) 0.03 K/uL (0.00-0.20); Basophils % (auto) 0.5 %; Hematocrit (blood only) 33.6 % (42.0-52.0); Hemoglobin 10.3 g/dl (14.0-18.0); Immature Granulocytes # (auto) 0.02 K/uL (0.01-0.20); Immature Granulocytes % (auto) 0.3 %; Lymphocytes # (auto) 0.44 K/uL (1.20-3.40); Lymphocytes % (auto) 7.2 %; Mean Corpuscular Hgb Conc 30.7 g/dL (32.0-36.0); Mean Corpuscular Volume 78.3 fL (80.0-100.0); Mean Platelet Volume 10.4 fL (9.4-12.4); Monocytes # (auto) 0.47 K/uL (0.11-0.59); Monocytes % (auto) 7.7 %; Neutrophils # (auto) 5.12 K/uL (1.40-6.50); Neutrophils % (auto) 84.3 %; Platelet Count 251 K/uL (130-400); RDW Coefficient of Variation 22.2 % (11.5-14.5); Red Blood Count 4.29 M/uL (4.70-6.10); White Blood Count 6.08 K/ul (4.8-10.8)
[2023-11-18 19:28] LABS: Alanine Aminotransferase 57 U/L (7-52); Albumin Level 3.4 gm/dl (3.4-5.0); Alkaline Phosphatase 132 U/L (34-104); Anion Gap 12 (3-11); Anisocytosis Present; Aspartate Aminotransferase 52 U/L (13-39); Bilirubin,Total 0.7 mg/dl (0.2-1.0); Blood Urea Nitrogen 57 mg/dl (6-23); Calcium 8.9 mg/dl (8.6-10.3); Carbon Dioxide 22 mmol/L (21-32); Chloride 102 mmol/L (98-107); Est GFR (African American) 19.4 ml/min; Est GFR (Non-African American) 16.7 ml/min; Globulin 3.5 gm/dl (2.5-4.0); Glucose 133 mg/dl (70-99(Fasting)); Potassium 4.4 mmol/L (3.5-5.1); Sodium 136 mmol/L (136-145); Total Protein 6.9 gm/dl (6.0-8.3)
[2023-11-18 19:35] LABS: Troponin I High Sensitivity 45.8 pg/ml (0-20)
--- NOTE | 2023-11-18 19:55 | Emergency Department Note ---
Impression & Plan SOB (shortness of breath), Ascites, Anemia, Cirrhosis, JAMIR (acute kidney injury), Elevated troponin ED Provider Note NAME: KYE WALLS AGE: 78 SEX: M : 1945 ARRIVES VIA: Walk-In INFORMANT: [Patient] ED PROVIDER(S): [Dustin Wiley MD] CHIEF COMPLAINT: Shortness of breath HISTORY OF PRESENT ILLNESS: The patient is a 78-year-old male who states that he has been having increasing shortness of breath that worsened today with the hot weather. He has noticed some increasing size to his abdomen, he thinks he is a full of fluid. He is on diuretics. He has a history of cirrhosis. He has not had fever. No chest pain. The patient states that he does occasionally feel this way from excessive fluid buildup. He has had 8 L taken off in the past at 1 time. PMHx/PSHx/Social Hx: See Below PHYSICAL EXAM: GENERAL: Patient is in no acute distress. HEENT: No acute trauma, normocephalic atraumatic, mucous membranes moist, no nasal congestion. NECK: No stridor, no adenopathy, no meningismus, trachea is midline. LUNGS: Occasional crackles on the left, no wheezing or respiratory distress. HEART: Distant heart tones with a subtle systolic murmur. Rhythm is irregular. Normal rate. ABDOMEN: Soft, nontender, no peritonitis. Abdominal distention consistent with ascites. EXTREMITIES: No cyanosis, full range of motion of all the joints without pain or difficulty. Mild to moderate bilateral pedal edema. NEUROLOGIC: Oriented x 3, no acute motor or sensory deficits, no focal weakness. SKIN: No jaundice, no diaphoresis. DIFFERENTIAL DIAGNOSIS: Ascites, fluid overload, CHF, anemia, electrolyte imbalance, renal failure, among others. EMERGENCY DEPARTMENT PROCEDURES: MEDICAL DECISION MAKING: There is no leukocytosis. The patient is anemic but this appears baseline looking back at previous testing. There was a normal platelet count. INR slightly elevated, likely from his liver disease. Patient did have findings of acute kidney injury with a creatinine of 3.36. Lactic acid level was not elevated making severe sepsis less likely. Liver enzyme elevation was noted consistent with his history of liver disease. BNP was elevated consistent with fluid overload. ECG shows a sinus rhythm with PVCs, no acute ST elevation. Cardiac enzyme testing x 1 is slightly elevated. This troponin elevation could be secondary to cardiac injury or potentially just mismatch from his renal disease. Urinalysis did not show findings of infection. Chest x-ray did not show mediastinal widening, pneumonia or pneumothorax. On exam, the patient did have evidence for ascites. The patient presents with increasing dyspnea. He has had increasing abdominal distention. He very likely is in need of a paracentesis. Given his age, given his dyspnea, given the lower blood pressure, given his acute kidney injury and the need for paracentesis, I do think a hospital stay is warranted. I spoke with the patient and case management, the on-call hospitalist was consulted. Prior/Outside records/notes reviewed: None ECG per my interpretation: Indication was shortness of breath. The ECG shows what appears to be a sinus rhythm with PVCs. The rate is 102. There is no acute ST elevation. There is a potential old inferior infarct. QTc is 505. Imaging/x-ray results per my interpretation: Chest x-ray does not show CHF, pneumonia or pneumothorax. Chronic Medical/Social conditions affecting care: Advanced age, history of cirrhosis. Care/Management discussed with: Case management, the on-call hospitalist. Level of care consideration(s): After review of the information above and other included data: --I believe the patient requires escalation of care to admission DISPOSITION: Admission Past Med/Surg History Problem List Elevated troponin (Acute) JAMIR (acute kidney injury) (Acute) Cirrhosis (Acute) Anemia (Acute) Ascites (Acute) SOB (shortness of breath) (Acute) CKD (chronic kidney disease) stage 4, GFR 15-29 ml/min Bilateral edema of lower extremity (Acute) NGUYEN (dyspnea on exertion) (Acute) Hypomagnesemia Acute on chronic heart failure with reduced ejection fraction and diastolic dysfunction Ascites Acute on chronic renal failure Fluid overload (Acute) Acute kidney injury superimposed on CKD (Acute) Sinus bradycardia s/p dual chamber ICD Aortic stenosis Exertional dyspnea (Acute) Hx of coronary artery disease (Acute) Dyspnea on exertion (Acute) RLS (restless legs syndrome) (Chronic) Fibromyalgia (Chronic) PMR (polymyalgia rheumatica) (Chronic) GERD (gastroesophageal reflux disease) (Chronic) HLD (hyperlipidemia) (Chronic) continue statin CAD (coronary artery disease) (Chronic) continue ASA and low dose BB and imdur and lasix Diabetes mellitus, type II (Chronic) CAD (coronary artery disease) (Chronic) continue ASA Ischemic cardiomyopathy (Chronic) Pt admitted for elective ICD due to ICM and SB. Underwent procedure without any complications; monitored overnight and discharged home. CKD (chronic kidney disease), stage III (Chronic) S/P cardiac cath (Chronic) "12/25/2014-LM: 30% ostial LM stenosis. LAD: Functionally occluded after the takeoff of the second diagonal branch. LCX: Minor nonobstructive disease. RCA: Diffusely diseased with moderately severe disease in the proximal and mid segment and a 70% distal stenosis. " S/P wrist surgery (Chronic) S/P vasectomy (Chronic) History of bilateral knee replacement (Chronic) Medical History Anemia NSVT (nonsustained ventricular tachycardia) Surgical History H/O wrist surgery History of cardiac catheterization History of knee replacement Family History Other Heart disease Stroke Social History Smoking Status: Never smoker Second Hand Exposure: No; Do You Dip or Chew Tobacco: No; Hx Alcohol Use: No Hx Substance Use: No Preferred Language: [place]an Communication Ability: Effective [employer] Specialists Required: No Beliefs That Will Affect Care: None Current Living Situation: Alone Feels Safe at Home: Yes Assistive Devices: Cane Allergies Allergies Allergy/AdvReac Type Severity Reaction Status Date / Time cefadroxil Allergy Unknown RASH Verified 11/18/23 20:32 Home Meds Home Medications Medication Instructions Recorded Confirmed aspirin 81 mg tablet,delayed 81 mg PO QAM 03/17/19 11/18/23 release cyanocobalamin (vitamin B-12) 1,000 mcg PO QAM 03/17/19 11/18/23 1,000 mcg tablet (Vitamin B-12) diphenhydramine HCl 25 mg tablet 25 mg PO QAM 03/17/19 11/18/23 (Benadryl Allergy) finasteride 5 mg tablet 5 mg PO QAM 03/17/19 11/18/23 rosuvastatin 40 mg tablet 40 mg PO QAM 03/17/19 11/18/23 glipizide 10 mg tablet, extended 20 mg PO DAILY 11/18/23 11/18/23 release 24 hr torsemide 20 mg tablet 60 mg PO DAILY 11/18/23 11/18/23 Previous Rx's Medication Instructions Recorded metoprolol succinate 25 mg 12.5 mg (1/2 x 25 mg) PO BID #30 10/18/23 tablet,extended release 24 hr tabs potassium chloride 10 mEq 10 meq PO DAILY #30 caps 11/08/23 capsule,extended release spironolactone 25 mg tablet 12.5 mg (1/2 x 25 mg) PO DAILY #30 11/08/23 tabs Results & Data (ED) Vital Signs Vital Signs - 24 hr 11/18/23 18:19 11/18/23 19:33 11/18/23 19:34 Temperature 37.1 C Temperature Source Temporal Artery Scan Pulse Rate 103 H 94 H 95 H Pulse Rate [Apical] Pulse Rate from SpO2 Sensor 97 H Pulse Strength [Apical] Respiratory Rate 24 7 L Respiratory Effort / Characteristics Respiratory Depth Normal Respiratory Pattern Blood Pressure 94/60 L Blood Pressure [Left Arm] Blood Pressure Mean 71 Blood Pressure Mean [Left Arm] Blood Pressure Position Sitting Pulse Oximetry 99 97 Oxygen Delivery Method Room Air Sepsis Recent Fever Within 48 Hours No Sepsis New/Unexplained Change in Mental Status No Sepsis Action Taken by Nursing No Action Required 11/18/23 19:35 11/18/23 19:35 11/18/23 19:36 Temperature Temperature Source Pulse Rate 98 H Pulse Rate [Apical] 64 Pulse Rate from SpO2 Sensor Pulse Strength [Apical] Normal Respiratory Rate 25 H 25 H Respiratory Effort / Characteristics Short of Breath SOB on Exertion Respiratory Depth Respiratory Pattern Regular Blood Pressure Blood Pressure [Left Arm] 94/67 L Blood Pressure Mean Blood Pressure Mean [Left Arm] 76 Blood Pressure Position Pulse Oximetry 99 97 97 Oxygen Delivery Method Nasal Cannula Room Air Room Air Sepsis Recent Fever Within 48 Hours Sepsis New/Unexplained Change in Mental Status Sepsis Action Taken by Nursing 11/18/23 19:40 11/18/23 19:40 11/18/23 19:45 Temperature Temperature Source Pulse Rate 94 H Pulse Rate [Apical] Pulse Rate from SpO2 Sensor 94 H Pulse Strength [Apical] Respiratory Rate 7 L Respiratory Effort / Characteristics Respiratory Depth Respiratory Pattern Blood Pressure 91/67 L 95/67 L Blood Pressure [Left Arm] Blood Pressure Mean 76 76 Blood Pressure Mean [Left Arm] Blood Pressure Position Pulse Oximetry 97 Oxygen Delivery Method Sepsis Recent Fever Within 48 Hours Sepsis New/Unexplained Change in Mental Status Sepsis Action Taken by Nursing 11/18/23 19:45 11/18/23 19:50 11/18/23 20:00 Temperature Temperature Source Pulse Rate 95 H 96 H Pulse Rate [Apical] Pulse Rate from SpO2 Sensor 94 H 94 H Pulse Strength [Apical] Respiratory Rate 12 9 L Respiratory Effort / Characteristics Respiratory Depth Respiratory Pattern Blood Pressure 99/76 L Blood Pressure [Left Arm] Blood Pressure Mean 84 Blood Pressure Mean [Left Arm] Blood Pressure Position Pulse Oximetry 97 98 Oxygen Delivery Method Sepsis Recent Fever Within 48 Hours Sepsis New/Unexplained Change in Mental Status Sepsis Action Taken by Nursing 11/18/23 20:00 11/18/23 20:10 11/18/23 20:15 Temperature Temperature Source Pulse Rate 94 H 95 H 98 H Pulse Rate [Apical] Pulse Rate from SpO2 Sensor 97 H 96 H 98 H Pulse Strength [Apical] Respiratory Rate 18 19 19 Respiratory Effort / Characteristics Respiratory Depth Respiratory Pattern Blood Pressure Blood Pressure [Left Arm] Blood Pressure Mean Blood Pressure Mean [Left Arm] Blood Pressure Position Pulse Oximetry 97 97 96 Oxygen Delivery Method Sepsis Recent Fever Within 48 Hours Sepsis New/Unexplained Change in Mental Status Sepsis Action Taken by Nursing 11/18/23 20:15 11/18/23 20:20 11/18/23 20:30 Temperature Temperature Source Pulse Rate 98 H Pulse Rate [Apical] Pulse Rate from SpO2 Sensor 98 H Pulse Strength [Apical] Respiratory Rate 16 Respiratory Effort / Characteristics Respiratory Depth Respiratory Pattern Blood Pressure 108/68 99/64 L Blood Pressure [Left Arm] Blood Pressure Mean 85 75 Blood Pressure Mean [Left Arm] Blood Pressure Position Pulse Oximetry 99 Oxygen Delivery Method Sepsis Recent Fever Within 48 Hours Sepsis New/Unexplained Change in Mental Status Sepsis Action Taken by Nursing 11/18/23 20:30 11/18/23 20:40 11/18/23 20:45 Temperature Temperature Source Pulse Rate 97 H 95 H 94 H Pulse Rate [Apical] Pulse Rate from SpO2 Sensor 99 H 96 H 95 H Pulse Strength [Apical] Respiratory Rate 19 15 18 Respiratory Effort / Characteristics Respiratory Depth Respiratory Pattern Blood Pressure Blood Pressure [Left Arm] Blood Pressure Mean Blood Pressure Mean [Left Arm] Blood Pressure Position Pulse Oximetry 98 99 98 Oxygen Delivery Method Sepsis Recent Fever Within 48 Hours Sepsis New/Unexplained Change in Mental Status Sepsis Action Taken by Nursing 11/18/23 20:45 11/18/23 20:50 11/18/23 21:00 Temperature Temperature Source Pulse Rate 99 H Pulse Rate [Apical] 95 H Pulse Rate from SpO2 Sensor 101 H Pulse Strength [Apical] Respiratory Rate 17 19 Respiratory Effort / Characteristics Non-Labored Respiratory Depth Normal Respiratory Pattern Regular Blood Pressure 100/68 Blood Pressure [Left Arm] 96/66 L Blood Pressure Mean 76 Blood Pressure Mean [Left Arm] 76 Blood Pressure Position Pulse Oximetry 99 96 Oxygen Delivery Method Room Air Sepsis Recent Fever Within 48 Hours Sepsis New/Unexplained Change in Mental Status Sepsis Action Taken by Nursing 11/18/23 21:00 11/18/23 21:00 11/18/23 21:10 Temperature Temperature Source Pulse Rate 95 H 95 H Pulse Rate [Apical] Pulse Rate from SpO2 Sensor 95 H 95 H Pulse Strength [Apical] Respiratory Rate 19 18 Respiratory Effort / Characteristics Respiratory Depth Respiratory Pattern Blood Pressure 96/66 L Blood Pressure [Left Arm] Blood Pressure Mean 81 Blood Pressure Mean [Left Arm] Blood Pressure Position Pulse Oximetry 97 98 Oxygen Delivery Method Sepsis Recent Fever Within 48 Hours Sepsis New/Unexplained Change in Mental Status Sepsis Action Taken by Nursing 11/18/23 21:15 11/18/23 21:15 11/18/23 21:20 Temperature Temperature Source Pulse Rate 93 H 100 H Pulse Rate [Apical] Pulse Rate from SpO2 Sensor 94 H 99 H Pulse Strength [Apical] Respiratory Rate 20 18 Respiratory Effort / Characteristics Respiratory Depth Respiratory Pattern Blood Pressure 92/65 L Blood Pressure [Left Arm] Blood Pressure Mean 72 Blood Pressure Mean [Left Arm] Blood Pressure Position Pulse Oximetry 97 99 Oxygen Delivery Method Sepsis Recent Fever Within 48 Hours Sepsis New/Unexplained Change in Mental Status Sepsis Action Taken by Nursing 11/18/23 21:30 11/18/23 21:30 11/18/23 21:40 Temperature Temperature Source Pulse Rate 94 H 93 H Pulse Rate [Apical] Pulse Rate from SpO2 Sensor 94 H 91 H Pulse Strength [Apical] Respiratory Rate 18 20 Respiratory Effort / Characteristics Respiratory Depth Respiratory Pattern Blood Pressure 98/67 L Blood Pressure [Left Arm] Blood Pressure Mean 77 Blood Pressure Mean [Left Arm] Blood Pressure Position Pulse Oximetry 100 98 Oxygen Delivery Method Sepsis Recent Fever Within 48 Hours Sepsis New/Unexplained Change in Mental Status Sepsis Action Taken by Nursing 11/18/23 21:45 11/18/23 21:45 11/18/23 21:50 Temperature Temperature Source Pulse Rate 90 94 H Pulse Rate [Apical] Pulse Rate from SpO2 Sensor 85 95 H Pulse Strength [Apical] Respiratory Rate 20 23 Respiratory Effort / Characteristics Respiratory Depth Respiratory Pattern Blood Pressure 99/71 L Blood Pressure [Left Arm] Blood Pressure Mean 75 Blood Pressure Mean [Left Arm] Blood Pressure Position Pulse Oximetry 97 97 Oxygen Delivery Method Sepsis Recent Fever Within 48 Hours Sepsis New/Unexplained Change in Mental Status Sepsis Action Taken by Nursing 11/18/23 22:00 11/18/23 22:00 11/18/23 22:10 Temperature Temperature Source Pulse Rate 96 H 99 H Pulse Rate [Apical] Pulse Rate from SpO2 Sensor 100 H 96 H Pulse Strength [Apical] Respiratory Rate 21 23 Respiratory Effort / Characteristics Respiratory Depth Respiratory Pattern Blood Pressure 101/64 Blood Pressure [Left Arm] Blood Pressure Mean 77 Blood Pressure Mean [Left Arm] Blood Pressure Position Pulse Oximetry 98 100 Oxygen Delivery Method Sepsis Recent Fever Within 48 Hours Sepsis New/Unexplained Change in Mental Status Sepsis Action Taken by Nursing 11/18/23 22:15 11/18/23 22:15 11/18/23 22:17 Temperature Temperature Source Pulse Rate 93 H 95 H Pulse Rate [Apical] Pulse Rate from SpO2 Sensor 96 H 95 H Pulse Strength [Apical] Respiratory Rate 15 19 Respiratory Effort / Characteristics Respiratory Depth Respiratory Pattern Blood Pressure 96/70 L Blood Pressure [Left Arm] Blood Pressure Mean 77 Blood Pressure Mean [Left Arm] Blood Pressure Position Pulse Oximetry 98 99 Oxygen Delivery Method Sepsis Recent Fever Within 48 Hours Sepsis New/Unexplained Change in Mental Status Sepsis Action Taken by Nursing 11/18/23 22:17 11/18/23 22:20 11/18/23 22:30 Temperature Temperature Source Pulse Rate 93 H 96 H Pulse Rate [Apical] Pulse Rate from SpO2 Sensor 94 H 97 H Pulse Strength [Apical] Respiratory Rate 18 16 Respiratory Effort / Characteristics Respiratory Depth Respiratory Pattern Blood Pressure 97/70 L Blood Pressure [Left Arm] Blood Pressure Mean 83 Blood Pressure Mean [Left Arm] Blood Pressure Position Pulse Oximetry 99 100 Oxygen Delivery Method Sepsis Recent Fever Within 48 Hours Sepsis New/Unexplained Change in Mental Status Sepsis Action Taken by Nursing 11/18/23 23:00 11/18/23 23:30 11/18/23 23:32 Temperature Temperature Source Pulse Rate 92 H 91 H 90 Pulse Rate [Apical] Pulse Rate from SpO2 Sensor Pulse Strength [Apical] Respiratory Rate 19 19 Respiratory Effort / Characteristics Respiratory Depth Respiratory Pattern Blood Pressure 98/66 L Blood Pressure [Left Arm] Blood Pressure Mean 76 Blood Pressure Mean [Left Arm] Blood Pressure Position Pulse Oximetry 98 98 Oxygen Delivery Method Room Air Room Air Sepsis Recent Fever Within 48 Hours Sepsis New/Unexplained Change in Mental Status Sepsis Action Taken by Longterm Medications Current Medication List: was personally reviewed by me Laboratory Data Attestation: I reviewed the patient's lab results. 11/18/23 18:53 11/18/23 18:53 Lab Results 11/18/23 11/18/23 11/18/23 Range/Units 18:53 21:29 22:27 WBC 6.08 (4.8-10.8) K/ul RBC 4.29 L (4.70-6.10) M/uL Hgb 10.3 L (14.0-18.0) g/dl Hct 33.6 L (42.0-52.0) % MCV 78.3 L (80.0-100.0) fL MCH 24.0 L (25.0-34.0) pg MCHC 30.7 L (32.0-36.0) g/dL RDW Std Deviation 62.0 H (36.4-46.3) fL RDW Coeff of [place] 22.2 H (11.5-14.5) % Plt Count 251 (130-400) K/uL MPV 10.4 (9.4-12.4) fL Immature Gran % (Auto) 0.3 % Neut % (Auto) 84.3 % Lymph % (Auto) 7.2 % [place] % (Auto) 7.7 % Eos % (Auto) 0.0 % Baso % (Auto) 0.5 % Neut # (Auto) 5.12 (1.40-6.50) K/uL Lymph # (Auto) 0.44 L (1.20-3.40) K/uL [place] # (Auto) 0.47 (0.11-0.59) K/uL Eos # (Auto) 0.00 (0.00-0.50) K/uL Baso # (Auto) 0.03 (0.00-0.20) K/uL Immature Gran # (Auto) 0.02 (0.01-0.20) K/uL Anisocytosis Present PT 14.0 H (9.0-12.0) Seconds INR 1.3 H (0.9-1.1) Sodium 136 (136-145) mmol/L Potassium 4.4 (3.5-5.1) mmol/L Chloride 102 (98-107) mmol/L Carbon Dioxide 22 (21-32) mmol/L Anion Gap 12 H (3-11) BUN 57 H (6-23) mg/dl Creatinine 3.36 H (0.6-1.4) mg/dl Est Cr Clr Drug Dosing Not Reportable Est GFR ( Amer) 19.4 ml/min Est GFR (Non-Af Amer) 16.7 ml/min BUN/Creatinine Ratio 17.0 (10-20) Glucose 133 H (70-99(Fasting)) mg/dl Lactate 1.3 (0.4-2.0) mmol/L Calcium 8.9 (8.6-10.3) mg/dl Magnesium 1.9 (1.7-2.4) mg/dl Total Bilirubin 0.7 (0.2-1.0) mg/dl AST 52 H (13-39) U/L ALT 57 H (7-52) U/L Alkaline Phosphatase 132 H (34-104) U/L Troponin I High Sens 45.8 H 47.2 H (0-20) pg/ml B-Natriuretic Peptide 4698 H (0-100) pg/ml Total Protein 6.9 (6.0-8.3) gm/dl Albumin 3.4 (3.4-5.0) gm/dl Globulin 3.5 (2.5-4.0) gm/dl Albumin/Globulin Ratio 1.0 (0.9-2) Urine Color Yellow Urine Appearance Cloudy A (Clear) Urine pH 5.0 (4.5-7.5) Ur Specific [place] 1.010 (1.000-1.030) Urine Protein 1+ H (Negative) Urine Glucose (UA) Negative (Negative) Urine Ketones Negative (Negative) Urine Blood Trace H (Negative) Urine Nitrite Negative (Negative) Urine Bilirubin Negative (Negative) Urine Urobilinogen Negative (Negative) Ur Leukocyte Esterase Negative (Negative) Urine WBC (Auto) 0-5 (0-5) /hpf Urine RBC (Auto) 0-2 (0-2) /hpf U Hyaline Cast (Auto) >20 H (0-2) /lpf U Epithel Cells (Auto) 0-2 (0-2) /hpf Urine Bacteria (Auto) None Seen (None Seen) Hyaline Casts Present A (None Presnt) /lpf Administered Medications Discontinued Medications Albumin Human (Albumin 25%) 25 gm in 100 mls @ 50 mls/hr IV ONE ONE Stop: 11/18/23 22:01 Last Infusion: 11/18/23 22:31 Dose: Infused Documented By: Admin: 11/18/23 20:31 Dose: 50 mls/hr Documented By: [facility] Discharge Plan Visit Data Chief Complaint: Shortness of Breath/Dyspnea Stated Complaint: SOB, FLUID RETENSION IN ABD/EDEMA ED Provider: Dustin Wiley Discharge Problem: SOB (shortness of breath), Ascites, Anemia, Cirrhosis, JAMIR (acute kidney injury), Elevated troponin Patient Disposition: Admitted As Inpatient Condition: Fair Forms Stand Alone Forms: [facility] Prescriptions Prescriptions: No Action cyanocobalamin (vitamin B-12) [Vitamin B-12] 1,000 mcg Tablet 1,000 mcg PO QAM aspirin 81 mg Tablet,Delayed Release (Dr/Ec) 81 mg PO QAM diphenhydramine HCl [Benadryl Allergy] 25 mg Tablet 25 mg PO QAM finasteride 5 mg tablet 5 mg PO QAM rosuvastatin 40 mg tablet 40 mg PO QAM metoprolol succinate 25 mg Tablet Extended Release 24 Hr 12.5 mg PO BID Qty: 30 0RF spironolactone 25 mg tablet 12.5 mg PO DAILY Qty: 30 0RF potassium chloride 10 mEq capsule, extended release 10 meq PO DAILY Qty: 30 0RF torsemide 20 mg tablet 60 mg PO DAILY glipizide 10 mg tablet extended release 24hr 20 mg PO DAILY Rx Instructions: PRIOR TO MEAL Referrals Referrals: Haley Boggs DO [Primary Care Provider] - Discharge Problem: Ascites Qualifiers: Ascites type: other type Qualified Code(s): R18.8 - Other ascites Anemia Qualifiers: Anemia type: unspecified type Qualified Code(s): D64.9 - Anemia, unspecified Cirrhosis Qualifiers: Hepatic cirrhosis type: unspecified hepatic cirrhosis Ascites presence: with ascites Qualified Code(s): K74.60 - Unspecified cirrhosis of liver; R18.8 - Other ascites
[2023-11-18] MEDS ORDERED: Patient's HEIGHT &/or WEIGHT Needed STA (20:07)
[2023-11-18] MEDS: ALBUMIN 25% 25 GM/100 ML VIAL IV ONE (20:31)
[2023-11-18 20:36] LABS: Magnesium 1.9 mg/dl (1.7-2.4)
[2023-11-18 20:43] LABS: INR 1.3 (0.9-1.1)
[2023-11-18 22:08] LABS: Troponin I High Sensitivity 47.2 pg/ml (0-20)
[2023-11-18 22:51] LABS: Appearance Urine Cloudy (Clear); Bacteria Urine Automated None Seen (None Seen); Bilirubin Urine Negative (Negative); Blood Urine Trace (Negative); Cast Urine Automated >20 /lpf (0-2); Color Urine Yellow; Epithelial Cell Urine Auto 0-2 /hpf (0-2); Glucose Urine UA Negative (Negative); Hyaline Casts Urine Present /lpf (None Presnt); Ketones Urine Negative (Negative); Leukocyte Esterase Urine Negative (Negative); Nitrite Urine Negative (Negative); Protein Urine 1+ (Negative); RBC Urine Automated 0-2 /hpf (0-2); Urobilinogen Urine Negative (Negative); WBC Urine Automated 0-5 /hpf (0-5)
--- NOTE | 2023-11-19 00:51 | History & Physical Report ---
Date of Service November 19, 2023 Assessment & Plan (1) CHF (congestive heart failure): Plan: Decompensated heart failure in the setting of cardiorenal syndrome hx systolic dysfunction status post ICD Recurrent admissions Troponin elevation secondary above Abdominal distention likely recurrent ascites secondary to CHF LE swelling secondary to CHF rule out DVT hx CAD hypertension, BP on the lower side hyperlipidemia, on statin Rx valvular heart disease (moderate versus pseudostenosis/MR, mild TR) DM2 on oral medications, reasonable control as of recent hemoglobin A1c of 8 last month chronic anemia, hemoglobin at baseline PCU Lasix albumin Strict I/Os, daily weights, fluid restriction Abdominal ultrasound Re: Ascites LE swelling rule out DVT Nephrology consult Re: Cardiorenal syndrome Consider palliative care consultation to discuss goals of care given recurrent admissions for fluid overload ISS BG goal 1 10-1 40, carb count coverage DVT prophylaxis. Heparin subcu DNR Text document was generated using [employer] voice recognition software. It may contain grammatical or spelling errors. Kindly contact undersigned for clarification of any documentation item in question. History of Present Illness Chief Complaint: Shortness of breath, abdominal distention Primary Care Provider: Haley Boggs, History obtained from patient, family, and records. Medical history significant for chronic systolic heart failure secondary to ischemic cardiomyopathy (EF 25 to 29%, TTE 2022) status post ICD, CAD, hypertension, hyperlipidemia, valvular heart disease (moderate versus pseudostenosis/MR, mild TR), DM2 on oral medications, CRI (baseline creatinine 3), chronic anemia (baseline hemoglobin 9-10), RLS, fibromyalgia. Two admissions since last month for decompensated heart failure in the setting of cardiorenal syndrome. Therapeutic paracenteses with removal of 5 L fluid done during recent confinement 2 weeks ago. Patient discharged on torsemide and spironolactone as per Nephrology recommendations. Few days ago, patient noted increasing abdominal distention causing shortness of breath with associated bilateral leg swelling. No chest pain, no cough symptoms. Patient compliant with home medications. Not sure about weight gain. Patient consulted to ER for evaluation. 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 Allergies Allergy/AdvReac Type Severity Reaction Status Date / Time cefadroxil Allergy Unknown RASH Verified 11/18/23 20:32 Home Medications Medication Instructions Recorded Confirmed Type aspirin 81 mg tablet,delayed 81 mg PO QAM 03/17/19 11/18/23 History release cyanocobalamin (vitamin B-12) 1,000 mcg PO QAM 03/17/19 11/18/23 History 1,000 mcg tablet (Vitamin B-12) diphenhydramine HCl 25 mg tablet 25 mg PO QAM 03/17/19 11/18/23 History (Benadryl Allergy) finasteride 5 mg tablet 5 mg PO QAM 03/17/19 11/18/23 History rosuvastatin 40 mg tablet 40 mg PO QAM 03/17/19 11/18/23 History metoprolol succinate 25 mg 12.5 mg (1/2 x 25 mg) PO BID #30 10/18/23 11/18/23 Rx tablet,extended release 24 hr tabs potassium chloride 10 mEq 10 meq PO DAILY #30 caps 11/08/23 11/18/23 Rx capsule,extended release spironolactone 25 mg tablet 12.5 mg (1/2 x 25 mg) PO DAILY #30 11/08/23 11/18/23 Rx tabs glipizide 10 mg tablet, extended 20 mg PO DAILY 11/18/23 11/18/23 History release 24 hr torsemide 20 mg tablet 60 mg PO DAILY 11/18/23 11/18/23 History Past Med/Surg History Problem List (Updated 11/19/23 @ 08:19 by Geri Rick MD, PhD) CHF (congestive heart failure) Elevated troponin (Acute) JAMIR (acute kidney injury) (Acute) Cirrhosis (Acute) Anemia (Acute) Ascites (Acute) SOB (shortness of breath) (Acute) Bilateral edema of lower extremity (Acute) NGUYEN (dyspnea on exertion) (Acute) Hypomagnesemia Acute on chronic heart failure with reduced ejection fraction and diastolic dysfunction Ascites Acute on chronic renal failure Fluid overload (Acute) Acute kidney injury superimposed on CKD (Acute) Aortic stenosis Exertional dyspnea (Acute) Hx of coronary artery disease (Acute) Dyspnea on exertion (Acute) RLS (restless legs syndrome) (Chronic) Fibromyalgia (Chronic) PMR (polymyalgia rheumatica) (Chronic) GERD (gastroesophageal reflux disease) (Chronic) HLD (hyperlipidemia) (Chronic) continue statin CAD (coronary artery disease) (Chronic) continue ASA and low dose BB and imdur and lasix Diabetes mellitus, type II (Chronic) CAD (coronary artery disease) (Chronic) continue ASA Ischemic cardiomyopathy (Chronic) Pt admitted for elective ICD due to ICM and SB. Underwent procedure without any complications; monitored overnight and discharged home. CKD (chronic kidney disease), stage III (Chronic) S/P cardiac cath (Chronic) "12/25/2014-LM: 30% ostial LM stenosis. LAD: Functionally occluded after the takeoff of the second diagonal branch. LCX: Minor nonobstructive disease. RCA: Diffusely diseased with moderately severe disease in the proximal and mid segment and a 70% distal stenosis. " S/P wrist surgery (Chronic) S/P vasectomy (Chronic) History of bilateral knee replacement (Chronic) Medical History (Updated 11/19/23 @ 09:28 by Michael Rojas MD) Cardiorenal syndrome with renal failure Chronic heart failure with reduced ejection fraction and diastolic dysfunction CKD (chronic kidney disease) stage 4, GFR 15-29 ml/min Anemia NSVT (nonsustained ventricular tachycardia) Surgical History (Updated 11/19/23 @ 08:19 by Geri Rick MD, PhD) Sinus bradycardia s/p dual chamber ICD H/O wrist surgery History of cardiac catheterization History of knee replacement Family History Other Heart disease Stroke Social History Smoking Status: Never smoker Second Hand Exposure: No; Do You Dip or Chew Tobacco: No; Hx Alcohol Use: No Hx Substance Use: No Preferred Language: Syriac Communication Ability: Effective Lead Refiner Required: No Beliefs That Will Affect Care: None Current Living Situation: Alone Feels Safe at Home: Yes Safety Concerns: Feels Safe At This Time Assistive Devices: Cane Review of Systems Review of Systems: As per HPI, all other systems reviewed and negative Physical Exam Physical Exam: GENERAL: Comfortable, slightly anxious, no respiratory distress SKIN: Pallor, warm HEENT: Pale palpebral conjunctivae, no ptosis, dry buccal mucosa NECK : Supple, no tenderness CHEST : Decreased breath sounds, no tenderness HEART : Diminished S1-S2, systolic murmur ABDOMEN: Marked distention, fluid wave, nontender EXTREMITIES : Bilateral LE swelling, no LE tenderness, no other conspicuous deformities noted NEUROLOGIC : Coherent, no facial asymmetry, no other gross focality Results & Data Results & Data Vital Signs (Past 12 Hours) Vital Signs Temp Pulse Pulse Resp BP BP Pulse Ox 11/19/23 00:00 92 H 19 99/74 L 11/18/23 23:32 90 11/18/23 23:30 91 H 19 98 11/18/23 23:00 92 H 19 98/66 L 98 11/18/23 22:30 96 H 16 100 11/18/23 22:20 93 H 18 99 11/18/23 22:17 97/70 L 11/18/23 22:17 95 H 19 99 11/18/23 22:15 93 H 15 98 11/18/23 22:15 96/70 L 11/18/23 22:10 99 H 23 100 11/18/23 22:00 101/64 11/18/23 22:00 96 H 21 98 11/18/23 21:50 94 H 23 97 11/18/23 21:45 90 20 97 11/18/23 21:45 99/71 L 11/18/23 21:40 93 H 20 98 11/18/23 21:30 98/67 L 11/18/23 21:30 94 H 18 100 11/18/23 21:20 100 H 18 99 11/18/23 21:15 93 H 20 97 11/18/23 21:15 92/65 L 11/18/23 21:10 95 H 18 98 11/18/23 21:00 95 H 19 97 11/18/23 21:00 96/66 L 11/18/23 21:00 95 H 19 96/66 L 96 11/18/23 20:50 99 H 17 99 11/18/23 20:45 100/68 11/18/23 20:45 94 H 18 98 11/18/23 20:40 95 H 15 99 11/18/23 20:30 97 H 19 98 11/18/23 20:30 99/64 L 11/18/23 20:20 98 H 16 99 11/18/23 20:15 108/68 11/18/23 20:15 98 H 19 96 11/18/23 20:10 95 H 19 97 11/18/23 20:00 94 H 18 97 11/18/23 20:00 99/76 L 11/18/23 19:50 96 H 9 L 98 11/18/23 19:45 95 H 12 97 11/18/23 19:45 95/67 L 11/18/23 19:40 91/67 L 11/18/23 19:40 94 H 7 L 97 11/18/23 19:36 98 H 25 H 97 11/18/23 19:35 64 25 H 94/67 L 97 11/18/23 19:35 99 11/18/23 19:34 95 H 7 L 97 11/18/23 19:33 94 H 11/18/23 18:19 37.1 C 103 H 24 94/60 L 99 O2 Del Method 11/19/23 00:00 11/18/23 23:32 11/18/23 23:30 Room Air 11/18/23 23:00 Room Air 11/18/23 22:30 11/18/23 22:20 11/18/23 22:17 11/18/23 22:17 11/18/23 22:15 11/18/23 22:15 11/18/23 22:10 11/18/23 22:00 11/18/23 22:00 11/18/23 21:50 11/18/23 21:45 11/18/23 21:45 11/18/23 21:40 11/18/23 21:30 11/18/23 21:30 11/18/23 21:20 11/18/23 21:15 11/18/23 21:15 11/18/23 21:10 11/18/23 21:00 11/18/23 21:00 11/18/23 21:00 Room Air 11/18/23 20:50 11/18/23 20:45 11/18/23 20:45 11/18/23 20:40 11/18/23 20:30 11/18/23 20:30 11/18/23 20:20 11/18/23 20:15 11/18/23 20:15 11/18/23 20:10 11/18/23 20:00 11/18/23 20:00 11/18/23 19:50 11/18/23 19:45 11/18/23 19:45 11/18/23 19:40 11/18/23 19:40 11/18/23 19:36 Room Air 11/18/23 19:35 Room Air 11/18/23 19:35 Nasal Cannula 11/18/23 19:34 11/18/23 19:33 11/18/23 18:19 Room Air Laboratory Results Laboratory Results WBC 6.08 K/ul (4.8-10.8) 11/18/23 18:53 RBC 4.29 M/uL (4.70-6.10) L 11/18/23 18:53 Hgb 10.3 g/dl (14.0-18.0) L 11/18/23 18:53 Hct 33.6 % (42.0-52.0) L 11/18/23 18:53 MCV 78.3 fL (80.0-100.0) L 11/18/23 18:53 MCH 24.0 pg (25.0-34.0) L 11/18/23 18:53 MCHC 30.7 g/dL (32.0-36.0) L 11/18/23 18:53 RDW Std Deviation 62.0 fL (36.4-46.3) H 11/18/23 18:53 RDW Coeff of Serene 22.2 % (11.5-14.5) H 11/18/23 18:53 Plt Count 251 K/uL (130-400) 11/18/23 18:53 MPV 10.4 fL (9.4-12.4) 11/18/23 18:53 Immature Gran % (Auto) 0.3 % 11/18/23 18:53 Neut % (Auto) 84.3 % 11/18/23 18:53 Lymph % (Auto) 7.2 % 11/18/23 18:53 [place] % (Auto) 7.7 % 11/18/23 18:53 Eos % (Auto) 0.0 % 11/18/23 18:53 Baso % (Auto) 0.5 % 11/18/23 18:53 Neut # (Auto) 5.12 K/uL (1.40-6.50) 11/18/23 18:53 Lymph # (Auto) 0.44 K/uL (1.20-3.40) L 11/18/23 18:53 [place] # (Auto) 0.47 K/uL (0.11-0.59) 11/18/23 18:53 Eos # (Auto) 0.00 K/uL (0.00-0.50) 11/18/23 18:53 Baso # (Auto) 0.03 K/uL (0.00-0.20) 11/18/23 18:53 Immature Gran # (Auto) 0.02 K/uL (0.01-0.20) 11/18/23 18:53 Anisocytosis Present 11/18/23 18:53 PT 14.0 Seconds (9.0-12.0) H 11/18/23 18:53 INR 1.3 (0.9-1.1) H 11/18/23 18:53 Sodium 136 mmol/L (136-145) 11/18/23 18:53 Potassium 4.4 mmol/L (3.5-5.1) 11/18/23 18:53 Chloride 102 mmol/L (98-107) 11/18/23 18:53 Carbon Dioxide 22 mmol/L (21-32) 11/18/23 18:53 Anion Gap 12 (3-11) H 11/18/23 18:53 BUN 57 mg/dl (6-23) H 11/18/23 18:53 Creatinine 3.36 mg/dl (0.6-1.4) H 11/18/23 18:53 Est Cr Clr Drug Dosing Not Reportable 11/18/23 18:53 Est GFR ( Amer) 19.4 ml/min 11/18/23 18:53 Est GFR (Non-Af Amer) 16.7 ml/min 11/18/23 18:53 BUN/Creatinine Ratio 17.0 (10-20) 11/18/23 18:53 Glucose 133 mg/dl (70-99(Fasting)) H 11/18/23 18:53 Lactate 1.3 mmol/L (0.4-2.0) 11/18/23 21:29 Calcium 8.9 mg/dl (8.6-10.3) 11/18/23 18:53 Magnesium 1.9 mg/dl (1.7-2.4) 11/18/23 18:53 Total Bilirubin 0.7 mg/dl (0.2-1.0) 11/18/23 18:53 AST 52 U/L (13-39) H 11/18/23 18:53 ALT 57 U/L (7-52) H 11/18/23 18:53 Alkaline Phosphatase 132 U/L (34-104) H 11/18/23 18:53 Troponin I High Sens 47.2 pg/ml (0-20) H 11/18/23 21:29 B-Natriuretic Peptide 4698 pg/ml (0-100) H 11/18/23 18:53 Total Protein 6.9 gm/dl (6.0-8.3) 11/18/23 18:53 Albumin 3.4 gm/dl (3.4-5.0) 11/18/23 18:53 Globulin 3.5 gm/dl (2.5-4.0) 11/18/23 18:53 Albumin/Globulin Ratio 1.0 (0.9-2) 11/18/23 18:53 Urine Color Yellow 11/18/23 22: Urine Appearance Cloudy (Clear) A 11/18/23 22: Urine pH 5.0 (4.5-7.5) 11/18/23 22: Ur Specific [place] 1.010 (1.000-1.030) 11/18/23 22: Urine Protein 1+ (Negative) H 11/18/23 22: Urine Glucose (UA) Negative (Negative) 11/18/23: Urine Ketones Negative (Negative) 11/18/23 22: Urine Blood Trace (Negative) H 11/18/23 22: Urine Nitrite Negative (Negative) 11/18/23 22: Urine Bilirubin Negative (Negative) 11/18/23 22: Urine Urobilinogen Negative (Negative) 11/18/23 22: Ur Leukocyte Esterase Negative (Negative) 11/18/23 22: Urine WBC (Auto) 0-5 /hpf (0-5) 11/18/23 22: Urine RBC (Auto) 0-2 /hpf (0-2) 11/18/23 22: U Hyaline Cast (Auto) >20 /lpf (0-2) H 11/18/23 22:27 U Epithel Cells (Auto) 0-2 /hpf (0-2) 11/18/23 22: Urine Bacteria (Auto) None Seen (None Seen) 11/18/23 22:27 Hyaline Casts Present /lpf (None Presnt) A 11/18/23 22:27 Diagnostic Findings Chest x-ray as per my interpretation cardiomegaly EKG as per my interpretation : Rate 100, NSR, LAD, LAFB, T wave abnormalities lateral leads
[2023-11-19] MEDS ORDERED: ACETAMINOPHEN 500 MG TAB PO PRN (00:57)
[2023-11-19] MEDS ORDERED: PROMETHAZINE HCL 6.25 MG in SODIUM CHLORIDE 0.9% 50 ML IV PRN (00:57)
[2023-11-19] MEDS ORDERED: hydrOXYzine HCl 10 MG TAB PO PRN (00:57)
[2023-11-19] MEDS ORDERED: traMADol HCL 50 MG TABLET PO PRN (00:57)
[2023-11-19 01:05] LABS: Thyroid Stimulating Hormone 2.811 uIu/ml (0.300-4.500)
[2023-11-19] MEDS: FUROSEMIDE 40 MG/4 ML VIAL IV ONE (01:37)
[2023-11-19] MEDS: ALBUMIN 25% 25 GM/100 ML VIAL IV ONE (01:38)
[2023-11-19 02:52] LABS: Adenovirus PCR Not Detected (NotDetected); Bordetella parapertussis PCR Not Detected (NotDetected); Bordetella pertussis PCR Not Detected (NotDetected); Chlamydia pneumoniae PCR Not Detected (NotDetected); Coronavirus 229E PCR Not Detected (NotDetected); Coronavirus CoV-2 (COVID19)PCR Not Detected (NotDetected); Coronavirus HKU1 PCR Not Detected (NotDetected); Coronavirus NL63 PCR Not Detected (NotDetected); Coronavirus OC43PCR Not Detected (NotDetected); Human Metapneumovirus PCR Not Detected (NotDetected); Influenza A PCR Not Detected (NotDetected); Influenza B PCR Not Detected (NotDetected); Mycoplasma pneumoniae PCR Not Detected (NotDetected); Parainfluenza Virus 1 PCR Not Detected (NotDetected); Parainfluenza Virus 2 PCR Not Detected (NotDetected); Parainfluenza Virus 3 PCR Not Detected (NotDetected); Parainfluenza Virus 4 PCR Not Detected (NotDetected); Respiratory Syncytial VirusPCR Not Detected (NotDetected); Rhinovirus/Enterovirus PCR Not Detected (NotDetected)
[2023-11-19] MEDS ORDERED: NITROGLYCERIN SL 0.4 MG/TAB TAB SL PRN (02:53)
[2023-11-19] MEDS ORDERED: GLUCOSE 10 TAB/TUBE PO PRN (02:53)
[2023-11-19] MEDS ORDERED: GLUCAGON FOR INJ 1 MG VIAL SQ PRN (02:53)
[2023-11-19] MEDS ORDERED: DEXTROSE 50% 50 ML SYRINGE IV PRN (02:53)
[2023-11-19] MEDS ORDERED: GLUCOSE 40% GEL 15 GM TUBE PO PRN (02:53)
[2023-11-19] MEDS ORDERED: CARBOHYDRATES FOR HYPOGLYCEMIA PO PRN (02:53)
[2023-11-19] MEDS: INSULIN ASPART PER UNIT CHARGE SC SCH (04:01)
[2023-11-19] MEDS: HEPARIN SOD 5,000 UNIT/0.5 ML VIAL SQ SCH (06:13)
--- NOTE | 2023-11-19 06:14 | Ultrasound Report ---
Exam(s): US VENOUS BILATERAL LOWER EXTREMITIES EXAM: US Duplex Bilateral Lower Extremities Veins CLINICAL HISTORY: Reason for exam: leg swelling. TECHNIQUE: Real-time duplex ultrasound scan of the bilateral lower extremity veins integrating B-mode two-dimensional vascular structure, Doppler spectral analysis, color flow Doppler imaging and compression. COMPARISON: No relevant prior studies available. FINDINGS: Right deep veins: Unremarkable. No DVT in the right common femoral, femoral, proximal deep femoral or popliteal veins. The veins demonstrate normal color flow, are normally compressible, with normal phasic flow and/or augmentation response. Right superficial veins: Unremarkable. No thrombus in the visualized right great saphenous vein. Left deep veins: Unremarkable. No DVT in the left common femoral, femoral, proximal deep femoral or popliteal veins. The veins demonstrate normal color flow, are normally compressible, with normal phasic flow and/or augmentation response. Left superficial veins: Unremarkable. No thrombus in the visualized left great saphenous vein. Soft tissues: 7.6 cm diameter complex fluid collection seen in the right popliteal fossa. IMPRESSION: Normal bilateral lower extremity duplex venous ultrasound. 7.6 cm complex fluid collection in the right popliteal fossa Electronically signed by: Pillo Arora MD 11/19/23 06:13 AM
--- NOTE | 2023-11-19 06:26 | Ultrasound Report ---
Exam(s): US ABDOMEN LIMITED EXAM: US Abdomen Limited, 4 quadrants CLINICAL HISTORY: Reason for exam: abd distension. TECHNIQUE: Real-time ultrasound of the 4 abdominal quadrants with image documentation. COMPARISON: No relevant prior studies available. FINDINGS: There is large amount of free fluid with low-level internal echoes seen in all 4 quadrants. IMPRESSION: Large ascites Electronically signed by: Pillo Arora MD 11/19/23 06:25 AM
[2023-11-19 07:09] LABS: Basophils # (auto) 0.03 K/uL (0.00-0.20); Basophils % (auto) 0.6 %; Hematocrit (blood only) 31.4 % (42.0-52.0); Hemoglobin 9.7 g/dl (14.0-18.0); Immature Granulocytes # (auto) 0.01 K/uL (0.01-0.20); Immature Granulocytes % (auto) 0.2 %; Lymphocytes # (auto) 0.45 K/uL (1.20-3.40); Lymphocytes % (auto) 8.5 %; Mean Corpuscular Hemoglobin 24.4 pg (25.0-34.0); Mean Corpuscular Hgb Conc 30.9 g/dL (32.0-36.0); Mean Corpuscular Volume 79.1 fL (80.0-100.0); Mean Platelet Volume 10.5 fL (9.4-12.4); Monocytes # (auto) 0.45 K/uL (0.11-0.59); Monocytes % (auto) 8.5 %; Neutrophils # (auto) 4.35 K/uL (1.40-6.50); Neutrophils % (auto) 82.2 %; Platelet Count 229 K/uL (130-400); RDW Coefficient of Variation 21.9 % (11.5-14.5); RDW Standard Deviation 62.4 fL (36.4-46.3); Red Blood Count 3.97 M/uL (4.70-6.10); White Blood Count 5.29 K/ul (4.8-10.8)
[2023-11-19 07:30] LABS: Albumin Globulin Ratio 1.2 (0.9-2); Albumin Level 3.7 gm/dl (3.4-5.0); BUN Creatinine Ratio 17.9 (10-20); Bilirubin,Total 0.8 mg/dl (0.2-1.0); Calcium 9.3 mg/dl (8.6-10.3); Creatinine Clr Calc Pharmacy 20.5 ml/min; Est GFR (African American) 21.2 ml/min; Est GFR (Non-African American) 18.3 ml/min; Globulin 3.1 gm/dl (2.5-4.0); Potassium 3.8 mmol/L (3.5-5.1); Total Protein 6.8 gm/dl (6.0-8.3)
[2023-11-19 07:34] LABS: Anisocytosis Present
--- NOTE | 2023-11-19 07:37 | XRay Report ---
XR chest 1V portable HISTORY: Dyspnea COMPARISON: Chest 11/06/2023. FINDINGS: The heart remains mildly enlarged. The left-sided pacemaker/defibrillator again noted. The lungs are clear. No evidence for pulmonary edema. No pleural effusions. No pneumothorax. IMPRESSION: Stable cardiomegaly. Otherwise, no acute process within the chest. ACT 112: Negative or not required by law. Electronically signed by: Daniel Bland M.D. 11/19/2023 7:35 AM
--- NOTE | 2023-11-19 08:29 | Nephrology Consultation ---
Date of Consultation November 19, 2023 Assessment & Plan (1) CKD (chronic kidney disease) stage 4, GFR 15-29 ml/min: Rapidly progressive CKD in the setting of cardiorenal syndrome now stage IV with baseline creatinine low threes. Hold diuretics today d/t procedure Large-volume paracentesis anticipated; defer to hospitalist to administer appropriate albumin periprocedurally Daily basic metabolic panel Daily standing weight; standing weights only for this patient no bed weights Fluid intake limit 1.5 L daily, lowered from 2L Less than 2 g sodium diet -may soon need to discuss dialysis; though this will not likely change his paracentesis dependence and fluid removal will likely be limited by hypotension; discussion for now deferred Care coordinated w/ Dr Pederson regarding labs, fluid management, diuretics; we are in agreement. (2) Chronic heart failure with reduced ejection fraction and diastolic dysfunction: primarily R sided HF per cardiology evaluation last month here and w/ cardiorenal syndrome -recommend paracentesis and give albumin w/ procedure (3) Cardiorenal syndrome with renal failure: may soon face ESRD History of Present Illness Reason for Consultation: CKD, fluid retention Requesting Physician: Dr Rojas Attending Physician: Jarek Pederson MD History of Present Illness 78 y/o M whom I'm asked to evaluate for CKD and fluid retention was admitted early this morning for symptomatic volume overload after presenting with worsening dyspnea and abdominal distension with hypotension. 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 Admitted here 10/10-10/17 w/ acute on chronic HFrEF after apparently misunderstanding instructions about diuretic titration and instead stopping them completely; presenting creatinine 4, discharge creatinine 2.9. He was aggressively diuresed and was discharged home on Lasix 40 mg p.o. twice daily. Outpatient creatinine since hospital discharge ranged from 3.1- 3.3. He also underwent an 8.5 L paracentesis on October 11. Of note his on the day of hospital discharge, October 17. Also readmitted here 11/05-11/07 w/ acute on chronic HF w/ combined systolic/diastolic dysfunction w/ presenting creatinine 3 and d/c creatinine 2.9. He was d/c home on spironolactone 12.5 mg daily, torsemide 60 mg daily, K 10 mEq daily. He was seen by [facility] at home on 11/08 w/ wt 83.3 kg; was logging wts and diet (though fluid limit liberalized to 2L daily from recommended 1.5L, ? by accident); did not yet have torsemide on 11/08. At revisit on 11/14, he weighed 78.5 kg, was taking torsemide at 6A/9A/noon each 20 mg; and seemed to be doing ok. 2 wk f/u was planned. Pt w/ hx of confusion about medication before September admission, there were again challenges with adherence to/communication of communication regimen and dietary habits. Despite repeated education he prior to September admission he consistently ate high sodium meals per [facility] records. At October 28 PCP visit, he had stopped his Lasix for the preceding 4 days, despite telling case management otherwise. He did tell [facility] on 11/14 that he'd gone to store and spent several hours looking at labels; he declined dietary education. His presenting creatinine was 3.4 and is at 3.1 this morning. He had 2 doses of albumin and one dose of lasix 80 mg IV overnight. He is receiving K 10 mEq po daily. He tells me that he did not miss any medication doses, that he was following the fluid limit though cannot tell me exactly what it was, and that he was eating a low-sodium diet. He states that the heat "got me" but again denies overstepping fluid intake targets. On review of systems he is fatigued with exertional dyspnea and increasing abdominal girth. Tells me that his breathing and swelling and particularly in his legs are better since admission. Denies fever chills rash fall at home, chest pain or pressure, diarrhea. Allergies Allergy/AdvReac Type Severity Reaction Status Date / Time cefadroxil Allergy Unknown RASH Verified 11/18/23 20:32 Home Medications Medication Instructions Recorded Confirmed Type aspirin 81 mg tablet,delayed 81 mg PO QAM 03/17/19 11/18/23 History release cyanocobalamin (vitamin B-12) 1,000 mcg PO QAM 03/17/19 11/18/23 History 1,000 mcg tablet (Vitamin B-12) diphenhydramine HCl 25 mg tablet 25 mg PO QAM 03/17/19 11/18/23 History (Benadryl Allergy) finasteride 5 mg tablet 5 mg PO QAM 03/17/19 11/18/23 History rosuvastatin 40 mg tablet 40 mg PO QAM 03/17/19 11/18/23 History metoprolol succinate 25 mg 12.5 mg (1/2 x 25 mg) PO BID #30 10/18/23 11/18/23 Rx tablet,extended release 24 hr tabs potassium chloride 10 mEq 10 meq PO DAILY #30 caps 11/08/23 11/18/23 Rx capsule,extended release spironolactone 25 mg tablet 12.5 mg (1/2 x 25 mg) PO DAILY #30 11/08/23 11/18/23 Rx tabs glipizide 10 mg tablet, extended 20 mg PO DAILY 11/18/23 11/18/23 History release 24 hr torsemide 20 mg tablet 60 mg PO DAILY 11/18/23 11/18/23 History Patient History Medical History (Updated 11/19/23 @ 09:28 by Michael Rojas MD) Cardiorenal syndrome with renal failure Chronic heart failure with reduced ejection fraction and diastolic dysfunction CKD (chronic kidney disease) stage 4, GFR 15-29 ml/min Anemia NSVT (nonsustained ventricular tachycardia) Surgical History (Updated 11/19/23 @ 08:19 by Geri Rick MD, PhD) Sinus bradycardia s/p dual chamber ICD H/O wrist surgery History of cardiac catheterization History of knee replacement Family History Other Heart disease Stroke Social History Smoking Status: Never smoker Second Hand Exposure: No; Do You Dip or Chew Tobacco: No; Hx Alcohol Use: No Hx Substance Use: No Preferred Language: Urdu Communication Ability: Effective Stockholder Required: No Beliefs That Will Affect Care: None Current Living Situation: Alone Feels Safe at Home: Yes Safety Concerns: Feels Safe At This Time Assistive Devices: Cane Review of Systems 2 Review of Systems: All systems reviewed & are unremarkable except as noted in HPI & below Physical Exam 2 Constitutional: well developed (Sitting on the side of the bed on room air), well nourished, + frail appearing and cooperative; no acute distress Eyes: EOM intact bilaterally ENMT: Ears: no external ear abnormality Nose: no external nose abnormality Mouth: + dry oral mucous membranes Neck: no nuchal rigidity Respiratory: normal respiratory effort Auscultation: + diminished lung sounds and + crackles (Left base) Cardiovascular: Rate/Rhythm: + irregularly irregular Extremities: + edema (L 2+ pretibial edema, right 1+ pretibial edema, bilateral 2-3+ pedal) Gastrointestinal (Abdomen): Inspection/Auscultation: + abdomen distended and normal bowel sounds Percussion/Palpation: abdomen soft and + ascites; abdomen nontender Musculoskeletal: Extremities: strength 5/5 throughout Skin: no rashes, warm and dry Neurologic: ornelas, fluent speech, no tremor Psychiatric: Orientation: alert, oriented to person and oriented to place I nsight: + limited insight Results & Data Vital Signs (Past 12 Hours) Vital Signs Pulse Pulse Resp BP BP Pulse Ox Pulse Ox 11/19/23 07:26 89 18 99/72 L 100 11/19/23 06:56 87 11/19/23 06:00 87 17 97/72 L 93 11/19/23 04:00 93 H 21 108/73 11/19/23 03:54 91 H 22 95/61 L 90 11/19/23 03:11 11/19/23 03:00 99 11/19/23 02:50 96 H 21 108/72 100 11/19/23 02:00 90 18 99 11/19/23 01:00 87 19 92/66 L 99 11/19/23 00:58 99 11/19/23 00:00 92 H 19 99/74 L 11/18/23 23:32 90 11/18/23 23:30 91 H 19 98 11/18/23 23:00 92 H 19 98/66 L 98 11/18/23 22:30 96 H 16 100 11/18/23 22:20 93 H 18 99 11/18/23 22:17 97/70 L 11/18/23 22:17 95 H 19 99 11/18/23 22:15 93 H 15 98 11/18/23 22:15 96/70 L 11/18/23 22:10 99 H 23 100 11/18/23 22:00 101/64 11/18/23 22:00 96 H 21 98 11/18/23 21:50 94 H 23 97 11/18/23 21:45 90 20 97 11/18/23 21:45 99/71 L 11/18/23 21:40 93 H 20 98 11/18/23 21:30 98/67 L 11/18/23 21:30 94 H 18 100 11/18/23 21:20 100 H 18 99 11/18/23 21:15 93 H 20 97 11/18/23 21:15 92/65 L 11/18/23 21:10 95 H 18 98 11/18/23 21:00 95 H 19 97 11/18/23 21:00 96/66 L 11/18/23 21:00 95 H 19 96/66 L 96 11/18/23 20:50 99 H 17 99 11/18/23 20:45 100/68 11/18/23 20:45 94 H 18 98 11/18/23 20:40 95 H 15 99 11/18/23 20:30 97 H 19 98 11/18/23 20:30 99/64 L 11/18/23 20:20 98 H 16 99 11/18/23 20:15 108/68 11/18/23 20:15 98 H 19 96 O2 Del Method O2 Del Method 11/19/23 07:26 Room Air 11/19/23 06:56 11/19/23 06:00 11/19/23 04:00 11/19/23 03:54 11/19/23 03:11 Room Air 11/19/23 03:00 Room Air 11/19/23 02:50 Room Air 11/19/23 02:00 Room Air 11/19/23 01:00 Room Air 11/19/23 00:58 Room Air 11/19/23 00:00 11/18/23 23:32 11/18/23 23:30 Room Air 11/18/23 23:00 Room Air 11/18/23 22:30 11/18/23 22:20 11/18/23 22:17 11/18/23 22:17 11/18/23 22:15 11/18/23 22:15 11/18/23 22:10 11/18/23 22:00 11/18/23 22:00 11/18/23 21:50 11/18/23 21:45 11/18/23 21:45 11/18/23 21:40 11/18/23 21:30 11/18/23 21:30 11/18/23 21:20 11/18/23 21:15 11/18/23 21:15 11/18/23 21:10 11/18/23 21:00 11/18/23 21:00 11/18/23 21:00 Room Air 11/18/23 20:50 11/18/23 20:45 11/18/23 20:45 11/18/23 20:40 11/18/23 20:30 11/18/23 20:30 11/18/23 20:20 11/18/23 20:15 11/18/23 20:15 Laboratory Results 11/19/23 06:35 11/19/23 06:35 Diagnostic Findings CXR > no acute process Doppler u/s -7.6 cm complex fluid collection R popliteal region -no DVT Abd u/s > ascites October 11, 2023 CT abdomen pelvis Noncon Lower chest: Cardiomegaly is seen with biatrial enlargement. Liver: Unremarkable. No focal lesions are seen. Gallbladder and biliary tree: No calcified gallstones. Normal caliber wall. No intra- or extrahepatic biliary ductal dilation. Pancreas: Unremarkable, no focal lesions. Spleen: Unremarkable. Adrenals: Unremarkable. Kidneys and ureters: Exophytic cysts are seen bilaterally. Bladder: Diffuse homogeneous wall thickening is seen. Reproductive organs: Unremarkable. Bowel: Diverticulosis is seen without diverticulitis. The appendix is normal. Lymph nodes Retroperitoneal: Unremarkable. Pelvic: Unremarkable. Mesenteric: Unremarkable. Peritoneum: Moderate to large ascites is seen. Vessels: Atherosclerotic calcifications are seen. Abdominal wall: Minimal soft tissue edema is seen. An umbilical hernia is noted. Bones: Degenerative changes in the visualized spine. IMPRESSION: Moderate to large ascites is seen with mild soft tissue edema. Findings are compatible with fluid overload. Otherwise no acute abnormalities are seen.
[2023-11-19] MEDS: CYANOCOBALAMIN (B-12) 500 MCG TABLET PO SCH (08:37)
[2023-11-19] MEDS: ASPIRIN 81 MG ECTAB PO SCH (08:37)
[2023-11-19] MEDS: METOPROLOL SUCC 25MG EXT REL TAB PO SCH (08:38)
[2023-11-19] MEDS: POTASSIUM CHLORIDE 10 MEQ TABCR PO SCH (08:39)
[2023-11-19] MEDS: FINASTERIDE 5 MG TAB PO SCH (08:39)
[2023-11-19] MEDS: ROSUVASTATIN CALCIUM 20 MG TAB PO SCH (08:40)
--- NOTE | 2023-11-19 12:10 | Ultrasound Report ---
ULTRASOUND-GUIDED PARACENTESIS CLINICAL HISTORY: Ascites PROCEDURE: Procedure and risks were explained. Informed consent was obtained. A final timeout was com pleted. The abdomen was prepped and draped in sterile fashion. 1% buffered lidocaine was utilized for skin anesthesia. Utilizing ultrasound guidance, a 5 Portuguese safety centesis catheter was advanced into the left lower q uadrant pocket of ascites. Ultrasound images were obtained. A total of 5 L of ascites fluid was remov ed with 1 L sent to the lab. The catheter was removed and Band-Aid applied. The patient tolerated the procedure well. Vital signs will be monitored postprocedure. IMPRESSION: Ultrasound-guided paracentesis as above. Performed, dictated, and signed by Albaro Vega PA-C; to be co-signed by Dr. Daniel Bland. Electronically signed by: Daniel Bland M.D. 11/19/2023 12:18 PM
[2023-11-19] MEDS: ALBUMIN 25% 25 GM/100 ML VIAL IV SCH (12:19)
--- NOTE | 2023-11-19 14:50 | Communication Note ---
Date of Service: November 19, 2023 Patient was seen and examined at bedside as a follow-up of cardiorenal syndrome, decompensated heart failure in the setting of systolic dysfunction, recurrent ascites, progressive CKD. Patient was sitting up in bed, eating his lunch, NAD. Patient is status post 5 L paracentesis, is borderline low blood pressure. Discussed with nephrology, hold diuretics today. Will administer albumin today to support blood pressure as patient has 5 L paracentesis fluid removed. Patient reports improvement in his breathing after the fluid removed. Denies other ROS. We discussed about complex fluid collection in the right popliteal fossa, patient states that he is getting it followed at his PCP office. He will benefit by orthopedic evaluation as an outpatient. No signs of infection/pain or tenderness at the site noted. pt/ot. For detailed information on the patient, refer to today's H&P note.
--- NOTE | 2023-11-19 15:51 | Electrocardiogram Report ---
Test Reason : Blood Pressure : / mmHG Vent. Rate : 102 BPM Atrial Rate : 101 BPM P-R Int : 186 ms QRS Dur : 120 ms QT Int : 388 ms P-R-T Axes : 036 -29 138 degrees QTc Int : 505 ms Sinus tachycardia Premature atrial complexes Premature ventricular complexes Left ventricular hypertrophy with repolarization abnormality Anterior infarct , age undetermined Abnormal ECG When compared with ECG of 06-NOV-2023 16:46, No significant change Confirmed by Jono Bocanegra ([id number]) on 11/19/2023 3:51:31 PM Referred By: REFERRED SELF Confirmed By:Jono Bocanegra
[2023-11-20 07:50] LABS: Hematocrit (blood only) 29.4 % (42.0-52.0); Hemoglobin 9.2 g/dl (14.0-18.0); Mean Corpuscular Hemoglobin 24.8 pg (25.0-34.0); Mean Corpuscular Hgb Conc 31.3 g/dL (32.0-36.0); Mean Corpuscular Volume 79.2 fL (80.0-100.0); Mean Platelet Volume 10.9 fL (9.4-12.4); Platelet Count 221 K/uL (130-400); RDW Coefficient of Variation 21.8 % (11.5-14.5); RDW Standard Deviation 62.5 fL (36.4-46.3); Red Blood Count 3.71 M/uL (4.70-6.10); White Blood Count 5.15 K/ul (4.8-10.8)
[2023-11-20 08:23] LABS: BUN Creatinine Ratio 16.1 (10-20); Calcium 9.2 mg/dl (8.6-10.3); Est GFR (African American) 19.4 ml/min; Est GFR (Non-African American) 16.7 ml/min; Phosphorus 3.9 mg/dl (2.5-4.9); Potassium 4.1 mmol/L (3.5-5.1)
--- NOTE | 2023-11-20 08:27 | Nephrology Progress Note ---
Date of Service November 20, 2023 Assessment & Plan (1) CKD (chronic kidney disease) stage 4, GFR 15-29 ml/min: Plan: Rapidly progressive CKD in the setting of cardiorenal syndrome now stage IV with baseline creatinine low threes. Status post 5 L paracentesis November 18. Standing weight on November 18 was 79 kg; today he is 74.5 kg >> Follow-up pending basic metabolic panel > mostly stable Plan to administer diuretics or not pending CHEM panel results >> needs lasix 30 mg IV q4h x 3 doses if he stays and K 20 mEq x 2; Daily basic metabolic panel Daily standing weight; standing weights only for this patient no bed weights Fluid intake limit 1.5 L daily to continue Less than 2 g sodium diet -may soon need to discuss dialysis; though this will not likely change his paracentesis dependence and fluid removal will likely be limited by hypotension; discussion for now deferred NEPHRO D/C RECS >if is d/c home, resume OP diuretics, K >EMPHASIZE he is to take torsemide 60 mg all at once not 20 mg x 3 doses (he was doing that AMA on 09/14) -needs daily weights or at least 3X weekly w/ HHN >>>d/c on 1.5L FR (not 2L) and <2 gm daily sodium diet >>needs serial OP paracentesis w/ albumin and OP GI evaluation for congestive hepatopathy or other -BMP at PCP f/u after hospital stay >>he should f/u w/ me in CKD clinic in 2 wks w/ CM (not BMP), ACR, UACM, Prot/creat, PTH, 25 OHD to be ordered by renal nurse Care coordinated w/ Dr Olguin repeatedly regarding labs, fluid management, diuretics; we are in agreement. Complex medical decision making w/ extended discussions of care. (2) Chronic heart failure with reduced ejection fraction and diastolic dysfunction: Plan: primarily R sided HF per cardiology evaluation last month here and w/ cardiorenal syndrome. He does not have liver cirrhosis on imaging but certainly seems to need serial paracenteses -Consider serial paracentesis as outpatient; question if GI needs to be involved in this discussion or not >> if this is arranged will need to have tight discharge plan on who will manage albumin Recommend primary service evaluate patient for congestive liver disease; no cirrhosis on imaging; mild INR elevation; platelets within normal limits; serum albumin mildly diminished; transaminases within normal limits (3) Cardiorenal syndrome with renal failure: Plan: october soon face ESRD Admission and Anticipated Discharge Date Admission Date: November 19, 2023 Subjective Status post 5 L paracentesis yesterday; seen on early PM rounds; has had no lasix yet today. absolutely determined he will go home and do OP serial paracentesis. denies sob, n/v, worsening edema, increased abd girth Review of Systems 2 Review of Systems: All systems reviewed & are unremarkable except as noted in Subjective Physical Exam 2 Constitutional: well developed (Sitting looking out window on room air), well nourished, + frail appearing and cooperative; no acute distress Eyes: EOM intact bilaterally ENMT: Ears: no external ear abnormality Nose: no external nose abnormality Mouth: + dry oral mucous membranes Neck: no nuchal rigidity Respiratory: normal respiratory effort Auscultation: + diminished lung sounds Cardiovascular: Rate/Rhythm: + irregularly irregular Extremities: + edema (L trace pretibial edema, right trace pretibial edema, pedal) Gastrointestinal (Abdomen): Inspection/Auscultation: + abdomen distended and normal bowel sounds Percussion/Palpation: abdomen soft and + ascites; abdomen nontender Musculoskeletal: Extremities: strength 5/5 throughout Skin: no rashes, warm and dry Psychiatric: Orientation: alert, oriented to person and oriented to place I nsight: + limited insight Results & Data Vital Signs (Past 12 Hours) Vital Signs Temp Pulse Pulse Resp BP Pulse Ox O2 Del Method 11/20/23 08:01 36.6 C 80 18 91/57 L 100 Room Air 11/20/23 04:13 36.6 C 87 16 91/51 L 99 Room Air 11/20/23 03:23 85 11/19/23 23:24 36.6 C 86 16 93/59 L 100 Room Air 11/19/23 21:30 Room Air Laboratory Results 11/20/23 06:50 11/20/23 06:50 11/20/23 06:50
--- NOTE | 2023-11-20 10:56 | Hospitalist Progress Note ---
Date of Service November 20, 2023 Assessment & Plan (1) CHF (congestive heart failure): Plan: Decompensated heart failure in the setting of cardiorenal syndrome hx systolic dysfunction status post ICD Recurrent admissions and has been requiring recurrent paracentesis Troponin elevation secondary above-no signs and or symptoms of ACS LE swelling secondary to CHF rule out DVT Complicated by valvular heart disease (moderate versus pseudostenosis/MR, mild TR) with hx CAD Has been on torsemide and spironolactone as an outpatient Will give diuretics as recommended by the dining room attendant and plan discharge tomorrow Significant ascites-requiring recurrent paracentesis Cardiorenal syndrome Abdominal distention likely recurrent ascites secondary to CHF Has had 5 L paracentesis on 11/18/2021 Will need recurrent paracentesis done as an outpatient Hypertension, BP on the lower side Hyperlipidemia, on statin Rx DM2 on oral medications, reasonable control as of recent hemoglobin A1c of 8 last month Chronic anemia, hemoglobin at baseline DVT prophylaxis. Heparin subcu CODE STATUS DNR Text document was generated using Endgame voice recognition software. It may contain grammatical or spelling errors. Kindly contact undersigned for clarification of any documentation item in question. Admission and Anticipated Discharge Date Admission Date: November 19, 2023 Subjective 11/20/2023 The patient was seen and examined in telemetry unit She has been feeling much better and is out of bed on a chair Denies any significant abdominal distention, discomfort, nausea and or vomiting Denies any bowel and/or bladder problem Has been ambulating in the room and hallway without any difficulties He wants to go home today and he will be discharged this afternoon Review of Systems Review of Systems: All systems reviewed and are unremarkable except as noted below Physical Exam Physical Exam: Sitting in a chair without any acute distress Constitutional: + ill appearing and average body habitus Eyes: PERRL, conjunctivae normal, anicteric sclerae ENMT: external ear and nose normal, oropharynx normal Neck: trachea midline, no thyromegaly Respiratory: no respiratory distress Auscultation: lungs clear to auscultation bilaterally Cardiovascular: Rate/Rhythm: regular rate and regular rhythm; not tachycardic Heart Sounds: normal S1, normal S2 and + murmur Extremities: no edema Gastrointestinal (Abdomen): Inspection/Auscultation: + abdomen distended and normal bowel sounds Percussion/Palpation: abdomen soft; abdomen nontender Musculoskeletal: No acute arthritis involving any of the joints Neurologic: normal touch/pain/proprioception and moves all extremities Psychiatric: A+Ox3, euthymic affect Lymphatic: no cervical or axillary lymphadenopathy Results & Data Results & Data Vital Signs (Past 12 Hours) Vital Signs Temp Pulse Pulse Resp BP Pulse Ox O2 Del Method 11/20/23 08:01 36.6 C 80 18 91/57 L 100 Room Air 11/20/23 08:00 81 11/20/23 08:00 11/20/23 04:13 36.6 C 87 16 91/51 L 99 Room Air 11/20/23 03:23 85 11/19/23 23:24 36.6 C 86 16 93/59 L 100 Room Air O2 Del Method 11/20/23 08:01 11/20/23 08:00 11/20/23 08:00 Room Air 11/20/23 04:13 11/20/23 03:23 11/19/23 23:24 Laboratory Results Short CBC 11/20/23 Range/Units 06:50 WBC 5.15 (4.8-10.8) K/ul Hgb 9.2 L (14.0-18.0) g/dl Hct 29.4 L (42.0-52.0) % Plt Count 221 (130-400) K/uL BMP 11/20/23 06:50 Sodium 139 Potassium 4.1 Chloride 105 Carbon Dioxide 26 BUN 54 H Creatinine 3.36 H Glucose 81 Calcium 9.2 Medications Administered Current Inpatient Medications Acetaminophen (Acetaminophen 500 Mg Tab) 500 mg PO Q6H PRN PRN Reason: fever/pain Stop: 12/19/23 00:56 Aspirin (Aspirin 81 Mg Ectab) [facility] [place] Stop: 12/19/23 08:59 Last Admin: 11/20/23 08:40 Dose: 81 mg Cyanocobalamin (Cyanocobalamin (B-12) 500 Mcg Tablet) 1,000 mcg PO QAM [facility] Stop: 12/19/23 08:59 Last Admin: 11/20/23 08:40 Dose: 1,000 mcg Dextrose (Dextrose 50% 50 Ml Syringe) 25 - 50 ml IV UD PRN; Protocol PRN Reason: Hypoglycemia Protocol Stop: 12/19/23 02:52 Finasteride (Finasteride 5 Mg Tab) 5 mg PO QAM [facility] Stop: 12/19/23 08:59 Last Admin: 11/20/23 08:41 Dose: 5 mg Glucagon (Glucagon For Inj 1 Mg Vial) 1 mg SQ UD PRN; Protocol PRN Reason: Hypoglycemia Protocol Stop: 12/19/23 02:52 Glucose (Glucose 40% Gel 15 Gm Tube) 15 - 30 gm PO UD PRN; Protocol PRN Reason: Hypoglycemia Protocol Stop: 12/19/23 02:52 Glucose (Glucose 10 Tab/Tube) 4 - 8 tab PO UD PRN; Protocol PRN Reason: Hypoglycemia Treatment Stop: 12/19/23 02:52 Heparin Sodium (Porcine) (Heparin Sod 5,000 Unit/0.5 Ml Vial) 5,000 units SQ Q8 [facility] Stop: 12/19/23 05:59 Last Admin: 11/20/23 06:55 Dose: 5,000 units Hydroxyzine HCl (Hydroxyzine Hcl 10 Mg Tab) 10 mg PO QID PRN PRN Reason: Anxiety Stop: 12/19/23 00:56 Promethazine HCl 6.25 mg/ (Sodium Chloride) 50.25 mls @ 201 mls/hr IV Q6H PRN PRN Reason: Nausea And Vomiting Stop: 12/19/23 00:56 Insulin Aspart (Insulin Aspart Per Unit Charge) 0 units SC ACHS [facility] Stop: 12/19/23 02:52 Last Admin: 11/20/23 07:50 Dose: Not Given Metoprolol Succinate (Metoprolol Succ 25mg Ext Rel Tab) 12.5 mg PO BID [facility] Stop: 12/19/23 08:59 Last Admin: 11/20/23 08:55 Dose: Not Given Miscellaneous (Carbohydrates For Hypoglycemia ) 15 - 30 gm PO UD PRN PRN Reason: Hypoglycemia Protocol Stop: 12/19/23 02:52 Nitroglycerin (Nitroglycerin Sl 0.4 Mg/Tab Tab) 0.4 mg SL Q5M PRN PRN Reason: Chest Pain Stop: 12/19/23 02:52 Potassium Chloride (Potassium Chloride 10 Meq Tabcr) 10 meq PO DAILY [facility] Stop: 12/19/23 08:59 Last Admin: 11/20/23 08:40 Dose: 10 meq Rosuvastatin Calcium (Rosuvastatin Calcium 20 Mg Tab) 40 mg PO QAM [facility] Stop: 12/19/23 08:59 Last Admin: 11/20/23 08:40 Dose: 40 mg Tramadol HCl (Tramadol Hcl 50 Mg Tablet) 25 mg PO Q4H PRN PRN Reason: Pain Stop: 12/19/23 00:56
[2023-11-20] MEDS: FUROSEMIDE 40 MG/4 ML VIAL IV SCH (15:17)
[2023-11-21 07:24] LABS: Basophils # (auto) 0.04 K/uL (0.00-0.20); Basophils % (auto) 0.7 %; Hematocrit (blood only) 30.1 % (42.0-52.0); Hemoglobin 9.3 g/dl (14.0-18.0); Immature Granulocytes # (auto) 0.02 K/uL (0.01-0.20); Immature Granulocytes % (auto) 0.4 %; Lymphocytes # (auto) 0.49 K/uL (1.20-3.40); Mean Corpuscular Hemoglobin 24.2 pg (25.0-34.0); Mean Corpuscular Hgb Conc 30.9 g/dL (32.0-36.0); Mean Corpuscular Volume 78.4 fL (80.0-100.0); Mean Platelet Volume 10.8 fL (9.4-12.4); Monocytes # (auto) 0.56 K/uL (0.11-0.59); Monocytes % (auto) 10.3 %; Neutrophils # (auto) 4.32 K/uL (1.40-6.50); Neutrophils % (auto) 79.6 %; Platelet Count 222 K/uL (130-400); RDW Standard Deviation 61.5 fL (36.4-46.3); Red Blood Count 3.84 M/uL (4.70-6.10); White Blood Count 5.43 K/ul (4.8-10.8)
[2023-11-21 07:37] LABS: BUN Creatinine Ratio 16.1 (10-20); Calcium 9.1 mg/dl (8.6-10.3); Creatinine Clr Calc Pharmacy 18.5 ml/min; Est GFR (African American) 18.9 ml/min; Est GFR (Non-African American) 16.3 ml/min; Phosphorus 3.9 mg/dl (2.5-4.9); Potassium 3.9 mmol/L (3.5-5.1)
[2023-11-21 08:00] LABS: Anisocytosis Present
--- NOTE | 2023-11-21 08:58 | Nephrology Progress Note ---
Date of Service November 21, 2023 Assessment & Plan (1) CKD (chronic kidney disease) stage 4, GFR 15-29 ml/min: Plan: Rapidly progressive CKD in the setting of cardiorenal syndrome now stage IV with baseline creatinine low threes. Status post 5 L paracentesis November 18. Standing weight on November 18 was 79 kg; 11/19 74.5 kg; today he is 72.3 kg >worsening renal function today, which is expected in the setting of obligate diuresis gave him lasix 20 mg IV x 1 this am >> will give lasix 20 mg tidM IV while in house >>increased home K dose to 10 mEq bid Daily basic metabolic panel Daily standing weight; standing weights only for this patient no bed weights Fluid intake limit 1.5 L daily to continue Less than 2 g sodium diet NEPHRO D/C RECS but recommend at least one more day of IP diuresis if possible and tight d/c plan to limit risk of readmission >if is d/c home, resume prior to admission OP diuretics, K >EMPHASIZE he is to take torsemide 60 mg all at once not 20 mg x 3 doses (he was doing that AMA on 09/14) -needs daily weights or at least 3X weekly w/ HHN as well as repeated and regular review of HOW he does fluid intake at home and takes meds and what his food choices are >>>d/c on 1.5L FR (not 2L) and <2 gm daily sodium diet >>needs serial OP paracentesis w/ albumin and OP GI evaluation for congestive hepatopathy or other >> needs OP provider to oversee this -BMP at PCP f/u after hospital stay >>he should f/u w/ me in CKD clinic in 2 wks w/ CM (not BMP), ACR, UACM, Prot/creat, PTH, 25 OHD to be ordered by renal nurse Care coordinated w/ Dr Olguin repeatedly regarding labs, fluid management, diuretics; we are in agreement. Complex medical decision making w/ extended discussions of care. (2) Chronic heart failure with reduced ejection fraction and diastolic dysfunction: Plan: primarily R sided HF per cardiology evaluation last month here and w/ cardiorenal syndrome. He does not have liver cirrhosis on imaging but certainly seems to need serial paracenteses -Consider serial paracentesis as outpatient; question if GI needs to be involved in this discussion or not >> if this is arranged will need to have tight discharge plan on who will manage albumin Recommend primary service evaluate patient for congestive liver disease; no cirrhosis on imaging; mild INR elevation; platelets within normal limits; serum albumin mildly diminished; transaminases within normal limits (3) Cardiorenal syndrome with renal failure: Plan: may soon face ESRD -may soon need to discuss dialysis more in depth; we did discuss it briefly today >> dialysis will not likely change his paracentesis dependence and fluid removal will likely be limited by hypotension; he states he'd want to attempt it recognizing it may have aforementioned limits should the need arise Admission and Anticipated Discharge Date Admission Date: November 19, 2023 Subjective seen on am rounds; no sob, no n/v; feels abd remains non distended. edema controlled. no pain. less adamant today about immediate d/c home but clear that d/c home is his goal Review of Systems 2 Review of Systems: All systems reviewed & are unremarkable except as noted in Subjective Physical Exam 2 Constitutional: well developed (Sitting looking out window on room air), well nourished, + frail appearing and cooperative; no acute distress Eyes: EOM intact bilaterally ENMT: Ears: no external ear abnormality Nose: no external nose abnormality Mouth: + dry oral mucous membranes Neck: no nuchal rigidity Respiratory: normal respiratory effort Auscultation: + diminished lung sounds Cardiovascular: Rate/Rhythm: + irregularly irregular Extremities: + edema (pedal) Gastrointestinal (Abdomen): Inspection/Auscultation: + abdomen distended and normal bowel sounds Percussion/Palpation: abdomen soft and + ascites; abdomen nontender Musculoskeletal: Extremities: strength 5/5 throughout Skin: no rashes, warm and dry Psychiatric: Orientation: alert, oriented to person and oriented to place I nsight: + limited insight Results & Data Vital Signs (Past 12 Hours) Vital Signs Temp Pulse Resp BP Pulse Ox O2 Del Method 11/21/23 07:12 36.9 C 87 17 99/62 L 100 Room Air 11/21/23 03:46 36.7 C 89 18 94/59 L 98 Room Air 11/21/23 00:05 36.6 C 87 18 85/47 L 97 Room Air Laboratory Results 11/21/23 06:11 11/21/23 06:11
[2023-11-21] MEDS: FUROSEMIDE INJ 20 MG/2 ML VIAL IV STA (10:00)
--- NOTE | 2023-11-21 11:50 | Hospitalist Progress Note ---
Date of Service November 21, 2023 Assessment & Plan (1) CHF (congestive heart failure): Plan: Decompensated heart failure in the setting of cardiorenal syndrome hx systolic dysfunction status post ICD Recurrent admissions and has been requiring recurrent paracentesis Troponin elevation secondary above-no signs and or symptoms of ACS LE swelling secondary to CHF rule out DVT Complicated by valvular heart disease (moderate versus pseudostenosis/MR, mild TR) with hx CAD Has been on torsemide and spironolactone as an outpatient Will give diuretics as recommended by the supervisor canvas products and plan discharge tomorrow Has had a net diuresis with a negative balance of 1195 mL Was evaluated by supervisor canvas products and recommendations were made for him to go home today He was strongly advised to take medications as advised and keep appointments with healthcare providers Significant ascites-requiring recurrent paracentesis Cardiorenal syndrome Abdominal distention likely recurrent ascites secondary to CHF Has had 5 L paracentesis on 11/18/2021 Will need recurrent paracentesis done as an outpatient Will arrange albumin and paracentesis as an outpatient Hypertension, BP on the lower side Remains lower side at 99/62 and asymptomatic Hyperlipidemia, on statin Rx DM2 on oral medications, reasonable control as of recent hemoglobin A1c of 8 last month Chronic anemia, hemoglobin at baseline DVT prophylaxis. Heparin subcu CODE STATUS DNR Text document was generated using [employer] voice recognition software. It may contain grammatical or spelling errors. Kindly contact undersigned for clarification of any documentation item in question. Admission and Anticipated Discharge Date Admission Date: November 19, 2023 Subjective 11/20/2023 The patient was seen and examined in telemetry unit She has been feeling much better and is out of bed on a chair Denies any significant abdominal distention, discomfort, nausea and or vomiting Denies any bowel and/or bladder problem Has been ambulating in the room and hallway without any difficulties He wants to go home today and he will be discharged this afternoon 11/21/2023 The patient was seen and examined in telemetry unit He has been feeling much better and ambulating in the room and in the hallway without any difficulties He wants to go home Denies any significant symptoms Review of Systems Review of Systems: All systems reviewed and are unremarkable except as noted below Physical Exam Physical Exam: Sitting in a chair without any acute distress Constitutional: + ill appearing and average body habitus Eyes: PERRL, conjunctivae normal, anicteric sclerae ENMT: external ear and nose normal, oropharynx normal Neck: trachea midline, no thyromegaly Respiratory: no respiratory distress Auscultation: lungs clear to auscultation bilaterally Cardiovascular: Rate/Rhythm: regular rate and regular rhythm; not tachycardic Heart Sounds: normal S1, normal S2 and + murmur Extremities: no edema Gastrointestinal (Abdomen): Inspection/Auscultation: + abdomen distended and normal bowel sounds Percussion/Palpation: abdomen soft; abdomen nontender Musculoskeletal: No acute arthritis involving any of the joint Neurologic: normal touch/pain/proprioception and moves all extremities Psychiatric: A+Ox3, euthymic affect Lymphatic: no cervical or axillary lymphadenopathy Results & Data Results & Data Vital Signs (Past 12 Hours) Vital Signs Temp Pulse Resp BP Pulse Ox O2 Del Method 11/21/23 09:52 81 11/21/23 07:12 36.9 C 87 17 99/62 L 100 Room Air 11/21/23 03:46 36.7 C 89 18 94/59 L 98 Room Air 11/21/23 00:05 36.6 C 87 18 85/47 L 97 Room Air Laboratory Results Short CBC 11/21/23 Range/Units 06:11 WBC 5.43 (4.8-10.8) K/ul Hgb 9.3 L (14.0-18.0) g/dl Hct 30.1 L (42.0-52.0) % Plt Count 222 (130-400) K/uL BMP 11/21/23 06:11 Sodium 140 Potassium 3.9 Chloride 105 Carbon Dioxide 26 BUN 55 H Creatinine 3.42 H Glucose 77 Calcium 9.1 Medications Administered Current Inpatient Medications Acetaminophen (Acetaminophen 500 Mg Tab) 500 mg PO Q6H PRN PRN Reason: fever/pain Stop: 12/19/23 00:56 Aspirin (Aspirin 81 Mg Ectab) [facility] [place] Stop: 12/19/23 08:59 Last Admin: 11/21/23 09:54 Dose: 81 mg Cyanocobalamin (Cyanocobalamin (B-12) 500 Mcg Tablet) 1,000 mcg PO QAM [facility] Stop: 12/19/23 08:59 Last Admin: 11/21/23 09:54 Dose: 1,000 mcg Dextrose (Dextrose 50% 50 Ml Syringe) 25 - 50 ml IV UD PRN; Protocol PRN Reason: Hypoglycemia Protocol Stop: 12/19/23 02:52 Finasteride (Finasteride 5 Mg Tab) 5 mg PO QAM [facility] Stop: 12/19/23 08:59 Last Admin: 11/21/23 09:54 Dose: 5 mg Furosemide (Furosemide Inj 20 Mg/2 Ml Vial) 20 mg IV TIDM [facility] Stop: 12/21/23 11:59 Glucagon (Glucagon For Inj 1 Mg Vial) 1 mg SQ UD PRN; Protocol PRN Reason: Hypoglycemia Protocol Stop: 12/19/23 02:52 Glucose (Glucose 40% Gel 15 Gm Tube) 15 - 30 gm PO UD PRN; Protocol PRN Reason: Hypoglycemia Protocol Stop: 12/19/23 02:52 Glucose (Glucose 10 Tab/Tube) 4 - 8 tab PO UD PRN; Protocol PRN Reason: Hypoglycemia Treatment Stop: 12/19/23 02:52 Heparin Sodium (Porcine) (Heparin Sod 5,000 Unit/0.5 Ml Vial) 5,000 units SQ Q8 [facility] Stop: 12/19/23 05:59 Last Admin: 11/21/23 06:08 Dose: 5,000 units Hydroxyzine HCl (Hydroxyzine Hcl 10 Mg Tab) 10 mg PO QID PRN PRN Reason: Anxiety Stop: 12/19/23 00:56 Promethazine HCl 6.25 mg/ (Sodium Chloride) 50.25 mls @ 201 mls/hr IV Q6H PRN PRN Reason: Nausea And Vomiting Stop: 12/19/23 00:56 Insulin Aspart (Insulin Aspart Per Unit Charge) 0 units SC ACHS [facility] Stop: 12/19/23 02:52 Last Admin: 11/21/23 08:22 Dose: 2 units Metoprolol Succinate (Metoprolol Succ 25mg Ext Rel Tab) 12.5 mg PO BID [facility] Stop: 12/19/23 08:59 Last Admin: 11/21/23 09:54 Dose: 25 mg Miscellaneous (Carbohydrates For Hypoglycemia ) 15 - 30 gm PO UD PRN PRN Reason: Hypoglycemia Protocol Stop: 12/19/23 02:52 Nitroglycerin (Nitroglycerin Sl 0.4 Mg/Tab Tab) 0.4 mg SL Q5M PRN PRN Reason: Chest Pain Stop: 12/19/23 02:52 Potassium Chloride (Potassium Chloride 10 Meq Tabcr) 10 meq PO BID17 [facility] Stop: 12/21/23 16:59 Rosuvastatin Calcium (Rosuvastatin Calcium 20 Mg Tab) 40 mg PO QAM [facility] Stop: 12/19/23 08:59 Last Admin: 11/21/23 09:53 Dose: 40 mg Tramadol HCl (Tramadol Hcl 50 Mg Tablet) 25 mg PO Q4H PRN PRN Reason: Pain Stop: 12/19/23 00:56
[2023-11-21] MEDS: FUROSEMIDE INJ 20 MG/2 ML VIAL IV SCH (12:19)
[2023-11-21] MEDS ORDERED: POTASSIUM CHLORIDE 10 MEQ TABCR PO SCH (17:00)
--- NOTE | 2023-11-22 07:20 | Discharge Summary ---
Date of Service November 22, 2023 Admission HPI Per Admitting Provider History obtained from patient, family, and records. Medical history significant for chronic systolic heart failure secondary to ischemic cardiomyopathy (EF 25 to 29%, TTE 2022) status post ICD, CAD, hypertension, hyperlipidemia, valvular heart disease (moderate versus pseudostenosis/MR, mild TR), DM2 on oral medications, CRI (baseline creatinine 3), chronic anemia (baseline hemoglobin 9-10), RLS, fibromyalgia. Two admissions since last month for decompensated heart failure in the setting of cardiorenal syndrome. Therapeutic paracenteses with removal of 5 L fluid done during recent confinement 2 weeks ago. Patient discharged on torsemide and spironolactone as per Nephrology recommendations. Few days ago, patient noted increasing abdominal distention causing shortness of breath with associated bilateral leg swelling. No chest pain, no cough symptoms. Patient compliant with home medications. Not sure about weight gain. Patient consulted to ER for evaluation. 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 Admission Exam Per Admitting Provider Physical Exam: GENERAL: Comfortable, slightly anxious, no respiratory distress SKIN: Pallor, warm HEENT: Pale palpebral conjunctivae, no ptosis, dry buccal mucosa NECK : Supple, no tenderness CHEST : Decreased breath sounds, no tenderness HEART : Diminished S1-S2, systolic murmur ABDOMEN: Marked distention, fluid wave, nontender EXTREMITIES : Bilateral LE swelling, no LE tenderness, no other conspicuous deformities noted NEUROLOGIC : Coherent, no facial asymmetry, no other gross focality Principal Diagnosis CHF, cardiorenal syndrome, CKD stage IV ,ascites requiring recurrent paracentes is Discharge Exam Sitting in a chair without any acute distress Constitutional + ill appearing and average body habitus Eyes PERRL, conjunctivae normal, anicteric sclerae ENMT external ear and nose normal, oropharynx normal Neck trachea midline, no thyromegaly Respiratory no respiratory distress Auscultation: lungs clear to auscultation bilaterally Cardiovascular Rate/Rhythm: regular rate and regular rhythm; not tachycardic Heart Sounds: normal S1, normal S2 and + murmur Extremities: no edema Gastrointestinal (Abdomen) Inspection/Auscultation: + abdomen distended and normal bowel sounds Percussion/Palpation: abdomen soft; abdomen nontender Neurologic normal touch/pain/proprioception and moves all extremities Psychiatric A+Ox3, euthymic affect Lymphatic no cervical or axillary lymphadenopathy Discharge Data Allergies Allergy/AdvReac Type Severity Reaction Status Date / Time cefadroxil Allergy Unknown RASH Verified 11/18/23 20:32 Consultations 11/18/23 20:00 ED Decision to Admit Stat 11/19/23 02:53 Consult Nephrology Routine Ordered Studies 11/19/23 00:53 US abdomen ltd ascites Stat US leg [US venous doppler LE BI] Stat 11/19/23 08:00 IR paracentesis abd w/img US Routine Hospital Course (1) CHF (congestive heart failure): Decompensated heart failure in the setting of cardiorenal syndrome hx systolic dysfunction status post ICD Recurrent admissions and has been requiring recurrent paracentesis Troponin elevation secondary above-no signs and or symptoms of ACS LE swelling secondary to CHF rule out DVT Complicated by valvular heart disease (moderate versus pseudostenosis/MR, mild TR) with hx CAD Has been on torsemide and spironolactone as an outpatient Will give diuretics as recommended by the safety grooving machine operator and plan discharge tomorrow Has had a net diuresis with a negative balance of 1195 mL Was evaluated by safety grooving machine operator and recommendations were made for him to go home today He was strongly advised to take medications as advised and keep appointments with healthcare providers Significant ascites-requiring recurrent paracentesis Cardiorenal syndrome Abdominal distention likely recurrent ascites secondary to CHF Has had 5 L paracentesis on 11/18/2021 Will need recurrent paracentesis done as an outpatient Will arrange albumin and paracentesis as an outpatient Hypertension, BP on the lower side Remains lower side at 99/62 and asymptomatic Hyperlipidemia, on statin Rx DM2 on oral medications, reasonable control as of recent hemoglobin A1c of 8 last month Chronic anemia, hemoglobin at baseline DVT prophylaxis. Heparin subcu CODE STATUS DNR Text document was generated using [employer] voice recognition software. It may contain grammatical or spelling errors. Kindly contact undersigned for clarification of any documentation item in question. Total Time Total Time Spent Total Time Spent (In Minutes): 40 minutes Discharge Plan Discharge Items Patient Disposition: Home - Self-Care Reason For Visit: HYPOTENSION Discharge Diagnosis: CHF, cardiorenal syndrome, CKD stage IV ,ascites requiring recurrent paracentesis Condition on Discharge: Fair Activity: Resume your previous activity Non-emergency contact: Primary Care Provider Call non-emergency contact if: you have any medication questions and your symptoms worsen Follow-up/Referrals: Haley Boggs, [Primary Care Provider] - (Date & Time 11/27/2023 11:20 AM Provider Brooklynn Martinez PA-C Department Family [facility] ) Diet: Carb Consistent or DM2 and Heart Healthy Fluids: 1500ml (6 cups) Addtl Attending Provider Instructions: Please take precautions to prevent falls Take your medications as advised: Torsemide should be taken 60 mg once in the morning. Will inform your PCP to arrange for outpatient paracentesis with albumin infusion periodically-may need to be referred to GI doctor for that Will need follow-up with the safety grooving machine operator in 2 weeks Please keep appointments with your healthcare providers Pending Studies at Discharge: No Stand-Alone Forms: My [employer], Smoking Cessation Medications and DC Order Prescriptions: Continued cyanocobalamin (vitamin B-12) [Vitamin B-12] 1,000 mcg Tablet 1,000 mcg PO QAM aspirin 81 mg Tablet,Delayed Release (Dr/Ec) 81 mg PO QAM diphenhydramine HCl [Benadryl Allergy] 25 mg Tablet 25 mg PO QAM finasteride 5 mg tablet 5 mg PO QAM rosuvastatin 40 mg tablet 40 mg PO QAM metoprolol succinate 25 mg Tablet Extended Release 24 Hr 12.5 mg PO BID Qty: 30 0RF spironolactone 25 mg tablet 12.5 mg PO DAILY Qty: 30 0RF potassium chloride 10 mEq capsule, extended release 10 meq PO DAILY Qty: 30 0RF torsemide 20 mg tablet 60 mg PO DAILY glipizide 10 mg tablet extended release 24hr 20 mg PO DAILY Rx Instructions: PRIOR TO MEAL Discharge Orders: Discharge Order (Routine); Ordered 11/21/23 Ordered By: Stone Olguin Admission Data Admit Date/Time: 11/19/23 00:55 Attending Provider: Stone Olguin Admit Provider: Michael Rojas Primary Care Provider: Haley Boggs Other Providers: Michael Rojas; Geri Rick; Narayan Castro; Jenna Olivares; Roshan Donaldson; Di Hernandez; Saul Pederson,[facility] Other Interventions: Discharge Summary Assessment (RN) Last Done: 11/21/23 14:38
== END 2023-11-21 15:07 | disposition home health service (06) | DRG 291 ==
LOC: ED 18:05 → SUATTDRO 11-19 00:55 → EDINP 11-19 00:55 → 2S 11-19 17:26
DX: I25.10 Atherosclerotic heart disease of native coronary artery without angina pectoris; R79.89 Other specified abnormal findings of blood chemistry; Z96.653 Presence of artificial knee joint, bilateral; Z88.8 Allergy status to other drugs, medicaments and biological substances; Z79.84 Long term (current) use of oral hypoglycemic drugs; R18.8 Other ascites; I25.5 Ischemic cardiomyopathy; K74.60 Unspecified cirrhosis of liver; I50.43 Acute on chronic combined systolic (congestive) and diastolic (congestive) heart failure; D64.9 Anemia, unspecified; Z79.82 Long term (current) use of aspirin; N17.9 Acute kidney failure, unspecified; E11.22 Type 2 diabetes mellitus with diabetic chronic kidney disease; I13.0 Hypertensive heart and chronic kidney disease with heart failure and stage 1 through stage 4 chronic kidney disease, or unspecified chronic kidney disease; N18.4 Chronic kidney disease, stage 4 (severe)

== ENCOUNTER 2023-11-30 16:53 | Inpatient (IN) ==
--- NOTE | 2023-11-30 17:06 | ED Triage Note ---
Date of Service November 30, 2023 Provider in Triage Author: Michael Bello. History of Present Illness This patient was briefly evaluated while in triage. An abbreviated physical exam was performed. This patient is a 78-year-old Male history cirrhosis who presents to the ED for evaluation of increasing abdominal swelling, similar to 10 days ago when he was admitted. Patient states this is causing him to feel more difficult to breathe given pressure on his abdomen. He states he has not received communication to setup outpatient paracentesis. Physical Exam CONSTITUTIONAL: weak SKIN: pink, warm, dry CARDIAC: regular rate RESPIRATORY: in no respiratory distress, lungs clear to auscultation Initial orders for labs and / or imaging were placed and patient was placed directly into a room. Please see further documentation for the full ED course.
--- NOTE | 2023-11-30 17:44 | Emergency Department Note ---
Impression & Plan SOB (shortness of breath), Ascites, CHF (congestive heart failure), CKD (chronic kidney disease) ED Provider Note Provider: Salvador Lugo MD DATE OF SERVICE: 11/30/2023 CHIEF COMPLAINT: Shortness of breath swelling HISTORY OF PRESENT ILLNESS: Patient is a 78-year-old gentleman history of diabetes, CAD, CHF, cardiorenal syndrome, abdominal ascites status post paracentesis 3 times in the past presenting here today reporting increasing shortness of breath the last day or 2. Recent admission last week for fluid overload. States he feels like he is swelling again in his abdomen. No falls. No sick contacts. No significant productive cough though slight cough reported. No chest pain or abdominal pain. No fevers. States he is post to be at set up for outpatient abdominal paracentesis but this has not happened. Lives by himself and family check on him he states he just cannot get around due to shortness of breath and even at rest he feels somewhat short of breath. PAST MEDICAL HISTORY: As noted above MEDICATIONS: Reviewed home medications he states compliance including his torsemide earlier today. SOCIAL HISTORY: Non-smoker, lives by himself PHYSICAL EXAM: GENERAL: alert and oriented in no acute distress on stretcher Head: normocephalic and atraumatic EYES: No injection, discharge or icterus. NECK: Trachea midline. ENT: Mucous membranes pink and moist. LUNGS: Airway patent. No retractions but mildly tachypneic with clear lung sounds in the upper lung forrest and mildly diminished in the bases. HEART: Regular rate and rhythm. No chest wall tenderness with left upper chest pacemaker subcutaneously noted. ABDOMEN: Soft with moderate abdominal distention and fluid wave present. No guarding. Small umbilical hernia soft. SKIN: Acyanotic, warm, dry, without rashes EXTREMITIES: Without swelling, tenderness or deformity NEUROLOGICAL: No focal deficits. No aphasia. No facial droop or slurred speech. Ambulatory with assistance as he is a bit unsteady EK bpm sinus rhythm with sinus arrhythmia. No acute ST segment elevation or depression with a QTc of 483. CONTINUOUS CARDIAC MONITORING: was ordered and showed a heart rate of 80s to 90s bpm in normal sinus rhythm occasional sinus arrhythmia Patient's laboratory studies and imaging reviewed. Differential includes Reactive airway disease, pneumonia, pneumothorax, COPD, CHF, infections, cardiac ischemia, pulmonary embolism, musculoskeletal, gastrointestinal, as well as other pathologies. IMPRESSION/MEDICAL DECISION MAKING: Reviewed prior patient's medical records. Patient with admission and discharged November 21. Patient significant history of ischemic cardiomyopathy with AICD as well as CKD. Has been having issues with fluid accumulation in the abdomen. Denies any drinking issues. Has been taking his medications states his weight has not increased much. Worsening dyspnea not hypoxic at rest on room air. Does have some swelling of the legs. Benign abdomen without tenderness. Doubt SBP. Evidently had not had outpatient abdominal paracentesis scheduled at this point yet. Basic blood obtained. No significant leukocytosis. Normal platelet count. Stable mild anemia. Stable CKD. No severe electrolyte abnormalities. Normal LFTs with a very slight elevation of his lipase at 178 but not that far off previous not having other symptoms concerning for pancreatitis. Again a benign abdomen. Troponin and BNP completed with stable troponin. Chest X ray without significant element of pneumonia, pneumothorax, pulmonary edema, free air, or pulmonary effusion in my review as well as radiology report. Doubt this represents PE and recent evaluation of ultrasound lower extremity negative for DVT within the last several weeks. Given his poor renal function unsure that further diuretics will be that helpful. Will likely need additional paracentesis and possibly placement of a abdominal catheter. Do not feel he needs an antibiotics and doubt this represents pneumonia at this point. Discussed with the patient staying for further evaluation and plan drainage of his abdominal ascites. He was in agreement given his shortness of breath and a hospitalist team was contacted. DIAGNOSIS: Shortness of breath, abdominal ascites, CHF DISPOSITION: Hospitalist will evaluate Patient was agreeable with this plan. Past Med/Surg History Problem List (Updated 11/19/23 @ 08:19 by Geri Rick MD, PhD) CKD (chronic kidney disease) (Acute) CHF (congestive heart failure) (Acute) Elevated troponin (Acute) JAMIR (acute kidney injury) (Acute) Cirrhosis (Acute) Anemia (Acute) Ascites (Acute) SOB (shortness of breath) (Acute) Bilateral edema of lower extremity (Acute) NGUYEN (dyspnea on exertion) (Acute) Hypomagnesemia Acute on chronic heart failure with reduced ejection fraction and diastolic dysfunction Ascites Acute on chronic renal failure Fluid overload (Acute) Acute kidney injury superimposed on CKD (Acute) Aortic stenosis Exertional dyspnea (Acute) Hx of coronary artery disease (Acute) Dyspnea on exertion (Acute) RLS (restless legs syndrome) (Chronic) Fibromyalgia (Chronic) PMR (polymyalgia rheumatica) (Chronic) GERD (gastroesophageal reflux disease) (Chronic) HLD (hyperlipidemia) (Chronic) continue statin CAD (coronary artery disease) (Chronic) continue ASA and low dose BB and imdur and lasix Diabetes mellitus, type II (Chronic) CAD (coronary artery disease) (Chronic) continue ASA Ischemic cardiomyopathy (Chronic) Pt admitted for elective ICD due to ICM and SB. Underwent procedure without any complications; monitored overnight and discharged home. CKD (chronic kidney disease), stage III (Chronic) S/P cardiac cath (Chronic) "12/25/2014-LM: 30% ostial LM stenosis. LAD: Functionally occluded after the takeoff of the second diagonal branch. LCX: Minor nonobstructive disease. RCA: Diffusely diseased with moderately severe disease in the proximal and mid segment and a 70% distal stenosis. " S/P wrist surgery (Chronic) S/P vasectomy (Chronic) History of bilateral knee replacement (Chronic) Medical History (Updated 11/30/23 @ 18:55 by Salvador Lugo M.D.) Cardiorenal syndrome with renal failure Chronic heart failure with reduced ejection fraction and diastolic dysfunction CKD (chronic kidney disease) stage 4, GFR 15-29 ml/min Anemia NSVT (nonsustained ventricular tachycardia) Surgical History (Updated 11/19/23 @ 08:19 by Geri Rick MD, PhD) Sinus bradycardia s/p dual chamber ICD H/O wrist surgery History of cardiac catheterization History of knee replacement Family History Other Heart disease Stroke Social History Smoking Status: Never smoker Second Hand Exposure: No; Do You Dip or Chew Tobacco: No; Hx Alcohol Use: No Hx Substance Use: No Preferred Language: German Communication Ability: Effective Phlebotomist Associate Required: No Beliefs That Will Affect Care: None Current Living Situation: Alone Feels Safe at Home: Yes Allergies Allergies Allergy/AdvReac Type Severity Reaction Status Date / Time cefadroxil Allergy Unknown RASH Verified 11/18/23 20:32 Home Meds Home Medications Medication Instructions Recorded Confirmed aspirin 81 mg tablet,delayed 81 mg PO QAM 03/17/19 11/18/23 release cyanocobalamin (vitamin B-12) 1,000 mcg PO QAM 03/17/19 11/18/23 1,000 mcg tablet (Vitamin B-12) diphenhydramine HCl 25 mg tablet 25 mg PO QAM 03/17/19 11/18/23 (Benadryl Allergy) finasteride 5 mg tablet 5 mg PO QAM 03/17/19 11/18/23 rosuvastatin 40 mg tablet 40 mg PO QAM 03/17/19 11/18/23 glipizide 10 mg tablet, extended 20 mg PO DAILY 11/18/23 11/18/23 release 24 hr torsemide 20 mg tablet 60 mg PO DAILY 11/18/23 11/18/23 Previous Rx's Medication Instructions Recorded metoprolol succinate 25 mg 12.5 mg (1/2 x 25 mg) PO BID #30 10/18/23 tablet,extended release 24 hr tabs potassium chloride 10 mEq 10 meq PO DAILY #30 caps 11/08/23 capsule,extended release spironolactone 25 mg tablet 12.5 mg (1/2 x 25 mg) PO DAILY #30 11/08/23 tabs Results & Data (ED) Vital Signs Vital Signs - 24 hr 11/30/23 17:02 11/30/23 18:14 Temperature 36.3 C L Temperature Source Temporal Artery Scan Pulse Rate 90 Pulse Rhythm Regular Pulse Strength Normal Respiratory Rate 18 Respiratory Effort / Characteristics Non-Labored Spontaneous Respiratory Depth Normal Respiratory Pattern Regular Blood Pressure 91/56 L Blood Pressure Mean 67 Blood Pressure Position Sitting Pulse Oximetry 100 Oxygen Delivery Method Room Air Room Air Sepsis Recent Fever Within 48 Hours No Sepsis New/Unexplained Change in Mental Status No Sepsis Action Taken by Nursing No Action Required Laboratory Data 11/30/23 18:00 11/30/23 18:00 Lab Results 11/30/23 Range/Units 18:00 WBC 5.10 (4.8-10.8) K/ul RBC 3.89 L (4.70-6.10) M/uL Hgb 9.7 L (14.0-18.0) g/dl Hct 31.5 L (42.0-52.0) % MCV 81.0 (80.0-100.0) fL MCH 24.9 L (25.0-34.0) pg MCHC 30.8 L (32.0-36.0) g/dL RDW Std Deviation 67.6 H (36.4-46.3) fL RDW Coeff of Serene 23.2 H (11.5-14.5) % Plt Count 210 (130-400) K/uL MPV 11.2 (9.4-12.4) fL Immature Gran % (Auto) 0.4 % Neut % (Auto) 82.0 % Lymph % (Auto) 8.6 % [place] % (Auto) 8.0 % Eos % (Auto) 0.0 % Baso % (Auto) 1.0 % Neut # (Auto) 4.18 (1.40-6.50) K/uL Lymph # (Auto) 0.44 L (1.20-3.40) K/uL [place] # (Auto) 0.41 (0.11-0.59) K/uL Eos # (Auto) 0.00 (0.00-0.50) K/uL Baso # (Auto) 0.05 (0.00-0.20) K/uL Immature Gran # (Auto) 0.02 (0.01-0.20) K/uL Sodium 137 (136-145) mmol/L Potassium 4.5 (3.5-5.1) mmol/L Chloride 104 (98-107) mmol/L Carbon Dioxide 23 (21-32) mmol/L Anion Gap 10 (3-11) BUN 65 H (6-23) mg/dl Creatinine 3.11 H (0.6-1.4) mg/dl Est Cr Clr Drug Dosing 20.5 ml/min Est GFR ( Amer) 21.2 ml/min Est GFR (Non-Af Amer) 18.3 ml/min BUN/Creatinine Ratio 20.9 H (10-20) Glucose 111 H (70-99(Fasting)) mg/dl Calcium 8.8 (8.6-10.3) mg/dl Magnesium 2.1 (1.7-2.4) mg/dl Total Bilirubin 0.7 (0.2-1.0) mg/dl AST 38 (13-39) U/L ALT 41 (7-52) U/L Alkaline Phosphatase 86 (34-104) U/L Total Protein 7.3 (6.0-8.3) gm/dl Albumin 3.7 (3.4-5.0) gm/dl Globulin 3.6 (2.5-4.0) gm/dl Albumin/Globulin Ratio 1.0 (0.9-2) Lipase 178 H (11-82) U/L Imaging Data Radiologist's Impression: Chest X-Ray 11/30/23 17:15 XR chest 1V portable HISTORY: Dyspnea, swelling COMPARISON: Chest 11/18/2023. FINDINGS: No pneumothorax. No pleural effusions. No focal lung consolidations to suggest a pneumonia. No evidence for pulmonary edema. The heart remains enlarged. Is left-sided pacemaker again noted. Mild calcifications within the aortic knob. No acute fractures. IMPRESSION: Stable cardiomegaly. Otherwise, no acute process within the chest. ACT 112: Negative or not required by law. Electronically signed by: Daniel Bland M.D. 11/30/2023 5:58 PM Discharge Plan Visit Data Chief Complaint: Swelling/Edema to Extremity Stated Complaint: FLUID IN ABD ED Provider: Salvador Lugo Discharge Problem: SOB (shortness of breath), Ascites, CHF (congestive heart failure), CKD (chronic kidney disease) Patient Disposition: Being Evaluated by Hospitalist Forms Stand Alone Forms: My [employer] Prescriptions Prescriptions: No Action cyanocobalamin (vitamin B-12) [Vitamin B-12] 1,000 mcg Tablet 1,000 mcg PO QAM aspirin 81 mg Tablet,Delayed Release (Dr/Ec) 81 mg PO QAM diphenhydramine HCl [Benadryl Allergy] 25 mg Tablet 25 mg PO QAM finasteride 5 mg tablet 5 mg PO QAM rosuvastatin 40 mg tablet 40 mg PO QAM metoprolol succinate 25 mg Tablet Extended Release 24 Hr 12.5 mg PO BID Qty: 30 0RF spironolactone 25 mg tablet 12.5 mg PO DAILY Qty: 30 0RF potassium chloride 10 mEq capsule, extended release 10 meq PO DAILY Qty: 30 0RF torsemide 20 mg tablet 60 mg PO DAILY glipizide 10 mg tablet extended release 24hr 20 mg PO DAILY Rx Instructions: PRIOR TO MEAL Referrals Referrals: Haley Boggs DO [Primary Care Provider] - Discharge Problem: Ascites Qualifiers: Ascites type: other type Qualified Code(s): R18.8 - Other ascites CHF (congestive heart failure) Qualifiers: Heart failure type: systolic Heart failure chronicity: acute on chronic Q ualified Code(s): I50.23 - Acute on chronic systolic (congestive) heart failure CKD (chronic kidney disease) Qualifiers: Chronic kidney disease stage: stage 4 (severe) Qualified Code(s): N18.4 - Chronic kidney disease, stage 4 (severe)
--- NOTE | 2023-11-30 17:59 | XRay Report ---
XR chest 1V portable HISTORY: Dyspnea, swelling COMPARISON: Chest 11/18/2023. FINDINGS: No pneumothorax. No pleural effusions. No focal lung consolidations to suggest a pneumonia. No evidence for pulmonary edema. The heart remains enlarged. Is left-sided pacemaker again noted. Mi ld calcifications within the aortic knob. No acute fractures. IMPRESSION: Stable cardiomegaly. Otherwise, no acute process within the chest. ACT 112: Negative or not required by law. Electronically signed by: Daniel Bland M.D. 11/30/2023 5:58 PM
[2023-11-30 18:29] LABS: Basophils # (auto) 0.05 K/uL (0.00-0.20); Hematocrit (blood only) 31.5 % (42.0-52.0); Hemoglobin 9.7 g/dl (14.0-18.0); Immature Granulocytes # (auto) 0.02 K/uL (0.01-0.20); Immature Granulocytes % (auto) 0.4 %; Lymphocytes # (auto) 0.44 K/uL (1.20-3.40); Lymphocytes % (auto) 8.6 %; Mean Corpuscular Hemoglobin 24.9 pg (25.0-34.0); Mean Corpuscular Hgb Conc 30.8 g/dL (32.0-36.0); Mean Platelet Volume 11.2 fL (9.4-12.4); Monocytes # (auto) 0.41 K/uL (0.11-0.59); Neutrophils # (auto) 4.18 K/uL (1.40-6.50); Platelet Count 210 K/uL (130-400); RDW Coefficient of Variation 23.2 % (11.5-14.5); RDW Standard Deviation 67.6 fL (36.4-46.3); Red Blood Count 3.89 M/uL (4.70-6.10)
[2023-11-30 18:48] LABS: Albumin Level 3.7 gm/dl (3.4-5.0); BUN Creatinine Ratio 20.9 (10-20); Bilirubin,Total 0.7 mg/dl (0.2-1.0); Calcium 8.8 mg/dl (8.6-10.3); Creatinine Clr Calc Pharmacy 20.5 ml/min; Est GFR (African American) 21.2 ml/min; Est GFR (Non-African American) 18.3 ml/min; Globulin 3.6 gm/dl (2.5-4.0); Magnesium 2.1 mg/dl (1.7-2.4); Potassium 4.5 mmol/L (3.5-5.1); Total Protein 7.3 gm/dl (6.0-8.3)
[2023-11-30 18:54] LABS: Troponin I High Sensitivity 39.7 pg/ml (0-20)
[2023-11-30 18:58] LABS: Anisocytosis Present; INR 1.3 (0.9-1.1); Ovalocytes 1+; Partial Thromboplastin Time 26 Seconds (21-31); Prothrombin Time 13.5 Seconds (9.0-12.0)
--- NOTE | 2023-11-30 19:56 | History & Physical Report ---
Date of Service November 30, 2023 Assessment & Plan (1) CHF (congestive heart failure): Plan: Decompensated heart failure in the setting of cardiorenal syndrome hx systolic dysfunction status post ICD Right-sided heart failure symptoms/recurrent ascites Recurrent admissions hx CAD hypertension, BP on the lower side in the last 2 months hyperlipidemia, on statin Rx valvular heart disease (moderate versus pseudostenosis/MR, mild TR) DM2 on oral medications, reasonable control as of recent hemoglobin A1c of 8 last month chronic anemia, hemoglobin at baseline PCU Lasix albumin Strict I/Os, daily weights, 1.5 L fluid restriction as per nephrology recomm endations from last admission Therapeutic paracentesis Nephrology consult Re: Cardiorenal syndrome Will have AM provider [place] [facility] [place] prior to discharge to facilitate earlier appointment re: recurrent ascites, need to set up periodic outpatient paracenteses (Patient's current outpatient [facility] [place] 3 months away) ISS BG goal 1 10-1 40, carb count coverage DVT prophylaxis. Heparin subcu DNR Text document was generated using [employer] voice recognition software. It may contain grammatical or spelling errors. Kindly contact undersigned for clarification of any documentation item in question. History of Present Illness Chief Complaint: Abdominal distention, shortness of breath Primary Care Provider: Haley Boggs DO History obtained from patient, family, and records. Medical history significant for chronic systolic heart failure secondary to ischemic cardiomyopathy (EF 25 to 29%, TTE 2022) status post ICD, CAD, hypertension, hyperlipidemia, valvular heart disease (moderate versus pseudostenosis/MR, mild TR), DM2 on oral medications, CRI (baseline creatinine 3), chronic anemia (baseline hemoglobin 9-10), RLS, fibromyalgia. Three admissions since September 2023 for decompensated right-sided heart failure/cardiorenal syndrome. Recent confinement November 18 to 2023. Paracentesis done. Nephrology recommendations on discharge included: Diuretic medications, 1.5 fluid restriction, serial outpatient paracenteses with albumin administration, outpatient GI referral to facilitate periodic outpatient paracenteses given recurrent ascites. Patient seen at PCPs office on follow-up visit 3 days ago. Outpatient GI and palliative care consults placed. GI appointment for recurrent ascites scheduled for March 20, 2024 as per records. 2 days ago, patient noted increasing abdominal distention causing him to be short of breath. No chest pain, no cough symptoms. Compliant with home medications and fluid restriction. 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 Allergies Allergy/AdvReac Type Severity Reaction Status Date / Time cefadroxil Allergy Unknown RASH Verified 11/30/23 19:50 Home Medications Medication Instructions Recorded Confirmed Type aspirin 81 mg tablet,delayed 81 mg PO QAM 03/17/19 11/30/23 History release cyanocobalamin (vitamin B-12) 1,000 mcg PO QAM 03/17/19 11/30/23 History 1,000 mcg tablet (Vitamin B-12) diphenhydramine HCl 25 mg tablet 25 mg PO QAM 03/17/19 11/30/23 History (Benadryl Allergy) finasteride 5 mg tablet 5 mg PO QAM 03/17/19 11/30/23 History rosuvastatin 40 mg tablet 40 mg PO QAM 03/17/19 11/30/23 History metoprolol succinate 25 mg 12.5 mg (1/2 x 25 mg) PO BID #30 10/18/23 11/30/23 Rx tablet,extended release 24 hr tabs potassium chloride 10 mEq 10 meq PO DAILY #30 caps 11/08/23 11/30/23 Rx capsule,extended release spironolactone 25 mg tablet 12.5 mg (1/2 x 25 mg) PO DAILY #30 11/08/23 11/30/23 Rx tabs glipizide 10 mg tablet, extended 20 mg PO DAILY 11/18/23 11/30/23 History release 24 hr torsemide 20 mg tablet 60 mg PO DAILY 11/18/23 11/30/23 History Past Med/Surg History Problem List (Updated 11/19/23 @ 08:19 by Geri Rick MD, PhD) CKD (chronic kidney disease) (Acute) CHF (congestive heart failure) (Acute) Elevated troponin (Acute) JAMIR (acute kidney injury) (Acute) Cirrhosis (Acute) Anemia (Acute) Ascites (Acute) SOB (shortness of breath) (Acute) Bilateral edema of lower extremity (Acute) NGUYEN (dyspnea on exertion) (Acute) Hypomagnesemia Acute on chronic heart failure with reduced ejection fraction and diastolic dysfunction Ascites Acute on chronic renal failure Fluid overload (Acute) Acute kidney injury superimposed on CKD (Acute) Aortic stenosis Exertional dyspnea (Acute) Hx of coronary artery disease (Acute) Dyspnea on exertion (Acute) RLS (restless legs syndrome) (Chronic) Fibromyalgia (Chronic) PMR (polymyalgia rheumatica) (Chronic) GERD (gastroesophageal reflux disease) (Chronic) HLD (hyperlipidemia) (Chronic) continue statin CAD (coronary artery disease) (Chronic) continue ASA and low dose BB and imdur and lasix Diabetes mellitus, type II (Chronic) CAD (coronary artery disease) (Chronic) continue ASA Ischemic cardiomyopathy (Chronic) Pt admitted for elective ICD due to ICM and SB. Underwent procedure without any complications; monitored overnight and discharged home. CKD (chronic kidney disease), stage III (Chronic) S/P cardiac cath (Chronic) "12/25/2014-LM: 30% ostial LM stenosis. LAD: Functionally occluded after the takeoff of the second diagonal branch. LCX: Minor nonobstructive disease. RCA: Diffusely diseased with moderately severe disease in the proximal and mid segment and a 70% distal stenosis. " S/P wrist surgery (Chronic) S/P vasectomy (Chronic) History of bilateral knee replacement (Chronic) Medical History (Updated 11/30/23 @ 18:55 by Salvador Lugo M.D.) Cardiorenal syndrome with renal failure Chronic heart failure with reduced ejection fraction and diastolic dysfunction CKD (chronic kidney disease) stage 4, GFR 15-29 ml/min Anemia NSVT (nonsustained ventricular tachycardia) Surgical History (Updated 11/19/23 @ 08:19 by Geri Rick MD, PhD) Sinus bradycardia s/p dual chamber ICD H/O wrist surgery History of cardiac catheterization History of knee replacement Family History Other Heart disease Stroke Social History Smoking Status: Never smoker Second Hand Exposure: No; Do You Dip or Chew Tobacco: No; Hx Alcohol Use: No Hx Substance Use: No Preferred Language: Brazilian Communication Ability: Effective Passenger Booking Clerk Required: No Beliefs That Will Affect Care: None Current Living Situation: Alone Other Information That Helps Us Care for You: No Feels Safe at Home: Yes Safety Concerns: Feels Safe At This Time Assistive Devices: Glasses Review of Systems Review of Systems: As per HPI, all other systems reviewed and negative Physical Exam Physical Exam: GENERAL: Comfortable, pleasant, eating dinner, no respiratory distress SKIN: Pallor, warm HEENT: Pale palpebral conjunctivae, no ptosis, dry buccal mucosa NECK : Supple, no tenderness CHEST : Decreased breath sounds, no tenderness HEART : Diminished S1-S2, systolic murmur ABDOMEN: Marked distention, fluid wave, nontender EXTREMITIES : Minimal bilateral LE swelling, no LE tenderness, no other conspicuous deformities noted NEUROLOGIC : Coherent, no facial asymmetry, no other gross focality Results & Data Results & Data Vital Signs (Past 12 Hours) Vital Signs Temp Pulse Resp BP Pulse Ox O2 Del Method 11/30/23 18:14 Room Air 11/30/23 17:02 36.3 C L 90 18 91/56 L 100 Room Air Laboratory Results Laboratory Results WBC 5.10 K/ul (4.8-10.8) 11/30/23 18:00 RBC 3.89 M/uL (4.70-6.10) L 11/30/23 18:00 Hgb 9.7 g/dl (14.0-18.0) L 11/30/23 18:00 Hct 31.5 % (42.0-52.0) L 11/30/23 18:00 MCV 81.0 fL (80.0-100.0) 11/30/23 18:00 MCH 24.9 pg (25.0-34.0) L 11/30/23 18:00 MCHC 30.8 g/dL (32.0-36.0) L 11/30/23 18:00 RDW Std Deviation 67.6 fL (36.4-46.3) H 11/30/23 18:00 RDW Coeff of Serene 23.2 % (11.5-14.5) H 11/30/23 18:00 Plt Count 210 K/uL (130-400) 11/30/23 18:00 MPV 11.2 fL (9.4-12.4) 11/30/23 18:00 Immature Gran % (Auto) 0.4 % 11/30/23 18:00 Neut % (Auto) 82.0 % 11/30/23 18:00 Lymph % (Auto) 8.6 % 11/30/23 18:00 [place] % (Auto) 8.0 % 11/30/23 18:00 Eos % (Auto) 0.0 % 11/30/23 18:00 Baso % (Auto) 1.0 % 11/30/23 18:00 Neut # (Auto) 4.18 K/uL (1.40-6.50) 11/30/23 18:00 Lymph # (Auto) 0.44 K/uL (1.20-3.40) L 11/30/23 18:00 [place] # (Auto) 0.41 K/uL (0.11-0.59) 11/30/23 18:00 Eos # (Auto) 0.00 K/uL (0.00-0.50) 11/30/23 18:00 Baso # (Auto) 0.05 K/uL (0.00-0.20) 11/30/23 18:00 Immature Gran # (Auto) 0.02 K/uL (0.01-0.20) 11/30/23 18:00 Anisocytosis Present 11/30/23 18:00 Ovalocytes 1+ 11/30/23 18:00 PT 13.5 Seconds (9.0-12.0) H 11/30/23 18:00 INR 1.3 (0.9-1.1) H 11/30/23 18:00 APTT 26 Seconds (21-31) 11/30/23 18:00 PTT Ratio 1.0 11/30/23 18:00 Sodium 137 mmol/L (136-145) 11/30/23 18:00 Potassium 4.5 mmol/L (3.5-5.1) 11/30/23 18:00 Chloride 104 mmol/L (98-107) 11/30/23 18:00 Carbon Dioxide 23 mmol/L (21-32) 11/30/23 18:00 Anion Gap 10 (3-11) 11/30/23 18:00 BUN 65 mg/dl (6-23) H 11/30/23 18:00 Creatinine 3.11 mg/dl (0.6-1.4) H 11/30/23 18:00 Est Cr Clr Drug Dosing 20.5 ml/min 11/30/23 18:00 Est GFR ( Amer) 21.2 ml/min 11/30/23 18:00 Est GFR (Non-Af Amer) 18.3 ml/min 11/30/23 18:00 BUN/Creatinine Ratio 20.9 (10-20) H 11/30/23 18:00 Glucose 111 mg/dl (70-99(Fasting)) H 11/30/23 18:00 Calcium 8.8 mg/dl (8.6-10.3) 11/30/23 18:00 Magnesium 2.1 mg/dl (1.7-2.4) 11/30/23 18:00 Total Bilirubin 0.7 mg/dl (0.2-1.0) 11/30/23 18:00 AST 38 U/L (13-39) 11/30/23 18:00 ALT 41 U/L (7-52) 11/30/23 18:00 Alkaline Phosphatase 86 U/L (34-104) 11/30/23 18:00 Troponin I High Sens 39.7 pg/ml (0-20) H 11/30/23 18:00 B-Natriuretic Peptide 3658 pg/ml (0-100) H 11/30/23 18:00 Total Protein 7.3 gm/dl (6.0-8.3) 11/30/23 18:00 Albumin 3.7 gm/dl (3.4-5.0) 11/30/23 18:00 Globulin 3.6 gm/dl (2.5-4.0) 11/30/23 18:00 Albumin/Globulin Ratio 1.0 (0.9-2) 11/30/23 18:00 Lipase 178 U/L (11-82) H 11/30/23 18:00 SARS-CoV-2 (PCR) NEGATIVE (Negative) 11/30/23 18:12 Impressions Chest X-Ray 11/30/23 17:15 XR chest 1V portable HISTORY: Dyspnea, swelling COMPARISON: Chest 11/18/2023. FINDINGS: No pneumothorax. No pleural effusions. No focal lung consolidations to suggest a pneumonia. No evidence for pulmonary edema. The heart remains enlarged. Is left-sided pacemaker again noted. Mild calcifications within the aortic knob. No acute fractures. IMPRESSION: Stable cardiomegaly. Otherwise, no acute process within the chest. ACT 112: Negative or not required by law. Electronically signed by: Daniel Bland M.D. 11/30/2023 5:58 PM Diagnostic Findings EKG as per my interpretation : (1) CHF (congestive heart failure) Heart failure chronicity: acute on chronic Heart failure type: systolic Qualified Code(s): I50.23 - Acute on chronic systolic (congestive) heart failure
[2023-11-30] MEDS: FUROSEMIDE 40 MG/4 ML VIAL IV ONE (20:05)
[2023-11-30] MEDS: ALBUMIN 25% 25 GM/100 ML VIAL IV ONE (20:06)
[2023-11-30 20:42] LABS: Appearance Urine Cloudy (Clear); Bacteria Urine Automated None Seen (None Seen); Bilirubin Urine Negative (Negative); Blood Urine Trace (Negative); Color Urine Yellow; Epithelial Cell Urine Auto 0-2 /hpf (0-2); Glucose Urine UA Negative (Negative); Ketones Urine Negative (Negative); Leukocyte Esterase Urine Negative (Negative); Mucus Urine Present (None Prsent); Nitrite Urine Negative (Negative); Protein Urine 1+ (Negative); RBC Urine Automated 0-2 /hpf (0-2); Specific Gravity Urine 1.013 (1.000-1.030); Urobilinogen Urine Negative (Negative); WBC Urine Automated 0-5 /hpf (0-5)
[2023-11-30] MEDS ORDERED: PROMETHAZINE HCL 6.25 MG in SODIUM CHLORIDE 0.9% 50 ML IV PRN (21:34)
[2023-11-30] MEDS ORDERED: ACETAMINOPHEN 500 MG TAB PO PRN (21:34)
[2023-11-30] MEDS ORDERED: DEXTROSE 50% 50 ML SYRINGE IV PRN (21:52)
[2023-11-30] MEDS ORDERED: GLUCOSE 40% GEL 15 GM TUBE PO PRN (21:52)
[2023-11-30] MEDS ORDERED: GLUCOSE 10 TAB/TUBE PO PRN (21:52)
[2023-11-30] MEDS ORDERED: GLUCAGON FOR INJ 1 MG VIAL SQ PRN (21:52)
[2023-11-30] MEDS: INSULIN ASPART PER UNIT CHARGE SC SCH (22:06)
[2023-11-30] MEDS: METOPROLOL SUCC 25MG EXT REL TAB PO STA (22:50)
[2023-11-30] MEDS: HEPARIN SOD 5,000 UNIT/0.5 ML VIAL SQ SCH (22:50)
[2023-12-01 06:32] LABS: Basophils # (auto) 0.04 K/uL (0.00-0.20); Basophils % (auto) 0.7 %; Hematocrit (blood only) 27.8 % (42.0-52.0); Hemoglobin 8.7 g/dl (14.0-18.0); Immature Granulocytes # (auto) 0.01 K/uL (0.01-0.20); Immature Granulocytes % (auto) 0.2 %; Lymphocytes # (auto) 0.51 K/uL (1.20-3.40); Lymphocytes % (auto) 9.2 %; Mean Corpuscular Hemoglobin 24.9 pg (25.0-34.0); Mean Corpuscular Hgb Conc 31.3 g/dL (32.0-36.0); Mean Corpuscular Volume 79.4 fL (80.0-100.0); Mean Platelet Volume 10.7 fL (9.4-12.4); Monocytes # (auto) 0.51 K/uL (0.11-0.59); Monocytes % (auto) 9.2 %; Neutrophils # (auto) 4.48 K/uL (1.40-6.50); Neutrophils % (auto) 80.7 %; Platelet Count 194 K/uL (130-400); RDW Standard Deviation 66.1 fL (36.4-46.3); White Blood Count 5.55 K/ul (4.8-10.8)
[2023-12-01 07:24] LABS: Anisocytosis Present
[2023-12-01 07:51] LABS: BUN Creatinine Ratio 21.6 (10-20); Calcium 8.6 mg/dl (8.6-10.3); Creatinine Clr Calc Pharmacy 21.6 ml/min; Est GFR (African American) 22.6 ml/min; Est GFR (Non-African American) 19.5 ml/min
[2023-12-01] MEDS: CARBOHYDRATES FOR HYPOGLYCEMIA PO PRN (07:57)
[2023-12-01] MEDS: FINASTERIDE 5 MG TAB PO SCH (08:45)
[2023-12-01] MEDS: METOPROLOL SUCC 25MG EXT REL TAB PO SCH (08:45)
[2023-12-01] MEDS: ASPIRIN 81 MG ECTAB PO SCH (08:45)
[2023-12-01] MEDS: ROSUVASTATIN CALCIUM 20 MG TAB PO SCH (08:45)
[2023-12-01] MEDS: CYANOCOBALAMIN (B-12) 500 MCG TABLET PO SCH (08:46)
[2023-12-01] MEDS: FUROSEMIDE 40 MG/4 ML VIAL IV ONE (08:48)
[2023-12-01] MEDS: ALBUMIN 25% 25 GM/100 ML VIAL IV ONE (08:49)
--- NOTE | 2023-12-01 12:32 | Hospitalist Progress Note ---
Date of Service December 01, 2023 Assessment & Plan (1) CHF (congestive heart failure): Plan: 78-year-old male with PMH of chronic systolic heart failure secondary to ischemic cardiomyopathy [EF 25 to 29%, TTE 2022] status post ICD, CAD, HTN, HLD, T2DM on oral meds, CKD [baseline creatinine around 3], chronic anemia [baseline hemoglobin 9-10], RLS, fibromyalgia with recent repeated admissions in September 2023 for decompensated right-sided heart failure/cardiorenal syndrome presented to the ED 11/29 with complaint of increasing abdominal distention for [address] [employer] causing him to be short of breath. Patient denied any chest pain or cough. Patient reported compliance with home medication and fluid restriction of 1.5 L a day. He is being managed for the following: Volume overload, ascites Advanced kidney disease, history of Advanced heart failure, history of, status post ICD Decompensated heart failure in the setting of cardiorenal syndrome Right-sided heart failure symptoms/recurrent ascites Patient presenting with increasing abdominal distention associated with shortness of breath. BNP 3658 , Admitting CXR with no pulmonary vascular congestion Hold nephrotoxic's including diuretics. IV albumin. Strict I/Os, daily weights, 1.5 L fluid restriction as per nephrology recommendations from last admission Nephrology consult, await recommendation Patient clinically feels better, reports improving shortness of breath. IR paracentesis likely tomorrow. Other chronic medical conditions: Continue with/resume home meds as and when able. hx CAD hypertension, BP on the lower side in the last 2 months hyperlipidemia, on statin Rx valvular heart disease (moderate versus pseudostenosis/MR, mild TR) DM2 on oral medications, reasonable control as of recent hemoglobin A1c of 8 last month chronic anemia, hemoglobin at baseline Dispo: needs earlier GI appointment at [facility] re: recurrent ascites, need to set up periodic outpatient paracenteses DVT prophylaxis. Heparin subcu DNR Text document was generated using [employer] voice recognition software. It may contain grammatical or spelling errors. Kindly contact undersigned for clarification of any documentation item in question. Admission and Anticipated Discharge Date Admission Date: November 30, 2023 Subjective Patient was seen and examined at bedside. Patient was sitting up at the edge of the bed, on room air, NAD, reports shortness of breath getting better. Patient denies any febrile illness, sore throat or cough or chest pain or palpitation. Patient reports eating okay and moving bowels okay. Patient denies any abdominal pain. Physical Exam Physical Exam: GENERAL: Comfortable, pleasant, eating dinner, no respiratory distress SKIN: Pallor, warm HEENT: Pale palpebral conjunctivae, no ptosis, moist buccal mucosa NECK : Supple, no tenderness CHEST : Decreased breath sounds, no tenderness HEART : Diminished S1-S2, systolic murmur ABDOMEN: Marked distention, fluid wave, nontender EXTREMITIES : Minimal bilateral LE swelling, no LE tenderness, no other conspicuous deformities noted NEUROLOGIC : Coherent, no facial asymmetry, no other gross focality Results & Data Results & Data Vital Signs (Past 12 Hours) Vital Signs Temp Pulse Pulse Resp BP Pulse Ox Pulse Ox 12/01/23 10:57 36.5 C 87 18 92/53 L 100 12/01/23 08:00 82 12/01/23 08:00 95 12/01/23 07:12 36.4 C L 83 18 89/44 L 100 12/01/23 03:55 36.7 C 83 18 81/42 L 96 O2 Del Method O2 Del Method 12/01/23 10:57 Room Air 12/01/23 08:00 12/01/23 08:00 Room Air 12/01/23 07:12 Room Air 12/01/23 03:55 Room Air (1) CHF (congestive heart failure) Heart failure chronicity: acute on chronic Heart failure type: systolic Qualified Code(s): I50.23 - Acute on chronic systolic (congestive) heart failure
--- NOTE | 2023-12-01 13:19 | Nephrology Consultation ---
Date of Consultation December 01, 2023 Assessment & Plan (1) CKD (chronic kidney disease) stage 4, GFR 15-29 ml/min: CKD 4 rapidly progressive, at baseline -daily bmp -daily STANDING weight; standing weight only -cont 1.5L FR -does not need albumin w/ lasix >> baseline SBP is 80s-90s -will give lasix today 2 x 60 mg IV (hold parameters for SBP < 85) then tid (6AM, noon, 1800) starting tomorrow and spironolactone 12.5 mg daily -for paracentesis tomorrow 0800 -avoid nsaids -strict I/O (2) Cardiorenal syndrome with renal failure: as above (3) Ascites: -recommend paracentesis in AM w/ albumin periprocedural -suggest coordinating w/ PCP, [facility] for paracentesis; would curbside [facility] GI >> unclear to me that they will oversee paracentesis/albumin given congestive hepatopathy as ascites etiology; nephro unfortunately does not have bandwidth to oversee this care as OP History of Present Illness Reason for Consultation: ckd Requesting Physician: Dr Rojas Attending Physician: Jarek Pederson MD History of Present Illness 78 y/o M whom I'm asked to see for CKD was admitted last evening w/ 4th episode of decompensated HF in the setting of cardiorenal syndrome. PMH includes rapidly progressive CKD now stage IV with creatinine at new baseline in the low threes for a GFR of about 20, severe ischemic [employer] EF 25% s/p pacer/ICD, chronic hypotension w/ SBP in 80-90s as OP since at least late 2022, aortic stenosis, DM2, HL. Admitted here 10/10-10/18/23 w/ acute on chronic HFrEF after apparently misunderstanding instructions about diuretic titration and instead stopping them completely; presenting creatinine 4, discharge creatinine 2.9. He was aggressively diuresed and was discharged home on Lasix 40 mg p.o. twice daily. Outpatient creatinine since hospital discharge ranged from 3.1- 3.3. He also underwent an 8.5 L paracentesis on October 11. Of note his on the day of hospital discharge, October 17. Also readmitted here 11/05- 11/08/23 w/ acute on chronic HF w/ combined systolic/diastolic dysfunction w/ presenting creatinine 3 and d/c creatinine 2.9. He was d/c home on spironolactone 12.5 mg daily, torsemide 60 mg daily, K 10 mEq daily. He was seen by [facility] at home on 11/08 w/ wt 83.3 kg; was logging wts and diet (though fluid limit liberalized to 2L daily from recommended 1.5L, ? by accident); did not yet have torsemide on 11/08. At revisit on 11/14, he weighed 78.5 kg, was taking torsemide at 6A/9A/noon each 20 mg; and seemed to be doing ok. 2 wk f/u was planned. Readmitted here 11/18-11/21 for same; he was d/c home with plans for serial OP paracentesis (had one for 5L on 11/18); his OP torsemide 60 mg daily and spironolactone 12.5 mg daily and K 10 mEq daily were continued at d/c as was his 1.5L FR; he was to have HHN on d/c; ?If that worked out. Pt w/ hx of confusion about medication before September admission, there were again challenges with adherence to/communication of communication regimen and dietary habits. Despite repeated education he prior to September admission he consistently ate high sodium meals per [facility] records. At October 28 PCP visit, he had stopped his Lasix for the preceding 4 days, despite telling case management otherwise. He did tell [facility] on 11/14 that he'd gone to store and spent several hours looking at labels; he declined dietary education. He was seen at PCP f/u late last week; palliative and GI c/s placed; and referred to GI for OP paracenteses w/ albumin >> this eval was scheduled for March. His presenting creatinine was 3.1 and is at 3 this morning. He had 2 doses of albumin and two doses of lasix 60 mg IV overnight. He is not currently receiving K supplements. He feels improved w/ diuretics on board. fluid build up was severe and could not bend ankles or walk. He is fatigued with exertional dyspnea and increasing abdominal girth. Denies fever chills rash fall at home, chest pain or pressure, diarrhea. Allergies Allergy/AdvReac Type Severity Reaction Status Date / Time cefadroxil Allergy Unknown RASH Verified 11/30/23 19:50 Home Medications Medication Instructions Recorded Confirmed Type aspirin 81 mg tablet,delayed 81 mg PO QAM 03/17/19 11/30/23 History release cyanocobalamin (vitamin B-12) 1,000 mcg PO QAM 03/17/19 11/30/23 History 1,000 mcg tablet (Vitamin B-12) diphenhydramine HCl 25 mg tablet 25 mg PO QAM 03/17/19 11/30/23 History (Benadryl Allergy) finasteride 5 mg tablet 5 mg PO QAM 03/17/19 11/30/23 History rosuvastatin 40 mg tablet 40 mg PO QAM 03/17/19 11/30/23 History metoprolol succinate 25 mg 12.5 mg (1/2 x 25 mg) PO BID #30 10/18/23 11/30/23 Rx tablet,extended release 24 hr tabs potassium chloride 10 mEq 10 meq PO DAILY #30 caps 11/08/23 11/30/23 Rx capsule,extended release spironolactone 25 mg tablet 12.5 mg (1/2 x 25 mg) PO DAILY #30 11/08/23 11/30/23 Rx tabs glipizide 10 mg tablet, extended 20 mg PO DAILY 11/18/23 11/30/23 History release 24 hr torsemide 20 mg tablet 60 mg PO DAILY 11/18/23 11/30/23 History Patient History Medical History (Updated 12/01/23 @ 13:17 by Geri Rick MD, PhD) Ascites paracentesis dependent CKD (chronic kidney disease) stage 4, GFR 15-29 ml/min Cardiorenal syndrome with renal failure Chronic heart failure with reduced ejection fraction and diastolic dysfunction Anemia NSVT (nonsustained ventricular tachycardia) Surgical History (Updated 11/19/23 @ 08:19 by Geri Rick MD, PhD) Sinus bradycardia s/p dual chamber ICD H/O wrist surgery History of cardiac catheterization History of knee replacement Family History Other Heart disease Stroke Social History Smoking Status: Never smoker Second Hand Exposure: No; Do You Dip or Chew Tobacco: No; Hx Alcohol Use: No Hx Substance Use: No Preferred Language: Urdu Communication Ability: Effective Wire Winding Machine Tender Required: No Beliefs That Will Affect Care: None Current Living Situation: Alone Other Information That Helps Us Care for You: No Feels Safe at Home: Yes Safety Concerns: Feels Safe At This Time Assistive Devices: Cane, Scooter/Electric Scooter and Walker Review of Systems 2 Review of Systems: All systems reviewed & are unremarkable except as noted in HPI & below Physical Exam 2 Constitutional: well developed, + cachectic, + frail appearing and cooperative; no acute distress Eyes: EOM intact bilaterally ENMT: Ears: no external ear abnormality Nose: no external nose abnormality Mouth: + dry oral mucous membranes Neck: no nuchal rigidity Respiratory: normal respiratory effort Auscultation: + diminished lung sounds Cardiovascular: Rate/Rhythm: regular rate and regular rhythm Heart Sounds: + murmur Extremities: + edema (1++ BLE) Gastrointestinal (Abdomen): Inspection/Auscultation: + abdomen distended and normal bowel sounds Percussion/Palpation: abdomen soft and + ascites; abdomen nontender Musculoskeletal: Extremities: strength 5/5 throughout Skin: no rashes, warm and dry Neurologic: ornelas, fluent speech, no tremor Psychiatric: Orientation: alert and oriented x 3 Insight: + limited insight Results & Data Vital Signs (Past 12 Hours) Vital Signs Temp Pulse Pulse Resp BP Pulse Ox Pulse Ox 12/01/23 10:57 36.5 C 87 18 92/53 L 100 12/01/23 08:00 82 12/01/23 08:00 95 12/01/23 07:12 36.4 C L 83 18 89/44 L 100 12/01/23 03:55 36.7 C 83 18 81/42 L 96 O2 Del Method O2 Del Method 12/01/23 10:57 Room Air 12/01/23 08:00 12/01/23 08:00 Room Air 12/01/23 07:12 Room Air 12/01/23 03:55 Room Air Laboratory Results 12/01/23 05:28 12/01/23 05:28 (3) Ascites Ascites type: other type Qualified Code(s): R18.8 - Other ascites
[2023-12-01] MEDS: FUROSEMIDE INJ 20 MG/2 ML VIAL IV SCH (18:31)
[2023-12-01] MEDS: SPIRONOLACTONE 12.5 MG TAB PO SCH (18:31)
[2023-12-01] MEDS: FUROSEMIDE INJ 20 MG/2 ML VIAL IV ONE (20:48)
[2023-12-01] MEDS: LACTULOSE SYRUP 30 GM/45 ML UDP PO STA (22:22)
[2023-12-01] MEDS: DOCUSATE SODIUM/SENNA 50/8.6MG TAB PO SCH (22:23)
[2023-12-01] MEDS: POTASSIUM CHLORIDE CRTAB 20 MEQ TABCR PO STA (23:25)
[2023-12-02 06:06] LABS: Hematocrit (blood only) 29.9 % (42.0-52.0); Hemoglobin 9.4 g/dl (14.0-18.0); Mean Corpuscular Hemoglobin 25.1 pg (25.0-34.0); Mean Corpuscular Hgb Conc 31.4 g/dL (32.0-36.0); Mean Corpuscular Volume 79.9 fL (80.0-100.0); Mean Platelet Volume 10.3 fL (9.4-12.4); Platelet Count 204 K/uL (130-400); RDW Coefficient of Variation 23.4 % (11.5-14.5); RDW Standard Deviation 66.8 fL (36.4-46.3); Red Blood Count 3.74 M/uL (4.70-6.10); White Blood Count 5.87 K/ul (4.8-10.8)
[2023-12-02 06:22] LABS: BUN Creatinine Ratio 20.4 (10-20); Creatinine Clr Calc Pharmacy 20.1 ml/min; Est GFR (African American) 20.7 ml/min; Est GFR (Non-African American) 17.8 ml/min; Magnesium 2.1 mg/dl (1.7-2.4); Phosphorus 4.8 mg/dl (2.5-4.9); Potassium 4.3 mmol/L (3.5-5.1)
--- NOTE | 2023-12-02 10:18 | Nephrology Progress Note ---
Date of Service December 02, 2023 Assessment & Plan (1) CKD (chronic kidney disease) stage 4, GFR 15-29 ml/min: Plan: CKD 4 rapidly progressive, at baseline -daily bmp -daily STANDING weight; standing weight only -cont 1.5L FR -does not need albumin w/ lasix >> baseline SBP is 80s-90s -for paracentesis today > would hold lasix x 2 doses before/after -avoid nsaids -strict I/O Many/repeated challenges getting plan for OP serial paracentesis/albumin > d/c team working on it. If he leaves AMA not sure recommend resuming OP meds, continue 1.5L FR, <2 gm Na diet, daily standing weight log -he'll need f/u w/ PCP, [facility] or HHN; keep palliative appt >needs hospital d/c appt w/ [place] in [place] in 2-3 wks w/ BMP 2-3 days before appt as well as cbc, pth, 25ohd, acr, uacm all to be ordered by renal nurse Care coordinated w/ Dr Pederson, floor RN and d/c corporate planning manager. (2) Cardiorenal syndrome with renal failure: Plan: as above (3) Ascites: Plan: -recommend paracentesis in AM w/ albumin periprocedural -suggest coordinating w/ PCP, [facility] for paracentesis; would curbside [facility] >> unclear to me that they will oversee paracentesis/albumin given congestive hepatopathy as ascites etiology; nephro unfortunately does not have bandwidth to oversee this care as OP Admission and Anticipated Discharge Date Admission Date: November 30, 2023 Subjective net even I/Ow/ 4 bm; c/o poor sleep d/t pressure from abdomen; states constipation improved. denies light headedness, dizziness. had paracentesis 5L. later in AM announces he'll be signing out AMA Review of Systems 2 Review of Systems: All systems reviewed & are unremarkable except as noted in Subjective Physical Exam 2 Constitutional: well developed, + cachectic, + frail appearing and cooperative; no acute distress Eyes: EOM intact bilaterally ENMT: Ears: no external ear abnormality Nose: no external nose abnormality Mouth: + dry oral mucous membranes Neck: no nuchal rigidity Respiratory: normal respiratory effort Auscultation: + diminished lung sounds Cardiovascular: Rate/Rhythm: regular rate and regular rhythm Heart Sounds: + murmur Extremities: + edema (1++ BLE) Gastrointestinal (Abdomen): Inspection/Auscultation: + abdomen distended and normal bowel sounds Percussion/Palpation: abdomen soft and + ascites; abdomen nontender Musculoskeletal: Extremities: strength 5/5 throughout Skin: no rashes, warm and dry Psychiatric: Orientation: alert and oriented x 3 Insight: + limited insight Results & Data Vital Signs (Past 12 Hours) Vital Signs Temp Pulse Pulse Resp BP Pulse Ox Pulse Ox 12/02/23 08:15 12/02/23 07:13 36.6 C 87 19 90/53 L 100 12/02/23 07:00 82 12/02/23 02:32 36.6 C 86 18 94/61 L 100 12/01/23 23:57 88 L 12/01/23 23:48 36.5 C 81 18 96/63 L 97 O2 Del Method O2 Del Method O2 Flow Rate O2 Flow Rate 12/02/23 08:15 Nasal Cannula 3 12/02/23 07:13 Nasal Cannula 2 12/02/23 07:00 12/02/23 02:32 Room Air 12/01/23 23:57 Room Air 100 12/01/23 23:48 Room Air Laboratory Results 12/02/23 05:44 12/02/23 05:44 (3) Ascites Ascites type: other type Qualified Code(s): R18.8 - Other ascites
[2023-12-02] MEDS: ALBUMIN 25% 25 GM/100 ML VIAL IV ONE (11:49)
--- NOTE | 2023-12-02 13:40 | Discharge Summary ---
Date of Service December 02, 2023 Admission HPI Per Admitting Provider History obtained from patient, family, and records. Medical history significant for chronic systolic heart failure secondary to ischemic cardiomyopathy (EF 25 to 29%, TTE 2022) status post ICD, CAD, hypertension, hyperlipidemia, valvular heart disease (moderate versus pseudostenosis/MR, mild TR), DM2 on oral medications, CRI (baseline creatinine 3), chronic anemia (baseline hemoglobin 9-10), RLS, fibromyalgia. Three admissions since September 2023 for decompensated right-sided heart failure/cardiorenal syndrome. Recent confinement November 18 to 2023. Paracentesis done. Nephrology recommendations on discharge included: Diuretic medications, 1.5 fluid restriction, serial outpatient paracenteses with albumin administration, outpatient GI referral to facilitate periodic outpatient paracenteses given recurrent ascites. Patient seen at PCPs office on follow-up visit 3 days ago. Outpatient GI and palliative care consults placed. GI appointment for recurrent ascites scheduled for March 20, 2024 as per rec ords. 2 days ago, patient noted increasing abdominal distention causing him to be short of breath. No chest pain, no cough symptoms. Compliant with home medications and fluid restriction. 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 Admission Exam Per Admitting Provider GENERAL: Comfortable, pleasant, eating dinner, no respiratory distress SKIN: Pallor, warm HEENT: Pale palpebral conjunctivae, no ptosis, dry buccal mucosa NECK : Supple, no tenderness CHEST : Decreased breath sounds, no tenderness HEART : Diminished S1-S2, systolic murmur ABDOMEN: Marked distention, fluid wave, nontender EXTREMITIES : Minimal bilateral LE swelling, no LE tenderness, no other conspicuous deformities noted NEUROLOGIC : Coherent, no facial asymmetry, no other gross focality Principal Diagnosis Volume overload, ascites Advanced kidney disease, history of Advanced heart failure, history of, status post ICD Decompensated heart failure in the setting of cardiorenal syndrome Right-sided heart failure symptoms/recurrent ascites Discharge Exam GENERAL: Comfortable, pleasant, eating dinner, no respiratory distress SKIN: Pallor, warm HEENT: Pale palpebral conjunctivae, no ptosis, moist buccal mucosa NECK : Supple, no tenderness CHEST : Decreased breath sounds, no tenderness HEART : Diminished S1-S2, systolic murmur ABDOMEN: less distended, nontender EXTREMITIES : Minimal bilateral LE swelling, no LE tenderness, no other conspicuous deformities noted NEUROLOGIC : Coherent, no facial asymmetry, no other gross focality Discharge Data Allergies Allergy/AdvReac Type Severity Reaction Status Date / Time cefadroxil Allergy Unknown RASH Verified 11/30/23 19:50 Consultations 11/30/23 19:02 ED Decision to Admit Stat 11/30/23 21:52 Consult Nephrology Routine Ordered Studies 12/02/23 08:00 IR paracentesis abd w/img US Routine Hospital Course (1) CHF (congestive heart failure): 78-year-old male with PMH of chronic systolic heart failure secondary to ischemic cardiomyopathy [EF 25 to 29%, TTE 2022] status post ICD, CAD, HTN, HLD, T2DM on oral meds, CKD [baseline creatinine around 3], chronic anemia [baseline hemoglobin 9-10], RLS, fibromyalgia with recent repeated admissions in September 2023 for decompensated right-sided heart failure/cardiorenal syndrome presented to the ED 11/29 with complaint of increasing abdominal distention for 2 days ago [employer] causing him to be short of breath. Patient denied any chest pain or cough. Patient reported compliance with home medication and fluid restriction of 1.5 L a day. He is being managed for the following: Volume overload, ascites Advanced kidney disease, history of Advanced heart failure, history of, status post ICD Decompensated heart failure in the setting of cardiorenal syndrome Right-sided heart failure symptoms/recurrent ascites Patient presenting with increasing abdominal distention associated with shortness of breath. BNP 3658 , Admitting CXR with no pulmonary vascular congestion Status post paracentesis 5 L today per nursing report, formal IR report yet to be uploaded. Patient is insisting he will go AMA if his discharge is delayed. Same has been communicated to nephrology for DC med rec from their standpoint. IV albumin x 1 given, patient appears closer to his baseline vitals. Outpatient palliative care has been arranged for goals of care discussion and paracentesis need, [facility] is also being arranged per nursing navigator. Per nephrology, "recommend resuming OP meds, continue 1.5L FR, <2 gm Na diet, daily standing weight log ". patient has been communicated same. Patient reports improvement in his abdominal distention, denies any shortness of breath, reports back to his baseline, would like to go home/AMA if his discharge is delayed. Other chronic medical conditions: Continue with/resume home meds as and when able. hx CAD hypertension, BP on the lower side in the last 2 months hyperlipidemia, on statin Rx valvular heart disease (moderate versus pseudostenosis/MR, mild TR) DM2 on oral medications, reasonable control as of recent hemoglobin A1c of 8 last month chronic anemia, hemoglobin at baseline Dispo: needs earlier GI appointment at [place] re: recurrent ascites, need to set up periodic outpatient paracenteses DVT prophylaxis. Heparin subcu DNR Patient is being discharged to home with home health with following instruction at the point of discharge: Follow-up with your primary care physician within a week time and likely you will need labs CBC/CMP/magnesium/phosphorus. Follow-up with palliative care within a week time upon discharge, further evaluation with goals of care discussion and recurrent paracentesis need. Maintain fluid restriction of 1.5 L/day, low-sodium diet of less than 2 g/day and daily standing weight log. Coordinate with your PCP office for [facility] for ongoing need for paracentesis. Follow-up with GI doctor as an outpatient in a month time, coordinate with your PCP office to set up the test. Follow-up with nephrology in 2 weeks time upon discharge. Continue your prior to arrival medications. Take your medications as prescribed. Please make sure that you are able to get your medications today by calling your pharmacy before you leave the hospital so that your treatment continuity is not broken. Text document was generated using [employer] voice recognition software. It may contain grammatical or spelling errors. Kindly contact undersigned for clarification of any documentation item in question. Home Health Attestation I certify that this patient is under my care and that I, or a physicians property management assistant working with me, had a face to-face encounter that meets the home health [id number] encounter requirements with this patient. The encounter with the patient was in whole, or in part, for the following medical condition, which is the primary reason for home health care (list medical condition): I certify that, based on my findings, the following services are medically necessary home health services: My clinical findings support the need for the above services because: Further, I certify that my clinical findings support that this patient is homebound (i.e. absences from home require considerable and taxing effort and are for medical reasons or druze services or infrequently or of short duration when for other reasons) because: Certification for Home Health Services: Based on the above findings, I certify that this patient is confined to the home and needs intermittent assisted care, physical therapy and/or speech therapy or continues to need occupational therapy. The patient is under my care, and I have initiated the establishment of the plan of care. This patient will be followed by a physician who will periodically review the plan of care. Total Time Total Time Spent Total Time Spent (In Minutes): 45 Discharge Plan Discharge Items Patient Disposition: Home - Home Health Services Reason For Visit: CHF Discharge Diagnosis: Volume overload, ascites Advanced kidney disease, history of Advanced heart failure, history of, status post ICD Decompensated heart failure in the setting of cardiorenal syndrome Right-sided heart failure symptoms/recurrent ascites Activity: Resume your previous activity Non-emergency contact: Primary Care Provider Call non-emergency contact if: you have any medication questions, your symptoms worsen and your pain is worsening Follow-up/Referrals: Haley Boggs DO [Primary Care Provider] - (Date & Time 12/05/2023 11:40 AM Provider Aquilino Venegas MD Department Family Medicine [facility] ) Genie Meadows MD [Outside Practitioners] - (Date & Time 12/04/2023 11:00 AM Provider Genie Meadows MD Department Palliative Medicine [facility] ) Diet: Carb Consistent or DM2 and Heart Healthy Addtl Attending Provider Instructions: Follow-up with your primary care physician within a week time and likely you will need labs CBC/CMP/magnesium/phosphorus. Follow-up with palliative care within a week time upon discharge, further evaluation with goals of care discussion and recurrent paracentesis need. Maintain fluid restriction of 1.5 L/day, low-sodium diet of less than 2 g/day and daily standing weight log. Coordinate with your PCP office for [facility] for ongoing need for paracentesis. Follow-up with GI doctor as an outpatient in a month time, coordinate with your PCP office to set up the test. Follow-up with nephrology in 2 weeks time upon discharge. Continue your prior to arrival medications. Take your medications as prescribed. Please make sure that you are able to get your medications today by calling your pharmacy before you leave the hospital so that your treatment continuity is not broken. Pending Studies at Discharge: No Stand-Alone Forms: My [facility], Smoking Cessation Medications and DC Order Prescriptions: Continued cyanocobalamin (vitamin B-12) [Vitamin B-12] 1,000 mcg Tablet 1,000 mcg PO QAM aspirin 81 mg Tablet,Delayed Release (Dr/Ec) 81 mg PO QAM diphenhydramine HCl [Benadryl Allergy] 25 mg Tablet 25 mg PO QAM finasteride 5 mg tablet 5 mg PO QAM rosuvastatin 40 mg tablet 40 mg PO QAM metoprolol succinate 25 mg Tablet Extended Release 24 Hr 12.5 mg PO BID Qty: 30 0RF spironolactone 25 mg tablet 12.5 mg PO DAILY Qty: 30 0RF potassium chloride 10 mEq capsule, extended release 10 meq PO DAILY Qty: 30 0RF torsemide 20 mg tablet 60 mg PO DAILY glipizide 10 mg tablet extended release 24hr 20 mg PO DAILY Rx Instructions: PRIOR TO MEAL Discharge Orders: Discharge Order (Routine); Ordered 12/02/23 Ordered By: Jarek Pederson Admission Data Admit Date/Time: 11/30/23 19:57 Attending Provider: Jarek Pederson Admit Provider: Michael Rojas Primary Care Provider: Haley Boggs Other Providers: Michael Rojas; Geri Rick; Narayan Castro; Jenna Olivares; Roshan Donaldson; Di Hernandez; RobertoFormerly [facility]
--- NOTE | 2023-12-02 14:07 | Ultrasound Report ---
ULTRASOUND-GUIDED PARACENTESIS CLINICAL HISTORY: Ascites PROCEDURE: Procedure and risks were explained. Informed consent was obtained. A final timeout was com pleted. The abdomen was prepped and draped in sterile fashion. 1% lidocaine was utilized for skin ane sthesia. Utilizing ultrasound guidance, a 5 Azeri safety centesis catheter was advanced into the right lower quadrant pocket of ascites. Ultrasound images were obtained. A total of 5 L of ascites fluid was bibi purnima and discarded. The catheter was removed and Band-Aid applied. The patient tolerated the procedure well. Vital signs will be monitored postprocedure. IMPRESSION: Ultrasound-guided paracentesis as above. Performed, dictated, and signed by Albaro Vega PA-C; to be co-signed by Dr. Israel Case. Electronically signed by: Israel Case M.D. 12/02/2023 2:24 PM
--- NOTE | 2023-12-03 21:41 | Electrocardiogram Report ---
Test Reason : Blood Pressure : / mmHG Vent. Rate : 085 BPM Atrial Rate : 085 BPM P-R Int : 206 ms QRS Dur : 120 ms QT Int : 406 ms P-R-T Axes : 022 -12 129 degrees QTc Int : 483 ms Sinus rhythm Premature atrial complexes Minimal voltage criteria for LVH, may be normal variant Possible Anterior infarct (cited on or before 26-JAN-2015) T wave abnormality, consider lateral ischemia Prolonged QT Abnormal ECG When compared with ECG of 18-NOV-2023 18:42, Premature ventricular complexes are no longer Present Confirmed by Kapil Peguero ([id number]) on 12/03/2023 9:41:36 PM Referred By: Haley Boggs Confirmed By:Kapil Peguero
== END 2023-12-02 14:15 | disposition home health service (06) | DRG 292 ==
LOC: ED 16:53 → EDINP 19:57 → 4W 23:17

== ENCOUNTER 2023-12-21 22:26 | Inpatient (IN) ==
--- NOTE | 2023-12-21 22:56 | Emergency Department Note ---
Impression & Plan Chest pain, CKD (chronic kidney disease), Acute hypotension, Anemia, Elevated troponin ED Provider Note NAME: KYE WALLS AGE: 78 SEX: M : 1945 ARRIVES VIA: Walk-In INFORMANT: Patient ED PROVIDER(S): Shimon Garay DO CHIEF COMPLAINT: Chest pain HPI: Patient is a 78-year-old male who presents ER with a past medical history of CHF, cardiorenal syndrome, ascites, reduced EF, GERD, CAD, hyperlipidemia, ischemic cardiomyopathy who presents to the ER for chest pain. Chest pain started about an hour prior to arrival. He notes it is located in the middle of his chest. There is no radiation. Describes it as a pressure. He notes it has improved significantly. Denies any headache or change in vision. No belly pain, nausea, vomiting or diarrhea. No dysuria, urgency or frequency. No other exacerbating or remitting factors. He admits that his blood pressure is generally on the low side. Additional history provided by son who is present at bedside who notes that they have been considering hospice and are waiting to get into contact with them. ADDITIONAL HISTORY OBTAINED: Additional history provided by son who is present at bedside who notes that they have been considering hospice and are trying to get a hold of them. Chronic Medical/Social Conditions Affecting Care: Per HPI PAST MEDICAL HISTORY:See Below PAST SURGICAL HISTORY:See Below FAMILY HISTORY:See Below SOCIAL HISTORY:See Below HOME MEDICATIONS:See Below ALLERGIES:[See Below] VITALS:See Below PHYSICAL EXAMINATION: GENERAL: Sitting up in bed, alert, ill-appearing, cachectic, disheveled EYE EXAM: normal conjunctiva. PERRL and EOM's grossly intact. OROPHARYNX: mucous membranes are moist LUNGS: Clear to auscultation. Normal chest wall mechanics HEART: S1 normal and S2 normal ABDOMEN: abdomen soft, non-tender, normo-active bowel sounds, no masses, slightly distended, no rebound or guarding. BACK: Back is symmetrical on inspection and there is no deformity, no midline tenderness, no CVA tenderness. SKIN: no rashes and no bruising UPPER EXTREMITIES: upper extremities are grossly normal. LOWER EXTREMITIES: No pitting edema. NEURO EXAM: Normal sensorium, cranial nerves II-XII grossly intact, normal speech, no gross weakness of arms, no gross weakness of legs. No drift. Finger to nose intact. Gross sensation intact. MEDICAL DECISION MAKING: Patient is a 78-year-old male who presents to the ER for chest pain which located middle of the chest. IV was established and blood was obtained. External records were reviewed and Dr. Allen's note reviewed within the from the 16th of this month which shows discussion about palliative/hospice. Additional history provided by son present at bedside and notes that we have not seen them yet. Patient and son agree that he is a DNR/DNI but would want some treatments if they are going to prolong his life. IV was established blood work was obtained. Labs show no significant leukocytosis. Mild anemia 9.5. BMP with creatinine 2.5 actually improved from his previous. Lactate was normal. LFTs and Pro-Rosas were unremarkable. Albumin at 3.1. Troponin just mildly elevated at 40 which is just slightly above his baseline. Previous visits were reviewed and blood pressures appear to be consistently in the 80s. UA pending. He was given aspirin. No nitro was given due to low systolics. EKG was fairly unremarkable at this point. Patient is a moderate to high risk per heart score and consequently discussed case with hospitalist for further evaluation management treatment. Consults/Care Managements Discussions: Per [facility] Triage Nursing notes reviewed. Limited review of prior medical records performed Vital Signs: reviewed and remarkable for no significant abnormalities Differential diagnosis: Cardiac ischemia, aortic dissection, pulmonary embolism, pneumothorax, pneumonia, pericarditis, myocarditis, esophageal rupture, GERD, cholecystitis, pancreatitis, musculoskeletal, as well as other pathologies. ER treatment provided: See below Diagnostics interpreted by me include EKG and cardiac monitoring as listed below: -Cardiac Monitoring: An order was placed for continuous cardiac monitoring. The monitor shows a rate of 98 with sinus rhythm. -ECG: Sinus rhythm rate [address] depressions in the lateral leads as well as the high lateral leads ST depressions in the lateral leads are new in comparison to previous -Laboratory studies:Interpreted by me as stated above in MDM and shown below. Imaging studies: Xrays: As interpreted by me: Portable AP upright 1 view of the chest shows no focal Lutrate CTs show: None Procedures:none Critical Care: None Past Med/Surg History Problem List Elevated troponin (Acute) Anemia (Acute) Acute hypotension (Acute) CKD (chronic kidney disease) (Acute) Chest pain (Acute) Dyspnea (Acute) Chest pain (Acute) Acute dehydration (Acute) Fatigue (Acute) Paresthesia of both hands (Acute) Facial paresthesia (Acute) CKD (chronic kidney disease) (Acute) CHF (congestive heart failure) (Acute) Elevated troponin (Acute) JAMIR (acute kidney injury) (Acute) Cirrhosis (Acute) Anemia (Acute) Ascites (Acute) SOB (shortness of breath) (Acute) Bilateral edema of lower extremity (Acute) NGUYEN (dyspnea on exertion) (Acute) Hypomagnesemia Acute on chronic heart failure with reduced ejection fraction and diastolic dysfunction Acute on chronic renal failure Fluid overload (Acute) Acute kidney injury superimposed on CKD (Acute) Aortic stenosis Exertional dyspnea (Acute) Hx of coronary artery disease (Acute) Dyspnea on exertion (Acute) RLS (restless legs syndrome) (Chronic) Fibromyalgia (Chronic) PMR (polymyalgia rheumatica) (Chronic) GERD (gastroesophageal reflux disease) (Chronic) HLD (hyperlipidemia) (Chronic) continue statin CAD (coronary artery disease) (Chronic) continue ASA and low dose BB and imdur and lasix Diabetes mellitus, type II (Chronic) CAD (coronary artery disease) (Chronic) continue ASA Ischemic cardiomyopathy (Chronic) Pt admitted for elective ICD due to ICM and SB. Underwent procedure without any complications; monitored overnight and discharged home. CKD (chronic kidney disease), stage III (Chronic) S/P cardiac cath (Chronic) "12/25/2014-LM: 30% ostial LM stenosis. LAD: Functionally occluded after the takeoff of the second diagonal branch. LCX: Minor nonobstructive disease. RCA: Diffusely diseased with moderately severe disease in the proximal and mid segment and a 70% distal stenosis. " S/P wrist surgery (Chronic) S/P vasectomy (Chronic) History of bilateral knee replacement (Chronic) Medical History Ascites paracentesis dependent CKD (chronic kidney disease) stage 4, GFR 15-29 ml/min Cardiorenal syndrome with renal failure Chronic heart failure with reduced ejection fraction and diastolic dysfunction Anemia NSVT (nonsustained ventricular tachycardia) Surgical History Sinus bradycardia s/p dual chamber ICD H/O wrist surgery History of cardiac catheterization History of knee replacement Family History Other Heart disease Stroke Social History Smoking Status: Never smoker Second Hand Exposure: No; Do You Dip or Chew Tobacco: No; Hx Alcohol Use: No Hx Substance Use: No Preferred Language: Libyan Communication Ability: Effective 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 Beliefs That Will Affect Care: None Current Living Situation: Alone Feels Safe at Home: Yes Assistive Devices: Wheelchair Allergies Allergies Allergy/AdvReac Type Severity Reaction Status Date / Time cefadroxil Allergy Unknown RASH Verified 12/14/23 12:47 Home Meds Home Medications Medication Instructions Recorded Confirmed aspirin 81 mg tablet,delayed 81 mg PO QAM 03/17/19 12/15/23 release cyanocobalamin (vitamin B-12) 1,000 mcg PO QAM 03/17/19 12/15/23 1,000 mcg tablet (Vitamin B-12) diphenhydramine HCl 25 mg tablet 25 mg PO QAM 03/17/19 12/15/23 (Benadryl Allergy) finasteride 5 mg tablet 5 mg PO QAM 03/17/19 12/15/23 rosuvastatin 40 mg tablet 40 mg PO QAM 03/17/19 12/15/23 glipizide 10 mg tablet, extended 20 mg PO QAM 11/18/23 12/15/23 release 24 hr torsemide 20 mg tablet 60 mg PO DAILY 11/18/23 12/15/23 potassium chloride 10 mEq 10 meq PO QAM 12/14/23 12/15/23 capsule,extended release metoprolol succinate 25 mg 12.5 mg PO AMPM 12/15/23 12/15/23 tablet,extended release 24 hr spironolactone 25 mg tablet 12.5 mg PO QAM 12/15/23 12/15/23 Results & Data (ED) Vital Signs Vital Signs - 24 hr 12/21/23 22:31 12/21/23 22:39 12/21/23 22:39 Temperature 37 C Temperature Source Temporal Artery Scan Pulse Rate 93 H 97 H 97 H Pulse Rate [Apical] Pulse Rate from SpO2 Sensor Pulse Rhythm [Apical] Pulse Strength [Apical] Respiratory Rate 20 13 Respiratory Effort / Characteristics Non-Labored Spontaneous Respiratory Depth Normal Respiratory Pattern Regular Blood Pressure 76/48 L Blood Pressure [Right Arm] Blood Pressure Mean 57 Blood Pressure Mean [Right Arm] Blood Pressure Position Sitting Pulse Oximetry 99 Oxygen Delivery Method Room Air Sepsis Recent Fever Within 48 Hours No Sepsis New/Unexplained Change in Mental Status No Sepsis Action Taken by Nursing No Action Required 12/21/23 22:48 12/21/23 22:55 12/21/23 23:15 Temperature Temperature Source Pulse Rate 98 H 92 H Pulse Rate [Apical] 89 Pulse Rate from SpO2 Sensor 87 Pulse Rhythm [Apical] Regular Pulse Strength [Apical] Normal Respiratory Rate 16 16 16 Respiratory Effort / Characteristics Non-Labored Respiratory Depth Normal Respiratory Pattern Regular Blood Pressure Blood Pressure [Right Arm] 77/48 L Blood Pressure Mean Blood Pressure Mean [Right Arm] 57 Blood Pressure Position Pulse Oximetry 98 98 Oxygen Delivery Method Room Air Sepsis Recent Fever Within 48 Hours Sepsis New/Unexplained Change in Mental Status Sepsis Action Taken by Nursing 12/21/23 23:15 Temperature Temperature Source Pulse Rate Pulse Rate [Apical] Pulse Rate from SpO2 Sensor Pulse Rhythm [Apical] Pulse Strength [Apical] Respiratory Rate Respiratory Effort / Characteristics Respiratory Depth Respiratory Pattern Blood Pressure 80/56 L Blood Pressure [Right Arm] Blood Pressure Mean 58 Blood Pressure Mean [Right Arm] Blood Pressure Position Pulse Oximetry Oxygen Delivery Method Sepsis Recent Fever Within 48 Hours Sepsis New/Unexplained Change in Mental Status Sepsis Action Taken by Nursing Laboratory Data 12/21/23 22:49 12/21/23 22:49 Lab Results 12/21/23 12/21/23 Range/Units 22:49 22:55 WBC 8.05 (4.8-10.8) K/ul RBC 3.65 L (4.70-6.10) M/uL Hgb 9.5 L (14.0-18.0) g/dl Hct 29.7 L (42.0-52.0) % MCV 81.4 (80.0-100.0) fL MCH 26.0 (25.0-34.0) pg MCHC 32.0 (32.0-36.0) g/dL RDW Std Deviation 64.0 H (36.4-46.3) fL RDW Coeff of Serene 21.5 H (11.5-14.5) % Plt Count 262 (130-400) K/uL MPV 9.7 (9.4-12.4) fL Immature Gran % (Auto) 0.6 % Neut % (Auto) 84.6 % Lymph % (Auto) 5.5 % Prentiss % (Auto) 9.1 % Eos % (Auto) 0.0 % Baso % (Auto) 0.2 % Neut # (Auto) 6.81 H (1.40-6.50) K/uL Lymph # (Auto) 0.44 L (1.20-3.40) K/uL Prentiss # (Auto) 0.73 H (0.11-0.59) K/uL Eos # (Auto) 0.00 (0.00-0.50) K/uL Baso # (Auto) 0.02 (0.00-0.20) K/uL Immature Gran # (Auto) 0.05 (0.01-0.20) K/uL Polychromasia 1+ Anisocytosis Present Sodium 133 L (136-145) mmol/L Potassium 4.4 (3.5-5.1) mmol/L Chloride 101 (98-107) mmol/L Carbon Dioxide 23 (21-32) mmol/L Anion Gap 9 (3-11) BUN 69 H (6-23) mg/dl Creatinine 2.54 H (0.6-1.4) mg/dl Est Cr Clr Drug Dosing Not Reportable Est GFR ( Amer) 27.1 ml/min Est GFR (Non-Af Amer) 23.4 ml/min BUN/Creatinine Ratio 27.2 H (10-20) Glucose 154 H (70-99(Fasting)) mg/dl POC Glucose 168 H (70-99) mg/dl Lactate 1.1 (0.4-2.0) mmol/L Calcium 8.6 (8.6-10.3) mg/dl Magnesium 1.9 (1.7-2.4) mg/dl Total Bilirubin 0.5 (0.2-1.0) mg/dl Direct Bilirubin 0.2 (0-0.2) mg/dl AST 91 H (13-39) U/L ALT 109 H (7-52) U/L Alkaline Phosphatase 160 H (34-104) U/L Troponin I High Sens 49.9 H (0-20) pg/ml Total Protein 6.5 (6.0-8.3) gm/dl Albumin 3.1 L (3.4-5.0) gm/dl Procalcitonin 0.14 (0-0.5) ng/ml Administered Medications Albumin Human (Albumin 25%) 25 gm in 100 mls @ 50 mls/hr IV ONE ONE Stop: 12/22/23 00:59 Last Admin: 12/21/23 23:11 Dose: 50 mls/hr Documented By: KG Discontinued Medications Aspirin (Aspirin Chew 324 Mg) 324 mg PO NOW STA Stop: 12/21/23 22:57 Last Admin: 12/21/23 23:06 Dose: 324 mg Documented By: KG Discharge Plan Visit Data Chief Complaint: Chest Pain Stated Complaint: CHEST PAIN ED Provider: Shimon Garay Discharge Problem: Chest pain, CKD (chronic kidney disease), Acute hypotension, Anemia, Elevated troponin Forms Stand Alone Forms: [facility] Prescriptions Prescriptions: No Action cyanocobalamin (vitamin B-12) [Vitamin B-12] 1,000 mcg Tablet 1,000 mcg PO QAM aspirin 81 mg Tablet,Delayed Release (Dr/Ec) 81 mg PO QAM diphenhydramine HCl [Benadryl Allergy] 25 mg Tablet 25 mg PO QAM finasteride 5 mg tablet 5 mg PO QAM rosuvastatin 40 mg tablet 40 mg PO QAM torsemide 20 mg tablet 60 mg PO DAILY glipizide 10 mg tablet extended release 24hr 20 mg PO QAM Rx Instructions: PRIOR TO MEAL potassium chloride 10 mEq capsule, extended release 10 meq PO QAM spironolactone 25 mg tablet 12.5 mg PO QAM metoprolol succinate 25 mg tablet extended release 24 hr 12.5 mg PO AMPM Referrals Referrals: Haley Boggs DO [Primary Care Provider] - Discharge Problem: Chest pain Qualifiers: Chest pain type: unspecified Qualified Code(s): R07.9 - Chest pain, unspecified CKD (chronic kidney disease) Qualifiers: Chronic kidney disease stage: unspecified stage Qualified Code(s): N18.9 - Chronic kidney disease, unspecified Anemia Qualifiers: Anemia type: unspecified type Qualified Code(s): D64.9 - Anemia, unspecified
[2023-12-21] MEDS: ASPIRIN CHEW 324 MG PO STA (23:06)
[2023-12-21 23:07] LABS: Basophils # (auto) 0.02 K/uL (0.00-0.20); Basophils % (auto) 0.2 %; Hematocrit (blood only) 29.7 % (42.0-52.0); Hemoglobin 9.5 g/dl (14.0-18.0); Immature Granulocytes # (auto) 0.05 K/uL (0.01-0.20); Immature Granulocytes % (auto) 0.6 %; Lymphocytes # (auto) 0.44 K/uL (1.20-3.40); Lymphocytes % (auto) 5.5 %; Mean Corpuscular Volume 81.4 fL (80.0-100.0); Mean Platelet Volume 9.7 fL (9.4-12.4); Monocytes # (auto) 0.73 K/uL (0.11-0.59); Monocytes % (auto) 9.1 %; Neutrophils # (auto) 6.81 K/uL (1.40-6.50); Neutrophils % (auto) 84.6 %; Platelet Count 262 K/uL (130-400); RDW Coefficient of Variation 21.5 % (11.5-14.5); Red Blood Count 3.65 M/uL (4.70-6.10); White Blood Count 8.05 K/ul (4.8-10.8)
[2023-12-21] MEDS: ALBUMIN 25% 25 GM/100 ML VIAL IV ONE (23:11)
[2023-12-21 23:23] LABS: Alanine Aminotransferase 109 U/L (7-52); Albumin Level 3.1 gm/dl (3.4-5.0); Alkaline Phosphatase 160 U/L (34-104); Aspartate Aminotransferase 91 U/L (13-39); BUN Creatinine Ratio 27.2 (10-20); Bilirubin Direct 0.2 mg/dl (0-0.2); Bilirubin,Total 0.5 mg/dl (0.2-1.0); Blood Urea Nitrogen 69 mg/dl (6-23); Calcium 8.6 mg/dl (8.6-10.3); Chloride 101 mmol/L (98-107); Est GFR (African American) 27.1 ml/min; Est GFR (Non-African American) 23.4 ml/min; Glucose 154 mg/dl (70-99(Fasting)); Magnesium 1.9 mg/dl (1.7-2.4); Potassium 4.4 mmol/L (3.5-5.1); Sodium 133 mmol/L (136-145); Total Protein 6.5 gm/dl (6.0-8.3)
[2023-12-21 23:30] LABS: Troponin I High Sensitivity 49.9 pg/ml (0-20)
[2023-12-21 23:35] LABS: Anisocytosis Present; Polychromasia 1+
[2023-12-21 23:46] LABS: Anion Gap 9 (3-11); Carbon Dioxide 23 mmol/L (21-32)
[2023-12-22 01:02] LABS: Appearance Urine Cloudy (Clear); Bacteria Urine Automated None Seen (None Seen); Bilirubin Urine Negative (Negative); Blood Urine 1+ (Negative); Color Urine Yellow; Epithelial Cell Urine Auto 0-2 /hpf (0-2); Glucose Urine UA Negative (Negative); Ketones Urine Negative (Negative); Leukocyte Esterase Urine Trace (Negative); Nitrite Urine Negative (Negative); Protein Urine 2+ (Negative); RBC Urine Automated 0-2 /hpf (0-2); Specific Gravity Urine 1.015 (1.000-1.030); Urobilinogen Urine Negative (Negative); WBC Urine Automated 0-5 /hpf (0-5); pH Urine 5.5 (4.5-7.5)
[2023-12-22] MEDS: ALBUMIN HUMAN 5% 12.5 GM/250 ML VIAL IV ONE (03:17)
[2023-12-22] MEDS: ALBUMIN 5% 250 ML IV ONE (03:18)
--- NOTE | 2023-12-22 04:33 | History & Physical Report ---
Date of Service December 22, 2023 Assessment & Plan (1) Chest pain: Plan: 78-year-old male with past medical history significant for type 2 diabetes, CKD stage III, Hyperlipidemia, chronic systolic CHF, chronic diastolic CHF, aortic valve sclerosis, vitamin D deficiency, vitamin B12 deficiency, GERD, BPH, fibromyalgia, restless leg syndrome, bilateral hearing loss, history of [place] who lives at home with his family and ambulates without support comes because of chest pain. Patient states he was resting when he had chest pain 5/10 severity. No radiation. Currently chest pain resolved. Denies shortness of breath. No nausea /vomiting. No headache. No blurred vision. No cough. No fever. No runny nose. Somewhat hard of hearing. Son in the room. Appetite is okay. currently no abdominal pain. Patient states every week he gets paracentesis on Saturday. Normal bowel and bladder movements. No swelling the legs. Blood pressure soft. Patient had multiple admissions in the recent past for volume overload, ascites and JAMIR, CHF and cardiorenal syndrome. chest pain currently resolved EKG no acute findings troponin 50. Has chronic elevation of troponin. Will follow serial cardiac enzymes and echo and repeat EKG will keep him n.p.o. Telemetry consult cardiology for further recommendations hypotension blood pressure soft seems chronically soft but somewhat lower than his usual lactic acid is okay ER gave a dose of albumin ordered another dose of albumin will hold his diuretics metoprolol with holding parameters close monitor cardiology consulted nonsustained V. tach will follow repeat labs ICD interrogation history of CAD on aspirin and statin metoprolol with holding parameters chronic systolic and diastolic CHF EF 25 to 29% history of cardiorenal syndrome status post ICD metoprolol with holding parameters holding diuretics for now close monitor for volume overload history of volume overload and ascites right-sided heart failure gets weekly paracentesis currently currently holding diuretics and potassium supplement as blood pressure soft await cardiology input CKD stage III/IV presented creatinine of 2.5 seems around baseline we will follow labs chronic anemia hemoglobin 9.5 around baseline follow labs transaminitis and elevated alkaline phosphatase follow repeat labs diabetes hold glipizide sliding scale Will monitor BPH on Proscar DVT prophylaxis SCDs for now disposition telemetry CODE STATUS. Full code if there is chance of recovery as per my discussion with the patient History of Present Illness Chief Complaint: Chest pain Primary Care Provider: Haley Boggs, 78-year-old male with past medical history significant for type 2 diabetes, CKD stage III, Hyperlipidemia, chronic systolic CHF, chronic diastolic CHF, aortic valve sclerosis, vitamin D deficiency, vitamin B12 deficiency, GERD, BPH, fibromyalgia, restless leg syndrome, bilateral hearing loss, history of [place] who lives at home with his family and ambulates without support comes because of chest pain. Patient states he was resting when he had chest pain 5/10 severity. No radiation. Currently chest pain resolved. Denies shortness of breath. No nausea /vomiting. No headache. No blurred vision. No cough. No fever. No runny nose. Somewhat hard of hearing. Son in the room. Appetite is okay. currently no abdominal pain. Patient states every week he gets paracentesis on Saturday. Normal bowel and bladder movements. No swelling the legs. Blood pressure soft. Patient had multiple admissions in the recent past for volume overload, ascites and JAMIR, CHF and cardiorenal syndrome. Past medical history. As mentioned above Past surgical history. Vasectomy. Bilateral knee arthroplasty. Colonoscopy. Knee arthroscopy. Paracentesis. Social history. No smoking. No alcohol use. No drug use. family history. Mother had arthritis. Stroke. Sister has diabetes. Allergies Allergy/AdvReac Type Severity Reaction Status Date / Time cefadroxil Allergy Unknown RASH Verified 12/14/23 12:47 Home Medications Medication Instructions Recorded Confirmed Type aspirin 81 mg tablet,delayed 81 mg PO QAM 03/17/19 12/22/23 History release cyanocobalamin (vitamin B-12) 1,000 mcg PO QAM 03/17/19 12/22/23 History 1,000 mcg tablet (Vitamin B-12) diphenhydramine HCl 25 mg tablet 25 mg PO QAM 03/17/19 12/22/23 History (Benadryl Allergy) finasteride 5 mg tablet 5 mg PO QAM 03/17/19 12/22/23 History rosuvastatin 40 mg tablet 40 mg PO QAM 03/17/19 12/22/23 History glipizide 10 mg tablet, extended 10 mg PO QAM 11/18/23 12/22/23 History release 24 hr torsemide 20 mg tablet 60 mg PO DAILY 11/18/23 12/22/23 History potassium chloride 10 mEq 10 meq PO QAM 12/14/23 12/22/23 History capsule,extended release metoprolol succinate 25 mg 12.5 mg PO AMPM 12/15/23 12/22/23 History tablet,extended release 24 hr spironolactone 25 mg tablet 12.5 mg PO QAM 12/15/23 12/22/23 History magnesium 250 mg tablet 0 mg PO DAILY 12/22/23 12/22/23 History Past Med/Surg History Problem List Elevated troponin (Acute) Anemia (Acute) Acute hypotension (Acute) CKD (chronic kidney disease) (Acute) Chest pain (Acute) Dyspnea (Acute) Chest pain (Acute) Acute dehydration (Acute) Fatigue (Acute) Paresthesia of both hands (Acute) Facial paresthesia (Acute) CKD (chronic kidney disease) (Acute) CHF (congestive heart failure) (Acute) Elevated troponin (Acute) JAMIR (acute kidney injury) (Acute) Cirrhosis (Acute) Anemia (Acute) Ascites (Acute) SOB (shortness of breath) (Acute) Bilateral edema of lower extremity (Acute) NGUYEN (dyspnea on exertion) (Acute) Hypomagnesemia Acute on chronic heart failure with reduced ejection fraction and diastolic dysfunction Acute on chronic renal failure Fluid overload (Acute) Acute kidney injury superimposed on CKD (Acute) Aortic stenosis Exertional dyspnea (Acute) Hx of coronary artery disease (Acute) Dyspnea on exertion (Acute) RLS (restless legs syndrome) (Chronic) Fibromyalgia (Chronic) PMR (polymyalgia rheumatica) (Chronic) GERD (gastroesophageal reflux disease) (Chronic) HLD (hyperlipidemia) (Chronic) continue statin CAD (coronary artery disease) (Chronic) continue ASA and low dose BB and imdur and lasix Diabetes mellitus, type II (Chronic) CAD (coronary artery disease) (Chronic) continue ASA Ischemic cardiomyopathy (Chronic) Pt admitted for elective ICD due to ICM and SB. Underwent procedure without any complications; monitored overnight and discharged home. CKD (chronic kidney disease), stage III (Chronic) S/P cardiac cath (Chronic) "12/25/2014-LM: 30% ostial LM stenosis. LAD: Functionally occluded after the takeoff of the second diagonal branch. LCX: Minor nonobstructive disease. RCA: Diffusely diseased with moderately severe disease in the proximal and mid segment and a 70% distal stenosis. " S/P wrist surgery (Chronic) S/P vasectomy (Chronic) History of bilateral knee replacement (Chronic) Medical History Ascites paracentesis dependent CKD (chronic kidney disease) stage 4, GFR 15-29 ml/min Cardiorenal syndrome with renal failure Chronic heart failure with reduced ejection fraction and diastolic dysfunction Anemia NSVT (nonsustained ventricular tachycardia) Surgical History Sinus bradycardia s/p dual chamber ICD H/O wrist surgery History of cardiac catheterization History of knee replacement Family History Other Heart disease Stroke Social History Smoking Status: Never smoker Second Hand Exposure: No; Do You Dip or Chew Tobacco: No; Hx Alcohol Use: No Hx Substance Use: No Preferred Language: Amharic Communication Ability: Effective Dross Puller Required: No Beliefs That Will Affect Care: None Current Living Situation: Alone Feels Safe at Home: Yes Assistive Devices: Wheelchair Review of Systems Review of Systems: All systems reviewed & are unremarkable except as noted in HPI & below Physical Exam Physical Exam: General- Not in acute distress Head- atraumatic Eyes- PERRL. ENT- oropharynx clear Neck- supple, no JVD. Lungs- clear to auscultation no wheezing or crackles. Heart- regular rate and rhythm; no murmur, no gallop. Abdomen- normal bowel sounds, soft, nontender, mild abdominal distension present. Extremities- no pretibial edema, no erythema seen. Neuro- alert, oriented PERRL, no facial palsy; no dysarthria; obeys simple commands, moves extremities. Results & Data Results & Data Vital Signs (Past 12 Hours) Vital Signs Temp Pulse Pulse Resp BP BP Pulse Ox 12/22/23 02:31 94 H 12/21/23 23:15 80/56 L 12/21/23 23:15 92 H 16 98 12/21/23 22:55 89 16 77/48 L 98 12/21/23 22:48 98 H 16 12/21/23 22:39 97 H 13 12/21/23 22:39 97 H 12/21/23 22:31 37 C 93 H 20 76/48 L 99 O2 Del Method 12/22/23 02:31 12/21/23 23:15 12/21/23 23:15 12/21/23 22:55 Room Air 12/21/23 22:48 12/21/23 22:39 12/21/23 22:39 12/21/23 22:31 Room Air Diagnostic Findings Laboratory Results WBC 8.05 K/ul (4.8-10.8) 12/21/23 22:49 RBC 3.65 M/uL (4.70-6.10) L 12/21/23 22:49 Hgb 9.5 g/dl (14.0-18.0) L 12/21/23 22:49 Hct 29.7 % (42.0-52.0) L 12/21/23 22:49 MCV 81.4 fL (80.0-100.0) 12/21/23 22:49 MCH 26.0 pg (25.0-34.0) 12/21/23 22:49 MCHC 32.0 g/dL (32.0-36.0) 12/21/23 22:49 RDW Std Deviation 64.0 fL (36.4-46.3) H 12/21/23 22:49 RDW Coeff of Serene 21.5 % (11.5-14.5) H 12/21/23 22:49 Plt Count 262 K/uL (130-400) 12/21/23 22:49 MPV 9.7 fL (9.4-12.4) 12/21/23 22:49 Immature Gran % (Auto) 0.6 % 12/21/23 22:49 Neut % (Auto) 84.6 % 12/21/23 22:49 Lymph % (Auto) 5.5 % 12/21/23 22:49 [place] % (Auto) 9.1 % 12/21/23 22:49 Eos % (Auto) 0.0 % 12/21/23 22:49 Baso % (Auto) 0.2 % 12/21/23 22:49 Neut # (Auto) 6.81 K/uL (1.40-6.50) H 12/21/23 22:49 Lymph # (Auto) 0.44 K/uL (1.20-3.40) L 12/21/23 22:49 [place] # (Auto) 0.73 K/uL (0.11-0.59) H 12/21/23 22:49 Eos # (Auto) 0.00 K/uL (0.00-0.50) 12/21/23 22:49 Baso # (Auto) 0.02 K/uL (0.00-0.20) 12/21/23 22:49 Immature Gran # (Auto) 0.05 K/uL (0.01-0.20) 12/21/23 22:49 Polychromasia 1+ 12/21/23 22:49 Anisocytosis Present 12/21/23 22:49 Sodium 133 mmol/L (136-145) L 12/21/23 22:49 Potassium 4.4 mmol/L (3.5-5.1) 12/21/23 22:49 Chloride 101 mmol/L (98-107) 12/21/23 22:49 Carbon Dioxide 23 mmol/L (21-32) 12/21/23 22:49 Anion Gap 9 (3-11) 12/21/23 22:49 BUN 69 mg/dl (6-23) H 12/21/23 22:49 Creatinine 2.54 mg/dl (0.6-1.4) H 12/21/23 22:49 Est Cr Clr Drug Dosing Not Reportable 12/21/23 22:49 Est GFR ( Amer) 27.1 ml/min 12/21/23 22:49 Est GFR (Non-Af Amer) 23.4 ml/min 12/21/23 22:49 BUN/Creatinine Ratio 27.2 (10-20) H 12/21/23 22:49 Glucose 154 mg/dl (70-99(Fasting)) H 12/21/23 22:49 POC Glucose 168 mg/dl (70-99) H 12/21/23 22:55 Lactate 1.1 mmol/L (0.4-2.0) 12/21/23 22:49 Calcium 8.6 mg/dl (8.6-10.3) 12/21/23 22:49 Magnesium 1.9 mg/dl (1.7-2.4) 12/21/23 22:49 Total Bilirubin 0.5 mg/dl (0.2-1.0) 12/21/23 22:49 Direct Bilirubin 0.2 mg/dl (0-0.2) 12/21/23 22:49 AST 91 U/L (13-39) H 12/21/23 22:49 ALT 109 U/L (7-52) H 12/21/23 22:49 Alkaline Phosphatase 160 U/L (34-104) H 12/21/23 22:49 Troponin I High Sens 50.8 pg/ml (0-20) H* 12/22/23 00:50 Total Protein 6.5 gm/dl (6.0-8.3) 12/21/23 22:49 Albumin 3.1 gm/dl (3.4-5.0) L 12/21/23 22:49 Procalcitonin 0.14 ng/ml (0-0.5) 12/21/23 22:49 Urine Color Yellow 12/22/23 00:05 Urine Appearance Cloudy (Clear) A 12/22/23 00:05 Urine pH 5.5 (4.5-7.5) 12/22/23 00:05 Ur Specific [place] 1.015 (1.000-1.030) 12/22/23 00:05 Urine Protein 2+ (Negative) H 12/22/23 00:05 Urine Glucose (UA) Negative (Negative) 12/22/23 00:05 Urine Ketones Negative (Negative) 12/22/23 00:05 Urine Blood 1+ (Negative) H 12/22/23 00:05 Urine Nitrite Negative (Negative) 12/22/23 00:05 Urine Bilirubin Negative (Negative) 12/22/23 00:05 Urine Urobilinogen Negative (Negative) 12/22/23 00:05 Ur Leukocyte Esterase Trace (Negative) H 12/22/23 00:05 Urine WBC (Auto) 0-5 /hpf (0-5) 12/22/23 00:05 Urine RBC (Auto) 0-2 /hpf (0-2) 12/22/23 00:05 U Hyaline Cast (Auto) 6-10 /lpf (0-2) H 12/22/23 00:05 U Epithel Cells (Auto) 0-2 /hpf (0-2) 12/22/23 00:05 Urine Bacteria (Auto) None Seen (None Seen) 12/22/23 00:05 ECG Additional Comments: ECG. Normal sinus rhythm with sinus erythema rate of 98. Left ventricular hypertrophy with QRS widening and repolarization abnormality. QTc 487. Code Status & VTE Plan VTE Prophylaxis Plan VTE Prophylaxis will be ordered: Yes (1) Chest pain Chest pain type: unspecified Qualified Code(s): R07.9 - Chest pain, unspecified
[2023-12-22] MEDS ORDERED: POLYETHYLENE (MIRALAX) 17 GM PACK PO PRN (07:14)
[2023-12-22] MEDS ORDERED: NITROGLYCERIN SL 0.4 MG/TAB TAB SL PRN (07:14)
[2023-12-22] MEDS ORDERED: GLUCAGON FOR INJ 1 MG VIAL SQ PRN (07:14)
[2023-12-22] MEDS ORDERED: CARBOHYDRATES FOR HYPOGLYCEMIA PO PRN (07:14)
[2023-12-22] MEDS ORDERED: GLUCOSE 10 TAB/TUBE PO PRN (07:14)
[2023-12-22] MEDS ORDERED: GLUCOSE 40% GEL 15 GM TUBE PO PRN (07:14)
[2023-12-22 07:29] LABS: Basophils # (auto) 0.03 K/uL (0.00-0.20); Basophils % (auto) 0.5 %; Hematocrit (blood only) 28.3 % (42.0-52.0); Hemoglobin 8.7 g/dl (14.0-18.0); Immature Granulocytes # (auto) 0.03 K/uL (0.01-0.20); Immature Granulocytes % (auto) 0.5 %; Lymphocytes # (auto) 0.44 K/uL (1.20-3.40); Mean Corpuscular Hemoglobin 25.5 pg (25.0-34.0); Mean Corpuscular Hgb Conc 30.7 g/dL (32.0-36.0); Mean Platelet Volume 9.7 fL (9.4-12.4); Monocytes # (auto) 0.63 K/uL (0.11-0.59); Monocytes % (auto) 10.1 %; Neutrophils # (auto) 5.12 K/uL (1.40-6.50); Neutrophils % (auto) 81.9 %; Platelet Count 229 K/uL (130-400); RDW Coefficient of Variation 21.6 % (11.5-14.5); RDW Standard Deviation 65.6 fL (36.4-46.3); Red Blood Count 3.41 M/uL (4.70-6.10); White Blood Count 6.25 K/ul (4.8-10.8)
[2023-12-22 07:36] LABS: Alanine Aminotransferase 87 U/L (7-52); Albumin Globulin Ratio 1.2 (0.9-2); Albumin Level 3.2 gm/dl (3.4-5.0); Alkaline Phosphatase 132 U/L (34-104); Anion Gap 6 (3-11); Aspartate Aminotransferase 72 U/L (13-39); BUN Creatinine Ratio 26.9 (10-20); Bilirubin,Total 0.7 mg/dl (0.2-1.0); Blood Urea Nitrogen 65 mg/dl (6-23); Calcium 8.8 mg/dl (8.6-10.3); Carbon Dioxide 25 mmol/L (21-32); Chloride 105 mmol/L (98-107); Est GFR (African American) 28.8 ml/min; Est GFR (Non-African American) 24.8 ml/min; Globulin 2.7 gm/dl (2.5-4.0); Glucose 61 mg/dl (70-99(Fasting)); Magnesium 1.9 mg/dl (1.7-2.4); Phosphorus 3.8 mg/dl (2.5-4.9); Potassium 4.1 mmol/L (3.5-5.1); Sodium 136 mmol/L (136-145); Total Protein 5.9 gm/dl (6.0-8.3)
[2023-12-22 07:41] LABS: Troponin I High Sensitivity 49.3 pg/ml (0-20)
[2023-12-22 07:50] LABS: Thyroid Stimulating Hormone 1.473 uIu/ml (0.300-4.500)
--- NOTE | 2023-12-22 07:54 | XRay Report ---
SINGLE VIEW CHEST CLINICAL HISTORY: Sepsis. FINDINGS: An AP, portable, upright chest radiograph is compared to study dated 12/15/2023. A 2-lead ca rdiac AICD is unchanged in position. The heart is enlarged noting atherosclerotic calcification of th e thoracic aorta. There is prominence of the pulmonary vasculature. Mild atelectasis is noted at the lung bases. No airspace consolidation or large pleural effusion is identified. No pneumothorax is see n. The skeletal structures are osteopenic. The bony thorax is grossly intact. Arthritic change is not ed in the shoulders. IMPRESSION: 1. Cardiomegaly and AICD. There is prominence of the pulmonary vasculature. Correlate clinically for evidence of fluid overload/mild congestive change. 2. No airspace consolidation or large pleural effusion is identified. ACT 112: Negative or not required by law. Electronically signed by: Dustin Bernabe M.D. 12/22/2023 7:53 AM
[2023-12-22] MEDS: DEXTROSE 50% 50 ML SYRINGE IV PRN (08:21)
[2023-12-22 08:27] LABS: Anisocytosis Present; Polychromasia 1+
--- NOTE | 2023-12-22 08:32 | Cardiology Consultation ---
Date of Consultation December 22, 2023 Assessment & Plan (1) Ascites: (2) CKD (chronic kidney disease) stage 4, GFR 15-29 ml/min: (3) NSVT (nonsustained ventricular tachycardia): (4) Chronic heart failure with reduced ejection fraction and diastolic dysfunction: (5) Chest pain: Plan 1. Chest pain 2. Acute on chronic systolic and diastolic CHF 3. ICM -EF 25-30% -s/p dual chamber ICD (2019) 4. NSVT 5. Recurrent ascites -s/p paracentesis with 5L drained 12/17/2023 6. HTN 7. HLD 8. CKD stage 4 9. T2 DM Chest pain -Patient remains chest pain free -EKG without acute changes -Troponin x3 slightly elevated, but flat -Echocardiogram to evaluate LVEF and valvular status. Rule out WMA NSVT -Device to be interrogated by nursing staff, await full report -Will given IV magnesium 1mg infusion x2 -Consider amiodarone drip with significant recurrence CHF/ascites/malnutrition/failure to thrive -Patient with frequent hospital admissions recently for decompensated HF and ascites. -Appears fairly euvolemic on examination today -Patient with hospice appointment scheduled as outpatient. Patient would benefit from hospice eval inpatient given advanced CHF, recurrent ascites and comorbidities. Ascites/malnutrition -s/p paracentesis 12/17/2023 with -5L drained -Weight is down 20kg since August Case discussed with Dr. Anglin. I spent a total of 43 minutes on the date of service in preparation, delivery, and documentation of the care provided to this patient, excluding any time spent in the performance of separately billed services. Sarah Dempsey PA-C Department of Cardiology, [facility] This chart was completed in part utilizing Speech Voice Recognition Software. Grammatical errors, random word insertions, pronoun errors, and incomplete sentences are an occasional consequence of this system due to software limitations, ambient noise, and hardware issues. Any formal questions or concerns about the content, text, or information contained within the body of this dictation should be directly addressed to the provider for clarification. Supervising Physician Co-Signing Physician Notes I have reviewed the advance practitioner's documentation, and I agree with, and take responsibility for the plan of care. I have personally performed a history and physical examination on the patient. 78-year-old male with past medical history of CAD (anterior wall TX 2014 )ischemic cardiomyopathy (ICD in 2019), nonsustained VT, recurrent ascites, chronic systolic heart failure, HTN, HLD, CKD, DM presented to the hospital today with chest pain. patient states history of chest pain occurred while laying in bed last night described as a pressure that was non-nonexertional nonradiating he did not have to take nitroglycerin and the pain resolved after a few minutes. He has not had any recurrence of chest pain since being into the hospital. He denies dyspnea, orthopnea, PND, palpitations, or syncope. He is resting comfortably currently and does not wish to have any aggressive measures to be done and wishes to be DNR/DNI. That he has been considering hospice as well. Patient had a run of nonsustained ventricular tachycardia lasting for 10 minutes for 24 beats. He has had these in the past as well. Patient has had recent multiple admissions for acute decompensated heart failure and ascites with subsequent paracentesis and recently underwent a paracentesis on 12/17/2019 for removal of 5 L of fluid. Patient's troponin elevated at 50, 49 and 83 and currently not having any chest discomfort. His EKG showed normal sinus rhythm with left ventricular hypertrophy and secondary repolarization abnormalities but no acute ischemic changes noted. He currently does not examine to be significantly volume overloaded. If he has more recurrence of nonsustained ventricular tachycardia may consider amiodarone but for now can monitor on telemetry. Echocardiogram pending and will review once images are available. I spent a total of 40 minutes on the date of service in preparation, delivery, and documentation of the care provided to this patient, excluding any time spent in the performance of separately billed service History of Present Illness Reason for Consultation: chest pain, hypotension Requesting Physician: Dr. Monteiro Attending Physician: Artem Monteiro MD History of Present Illness Marck Jimenes is a 78 year old male with PMHx CAD s/p anterior wall TX 2014, severe ischemic cardiomyopathy (LVEF 25-30%), HFrEF (NYHA class III), dual chamber ICD (2019), CKD stage 4, HTN, HLD, T2 DM that presented to [facility] ED early this morning for evaluation of chest pain. Patient reports chest pain began while laying in bed last evening. Described as pressure in central chest. Rated at 4-5/10. Nonradiating. Nonexertional. No associated symptoms. Called his son. Unsure when the pain resolved. Did not take NTG. Reports no further chest discomfort. Denies shortness of breath, LE edema, palpitations. He does report passing out and hitting his chin on the step a week ago. Checked his blood sugar after he got up, which was 38. Denies recent illness. Has had normal po intake. It should be noted during consultation patient had 24 beats of VT on monitor. Patient asymptomatic. Remained alert and oriented. Patient has had multiple recent admissions for acute decompensated CHF and ascites. Chronically hypotensive unable to tolerate evidence based heart failure medications in past. NSVT noted previously at admissions. Underwent paracentesis 12/17/2023 with removal of 5L ascitic fluid. Last evaluated at the [facility] cardiology clinic by Lavelle Chatterjee PA-C on 08/27/2023. Patient was hypervolemic on examination and symptomatic. Recommended increasing lasix to 40mg BID x 3 days then 60mg daily thereafter. It appears patient did not show for follow-up appointment in 3-4 weeks. It should be noted patient has chronic hypotension, unable to tolerate LIN/ARB. Weight at that visit - 87.8kg. It should be noted patient has been considering hospice and is awaiting formal appointment. Patient is alert and oriented x3. Expressed he wishes to be DNR/DNI Device to be interrogated by nursing staff. EKG without acute changes. Troponin slightly elevated but flat x3. CXR 12/21/2023 with prominence of pulmonary vasculature. Allergies Allergy/AdvReac Type Severity Reaction Status Date / Time cefadroxil Allergy Unknown RASH Verified 12/14/23 12:47 Home Medications Medication Instructions Recorded Confirmed Type aspirin 81 mg tablet,delayed 81 mg PO QAM 03/17/19 12/22/23 History release cyanocobalamin (vitamin B-12) 1,000 mcg PO QAM 03/17/19 12/22/23 History 1,000 mcg tablet (Vitamin B-12) diphenhydramine HCl 25 mg tablet 25 mg PO QAM 03/17/19 12/22/23 History (Benadryl Allergy) finasteride 5 mg tablet 5 mg PO QAM 03/17/19 12/22/23 History rosuvastatin 40 mg tablet 40 mg PO QAM 03/17/19 12/22/23 History glipizide 10 mg tablet, extended 10 mg PO QAM 11/18/23 12/22/23 History release 24 hr torsemide 20 mg tablet 60 mg PO DAILY 11/18/23 12/22/23 History potassium chloride 10 mEq 10 meq PO QAM 12/14/23 12/22/23 History capsule,extended release metoprolol succinate 25 mg 12.5 mg PO AMPM 12/15/23 12/22/23 History tablet,extended release 24 hr spironolactone 25 mg tablet 12.5 mg PO QAM 12/15/23 12/22/23 History magnesium 250 mg tablet 0 mg PO DAILY 12/22/23 12/22/23 History Patient History Medical History Ascites paracentesis dependent CKD (chronic kidney disease) stage 4, GFR 15-29 ml/min Cardiorenal syndrome with renal failure Chronic heart failure with reduced ejection fraction and diastolic dysfunction Anemia NSVT (nonsustained ventricular tachycardia) Surgical History Sinus bradycardia s/p dual chamber ICD H/O wrist surgery History of cardiac catheterization History of knee replacement Family History Other Heart disease Stroke Social History Smoking Status: Never smoker Second Hand Exposure: No; Do You Dip or Chew Tobacco: No; Hx Alcohol Use: No Hx Substance Use: No Preferred Language: [place]ib[place]ian Communication Ability: Effective On Site Waste[employer] Systems Technician Required: No Beliefs That Will Affect Care: None Current Living Situation: Alone Feels Safe at Home: Yes Assistive Devices: Wheelchair Review of Systems Review of Systems: All systems reviewed & are unremarkable except as noted in HPI & below Physical Exam Constitutional: WD/WN, vitals as above + thin and + malnourished Eyes: PERRL, conjunctivae normal, anicteric sclerae Respiratory: normal respiratory effort, lungs clear to auscultation Cardiovascular: RRR, no murmur, no edema Heart Sounds: normal S1 and normal S2 Vessels: no JVD Extremities: no edema Gastrointestinal (Abdomen): normal bowel sounds, soft, nontender, no hepatosplenomegaly Musculoskeletal: no cyanosis or clubbing, extremities motor strength 5/5 Skin: no rashes, warm and dry Psychiatric: A+Ox3, euthymic affect Results & Data Vital Signs (Past 12 Hours) Vital Signs Temp Pulse Pulse Resp BP BP Pulse Ox 12/22/23 08:20 12/22/23 08:06 88 18 12/22/23 07:57 90 16 12/22/23 07:42 92 H 19 12/22/23 07:36 93 H 17 12/22/23 07:12 94 H 17 12/22/23 07:10 90 21 81/45 L 12/22/23 07:00 75/43 L 12/22/23 07:00 94 H 17 12/22/23 07:00 91 H 12/22/23 06:57 89 18 12/22/23 06:45 86 20 100 12/22/23 06:39 92 H 22 99 12/22/23 06:24 94 H 20 96 12/22/23 06:15 90 90/59 L 12/22/23 06:12 100 H 14 100 12/22/23 06:06 93 H 12/22/23 05:57 91 H 21 100 12/22/23 05:42 89 17 99 12/22/23 05:30 94 H 24 100 12/22/23 05:24 92 H 12 100 12/22/23 05:00 94 H 21 100 12/22/23 04:45 91 H 18 12/22/23 04:31 91 H 80/55 L 12/22/23 04:30 92/66 L 12/22/23 04:24 107 H 98 12/22/23 04:07 84/61 L 12/22/23 04:06 92 H 19 100 12/22/23 04:01 65/44 L 12/22/23 03:54 87 13 12/22/23 03:51 88 20 99 12/22/23 03:45 87 17 97 12/22/23 03:45 85/61 L 12/22/23 03:42 87 19 99 12/22/23 03:42 82/59 L 12/22/23 03:39 87 17 100 12/22/23 03:21 87 15 99 12/22/23 03:17 63/42 L 12/22/23 03:12 86 16 100 12/22/23 03:03 88 19 99 12/22/23 02:54 95 H 15 100 12/22/23 02:48 90 19 99 12/22/23 02:36 89 17 100 12/22/23 02:31 94 H 12/22/23 02:12 92 H 16 100 12/22/23 01:42 95 H 20 98 12/22/23 01:30 94 H 16 98 12/22/23 01:21 96 H 23 100 12/22/23 01:12 92 H 19 100 12/22/23 01:00 93 H 18 100 12/22/23 00:51 91 H 17 99 12/22/23 00:45 85 18 99 12/22/23 00:45 61/40 L 12/22/23 00:15 89 10 L 100 12/22/23 00:15 79/54 L 12/22/23 00:03 93 H 19 99 12/21/23 23:57 100 H 21 98 12/21/23 23:33 96 H 19 100 12/21/23 23:15 80/56 L 12/21/23 23:15 92 H 16 98 12/21/23 22:55 89 16 77/48 L 98 12/21/23 22:48 98 H 16 12/21/23 22:39 97 H 13 12/21/23 22:39 97 H 12/21/23 22:31 37 C 93 H 20 76/48 L 99 Pulse Ox O2 Del Method O2 Del Method 12/22/23 08:20 100 Room Air 12/22/23 08:06 12/22/23 07:57 12/22/23 07:42 12/22/23 07:36 12/22/23 07:12 12/22/23 07:10 12/22/23 07:00 12/22/23 07:00 12/22/23 07:00 12/22/23 06:57 12/22/23 06:45 12/22/23 06:39 12/22/23 06:24 12/22/23 06:15 12/22/23 06:12 12/22/23 06:06 12/22/23 05:57 12/22/23 05:42 12/22/23 05:30 12/22/23 05:24 12/22/23 05:00 12/22/23 04:45 12/22/23 04:31 12/22/23 04:30 12/22/23 04:24 12/22/23 04:07 12/22/23 04:06 12/22/23 04:01 12/22/23 03:54 12/22/23 03:51 12/22/23 03:45 12/22/23 03:45 12/22/23 03:42 12/22/23 03:42 12/22/23 03:39 12/22/23 03:21 12/22/23 03:17 12/22/23 03:12 12/22/23 03:03 12/22/23 02:54 12/22/23 02:48 12/22/23 02:36 12/22/23 02:31 12/22/23 02:12 12/22/23 01:42 12/22/23 01:30 12/22/23 01:21 12/22/23 01:12 12/22/23 01:00 12/22/23 00:51 12/22/23 00:45 12/22/23 00:45 12/22/23 00:15 12/22/23 00:15 12/22/23 00:03 12/21/23 23:57 12/21/23 23:33 12/21/23 23:15 12/21/23 23:15 12/21/23 22:55 Room Air 12/21/23 22:48 12/21/23 22:39 12/21/23 22:39 12/21/23 22:31 Room Air Laboratory Results Cardiac Enzymes 12/21/23 12/22/23 12/22/23 Range/Units 22:49 00:50 06:56 AST 91 H 72 H (13-39) U/L Troponin I High Sens 49.9 H 50.8 H* 49.3 H (0-20) pg/ml CBC 12/21/23 12/22/23 Range/Units 22:49 06:56 WBC 8.05 6.25 (4.8-10.8) K/ul RBC 3.65 L 3.41 L (4.70-6.10) M/uL Hgb 9.5 L 8.7 L (14.0-18.0) g/dl Hct 29.7 L 28.3 L (42.0-52.0) % Plt Count 262 229 (130-400) K/uL Neut # (Auto) 6.81 H 5.12 (1.40-6.50) K/uL Lymph # (Auto) 0.44 L 0.44 L (1.20-3.40) K/uL Wetzel # (Auto) 0.73 H 0.63 H (0.11-0.59) K/uL Eos # (Auto) 0.00 0.00 (0.00-0.50) K/uL Baso # (Auto) 0.02 0.03 (0.00-0.20) K/uL Comprehensive Metabolic Panel 12/21/23 12/22/23 Range/Units 22:49 06:56 Sodium 133 L 136 (136-145) mmol/L Potassium 4.4 4.1 (3.5-5.1) mmol/L Chloride 101 105 (98-107) mmol/L Carbon Dioxide 23 25 (21-32) mmol/L BUN 69 H 65 H (6-23) mg/dl Creatinine 2.54 H 2.42 H (0.6-1.4) mg/dl Glucose 154 H 61 L (70-99(Fasting)) mg/dl Calcium 8.6 8.8 (8.6-10.3) mg/dl Direct Bilirubin 0.2 (0-0.2) mg/dl AST 91 H 72 H (13-39) U/L ALT 109 H 87 H (7-52) U/L Alkaline Phosphatase 160 H 132 H (34-104) U/L Total Protein 6.5 5.9 L (6.0-8.3) gm/dl Albumin 3.1 L 3.2 L (3.4-5.0) gm/dl Intake and Output 12/21/23 12/22/23 12/22/23 22:59 06:59 14:59 Intake Total 350 / 350 Balance 350 / 350 Intake: IV 350 / 350 Albumin 25% 25 gm In 100 ml @ 100 / 100 50 mls/hr IV ONE ONE Rx#: [id number] Albumin 5% 250 ml @ 500 mls/hr 250 / 250 IV ONE ONE Rx#:[id number] Diagnostic Findings Cardiac CATH 2019 LAD occluded after the takeoff of a septal addictions recovery specialist and diagonal RCA occluded at origin with rich supply of collaterals LCx single large marginal branch widely patent supplying collaterals to distal RCA ECHO 2019 Ischemic cardiomyopathy LVEF 25-30% RV systolic function is normal Left atrium moderately dilated Right atrial size normal Moderate aortic valve sclerosis Aortic stenosis versus pseudo-aortic stenosis from aortic sclerosis and poor CO (1) Ascites Ascites type: other type Qualified Code(s): R18.8 - Other ascites (5) Chest pain Chest pain type: unspecified Qualified Code(s): R07.9 - Chest pain, unspecified
[2023-12-22] MEDS: INSULIN ASPART PER UNIT CHARGE SC SCH ×2 (08:46→20:37)
--- NOTE | 2023-12-22 09:12 | Electrocardiogram Report ---
Test Reason : Blood Pressure : / mmHG Vent. Rate : 098 BPM Atrial Rate : 098 BPM P-R Int : 200 ms QRS Dur : 124 ms QT Int : 382 ms P-R-T Axes : 024 -12 135 degrees QTc Int : 487 ms Normal sinus rhythm with sinus arrhythmia Left ventricular hypertrophy with QRS widening and repolarization abnormality Abnormal ECG When compared with ECG of 15-DEC-2023 00:45, Premature ventricular complexes are no longer Present Confirmed by Bentley Ortiz ([id number]) on 12/22/2023 9:11:43 AM Referred By: Confirmed By:Bentley Ortiz
[2023-12-22] MEDS: ASPIRIN 81 MG ECTAB PO SCH (09:49)
[2023-12-22] MEDS: CYANOCOBALAMIN (B-12) 500 MCG TABLET PO SCH (09:49)
[2023-12-22] MEDS: ROSUVASTATIN CALCIUM 20 MG TAB PO SCH (09:50)
[2023-12-22] MEDS: diphenhydrAMINE Capsule 25 MG CAP PO SCH (09:50)
[2023-12-22] MEDS: FINASTERIDE 5 MG TAB PO SCH (09:50)
[2023-12-22] MEDS: METOPROLOL SUCC 25MG EXT REL TAB PO SCH (09:50)
[2023-12-22] MEDS: MAGNESIUM SULFATE / D5W 1 GM/100 ML BAG IV ONE (11:24)
--- NOTE | 2023-12-22 15:53 | Hospitalist Progress Note ---
Date of Service December 22, 2023 Assessment & Plan (1) Chest pain: Plan: 78-year-old male with past medical history significant for type 2 diabetes, CKD stage III, Hyperlipidemia, chronic systolic CHF, chronic diastolic CHF, aortic valve sclerosis, vitamin D deficiency, vitamin B12 deficiency, GERD, BPH, fibromyalgia, restless leg syndrome, bilateral hearing loss, history of NH who lives at home with his family and ambulates without support comes because of chest pain. Patient states he was resting when he had chest pain 5/10 severity. No radiation. Chest Pain resolved after presentation to the ED. Chest pain ACS ruled out Patient is 78-year-old male with end-stage heart failure, currently on paracentesis presented with chest pain EKG on admission shows normal sinus rhythm with sinus arrhythmia High sensitive troponin 50.8; increased up to 83.2 Echocardiogram shows EF of 20 to 25%; right ventricular moderately dilated. Patient evaluated by cardiology; no further cardiac testing Will continue on aspirin and Lipitor Recurrent Nonsustained V. tach History of NSVT Currently on metoprolol succinate 12.5 mg twice daily Continue monitor on telemetry; plan for amiodarone if patient continues to have recurrent episode of NSVT history of CAD on aspirin and statin metoprolol with holding parameters chronic systolic and diastolic CHF EF 25 to 29% history of cardiorenal syndrome status post ICD metoprolol with holding parameters holding diuretics for now close monitor for volume overload history of volume overload and ascites right-sided heart failure gets weekly paracentesis currently currently holding diuretics and potassium supplement as blood pressure soft CKD stage III/IV presented creatinine of 2.5 seems around baseline we will follow labs Chronic anemia hemoglobin 9.5 around baseline follow labs Transaminitis and elevated alkaline phosphatase follow repeat labs Type 2 diabetes mellitus Will stop glipizide at discharge as patient is having frequent episode of hyp oglycemia Will start him on alternative agent likely Jardiance BPH on Proscar DVT prophylaxis SCDs for now disposition telemetry CODE STATUS. Discussed CODE STATUS again; patient acknowledges that he has in his days heart failure and does not want chest compression or ventilator or other aggressive interventions. CODE STATUS changed to DNR/DNI. Patient recently followed up with palliative care and is set to start home hospice. Case management to assist to arrange for home hospice prior to discharge. Please note the above document was generated using voice recognition software. It may contain grammatical, syntax or spelling errors. Any formal questions or concerns about the content, text or information contained within the body of this dictation should be directly addressed to the provider for clarification Admission and Anticipated Discharge Date Admission Date: December 22, 2023 Subjective Patient seen and examined at bedside. He is lying on the bed comfortably; not in distress He denies chest pain at the moment He denies shortness of breath or abdominal pain Telemetry showed NSVT of 10 seconds Review of Systems Review of Systems: All systems reviewed & are unremarkable except as noted in Subjective Physical Exam Physical Exam: Constitutional: Alert oriented x 3; not in distress. Respiratory: normal respiratory effort, lungs clear to auscultation, no wheeze, rales, rhonchi. Normal insp/exp effort, no accessory muscle use Cardiovascular: RRR, no murmur, no edema Vessels: no JVD or carotid bruit Chest: normal inspection of chest Abdomen: Slightly distended. Nontender. Musculoskeletal: no cyanosis or clubbing, extremities motor strength 5/5 Skin: no rashes, warm and dry normal turgor Neurologic: PERRL, EOMI, accommodation nl, no face palsy, no dysarthria CN's II- XI intact bilaterally and moves all extremities Psychiatric: A+Ox3, euthymic affect Results & Data Results & Data Vital Signs (Past 12 Hours) Vital Signs Pulse Pulse Resp BP BP Pulse Ox Pulse Ox 12/22/23 14:56 88 19 93/63 L 93 12/22/23 13:45 89 20 84/50 L 98 12/22/23 13:15 87 19 88/49 L 100 12/22/23 13:12 94 H 19 12/22/23 13:03 85 21 12/22/23 12:45 92 H 21 12/22/23 12:33 89 20 98 12/22/23 12:24 86 14 100 12/22/23 12:18 90 12 98 12/22/23 12:00 89 22 98 12/22/23 12:00 84/46 L 12/22/23 11:57 89 18 97 12/22/23 11:30 88 18 12/22/23 11:30 95/59 L 12/22/23 11:30 95/59 L 12/22/23 11:18 83 17 100 12/22/23 11:03 89 19 99 12/22/23 10:54 90 19 100 12/22/23 10:45 91 H 19 99 12/22/23 10:12 93 H 16 100 12/22/23 10:03 89 15 99 12/22/23 09:54 95 H 13 12/22/23 09:42 92 H 18 93 12/22/23 09:38 100 12/22/23 09:33 91 H 22 100 12/22/23 09:06 92 H 23 12/22/23 08:42 89 20 100 12/22/23 08:30 91 H 17 100 12/22/23 08:30 85/50 L 12/22/23 08:27 96 H 18 99 12/22/23 08:20 100 12/22/23 08:06 88 18 12/22/23 07:57 90 16 12/22/23 07:42 92 H 19 12/22/23 07:36 93 H 17 12/22/23 07:12 94 H 17 12/22/23 07:10 90 21 81/45 L 12/22/23 07:00 75/43 L 12/22/23 07:00 94 H 17 12/22/23 07:00 91 H 12/22/23 06:57 89 18 12/22/23 06:45 86 20 100 12/22/23 06:39 92 H 22 99 12/22/23 06:24 94 H 20 96 12/22/23 06:15 90 90/59 L 12/22/23 06:12 100 H 14 100 12/22/23 06:06 93 H 12/22/23 05:57 91 H 21 100 12/22/23 05:42 89 17 99 12/22/23 05:30 94 H 24 100 12/22/23 05:24 92 H 12 100 12/22/23 05:00 94 H 21 100 12/22/23 04:45 91 H 18 12/22/23 04:31 91 H 80/55 L 12/22/23 04:30 92/66 L 12/22/23 04:24 107 H 98 12/22/23 04:07 84/61 L 12/22/23 04:06 92 H 19 100 12/22/23 04:01 65/44 L 12/22/23 03:54 87 13 12/22/23 03:51 88 20 99 12/22/23 03:45 87 17 97 12/22/23 03:45 85/61 L O2 Del Method O2 Del Method 12/22/23 14:56 Room Air 12/22/23 13:45 Room Air 12/22/23 13:15 Room Air 12/22/23 13:12 12/22/23 13:03 12/22/23 12:45 12/22/23 12:33 12/22/23 12:24 12/22/23 12:18 12/22/23 12:00 12/22/23 12:00 12/22/23 11:57 12/22/23 11:30 12/22/23 11:30 12/22/23 11:30 12/22/23 11:18 12/22/23 11:03 12/22/23 10:54 12/22/23 10:45 12/22/23 10:12 12/22/23 10:03 12/22/23 09:54 12/22/23 09:42 12/22/23 09:38 Room Air 12/22/23 09:33 12/22/23 09:06 12/22/23 08:42 12/22/23 08:30 12/22/23 08:30 12/22/23 08:27 12/22/23 08:20 Room Air 12/22/23 08:06 12/22/23 07:57 12/22/23 07:42 12/22/23 07:36 12/22/23 07:12 12/22/23 07:10 12/22/23 07:00 12/22/23 07:00 12/22/23 07:00 12/22/23 06:57 12/22/23 06:45 12/22/23 06:39 12/22/23 06:24 12/22/23 06:15 12/22/23 06:12 12/22/23 06:06 12/22/23 05:57 12/22/23 05:42 12/22/23 05:30 12/22/23 05:24 12/22/23 05:00 12/22/23 04:45 12/22/23 04:31 12/22/23 04:30 12/22/23 04:24 12/22/23 04:07 12/22/23 04:06 12/22/23 04:01 12/22/23 03:54 12/22/23 03:51 12/22/23 03:45 12/22/23 03:45 (1) Chest pain Chest pain type: unspecified Qualified Code(s): R07.9 - Chest pain, unspecified
[2023-12-22] MEDS ORDERED: Nursing to Pharmacy Communication SCH (20:00)
[2023-12-22] MEDS: ACETAMINOPHEN 325 MG TAB PO PRN (20:21)
[2023-12-22] MEDS: HEPARIN SOD 5,000 UNIT/0.5 ML VIAL SQ SCH (20:22)
[2023-12-23 07:07] LABS: BUN Creatinine Ratio 24.2 (10-20); Calcium 8.8 mg/dl (8.6-10.3); Creatinine Clr Calc Pharmacy 22.9 ml/min; Est GFR (African American) 26.9 ml/min; Est GFR (Non-African American) 23.2 ml/min; Potassium 4.1 mmol/L (3.5-5.1)
[2023-12-23] MEDS ORDERED: PROMETHAZINE HCL 6.25 MG in SODIUM CHLORIDE 0.9% 50 ML IV PRN (07:39)
[2023-12-23] MEDS: PANTOprazole 40 MG in SYRINGE 0 ML IV STA (08:03)
--- NOTE | 2023-12-23 08:23 | Cardiology Progress Note ---
Date of Service December 23, 2023 Assessment & Plan (1) Ascites: (2) CKD (chronic kidney disease) stage 4, GFR 15-29 ml/min: (3) NSVT (nonsustained ventricular tachycardia): (4) Chronic heart failure with reduced ejection fraction and diastolic dysfunction: (5) Chest pain: Plan Impression: Medically complex 78-year-old male. PMH as stated below. 1. Chest pain 2. Chronic systolic and diastolic CHF 3. ICM -EF 25-30% -s/p dual chamber ICD (2019) 4. NSVT 5. Recurrent ascites -s/p paracentesis with 5L drained 12/17/2023 6. HTN 7. HLD 8. CKD stage 4 9. T2 DM Plan: Chest pain: -Patient remains chest pain free -EKG without acute ischemic changes -Troponin x3 slightly elevated, but flat -Echocardiogram revealing severely reduced LV systolic function of 20 to 25%, known. No new wall motion abnormalities. RV moderately dilated with reduced systolic function. Mild AI. Moderate MR, mild to moderate TR. Moderate pulmonary hypertension. Nonsustained VT: -Maintain the potassium goal of 4.0 and magnesium goal of 2.0. Replace as needed. -Consider amiodarone drip with significant recurrence -Unable to increase metoprolol given borderline hypotension. CHF/ascites/malnutrition/failure to thrive: -Patient with frequent hospital admissions recently for decompensated HF and ascites. -Appears fairly euvolemic on examination today -Patient with hospice appointment scheduled as outpatient. Patient would benefit from hospice eval inpatient given advanced CHF, recurrent ascites and comorbidities. Ascites/malnutrition: -s/p paracentesis 12/17/2023 with -5L drained; will defer to primary team for management. -Weight is down 20kg since August Case discussed with Dr. Rene. Further recommendations pending assessment. I spent a total of 30 minutes on the date of service in preparation, delivery, and documentation of the care provided to the patient excluding any time spent in the performance of separately billed services. OTILIO Schmitz Department of Cardiology, [facility] This chart was completed in part utilizing Speech Voice Recognition Software. Grammatical errors, random word insertions, pronoun errors, and incomplete sentences are an occasional consequence of this system due to software limitations, ambient noise, and hardware issues. Any formal questions or concerns about the content, text, or information contained within the body of this dictation should be directly addressed to the provider for clarification. Admission and Anticipated Discharge Date Admission Date: December 22, 2023 Supervising Physician Co-Signing Physician Notes Attending attestation: Case reviewed with the advanced practitioner. I have personally performed a history and physical examination on the patient. I have reviewed the advanced practitioner's documentation on the date of service referenced in note, and I agree with, and take responsibility for the plan of care. Patient without acute complaint. Brief runs of nonsustained VT noted on telemetry. Dual-chamber permanent pacemaker with normal generator longevity and lead function. Impression/ Plan: Use of diuretics limited by relative hypotension. Patient with likely end-stage cardiomyopathy. He expresses his wish for DNR/DNI status and to be discharged tomorrow with palliative care approach. I spent a total of 20 minutes coordinating, documenting, and providing care for this patient excluding time spent in the performance of separately billed services or time spent by another provider. DO Rick Delgado 78-year-old male with remote history of coronary disease and ischemic cardiomyopathy with an LVEF of 25 to 30% (status post dual-chamber ICD, 2019) presented to [facility] on 12/22/2023 due to chest pain. EKG showed normal sinus rhythm with left ventricular hypertrophy and secondary repolarization abnormalities but no acute ischemic changes noted. High- sensitivity troponin elevated, but flat. Echocardiogram showed a severely reduced LVEF of 20 to 25%. RV moderately dilated with reduced systolic function. Mild AI, moderate MR, mild to moderate TR. Moderate pulmonary hypertension. On telemetry patient had a 24 beat run of VT, asymptomatic. Magnesium was supplemented. Volume status was compensated. Known history of ascites undergoing paracentesis, most recently 12/17/2023 draining 5 L of fluid. 12/23/2023: Telemetry: Sinus rhythm with a first-degree AV block, heart rate in the 80s. 7 beat run of nonsustained VT at 1:49 AM. Upon entrance into the room patient resting on the edge of the bed. No acute concerns. Eager for discharge. Denies exertional chest pain or shortness of breath. No palpitations. Denies lightheadedness or dizziness. No syncope. Volume status appears well compensated. No orthopnea, PND, or increased lower extremity edema. No fever, chills, cough, hematochezia, melena, or hemoptysis. Review of Systems Review of Systems: All systems reviewed & are unremarkable except as noted in HPI & below Physical Exam Constitutional: WD/WN, vitals as above + thin and + malnourished Eyes: PERRL, conjunctivae normal, anicteric sclerae Respiratory: normal respiratory effort, lungs clear to auscultation Cardiovascular: RRR, no murmur, no edema Heart Sounds: normal S1 and normal S2 Vessels: no JVD Extremities: no edema Gastrointestinal (Abdomen): normal bowel sounds, soft, nontender, no hepatosplenomegaly Musculoskeletal: no cyanosis or clubbing, extremities motor strength 5/5 Skin: no rashes, warm and dry Psychiatric: A+Ox3, euthymic affect Results & Data Vital Signs (Past 12 Hours) Vital Signs Temp Pulse Pulse Resp BP BP Pulse Ox 12/23/23 08:00 12/23/23 07:01 36.7 C 85 18 84/56 L 100 12/23/23 07:00 82 12/23/23 03:21 36.7 C 91 H 18 78/54 L 99 12/22/23 23:32 36.6 C 94 H 18 87/58 L 97 O2 Del Method O2 Del Method 12/23/23 08:00 Room Air 12/23/23 07:01 Room Air 12/23/23 07:00 12/23/23 03:21 Room Air 12/22/23 23:32 Room Air Laboratory Results Cardiac Enzymes 12/22/23 Range/Units 10:09 Troponin I High Sens 83.2 H* D (0-20) pg/ml Comprehensive Metabolic Panel 12/23/23 Range/Units 06:10 Sodium 135 L (136-145) mmol/L Potassium 4.1 (3.5-5.1) mmol/L Chloride 103 (98-107) mmol/L Carbon Dioxide 23 (21-32) mmol/L BUN 62 H (6-23) mg/dl Creatinine 2.56 H (0.6-1.4) mg/dl Glucose 72 (70-99(Fasting)) mg/dl Calcium 8.8 (8.6-10.3) mg/dl Intake and Output 12/22/23 12/23/23 12/23/23 22:59 06:59 14:59 Output Total 126 / 626 Balance -126 / -286 Output: Urine 125 / 625 # Bowel Movements Other: # Unmeasured Voids 1 Weight 67 kg 67 kg Weight Measurement Method Built in Bedscale Built in Bedscale (1) Ascites Ascites type: other type Qualified Code(s): R18.8 - Other ascites (5) Chest pain Chest pain type: unspecified Qualified Code(s): R07.9 - Chest pain, unspecified
--- NOTE | 2023-12-23 11:39 | Electrocardiogram Report ---
Test Reason : Blood Pressure : / mmHG Vent. Rate : 082 BPM Atrial Rate : 082 BPM P-R Int : 164 ms QRS Dur : 126 ms QT Int : 430 ms P-R-T Axes : 004 -20 144 degrees QTc Int : 502 ms Sinus rhythm with occasional Premature ventricular complexes Left ventricular hypertrophy with QRS widening and repolarization abnormality Abnormal ECG When compared with ECG of 21-DEC-2023 22:38, Premature ventricular complexes are now Present Confirmed by Bentley Ortiz ([id number]) on 12/23/2023 11:39:06 AM Referred By: REFERRED SELF Confirmed By:Bentley Ortiz
--- NOTE | 2023-12-23 13:25 | Hospitalist Progress Note ---
Date of Service December 23, 2023 Assessment & Plan (1) Chest pain: Plan: 78-year-old male with past medical history significant for type 2 diabetes, CKD stage III, Hyperlipidemia, chronic systolic CHF, chronic diastolic CHF, aortic valve sclerosis, vitamin D deficiency, vitamin B12 deficiency, GERD, BPH, fibromyalgia, restless leg syndrome, bilateral hearing loss, history of [place] who lives at home with his family and ambulates without support comes because of chest pain. Patient states he was resting when he had chest pain 5/10 severity. No radiation. Chest Pain resolved after presentation to the ED. Chest pain ACS ruled out Patient is 78-year-old male with end-stage heart failure, currently on paracentesis weekly presented with chest pain EKG on admission shows normal sinus rhythm with sinus arrhythmia High sensitive troponin 50.8; increased up to 83.2 Echocardiogram shows EF of 20 to 25%; right ventricular moderately dilated. Patient evaluated by cardiology; no further cardiac testing Will continue on aspirin and Lipitor Plan to do paracentesis tomorrow a.m. as scheduled Recurrent Nonsustained V. tach History of NSVT Currently on metoprolol succinate 12.5 mg twice daily Continue monitor on telemetry; plan for amiodarone if patient continues to have recurrent episode of NSVT history of CAD on aspirin and statin metoprolol with holding parameters chronic systolic and diastolic CHF EF 25 to 29% history of cardiorenal syndrome status post ICD metoprolol with holding parameters holding diuretics for now close monitor for volume overload history of volume overload and ascites right-sided heart failure gets weekly paracentesis currently currently holding diuretics and potassium supplement as blood pressure soft CKD stage III/IV presented creatinine of 2.5 seems around baseline we will follow labs Chronic anemia hemoglobin 9.5 around baseline follow labs Transaminitis and elevated alkaline phosphatase follow repeat labs Type 2 diabetes mellitus Will stop glipizide at discharge as patient is having frequent episode of hypoglycemia Will start him on alternative agent likely Jardiance BPH on Proscar DVT prophylaxis SCDs for now disposition Admitted for chest pain; plan to undergo paracentesis tomorrow CODE STATUS. Discussed CODE STATUS again; patient acknowledges that he has in his days heart failure and does not want chest compression or ventilator or other aggressive interventions. CODE STATUS changed to DNR/DNI. Patient recently followed up with palliative care and is set to start home hospice. Plan discussed with his son Wily over the phone. He is in agreement. Time spent evaluating patient, direct bedside care, chart review, placing orders, interpretation of diagnostic studies, discussion with consultants, patient, and family members, as well as other required patient management activities is 50 minutes Please note the above document was generated using voice recognition software. It may contain grammatical, syntax or spelling errors. Any formal questions or concerns about the content, text or information contained within the body of this dictation should be directly addressed to the provider for clarification Admission and Anticipated Discharge Date Admission Date: December 22, 2023 Subjective Patient had some retching in the morning; improved with antiemetics Does not complain of chest pain or shortness of breath No significant overnight events Review of Systems Review of Systems: All systems reviewed & are unremarkable except as noted in Subjective Physical Exam Physical Exam: Constitutional: Alert oriented x 3; not in distress. Respiratory: normal respiratory effort, lungs clear to auscultation, no wheeze, rales, rhonchi. Normal insp/exp effort, no accessory muscle use Cardiovascular: RRR, no murmur, no edema Vessels: no JVD or carotid bruit Chest: normal inspection of chest Abdomen: Slightly distended. Nontender. Musculoskeletal: no cyanosis or clubbing, extremities motor strength 5/5 Skin: no rashes, warm and dry normal turgor Neurologic: PERRL, EOMI, accommodation nl, no face palsy, no dysarthria CN's II- XI intact bilaterally and moves all extremities Psychiatric: A+Ox3, euthymic affect Results & Data Results & Data Vital Signs (Past 12 Hours) Vital Signs Temp Pulse Pulse Resp BP BP Pulse Ox 12/23/23 10:48 36.3 C L 86 16 95/64 L 100 12/23/23 09:13 12/23/23 08:00 12/23/23 07:01 36.7 C 85 18 84/56 L 100 12/23/23 07:00 82 12/23/23 03:21 36.7 C 91 H 18 78/54 L 99 O2 Del Method O2 Del Method 12/23/23 10:48 Room Air 12/23/23 09:13 Room Air 12/23/23 08:00 Room Air 12/23/23 07:01 Room Air 12/23/23 07:00 12/23/23 03:21 Room Air (1) Chest pain Chest pain type: unspecified Qualified Code(s): R07.9 - Chest pain, unspecified
[2023-12-24 05:55] LABS: Calcium 8.7 mg/dl (8.6-10.3); Creatinine Clr Calc Pharmacy 21.4 ml/min; Est GFR (African American) 24.8 ml/min; Est GFR (Non-African American) 21.4 ml/min; Potassium 4.3 mmol/L (3.5-5.1)
--- NOTE | 2023-12-24 07:22 | Cardiology Progress Note ---
Date of Service December 24, 2023 Assessment & Plan (1) Ascites: (2) CKD (chronic kidney disease) stage 4, GFR 15-29 ml/min: (3) NSVT (nonsustained ventricular tachycardia): (4) Chronic heart failure with reduced ejection fraction and diastolic dysfunction: (5) Chest pain: Plan Impression: Medically complex 78-year-old male. PMH as stated below. 1. Chest pain 2. Chronic systolic and diastolic CHF 3. ICM -EF 25-30% -s/p dual chamber ICD (2019) 4. NSVT 5. Recurrent ascites -s/p paracentesis with 5L drained 12/17/2023 6. HTN 7. HLD 8. CKD stage 4 9. T2 DM Plan: Chest pain: -Patient remains chest pain free -EKG without acute ischemic changes -Troponin x3 slightly elevated, but flat -Echocardiogram revealing severely reduced LV systolic function of 20 to 25%, known. No new wall motion abnormalities. RV moderately dilated with reduced systolic function. Mild AI. Moderate MR, mild to moderate TR. Moderate pulmonary hypertension. Nonsustained VT: -Maintain the potassium goal of 4.0 and magnesium goal of 2.0. Replace as needed. -Consider amiodarone drip with significant recurrence -Unable to increase metoprolol given borderline hypotension. CHF/ascites/malnutrition/failure to thrive: -Patient with frequent hospital admissions recently for decompensated HF and ascites. -Appears fairly euvolemic on examination today -He expresses his wish for DNR/DNI status and to be discharged tomorrow with palliative care approach. Patient with hospice appointment scheduled as outpatient. Patient would benefit from hospice eval inpatient given advanced CHF, recurrent ascites and comorbidities. Ascites/malnutrition: -s/p paracentesis 12/17/2023 with -5L drained; will defer to primary team for management. -Weight is down 20kg since August Case discussed with Dr. Rene. No further recommendations from a cardiology standpoint. Will sign off. I spent a total of 25 minutes on the date of service in preparation, delivery, and documentation of the care provided to the patient excluding any time spent in the performance of separately billed services. OTILIO Schmitz Department of Cardiology, [facility] This chart was completed in part utilizing Speech Voice Recognition Software. Grammatical errors, random word insertions, pronoun errors, and incomplete sentences are an occasional consequence of this system due to software limitations, ambient noise, and hardware issues. Any formal questions or concerns about the content, text, or information contained within the body of this dictation should be directly addressed to the provider for clarification. Admission and Anticipated Discharge Date Admission Date: December 22, 2023 Supervising Physician Co-Signing Physician Notes Case reviewed with A OTILIO Veras. Agree with findings and plan as outlined. Patient discharged prior to il having the opportunity to examine him in person today. Discharged to home with plans for palliative care approach. Subjective 78-year-old male with remote history of coronary disease and ischemic cardiomyopathy with an LVEF of 25 to 30% (status post dual-chamber ICD, 2019) presented to [facility] on 12/22/2023 due to chest pain. EKG showed normal sinus rhythm with left ventricular hypertrophy and secondary repolarization abnormalities but no acute ischemic changes noted. High- sensitivity troponin elevated, but flat. Echocardiogram showed a severely reduced LVEF of 20 to 25%. RV moderately dilated with reduced systolic function. Mild AI, moderate MR, mild to moderate TR. Moderate pulmonary hypertension. On telemetry patient had a 24 beat run of VT, asymptomatic. Magnesium was supplemented. Volume status was compensated. Known history of ascites undergoing paracentesis, most recently 12/17/2023 draining 5 L of fluid. 12/23/2023: Telemetry: Sinus rhythm with a first-degree AV block, heart rate in the 80s. 7 beat run of nonsustained VT at 1:49 AM. Titration of beta-demarcus limited due to underlying hypotension. He expresses his wish for DNR/DNI status and to be discharged tomorrow with palliative care approach. 12/24/2023: Telemetry: Sinus with rhythm with PVCs, 90 Upon entrance into the room patient sitting in the chair eating breakfast. No acute concerns. Eager for discharge. Denies exertional chest pain or shortness of breath. No palpitations. Denies lightheadedness or dizziness. No syncope. Volume status appears well compensated. No orthopnea, PND, or increased lower extremity edema. No fever, chills, cough, hematochezia, melena, or hemoptysis. Review of Systems Review of Systems: All systems reviewed & are unremarkable except as noted in HPI & below Physical Exam Constitutional: WD/WN, vitals as above + thin and + malnourished Eyes: PERRL, conjunctivae normal, anicteric sclerae Respiratory: normal respiratory effort, lungs clear to auscultation Cardiovascular: RRR, no murmur, no edema Heart Sounds: normal S1 and normal S2 Vessels: no JVD Extremities: no edema Gastrointestinal (Abdomen): normal bowel sounds, soft, nontender, no hepatosplenomegaly Musculoskeletal: no cyanosis or clubbing, extremities motor strength 5/5 Skin: no rashes, warm and dry Psychiatric: A+Ox3, euthymic affect Results & Data Vital Signs (Past 12 Hours) Vital Signs Temp Pulse Resp BP Pulse Ox O2 Del Method 12/24/23 02:01 36.5 C 95 H 18 83/57 L 100 Room Air 12/23/23 22:18 36.5 C 98 H 18 102/60 99 Room Air Laboratory Results Comprehensive Metabolic Panel 12/24/23 Range/Units 05:23 Sodium 133 L (136-145) mmol/L Potassium 4.3 (3.5-5.1) mmol/L Chloride 103 (98-107) mmol/L Carbon Dioxide 22 (21-32) mmol/L BUN 63 H (6-23) mg/dl Creatinine 2.74 H (0.6-1.4) mg/dl Glucose 87 (70-99(Fasting)) mg/dl Calcium 8.7 (8.6-10.3) mg/dl Intake and Output 12/23/23 12/24/23 12/24/23 22:59 06:59 14:59 Intake Total 100 / 100 Output Total 100 / 300 Balance -100 / -60 100 / 100 Intake: IV 100 / 100 Albumin 25% 25 gm In 100 ml @ 100 / 100 50 mls/hr IV Q8H [facility] Rx#: [id number] Output: Urine 100 / 300 Other: # Unmeasured Voids 2 2 Weight 68.3 kg Weight Measurement Method Built in [facility] (1) Ascites Ascites type: other type Qualified Code(s): R18.8 - Other ascites (5) Chest pain Chest pain type: unspecified Qualified Code(s): R07.9 - Chest pain, unspecified
[2023-12-24] MEDS: ALBUMIN 25% 25 GM/100 ML VIAL IV SCH (08:08)
--- NOTE | 2023-12-24 10:37 | Electrocardiogram Report ---
Test Reason : Blood Pressure : / mmHG Vent. Rate : 085 BPM Atrial Rate : 085 BPM P-R Int : 210 ms QRS Dur : 126 ms QT Int : 422 ms P-R-T Axes : 042 -13 134 degrees QTc Int : 502 ms Sinus rhythm with 1st degree A-V block Left ventricular hypertrophy with QRS widening and repolarization abnormality Abnormal ECG When compared with ECG of 23-DEC-2023 06:02, Premature ventricular complexes are no longer Present PA interval has increased Confirmed by Bentley Ortiz ([id number]) on 12/24/2023 10:37:19 AM Referred By: REFERRED SELF Confirmed By:Bentley Ortiz
--- NOTE | 2023-12-24 14:10 | Ultrasound Report ---
ULTRASOUND-GUIDED PARACENTESIS CLINICAL HISTORY: Ascites PROCEDURE: Procedure and risks were explained. Informed consent was obtained. A final timeout was com pleted. The abdomen was prepped and draped in sterile fashion. 1% lidocaine was utilized for skin ane sthesia. Utilizing ultrasound guidance, a 5 [place] safety centesis catheter was advanced into the left lower q uadrant pocket of ascites. Ultrasound images were obtained. A total of 3L of prieto-colored ascites fl uid was removed and discarded. The catheter was removed and Band-Aid applied. The patient tolerated t he procedure well. Vital signs will be monitored postprocedure. IMPRESSION: Ultrasound-guided paracentesis as above. Performed, dictated, and signed by Albaro Vega PA-C; to be co-signed by Dr. Bryce Dick. Electronically signed by: Bryce Dick M.D. 12/24/2023 3:26 PM
--- NOTE | 2023-12-24 15:08 | Discharge Summary ---
Date of Service December 24, 2023 Admission HPI Per Admitting Provider 78-year-old male with past medical history significant for type 2 diabetes, CKD stage III, Hyperlipidemia, chronic systolic CHF, chronic diastolic CHF, aortic valve sclerosis, vitamin D deficiency, vitamin B12 deficiency, GERD, BPH, fibromyalgia, restless leg syndrome, bilateral hearing loss, history of GA who lives at home with his family and ambulates without support comes because of chest pain. Patient states he was resting when he had chest pain 5/10 severity. No radiation. Currently chest pain resolved. Denies shortness of breath. No nausea /vomiting. No headache. No blurred vision. No cough. No fever. No runny nose. Somewhat hard of hearing. Son in the room. Appetite is okay. currently no abdominal pain. Patient states every week he gets paracentesis on Saturday. Normal bowel and bladder movements. No swelling the legs. Blood pressure soft. Patient had multiple admissions in the recent past for volume overload, ascites and JAMIR, CHF and cardiorenal syndrome. Past medical history. As mentioned above Past surgical history. Vasectomy. Bilateral knee arthroplasty. Colonoscopy. Knee arthroscopy. Paracentesis. Social history. No smoking. No alcohol use. No drug use. family history. Mother had arthritis. Stroke. Sister has diabetes. Admission Exam Per Admitting Provider General- Not in acute distress Head- atraumatic Eyes- PERRL. ENT- oropharynx clear Neck- supple, no JVD. Lungs- clear to auscultation no wheezing or crackles. Heart- regular rate and rhythm; no murmur, no gallop. Abdomen- normal bowel sounds, soft, nontender, mild abdominal distension present. Extremities- no pretibial edema, no erythema seen. Neuro- alert, oriented PERRL, no facial palsy; no dysarthria; obeys simple commands, moves extremities. Principal Diagnosis Chest pain, ACS rule out Nonsustained VT Discharge Exam Constitutional: Alert oriented x 3; not in distress. Respiratory: normal respiratory effort, lungs clear to auscultation, no wheeze, rales, rhonchi. Normal insp/exp effort, no accessory muscle use Cardiovascular: RRR, no murmur, no edema Vessels: no JVD or carotid bruit Chest: normal inspection of chest Abdomen: Slightly distended. Nontender. Musculoskeletal: no cyanosis or clubbing, extremities motor strength 5/5 Skin: no rashes, warm and dry normal turgor Neurologic: PERRL, EOMI, accommodation nl, no face palsy, no dysarthria CN's II- XI intact bilaterally and moves all extremities Psychiatric: A+Ox3, euthymic affect Discharge Data Allergies Allergy/AdvReac Type Severity Reaction Status Date / Time cefadroxil Allergy Unknown RASH Verified 12/14/23 12:47 Consultations 12/21/23 23:33 ED Decision to Admit Stat 12/22/23 08:00 Consult Cardiology Routine Ordered Studies 12/24/23 07:00 IR paracentesis abd w/img US Routine Hospital Course (1) Chest pain: 78-year-old male with past medical history significant for type 2 diabetes, CKD stage III, Hyperlipidemia, chronic systolic CHF, chronic diastolic CHF, aortic valve sclerosis, vitamin D deficiency, vitamin B12 deficiency, GERD, BPH, fibromyalgia, restless leg syndrome, bilateral hearing loss, history of GA who lives at home with his family and ambulates without support comes because of chest pain. Chest Pain resolved after presentation to the ED. Echocardiogram during the hospitalization showed EF of 20 to 25% with right ventricular moderate dilated. Patient was evaluated by cardiology; no further cardiac testing was recommended. Patient had some episode of recurrent nonsustained V. tach for which metoprolol was continued. Patient underwent paracentesis on the day of the discharge. Patient was alert oriented x 3 at the time of discharge. Plan was to start home hospice after discharge. Discussion with done with his son was in agreement given patient's progressive end-stage heart failure. Diuretics doses were adjusted as patient was getting weekly paracentesis. Also, Jardiance was started; patient was previously on sulfonylurea which had caused recurrent hypoglycemia. Please note the above document was generated using voice recognition software. It may contain grammatical, syntax or spelling errors. Any formal questions or concerns about the content, text or information contained within the body of this dictation should be directly addressed to the provider for clarification Total Time Total Time Spent Total Time Spent (In Minutes): 45 Total Time Includes: Examination of the Patient, Discharge Planning, Medication Reconciliation, Communication With Other Providers and Other Discharge Plan Discharge Items Patient Disposition: Hospice - Home Reason For Visit: CHEST PAIN,HYPOTENSION Discharge Diagnosis: Chest pain ACS ruled out Activity: Resume your previous activity Non-emergency contact: Primary Care Provider Call non-emergency contact if: you have any medication questions and your symptoms worsen Follow-up/Referrals: Haley Boggs DO [Primary Care Provider] - (Date & Time 01/01/2024 11:10 AM Provider Haley Boggs DO Department Family Medicine [facility] ) Leonora Bryant CRNP [Nurse Practitioner] - (Date & Time 12/26/2023 3:00 PM Provider [facility] Diet: Regular Addtl Attending Provider Instructions: You were admitted to the hospital due to chest pain and heart failure. Your evaluated by cardiology during the hospitalization. Following medication changes are made; 1) Stop taking glipizide as it is causing your blood glucose to be too low. You are prescribed Jardiance 10 mg to be taken once a day. 2) Stop taking spironolactone. 3) Decrease torsemide to 40 mg once a day. Pending Studies at Discharge: No Stand-Alone Forms: My [facility], Smoking Cessation Medications and DC Order Prescriptions: New Jardiance 10 mg tablet 10 mg PO DAILY Qty: 30 0RF Continued cyanocobalamin (vitamin B-12) [Vitamin B-12] 1,000 mcg Tablet 1,000 mcg PO QAM aspirin 81 mg Tablet,Delayed Release (Dr/Ec) 81 mg PO QAM diphenhydramine HCl [Benadryl Allergy] 25 mg Tablet 25 mg PO QAM finasteride 5 mg tablet 5 mg PO QAM rosuvastatin 40 mg tablet 40 mg PO QAM potassium chloride 10 mEq capsule, extended release 10 meq PO QAM metoprolol succinate 25 mg tablet extended release 24 hr 12.5 mg PO AMPM magnesium 250 mg Tablet 0 mg PO DAILY Changed torsemide 20 mg tablet 40 mg PO DAILY Qty: 0 0RF Discontinued glipizide 10 mg tablet extended release 24hr 10 mg PO QAM Rx Instructions: PRIOR TO MEAL spironolactone 25 mg tablet 12.5 mg PO QAM Discharge Orders: Discharge Order (Routine); Ordered 12/24/23 Ordered By: Artem Monteiro Admission Data Admit Date/Time: 12/22/23 04:09 Attending Provider: Artem Monteiro Admit Provider: Vipul Flower Primary Care Provider: Haley Boggs Other Providers: Vipul Flower; Yamileth Edwards; Brian Rene; Ian Martin; Ismael Chaidez; Taz Choi; Lavelle Chatterjee; Alondra Ocampo; Yolanda York; Ligia Mccracken; Yamileth Veras; nAdrés Plascencia; José Luis Anglin; Maranda Negrete; Eileen Caldwell; Letty Mahan; Matt Varghese; Braydon Donovan; Sarah Dempsey; [facility] [facility] [place] Other Interventions: Discharge Summary Assessment (RN) Last Done: 12/24/23 12:14
== END 2023-12-24 13:31 | disposition hospice, home (50) | DRG 313 ==
LOC: ED 22:26 → SUATTDRO 12-22 04:09 → EDINP 12-22 04:09 → 4W 12-22 07:15